=== PATIENT | female | born 1960 | race Caucasian/White ===

== ENCOUNTER → 2018-03-06 10:58 | Outpatient (CLI) | payer OTHER, SELFPAY ==
[2018-03-06 12:39] LABS: Alanine Aminotransferase 52 IU/L (9-52); Albumin 3.8 g/dL (3.5-5.0); Albumin Globulin Ratio 1.1 (1.0-2.8); Alkaline Phosphatase 91 U/L (38-126); Aspartate Aminotransferase 27 IU/L (14-36); Bilirubin Total 0.6 mg/dL (0.2-1.3); Blood Urea Nitrogen 21 mg/dL (7-17); Calcium 9.9 mg/dL (8.4-10.2); Carbon Dioxide 27 mmol/L (22-32); Chloride 102 mmol/L (98-107); Estimated Glomerular Filt Rate > 60.0 mL/min (>60); Globulin 3.5 g/dL (1.7-4.1); Glucose 280 mg/dL (70-100); HEMOLYSIS < 15 (0-50); Potassium 4.4 mmol/L (3.4-5.1); Sodium 139 mmol/L (137-145); Total Protein 7.3 g/dL (6.3-8.2)
[2018-03-06 13:14] LABS: Hemoglobin A1C% w Est Avg Glu 11.7 % (4.0-6.0)
[2018-03-06 15:08] LABS: Creatinine Urine Random 70.1 mg/dL
[2018-03-06 15:11] LABS: Microalbumin Urine Random 6.1 mg/dL (0-1.6)
== END ==
PROVIDERS: Family Provider Internal Medicine; PCP Internal Medicine; Visit Provider Internal Medicine
DX: E11.40 Type 2 diabetes mellitus with diabetic neuropathy, unspecified (principal)
CPT/HCPCS: 36415; 80053; 82043; 82570; 83036

== ENCOUNTER → 2018-06-09 09:52 | Outpatient (CLI) | payer OTHER, SELFPAY ==
[2018-06-09 10:20] LABS: Hemoglobin A1C% w Est Avg Glu 11.1 % (4.0-6.0)
[2018-06-09 10:31] LABS: BUN Creatinine Ratio 31.7 (6-22); Blood Urea Nitrogen 19 mg/dL (7-17); Calcium 9.9 mg/dL (8.4-10.2); Carbon Dioxide 30 mmol/L (22-32); Chloride 104 mmol/L (98-107); Estimated Glomerular Filt Rate > 60.0 mL/min (>60); Glucose 222 mg/dL (70-100); HEMOLYSIS < 15 (0-50); Potassium 4.5 mmol/L (3.4-5.1); Sodium 143 mmol/L (137-145)
== END ==
PROVIDERS: PCP Internal Medicine; Visit Provider Internal Medicine
DX: E11.40 Type 2 diabetes mellitus with diabetic neuropathy, unspecified (principal); I10 Essential (primary) hypertension
CPT/HCPCS: 36415; 80048; 83036

== ENCOUNTER 2018-09-19 11:35 | Inpatient (IN) | payer OTHER, SELFPAY ==
[2018-09-19] VITALS (11 sets, daily range): BP systolic 99–147; BP diastolic 43–74; PULSE 109–130; RESP 16–22; TEMP 37.1–38.9; O2SAT 90–96; BMI 47.6; BMI 50.5
--- NOTE | 2018-09-19 | DI.RAD.S_ITS ---
PROCEDURE: XR FOOT LT MIN 3V INDICATIONS: rule out osteo diabetic foot ulcer TECHNIQUE: 3 views of the foot were acquired. COMPARISON: None. FINDINGS: Bones: No fractures or dislocations. Partial amputation of the second toe. No bone erosion. Degenerative joint disease of the tarsometatarsal joints. Soft tissues: No tibiotalar joint effusion. Achilles tendon appears normal. IMPRESSION: No bony erosions. Early osteomyelitis may not have radiographic findings. If clinical symptoms persist or clinical suspicion for pathology is high, a triple phase bone scan or MRI with and without contrast is suggested for further evaluation. Dictated by: Dario Moreau M.D. on 09/19/2018 at 19:22 Approved by: Dario Moreau M.D. on 09/19/2018 at 19:23
--- NOTE | 2018-09-19 11:50 | DI.RAD.S_ITS ---
PROCEDURE: XR CHEST 1V INDICATIONS: suspected sepsis TECHNIQUE: One view of the chest was acquired. COMPARISON: [facility], , CHEST 2 VIEW, 10/21/2016, 12:31. FINDINGS: Surgical changes and devices: None. Lungs and pleura: No pleural effusions or pneumothorax. Lungs are clear. Mediastinum: Mediastinal contours appear normal. Heart size is normal. Bones and chest wall: No suspicious bony lesions. Overlying soft tissues appear unremarkable. IMPRESSION: Stable chest. No acute cardiopulmonary process is evident. Dictated by: Julio Hernandez M.D. on 09/19/2018 at 11:35 Approved by: Julio Hernandez M.D. on 09/19/2018 at 11:36
--- NOTE | 2018-09-19 12:13 | ED.WOUNDLAC ---
HPI - Wound/Laceration General Chief Complaint: Wound/Laceration Stated Complaint: 'owie on foot/leg' Time Seen by Provider: 09/19/18 12:11 Source: patient and family (Son) Limitations: no limitations History of Present Illness HPI narrative: This is a 58-year-old female who comes in with complaint of a wound on her left leg. She states there is 1 on the bottom of the foot under the great toe and on the anterior bradford of the left leg. Patient states the toe she was in the shower 2 days ago and when she got out the skin just exploded. She states there was not any new drainage but it has been open since. She states there has not been any increase of redness or change to the foot there. On her anterior bradford she has an open wounds been draining clear thin fluid. She states she saw Dr. Hobson for this on asked to go see wound care but they did not felt that she needed it. Patient states that the redness has increased somewhat. Today she has a fever, she did feel like she had a fever yesterday. She has felt a little short of breath today but denies any chest pain or pressure, she has not had any nausea or vomiting no new GI or urinary symptoms. She states she does urinate frequently. She states she does not have any sensation in her feet but that she does check her feet daily. She has been to wound care for her lower extremity before for the toe but not for the anterior bradford. Related Data Home Medications Medication Instructions Recorded Confirmed insulin glargine [Lantus U-100 90 unit SQ BID #0 08/28/11 09/19/18 Insulin] lisinopril 20 mg PO BID #0 08/28/11 09/19/18 diphenhydramine HCl [Benadryl] 25 mg PO PRN PRN 09/19/18 09/19/18 empagliflozin [Jardiance] 25 mg PO DAILY 09/19/18 09/19/18 fluticasone [Flonase Allergy 1 spray INTRANASAL PRN PRN 09/19/18 09/19/18 Relief] insulin glargine U-300 conc 160 units SUBCUT BID 09/19/18 09/19/18 [Toujeo SoloStar U-300 Insulin] Previous Rx's Medication Instructions Recorded epinephrine 0.3 mg IM X1 30 Days #0 syr 10/22/16 Allergies Allergy/AdvReac Type Severity Reaction Status Date / Time ibuprofen Allergy Severe VOMITING Verified 09/19/18 12:40 Penicillins Allergy Severe RASH, Verified 09/19/18 12:40 VOMITING Review of Systems Review of Systems All systems reviewed & are unremarkable except as noted in HPI and below Constitutional Denies chills, Reports fever(s), Denies lethargy and Denies weakness Cardiovascular Denies chest pain, Denies irregular heart rhythm, Denies lightheadedness, Denies palpitations, Reports dyspnea and Denies orthopnea Respiratory Denies chest congestion, Denies cough, Reports dyspnea and Denies wheezing Gastrointestinal Gastrointestinal: Denies abdominal pain, Denies change in bowel habits, Denies diarrhea, Denies nausea and Denies vomiting Genitourinary Reports urinary frequency (Chronic per the), Denies dysuria and Denies flank pain Musculoskeletal Reports as per HPI and Reports numbness (Chronic neuropathy) Integumentary/Breasts Reports as per HPI, Reports non-healing lesions, Reports erythema, Denies skin pain and Reports wounds Neurologic Reports numbness (Chronic neuropathy) and Denies weakness Endocrine Denies palpitations Allergic/Immunologic Denies wheezing [facility] Medical History Chronic wound of extremity (Acute) Diabetes mellitus, type 2 (Acute) Edema extremities (Acute) Hypertension (Acute) Osteomyelitis (Acute) Surgical History H/O section (Acute) Hx of appendectomy (Acute) Social History household members: spouse and children Smoking Status: Never smoker alcohol intake: never Exam Narrative Exam Narrative: GENERAL: Alert and oriented x three, obese female in mild distress. HEENT: Head normocephalic, atraumatic, EOMI, pupils reactive, face symmetric, moist mucous membranes NECK: Supple, full range of motion CARDIOVASCULAR: Tachycardic but regular rate and rhythm without murmurs, rubs or gallops. RESPIRATORY: Breath sounds equal bilaterally, no wheezes rales or rhonchi. ABDOMEN: Soft, nontender. Normoactive bowel sounds all 4 quadrants. No guarding or rebound, rigidity, no mass : No CVA tenderness EXTREMITIES: Normal range of motion, no clubbing. Patient has trace edema bilaterally. Patient's left lower extremity has some healed wounds with a little bit hyperkeratosis but no signs of skin breakdown. Her right lower extremity shows several small ulcerations on the anterior brafdord with serosanguineous drainage. There is no foul odor but there is a surrounding area of erythema that is about 6 x 8 cm. The area feels warm to touch. She also has breakdown of the skin over the pad of the great toe Um and distal 1st tarsal bone. It does not appear to be in the subcutaneous, there is no drainage currently. There is some erythema extending about 2 cm beyond. Patient does not have any some tenderness to touch in the lower extremities cap refill is less than 2 sec in both lower extremities. Neuro: CN 2-12 grossly intact. Moving all extremities SKIN: Warm, dry, no petechiae, see above Initial Vital Signs Initial Vital Signs: Vital Signs Temperature 102.1 F H 09/19/18 11:38 Pulse Rate 126 H 09/19/18 11:38 Respiratory Rate 22 09/19/18 11:38 Blood Pressure 143/72 H 09/19/18 11:38 Pulse Oximetry 96 09/19/18 11:38 Course Orders Ordered: ED Orders 09/19/18 11:48 Complete Blood Count AUTO DIFF Stat Comprehensive Metabolic Panel Stat Lactate (Lactic Acid) Stat Lipase Stat Partial Thromboplastin Time Stat Procalcitonin Stat Prothrombin Time INR Stat 09/19/18 11:50 XR chest 1V Stat 09/19/18 11:55 Urine Culture Stat Urine Microscopic Stat 09/19/18 12:49 Blood Culture Stat 09/19/18 13:42 EKG-12 Lead Stat 09/19/18 14:54 Education, smoking cessation ONGOING 09/19/18 15:55 MRSA PCR Stat 09/19/18 16:02 Consult to Wound Care Routine 09/20/18 16:30 Vancomycin Trough Urgent Acetaminophen (Tylenol) 650 mg PO Q6HR PRN PRN Reason: As Needed for Fever/Mild Pain Heparin Sodium (Porcine) (Heparin) 5,000 unit SUBCUT Q8HR BUSTER Last Admin: 09/19/18 17:32 Dose: 5,000 unit Sodium Chloride (Normal Saline 0.9%) 4,136.76 mls @ 1,378.92 mls/hr 30 ml/kg infuse over 3 hr (0686.76 ml) IV CONT [facility] [place] Last Infusion: 09/19/18 15:40 Dose: 0 mls/hr Admin: 09/19/18 13:06 Dose: 1,378.92 mls/hr Sodium Chloride (Normal Saline 0.9%) 1,000 mls @ 100 mls/hr IV CONT [facility] Last Admin: 09/19/18 15:40 Dose: 100 mls/hr Vancomycin HCl/Dextrose (Vancomycin) 1,000 mg in 200 mls @ 200 mls/hr IV Q8H [facility] Insulin Aspart (Novolog) 100 unit SUBCUT TIDWM BUSTER Last Admin: 09/19/18 17:32 Dose: 100 unit Insulin Glargine (Lantus (Vial)) 160 unit SUBCUT BID [facility] Ondansetron HCl (Zofran) 4 mg IV Q8HR PRN PRN Reason: Nausea And Vomiting Discontinued Medications Sodium Chloride (Normal Saline 0.9%) 1,000 mls @ 1,000 mls/hr IV BOLUS ONE Stop: 09/19/18 12:49 Last Infusion: 09/19/18 13:20 Dose: 0 mls/hr Admin: 09/19/18 12:16 Dose: 1,000 mls/hr Vancomycin HCl 1,500 mg/ (Sodium Chloride) 500 mls @ 333.333 mls/hr IV NOW ONE Stop: 09/19/18 12:13 Last Infusion: 09/19/18 14:32 Dose: 0 mls/hr Admin: 09/19/18 12:49 Dose: 333.333 mls/hr Ketorolac Tromethamine (Toradol) 15 mg IV NOW ONE Stop: 09/19/18 12:59 Last Admin: 09/19/18 13:01 Dose: 15 mg Mupirocin (Bactroban Cream) 1 applic TOP BID [facility] Vital Signs - 8 hr 09/19/18 11:38 09/19/18 12:13 09/19/18 13:01 Temperature 102.1 F H 102.1 F H Pulse Rate 126 H 124 H Respiratory Rate 22 20 Blood Pressure 143/72 H Blood Pressure [Left Arm] 130/53 L Pulse Oximetry 96 91 09/19/18 13:05 09/19/18 13:33 09/19/18 14:16 Temperature 100.8 F H Pulse Rate 112 H 109 H Respiratory Rate 19 19 Blood Pressure Blood Pressure [Left Arm] 144/50 H 99/43 L Pulse Oximetry 96 93 09/19/18 14:55 09/19/18 16:55 Temperature 99.7 F H 99.7 F H Pulse Rate 112 H 110 H Respiratory Rate 18 18 Blood Pressure 118/55 L 144/59 H Blood Pressure [Left Arm] Pulse Oximetry 94 93 MDM - Wound/Laceration Lab Data Attestation: I reviewed the patient's lab results. Result diagrams: 09/19/18 11:48 09/19/18 11:48 Lab Results 09/19/18 09/19/18 09/19/18 Range/Units 11:48 11:48 11:48 WBC 26.1 H (4.5-11.0) X10^3/uL RBC 4.63 (4.0-5.2) X10^6/uL Hgb 11.9 L (12.0-16.0) g/dL Hct 38.1 (36-46) % MCV 82.3 (80-100) fL MCH 25.7 L (26-34) PG MCHC 31.2 (30-36) % RDW 15.8 H (11.6-14.8) % Plt Count 440 H (150-400) X10^3/uL Neut % (Auto) 88.2 H (50-75) % Lymph % (Auto) 5.1 L (25-40) % [place] % (Auto) 6.1 (3-14) % Eos % (Auto) 0.2 L (2-4) % Baso % (Auto) 0.4 (0-2) % Neut # (Auto) 49488 H (1655-8769) /uL PT 11.9 (10.1-12.7) SECONDS INR 1.0 (0.9-1.3) APTT 32 (26.4-36.2) SECONDS Sodium (137-145) mmol/L Potassium (3.4-5.1) mmol/L Chloride (98-107) mmol/L Carbon Dioxide (22-32) mmol/L BUN (7-17) mg/dL Creatinine (0.52-1.04) mg/dL Estimated GFR (>60) mL/min BUN/Creatinine Ratio (6-22) Glucose (70-100) mg/dL Lactate (0.7-2.1) mmol/L Calcium (8.4-10.2) mg/dL Total Bilirubin (0.2-1.3) mg/dL AST (14-36) IU/L ALT (9-52) IU/L Alkaline Phosphatase (38-126) U/L Total Protein (6.3-8.2) g/dL Albumin (3.5-5.0) g/dL Globulin (1.7-4.1) g/dL Albumin/Globulin Ratio (1.0-2.8) Lipase (23-300) U/L Procalcitonin 0.12 (<0.5) ng/mL Urine RBC (0-5/HPF) Urine WBC (0-5/HPF) Ur Squamous Epith Cells Urine Bacteria (None) Urine Yeast (None) Ur Culture Indicated? Micro UA Comment 09/19/18 09/19/18 09/19/18 Range/Units 11:48 11:48 11:55 WBC (4.5-11.0) X10^3/uL RBC (4.0-5.2) X10^6/uL Hgb (12.0-16.0) g/dL Hct (36-46) % MCV (80-100) fL MCH (26-34) PG MCHC (30-36) % RDW (11.6-14.8) % Plt Count (150-400) X10^3/uL Neut % (Auto) (50-75) % Lymph % (Auto) (25-40) % [place] % (Auto) (3-14) % Eos % (Auto) (2-4) % Baso % (Auto) (0-2) % Neut # (Auto) (8786-5126) /uL PT (10.1-12.7) SECONDS INR (0.9-1.3) APTT (26.4-36.2) SECONDS Sodium 142 (137-145) mmol/L Potassium 4.6 (3.4-5.1) mmol/L Chloride 103 (98-107) mmol/L Carbon Dioxide 26 (22-32) mmol/L BUN 20 H (7-17) mg/dL Creatinine 0.80 (0.52-1.04) mg/dL Estimated GFR > 60.0 (>60) mL/min BUN/Creatinine Ratio 25.0 H (6-22) Glucose 278 H (70-100) mg/dL Lactate 1.7 (0.7-2.1) mmol/L Calcium 9.8 (8.4-10.2) mg/dL Total Bilirubin 0.7 (0.2-1.3) mg/dL AST 22 (14-36) IU/L ALT 30 (9-52) IU/L Alkaline Phosphatase 116 (38-126) U/L Total Protein 8.0 (6.3-8.2) g/dL Albumin 4.1 (3.5-5.0) g/dL Globulin 3.9 (1.7-4.1) g/dL Albumin/Globulin Ratio 1.1 (1.0-2.8) Lipase 79 (23-300) U/L Procalcitonin (<0.5) ng/mL Urine RBC None seen (0-5/HPF) Urine WBC 10-30/hpf H (0-5/HPF) Ur Squamous Epith Cells 1-5 /hpf Urine Bacteria Few (2-10) H (None) Urine Yeast 5-10/hpf H (None) Ur Culture Indicated? Specimen cultured Micro UA Comment Not Reportable Imaging Data Chest x-ray: Radiologist's impression: [address] [address] XRay Report Signed Patient: Zohra Winslow MR#: [id number] : 1960 Acct:[id number] Age/Sex: 58 / F Date of Service: 09/19/18 Loc: ED Accession Number: [id number] Procedure: XR chest 1V Ordering Provider: Key Ch D.O. PROCEDURE: XR CHEST 1V INDICATIONS: suspected sepsis TECHNIQUE: One view of the chest was acquired. COMPARISON: [facility], , CHEST 2 VIEW, 10/21/2016, 12:31. FINDINGS: Surgical changes and devices: None. Lungs and pleura: No pleural effusions or pneumothorax. Lungs are clear. Mediastinum: Mediastinal contours appear normal. Heart size is normal. Bones and chest wall: No suspicious bony lesions. Overlying soft tissues appear unremarkable. IMPRESSION: Stable chest. No acute cardiopulmonary process is evident. Dictated by: Julio Hernandez M.D. on 09/19/2018 at 11:35 Approved by: Julio Hernandez M.D. on 09/19/2018 at 11:36 ECG Data Attestation: I personally reviewed and interpreted this ECG as follows: MDM Narrative Medical decision making narrative: Patient admitted for sepsis secondary to cellulitis. Patient is febrile with a white count of 26, lactate is in normal range but patient is tachycardic and clearly meet septic criteria. I suspect her main source of infection is from her foot particular her anterior bradford. The wound was cultured. Spoke with Dr. rider who accepts but does ask for podiatry spoke with Orthopedic surgery which them in ID group works with and Dr. Campbell will follow with the patient. Patient did feel little short of breath as well so chest x-ray was ordered does not show any signs of infection or pulmonary edema. Lab work such as electrolytes and renal function appears fairly normal. Patient's heart rate is slowly improving with IV fluids at 30 cc/kilos rate. Patient is hyperglycemic but no signs of DKA. Patient was started on vancomycin, she has had issues with wound infections in the past and is unaware of any past history of jaundice. Critical Care Time Critical Care Time: Yes Total Critical Care Time: 60 Attestation: The high probability of a clinically significant, sudden or life threatening deterioration of the [cardiac] system(s) required my full and direct attention, intervention and personal management. The aggregate critical care time was [60] minutes. This time is in addition to time spent performing reported procedures but includes the following: [x] Data Review and interpretation [x] Patient assessment and monitoring of vital signs [x] Documentation [x] Medication orders and management Discharge Plan Departure Patient Disposition: Admitted As Inpatient Clinical Impression: Sepsis, Cellulitis of left leg, Leg wound, left Interventions: ED Discharge Assessment Last Done: 09/19/18 18:26 Admit Date/Time: 09/19/18 14:09 Admit Provider: Anita Nicolas
[2018-09-19 12:15] LABS: RBC Urine None Seen (0-5/HPF)
[2018-09-19] MEDS: SODIUM CHLORIDE 0.9% 1,000 ML 1000 ML IV (12:16)
[2018-09-19 12:22] LABS: Lactate (Lactic Acid) 1.7 mmol/L (0.7-2.1)
[2018-09-19 12:26] LABS: Add Manual Diff / Slide Review NO; Alanine Aminotransferase 30 IU/L (9-52); Albumin 4.1 g/dL (3.5-5.0); Albumin Globulin Ratio 1.1 (1.0-2.8); Alkaline Phosphatase 116 U/L (38-126); Aspartate Aminotransferase 22 IU/L (14-36); Basophils Percent Auto 0.4 % (0-2); Bilirubin Total 0.7 mg/dL (0.2-1.3); Blood Urea Nitrogen 20 mg/dL (7-17); Calcium 9.8 mg/dL (8.4-10.2); Carbon Dioxide 26 mmol/L (22-32); Chloride 103 mmol/L (98-107); Eosinophils Percent Auto 0.2 % (2-4); Estimated Glomerular Filt Rate > 60.0 mL/min (>60); Globulin 3.9 g/dL (1.7-4.1); Glucose 278 mg/dL (70-100); HEMOLYSIS 32 (0-50); Hematocrit 38.1 % (36-46); Hemoglobin 11.9 g/dL (12.0-16.0); Lipase 79 U/L (23-300); Lymphocytes Percent Auto 5.1 % (25-40); Mean Corpuscular HGB Conc 31.2 % (30-36); Mean Corpuscular Hemoglobin 25.7 PG (26-34); Mean Corpuscular Volume 82.3 fL (80-100); Monocytes Percent Auto 6.1 % (3-14); Neutrophils Absolute Auto 23000 /uL (1500-7000); Neutrophils Percent Auto 88.2 % (50-75); Platelet Count 440 X10^3/uL (150-400); Potassium 4.6 mmol/L (3.4-5.1); Prothrombin Time 11.9 SECONDS (10.1-12.7); Red Blood Cell Count 4.63 X10^6/uL (4.0-5.2); Red Cell Distribution Width 15.8 % (11.6-14.8); Sodium 142 mmol/L (137-145); White Blood Cell Count 26.1 X10^3/uL (4.5-11.0)
[2018-09-19 12:28] LABS: PTT Partial Thromboplastin Tim 32 SECONDS (26.4-36.2)
--- NOTE | 2018-09-19 12:39 | PC.NURSE ---
Second line attempted by two different RN's. Ultrasound guided IV being attempted.
[2018-09-19 12:44] LABS: Procalcitonin 0.12 ng/mL (<0.5)
[2018-09-19 12:45] LABS: Bacteria Urine Few (2-10); Culture Indicated Urine Specimen Cultured; Squamous Epithelial Cell Urine 1-5 /HPF; WBC Urine 10-30/HPF (0-5/HPF)
[2018-09-19] MEDS: VANCOMYCIN 1,500 MG in SODIUM CHLORIDE 0.9% 500 ML 333.333 ML IV (12:49)
[2018-09-19] MEDS: KETOROLAC 60 MG/2 ML VIAL 15 MG IV (13:01)
[2018-09-19] MEDS: SODIUM CHLORIDE 0.9% 1378.92 ML IV (13:06)
--- NOTE | 2018-09-19 13:57 | PM.HP.1 ---
History of Present Illness Date Patient Seen: 09/19/18 Chief complaint: Foot wound, left Narrative: Zohra Winslow is a 58-year-old female who presents to [facility] ED with complaints of a wound on her left leg. She reports that she was in the shower 2 days ago when she noticed her leg open up and started seeping. She also has a chronic wound on the bottom of the foot under the great toe and on the anterior bradford of the left leg. She denies any recent injury to her left leg which has been draining serosanguineous fluid. There is surrounding erythema which she denies worsening or spreading. She began having hot flashes and chills at home and decided she should come into the emergency department. She has felt a little short of breath today but denies any chest pain or pressure, she has not had any nausea or vomiting no new GI or urinary symptoms. She states she does urinate frequently. She states she does not have any sensation in her feet but that she does check her feet daily. She has been to wound care for her lower extremity before for the toe but not for the anterior bradford. Patient History Medical History Amputation of second toe, left, traumatic (Acute) Chronic wound of extremity (Acute) Diabetes mellitus, type 2 (Acute) Edema extremities (Acute) Hypertension (Acute) Osteomyelitis (Acute) Surgical History H/O section (Acute) Hx of appendectomy (Acute) Family & Social History Family History Mother No problems noted. Tobacco & Substance use: Smoking Status Never smoker alcohol intake frequency Does not drink Substance Use Type does not use Meds Home Medications Medication Instructions Recorded Confirmed Type insulin glargine [Lantus U-100 90 unit SQ BID #0 08/28/11 09/19/18 History Insulin] lisinopril 20 mg PO BID #0 08/28/11 09/19/18 History epinephrine 0.3 mg IM X1 30 Days #0 syr 10/22/16 09/19/18 Rx diphenhydramine HCl [Benadryl] 25 mg PO PRN PRN 09/19/18 09/19/18 History empagliflozin [Jardiance] 25 mg PO DAILY 09/19/18 09/19/18 History fluticasone [Flonase Allergy 1 spray INTRANASAL PRN PRN 09/19/18 09/19/18 History Relief] insulin glargine U-300 conc 160 units SUBCUT BID 09/19/18 09/19/18 History [Toujeo SoloStar U-300 Insulin] Allergies Allergy/AdvReac Type Severity Reaction Status Date / Time ibuprofen Allergy Severe VOMITING Verified 09/19/18 12:40 Penicillins Allergy Severe RASH, Verified 09/19/18 12:40 VOMITING Review of Systems Review of Systems A 10 system comprehensive review of systems was conducted with the patient and found to be negative except as above in the History of Present Illness. Exam Vital Signs (past 8 hours): - 09/19/18 11:38 09/19/18 12:13 09/19/18 13:01 Temperature 102.1 F H 102.1 F H Pulse Rate 126 H 124 H Respiratory Rate 22 20 Blood Pressure 143/72 H Blood Pressure [Left Arm] 130/53 L Pulse Oximetry 96 91 09/19/18 13:05 09/19/18 13:33 Temperature 100.8 F H Pulse Rate 112 H Respiratory Rate 19 Blood Pressure Blood Pressure [Left Arm] 144/50 H Pulse Oximetry 96 Oxygen Delivery Method Nasal Cannula Oxygen Flow Rate 2 Narrative Exam Narrative: General:Middle-aged morbidly obese female lying in bed and in no acute distress, well-developed, well-nourished, appropriately interactive HEENT: Normocephalic, atraumatic. External ears without defect. Pupils equal, round, and reactive to light. Anicteric sclerae, moist conjunctivae, and no lid lag. Oropharynx free of erythema and cobble stoning with moist mucosa. Neck: Supple with full range of motion. Possible thyromegaly versus lipoma. Cardiovascular: Regular rhythm, tachycardic, without murmurs, rubs, or gallops appreciated. Pulmonary: Clear to auscultation bilaterally without crackles, wheezes, or rhonchi. Normal respiratory effort with no use of accessory muscles. Abdomen: Bowel tones present. Soft, obese, nontender, nondistended. No hepatosplenomegaly or masses appreciated. Extremities: No cyanosis or clubbing. Right Charcot foot. Left foot wound dressed which is clean and dry. Left leg cellulitis with serosanguineous discharge, several small 1-2 cm circular lesions, erythema which is outlined and has not progressed past the outline. Neurological: Cranial nerves grossly intact. Known gait impairment and uses FWW. Psychiatric: Normal mood and affect. Alert and oriented to person, place, and time. Objective Labs Result Diagrams: 09/20/18 05:15 09/20/18 05:15 Labs: Laboratory Results - last 24 hr 09/19/18 09/19/18 09/19/18 11:48 11:48 11:48 WBC 26.1 H RBC 4.63 Hgb 11.9 L Hct 38.1 MCV 82.3 MCH 25.7 L MCHC 31.2 RDW 15.8 H Plt Count 440 H Neut % (Auto) 88.2 H Lymph % (Auto) 5.1 L [place] % (Auto) 6.1 Eos % (Auto) 0.2 L Baso % (Auto) 0.4 Neut # (Auto) 20166 H PT 11.9 INR 1.0 APTT 32 Sodium Potassium Chloride Carbon Dioxide BUN Creatinine Estimated GFR BUN/Creatinine Ratio Glucose Lactate Calcium Total Bilirubin AST ALT Alkaline Phosphatase Total Protein Albumin Globulin Albumin/Globulin Ratio Lipase Procalcitonin 0.12 Urine RBC Urine WBC Ur Squamous Epith Cells Urine Bacteria Urine Yeast Ur Culture Indicated? Micro UA Comment 09/19/18 09/19/18 09/19/18 11:48 11:48 11:55 WBC RBC Hgb Hct MCV MCH MCHC RDW Plt Count Neut % (Auto) Lymph % (Auto) [place] % (Auto) Eos % (Auto) Baso % (Auto) Neut # (Auto) PT INR APTT Sodium 142 Potassium 4.6 Chloride 103 Carbon Dioxide 26 BUN 20 H Creatinine 0.80 Estimated GFR > 60.0 BUN/Creatinine Ratio 25.0 H Glucose 278 H Lactate 1.7 Calcium 9.8 Total Bilirubin 0.7 AST 22 ALT 30 Alkaline Phosphatase 116 Total Protein 8.0 Albumin 4.1 Globulin 3.9 Albumin/Globulin Ratio 1.1 Lipase 79 Procalcitonin Urine RBC None seen Urine WBC 10-30/hpf H Ur Squamous Epith Cells 1-5 /hpf Urine Bacteria Few (2-10) H Urine Yeast 5-10/hpf H Ur Culture Indicated? Specimen cultured Micro UA Comment Not Reportable Assessment & Plan Plan: Assessment/Plan Narrative: 1. Acute sepsis, present on admission. Active. -Patient presented febrile, tachycardic, with a marked leukocytosis and source of left lower extremity cellulitis. -Early goal-directed therapy with med including: IV antibiotics and IV fluids.\ 2. Acute purulent cellulitis of left lower extremity, present on admission. Active. -Patient was started on vancomycin in the ED. Plan to continue until identification and sensitivities result from wound culture. 3. Acute on chronic left diabetic foot ulcer, present on admission. Active. -The patient has a history of osteomyelitis of her left foot with resultant amputation of her 2nd toe. Current wound appears to be superficial and unlikely an abscess. -ED has consulted Podiatry and we appreciate their recommendations and will defer imaging of foot to Podiatry. -Wound culture sent by ED physician. -Ordered wound care consultation, pending. 4. Diabetes mellitus type 2, insulin using, present on admission. Presume stable. -Continue home insulin regimen which includes: Insulin glargine 160 units b.i.d. and NovoLog 100 mg t.i.d. with meals. -Previous hemoglobin A1c 11% in May per patient. Ordered hemoglobin A1c, pending. 5. Hypertension, present on admission. Stable. -Continue lisinopril 20 mg b.i.d. 6. Morbid obesity, present on admission. Active. -BMI 50.6. -Ordered dietitian/nutrition consult, pending. -Counseled the patient in depth regarding diet. Patient is admitted under inpatient status with expected length of stay greater than 2 midnights due to severity of presenting symptoms, risk of adverse event, and complexity of treatment plan.
[2018-09-19] MEDS: SODIUM CHLORIDE 0.9% 1,000 ML 100 ML IV (15:40)
--- NOTE | 2018-09-19 16:14 | PC.NURSE ---
Pt admission completed. MD in to see patient. MRSA swab obtained. Pt/son oriented to room/call light. Denies pain. IV fluids infusing to left AC iv. Bed alarm on.
[2018-09-19] MEDS: INSULIN ASPART 100 UNIT/ML 10ML VIAL SUBCUT (17:32)
[2018-09-19] MEDS: HEPARIN 5,000 UNIT/ML VIAL 5000 UNIT SUBCUT ×2 (17:32→23:08)
--- NOTE | 2018-09-19 18:25 | P.CONS_ITS ---
History of Present Illness Date Patient Seen: 09/19/18 Time Patient Seen: 18:24 Chief complaint: 'owie on foot/leg' Reason for consult: Rule out deep infection, diabetic foot ulcer left foot, leg cellulitis bila Requesting provider: Key Ch Narrative: This is a 58-year-old morbidly obese female with a longstanding history of diabetes and bilateral peripheral neuropathy who came to the emergency room for evaluation of bilateral legs. She has had some problems in the past with wounds and has been followed in the Wound Clinic. She notes that she had some drainage from her left foot when she showered recently. She also notes some mild fevers and chills. [facility] Medical History Chronic wound of extremity (Acute) Diabetes mellitus, type 2 (Acute) Edema extremities (Acute) Hypertension (Acute) Osteomyelitis (Acute) Surgical History H/O section (Acute) Hx of appendectomy (Acute) Social History household members: spouse and children Smoking Status: Never smoker alcohol intake: never Meds Home Medications Medication Instructions Recorded Confirmed Type insulin glargine [Lantus U-100 90 unit SQ BID #0 08/28/11 09/19/18 History Insulin] lisinopril 20 mg PO BID #0 08/28/11 09/19/18 History epinephrine 0.3 mg IM X1 30 Days #0 syr 10/22/16 09/19/18 Rx diphenhydramine HCl [Benadryl] 25 mg PO PRN PRN 09/19/18 09/19/18 History empagliflozin [Jardiance] 25 mg PO DAILY 09/19/18 09/19/18 History fluticasone [Flonase Allergy 1 spray INTRANASAL PRN PRN 09/19/18 09/19/18 History Relief] insulin glargine U-300 conc 160 units SUBCUT BID 09/19/18 09/19/18 History [Toujeo SoloStar U-300 Insulin] Allergies Allergy/AdvReac Type Severity Reaction Status Date / Time ibuprofen Allergy Severe VOMITING Verified 09/19/18 12:40 Penicillins Allergy Severe RASH, Verified 09/19/18 12:40 VOMITING Review of Systems Review of Systems She notes that her sugars have been a little worse recently, she has had some fevers and chills, she denies any recent urological symptoms, she notes that she uses a wheelchair to ambulate and the abrasions on her legs are related to bumping into her wheelchair. Exam Vital Signs (past 8 hours): - 09/19/18 11:38 09/19/18 12:13 09/19/18 13:01 Temperature 102.1 F H 102.1 F H Pulse Rate 126 H 124 H Respiratory Rate 22 20 Blood Pressure 143/72 H Blood Pressure [Left Arm] 130/53 L Pulse Oximetry 96 91 09/19/18 13:05 09/19/18 13:33 09/19/18 14:16 Temperature 100.8 F H Pulse Rate 112 H 109 H Respiratory Rate 19 19 Blood Pressure Blood Pressure [Left Arm] 144/50 H 99/43 L Pulse Oximetry 96 93 09/19/18 14:55 09/19/18 16:55 Temperature 99.7 F H 99.7 F H Pulse Rate 112 H 110 H Respiratory Rate 18 18 Blood Pressure 118/55 L 144/59 H Blood Pressure [Left Arm] Pulse Oximetry 94 93 Oxygen Delivery Method Room Air Oxygen Flow Rate 2 Narrative Exam Narrative: HEENT is benign, she is sitting up eating dinner and appears to be in no acute distress, she is alert and oriented, lungs are clear, cor regular rate and rhythm, abdomen is markedly obese but benign, her right lower extremity is remarkable for relative collapse of the right midfoot consistent with probable Charcot foot deformity, she has some small abrasions on the anterior aspect of the right leg with generalized mild erythema over the right bradford, the left leg shows multiple abrasions over the anterior aspect of the leg and pretibial area, there is bilateral lymphedema, there is no obvious palpable fluctuance or suggestions of a deep abscess clinically, the left foot there is an ulcer underneath the MTP joint of the great toe she has some full-thickness skin loss but there is no exposed bone, there is mild erythema, there is minimal pain with range of motion of the MTP joint and there is no exposed tendon or deep tissues. Objective Labs Result Diagrams: 09/19/18 11:48 09/19/18 11:48 Labs: Laboratory Results - last 24 hr 09/19/18 09/19/18 09/19/18 11:48 11:48 11:48 WBC 26.1 H RBC 4.63 Hgb 11.9 L Hct 38.1 MCV 82.3 MCH 25.7 L MCHC 31.2 RDW 15.8 H Plt Count 440 H Neut % (Auto) 88.2 H Lymph % (Auto) 5.1 L Josephine % (Auto) 6.1 Eos % (Auto) 0.2 L Baso % (Auto) 0.4 Neut # (Auto) 68142 H PT 11.9 INR 1.0 APTT 32 Sodium Potassium Chloride Carbon Dioxide BUN Creatinine Estimated GFR BUN/Creatinine Ratio Glucose Lactate Calcium Total Bilirubin AST ALT Alkaline Phosphatase Total Protein Albumin Globulin Albumin/Globulin Ratio Lipase Procalcitonin 0.12 Urine RBC Urine WBC Ur Squamous Epith Cells Urine Bacteria Urine Yeast Ur Culture Indicated? Micro UA Comment 09/19/18 09/19/18 09/19/18 11:48 11:48 11:55 WBC RBC Hgb Hct MCV MCH MCHC RDW Plt Count Neut % (Auto) Lymph % (Auto) Josephine % (Auto) Eos % (Auto) Baso % (Auto) Neut # (Auto) PT INR APTT Sodium 142 Potassium 4.6 Chloride 103 Carbon Dioxide 26 BUN 20 H Creatinine 0.80 Estimated GFR > 60.0 BUN/Creatinine Ratio 25.0 H Glucose 278 H Lactate 1.7 Calcium 9.8 Total Bilirubin 0.7 AST 22 ALT 30 Alkaline Phosphatase 116 Total Protein 8.0 Albumin 4.1 Globulin 3.9 Albumin/Globulin Ratio 1.1 Lipase 79 Procalcitonin Urine RBC None seen Urine WBC 10-30/hpf H Ur Squamous Epith Cells 1-5 /hpf Urine Bacteria Few (2-10) H Urine Yeast 5-10/hpf H Ur Culture Indicated? Specimen cultured Micro UA Comment Not Reportable Assessment & Plan Plan: Assessment/Plan Narrative: She clearly has a left diabetic foot ulcer. Her clinical exam does not suggest a deep abscess. I have recommended x-rays of her left foot. She has significant cellulitis in bilateral lower extremities and a marked leukocytosis and markedly elevated sugars. I think she clearly needs inpatient treatment including IV antibiotics hydration and treatment for her cellulitis. We will work on getting her appropriate shoe wear so that she is not weight-bearing through her left foot MTP joint in order to allow her diabetic foot ulcer to heal. I have also recommended consultation with the wound clinic.
--- NOTE | 2018-09-19 18:25 | PC.NURSE ---
Normal Saline was infusing upon patient transfer at 1442 to the floor. There was 200mL left in the second bag of normal saline at time of transfer.
[2018-09-19] MEDS: levoFLOXacin 750 MG/150 ML PIGGYBACK 100 MG IV (19:57)
[2018-09-19] MEDS: VANCOMYCIN 1,000 MG/200 ML FROZ.PIGGY 200 MG IV (21:50)
[2018-09-19] MEDS: ACETAMINOPHEN 325 MG TABLET 650 MG PO (23:09)
[2018-09-20] VITALS (14 sets, daily range): BP systolic 105–147; BP diastolic 46–75; PULSE 101–128; RESP 15–18; TEMP 37–38.7; O2SAT 72–97
[2018-09-20] MEDS: SODIUM CHLORIDE 0.9% 1,000 ML 100 ML IV ×2 (05:08→18:38)
[2018-09-20] MEDS: VANCOMYCIN 1,000 MG/200 ML FROZ.PIGGY 200 MG IV ×2 (05:08→14:17)
[2018-09-20 06:11] LABS: Add Manual Diff / Slide Review NO; Basophils Percent Auto 0.6 % (0-2); Eosinophils Percent Auto 0.9 % (2-4); Hemoglobin 10.4 g/dL (12.0-16.0); Lymphocytes Percent Auto 6.2 % (25-40); Mean Corpuscular HGB Conc 30.5 % (30-36); Mean Corpuscular Hemoglobin 25.2 PG (26-34); Mean Corpuscular Volume 82.7 fL (80-100); Monocytes Percent Auto 5.2 % (3-14); Neutrophils Absolute Auto 17600 /uL (1500-7000); Neutrophils Percent Auto 87.1 % (50-75); Platelet Count 363 X10^3/uL (150-400); Red Blood Cell Count 4.11 X10^6/uL (4.0-5.2); Red Cell Distribution Width 15.9 % (11.6-14.8); White Blood Cell Count 20.2 X10^3/uL (4.5-11.0)
[2018-09-20] MEDS: HEPARIN 5,000 UNIT/ML VIAL 5000 UNIT SUBCUT ×3 (06:34→21:54)
[2018-09-20 06:41] LABS: Alanine Aminotransferase 20 IU/L (9-52); Albumin 3.5 g/dL (3.5-5.0); Alkaline Phosphatase 97 U/L (38-126); Aspartate Aminotransferase 14 IU/L (14-36); BUN Creatinine Ratio 22.2 (6-22); Bilirubin Total 0.7 mg/dL (0.2-1.3); Blood Urea Nitrogen 20 mg/dL (7-17); Carbon Dioxide 26 mmol/L (22-32); Chloride 104 mmol/L (98-107); Estimated Glomerular Filt Rate > 60.0 mL/min (>60); Globulin 3.5 g/dL (1.7-4.1); Glucose 201 mg/dL (70-100); HEMOLYSIS < 15 (0-50); Potassium 4.1 mmol/L (3.4-5.1); Sodium 140 mmol/L (137-145)
[2018-09-20 06:57] LABS: Thyroid Stimulating Hormone 1.83 uIU/mL (0.47-4.68)
[2018-09-20 07:58] LABS: Procalcitonin < 0.05 ng/mL (<0.5)
[2018-09-20] MEDS: ACETAMINOPHEN 325 MG TABLET 650 MG PO ×2 (08:13→19:14)
[2018-09-20] MEDS: INSULIN ASPART 100 UNIT/ML 10ML VIAL SUBCUT ×3 (08:56→17:07)
[2018-09-20] MEDS: INSULIN GLARGINE 100 UNIT/ML 10ML VIAL 160 UNIT SUBCUT ×2 (09:02→21:54)
--- NOTE | 2018-09-20 10:56 | CM.DANOTE ---
DCP: Case received, checked in on patient. Name placed on white board in room. DCP template completed with information currently available, as well as from son, Girish, and , Mohamud. Patient is a 58 year old female who admitted yesterday afternoon to the care of the hospitalist team. PCP: Dr. Hobson. Payer: confirmed: [employer]. Patient came to hospital via family vehicle due to redness and pain, secondary to a Diabetic wound ulcer. Patient has history of cellulitis, is morbidly obese, and diabetic with unstable blood sugars. Lives at home with a disabled daughter, , and other family members. Son, Girish, was able to give information about patient, for she was sleeping. Patient lives with , and his name is Mohamud. His phone number is: [phone]. He does not think that she has a POA. Patient has also been seen at the wound clinic as well. According to family, patient is mostly in her wheel-chair at home, but has a walker. Stated that she is stubborn about her diet, and not wanting to get much exercise. Hospitalist will be putting in a dietary consult. Patient has been driving as well. P: DCP to continue to follow. May benefit from home health nursing visits for wound care if unable to get to wound clinic. Carey Davidson RN/Export Packer
--- NOTE | 2018-09-20 11:10 | PC.NURSE ---
AM NOTE -pt is up to dangle for breakfast, discussed insulin requirements and pt does do novalog 100units tid and also long acting, her usual dose is 100u and prefers that to the 160 lantus now, states pain lle is 10 and req tylenol, given 650mg po now and advised pt to elev le, bs dim, clear, ra 92%, later am wound clinic in and le open areas were dressed with telfa, also dsg applied to plantar aspect l foot. LLE red to previous markings, edema and warm to touch.
--- NOTE | 2018-09-20 11:29 | PM.CN ---
History of Present Illness Date Patient Seen: 09/20/18 Time Patient Seen: 09:30 Chief complaint: Foot wound, left Reason for consult: Assess for shoe gear and ambulation while treating foot/leg wounds Requesting provider: Casandra Campbell Narrative: 58-year-old diabetic female was seen in the ED and placed inpatient for onset of wound to the left leg and bottom of the left foot. 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 Historically she has had bone infection and amputation with Dr. Grewal, purchasing manager/sales, of the tip of the left 2nd toe but has not seen him in a number of years. She also relates to having seen the wound care clinic and this was when it was with Dr. Manning, which would have been at least 4 years ago. [facility] Medical History Amputation of second toe, left, traumatic (Acute) Chronic wound of extremity (Acute) Diabetes mellitus, type 2 (Acute) Edema extremities (Acute) Hypertension (Acute) Osteomyelitis (Acute) Surgical History H/O section (Acute) Hx of appendectomy (Acute) Family History Mother No problems noted. Social History household members: spouse and children Smoking Status: Never smoker alcohol intake: never Meds Home Medications Medication Instructions Recorded Confirmed Type insulin glargine [Lantus U-100 90 unit SQ BID #0 08/28/11 09/19/18 History Insulin] lisinopril 20 mg PO BID #0 08/28/11 09/19/18 History epinephrine 0.3 mg IM X1 30 Days #0 syr 10/22/16 09/19/18 Rx diphenhydramine HCl [Benadryl] 25 mg PO PRN PRN 09/19/18 09/19/18 History empagliflozin [Jardiance] 25 mg PO DAILY 09/19/18 09/19/18 History fluticasone [Flonase Allergy 1 spray INTRANASAL PRN PRN 09/19/18 09/19/18 History Relief] insulin glargine U-300 conc 160 units SUBCUT BID 09/19/18 09/19/18 History [Toujeo SoloStar U-300 Insulin] Allergies Allergy/AdvReac Type Severity Reaction Status Date / Time ibuprofen Allergy Severe VOMITING Verified 09/19/18 12:40 Penicillins Allergy Severe RASH, Verified 09/19/18 12:40 VOMITING Review of Systems Review of Systems as per HPI. Exam Vital Signs (past 8 hours): - 09/20/18 04:14 09/20/18 07:40 09/20/18 08:45 Temperature 98.6 F Pulse Rate 121 H 128 H Respiratory Rate 16 18 Blood Pressure 121/67 147/69 H Pulse Oximetry 97 91 92 09/20/18 09:55 Temperature 99.0 F Pulse Rate Respiratory Rate Blood Pressure Pulse Oximetry Oxygen Delivery Method Room Air Oxygen Flow Rate 0 Const General: cooperative Nutritional Appearance: obese Orientation: alert, awake and oriented x3 Resp Effort & Inspection: normal respiratory effort Cardio Pulses: dorsalis pedis present bilaterally Neuro Sensory Exam: lower extremity bilateral light-touch abnormal in a stocking distribution, absent and other Extrem Other: Right leg 1+ pitting edema with scarring on the anterior bradford consistent with previous venous breakdown. Ft shows no wounds on the right. Left leg shows breakdown with abrasions and weeping on the pretibial location. 1+ pitting edema. Sensation is lost for the most part to the feet and ankles bilaterally. The ft structure is showing a prominent dorsal midfoot with a plantar flexed 1st ray on the left. First metatarsal head plantar corner sized full-thickness ulceration with a fibrous center. It is about 1 mm in depth and does not have any tendon or bone exposure. No erythema. Digital contractures are only semi reducible to the toes 1 through 5 on the left and on range of motion there is no crepitus. No specific edema noted to the 1st MTPJ. Sec toe tip is absent with what appears to be prior partial amputation. Capillary refill time is immediate. No wounds to the heel or posterior calf. Objective Imaging foot: My impression: Three views of the left foot nonweightbearing taken on 09/19/2018 show no acute cortical disruptions. Degenerative changes noted to the talonavicular navicular cuneiform and 1st metatarsal cuneiform joint. Plantar flexed 1st ray and infracalcaneal heel spur present. Loss of the 2nd toe at the level of the distal proximal phalanx. Labs Result Diagrams: 09/20/18 05:15 09/20/18 05:15 Labs: Laboratory Results - last 24 hr 09/19/18 09/19/18 09/19/18 11:48 11:48 11:48 WBC 26.1 H RBC 4.63 Hgb 11.9 L Hct 38.1 MCV 82.3 MCH 25.7 L MCHC 31.2 RDW 15.8 H Plt Count 440 H Neut % (Auto) 88.2 H Lymph % (Auto) 5.1 L Ponce % (Auto) 6.1 Eos % (Auto) 0.2 L Baso % (Auto) 0.4 Neut # (Auto) 41851 H PT 11.9 INR 1.0 APTT 32 Sodium Potassium Chloride Carbon Dioxide BUN Creatinine Estimated GFR BUN/Creatinine Ratio Glucose Hemoglobin A1c Lactate Calcium Magnesium Total Bilirubin AST ALT Alkaline Phosphatase Total Protein Albumin Globulin Albumin/Globulin Ratio Lipase Procalcitonin 0.12 TSH Urine RBC Urine WBC Ur Squamous Epith Cells Urine Bacteria Urine Yeast Ur Culture Indicated? Micro UA Comment Nasal Screen MRSA (PCR) 09/19/18 09/19/18 09/19/18 11:48 11:48 11:55 WBC RBC Hgb Hct MCV MCH MCHC RDW Plt Count Neut % (Auto) Lymph % (Auto) Ponce % (Auto) Eos % (Auto) Baso % (Auto) Neut # (Auto) PT INR APTT Sodium 142 Potassium 4.6 Chloride 103 Carbon Dioxide 26 BUN 20 H Creatinine 0.80 Estimated GFR > 60.0 BUN/Creatinine Ratio 25.0 H Glucose 278 H Hemoglobin A1c Lactate 1.7 Calcium 9.8 Magnesium Total Bilirubin 0.7 AST 22 ALT 30 Alkaline Phosphatase 116 Total Protein 8.0 Albumin 4.1 Globulin 3.9 Albumin/Globulin Ratio 1.1 Lipase 79 Procalcitonin TSH Urine RBC None seen Urine WBC 10-30/hpf H Ur Squamous Epith Cells 1-5 /hpf Urine Bacteria Few (2-10) H Urine Yeast 5-10/hpf H Ur Culture Indicated? Specimen cultured Micro UA Comment Not Reportable Nasal Screen MRSA (PCR) 09/19/18 09/20/18 09/20/18 15:55 05:15 05:15 WBC 20.2 H RBC 4.11 Hgb 10.4 L Hct 34.0 L MCV 82.7 MCH 25.2 L MCHC 30.5 RDW 15.9 H Plt Count 363 Neut % (Auto) 87.1 H Lymph % (Auto) 6.2 L Ponce % (Auto) 5.2 Eos % (Auto) 0.9 L Baso % (Auto) 0.6 Neut # (Auto) 48958 H PT INR APTT Sodium Potassium Chloride Carbon Dioxide BUN Creatinine Estimated GFR BUN/Creatinine Ratio Glucose Hemoglobin A1c 11.0 H Lactate Calcium Magnesium Total Bilirubin AST ALT Alkaline Phosphatase Total Protein Albumin Globulin Albumin/Globulin Ratio Lipase Procalcitonin TSH Urine RBC Urine WBC Ur Squamous Epith Cells Urine Bacteria Urine Yeast Ur Culture Indicated? Micro UA Comment Nasal Screen MRSA (PCR) Negative for mrsa 09/20/18 09/20/18 09/20/18 05:15 05:15 05:15 WBC RBC Hgb Hct MCV MCH MCHC RDW Plt Count Neut % (Auto) Lymph % (Auto) Ponce % (Auto) Eos % (Auto) Baso % (Auto) Neut # (Auto) PT INR APTT Sodium 140 Potassium 4.1 Chloride 104 Carbon Dioxide 26 BUN 20 H Creatinine 0.90 Estimated GFR > 60.0 BUN/Creatinine Ratio 22.2 H Glucose 201 H Hemoglobin A1c Lactate Calcium 9.0 Magnesium 2.0 Total Bilirubin 0.7 AST 14 ALT 20 Alkaline Phosphatase 97 Total Protein 7.0 Albumin 3.5 Globulin 3.5 Albumin/Globulin Ratio 1.0 Lipase Procalcitonin < 0.05 TSH 1.83 Urine RBC Urine WBC Ur Squamous Epith Cells Urine Bacteria Urine Yeast Ur Culture Indicated? Micro UA Comment Nasal Screen MRSA (PCR) Assessment & Plan (1) Leg wound, left: Problem details: Wound to the plantar 1st metatarsal head appears to be separate then the cellulitic appearance of the leg. For initial option on ambulation I would consider an eye pus or wedge type of shoe if physical therapy feels that she can adequately ambulate in this safely. She has had diabetic insoles and shoes in the past and this is what she truly needs but it is difficult to get in her current inpatient setting. I reviewed this with her and suggest that this began to be worked on with wound care upon her discharge or with her primary care physician. I am happy to write the prescription for her but she needs to be in outpatient be able to get this started. Wound does not appear surgical at this time and suggest accommodative care while she heals including gauze or foam padding and daily cleaning. Appreciate wound care consult as well which appears to be pending. Qualifiers: Encounter type: Current visit: Yes Status: Acute (2) Cellulitis of left leg: Problem details: She is currently receiving IV antibiotics including levofloxacin and vancomycin. Eventually control of this with the use of compression stockings will be helpful. She states that she has been using the same compressive agricultural equipment design engineer stockings since she was seen in wound care which has been years. I explained that we will look to see if we have an updated set available for her and request will be made through physical therapy. As an outpatient, I would suggest a prescription for the use of below knee compression stockings. If she is unable to get that because of lingering wounds, a consideration for possible Unna boot application on a weekly basis is warranted. Current visit: Yes Status: Acute Plan: Assessment/Plan Narrative: Thank you for the opportunity to participate in her care. Time Spent With Patient Time with patient: 25 - 35 minutes
--- NOTE | 2018-09-20 11:50 | P.CONS_ITS ---
History of Present Illness Date Patient Seen: 09/20/18 Time Patient Seen: 09:30 Chief complaint: Foot wound, left Reason for consult: Assess for shoe gear and ambulation while treating foot/leg wounds Requesting provider: Casandra Campbell Narrative: 58-year-old diabetic female was seen in the ED and placed inpatient for onset of wound to the left leg and bottom of the left foot. She usually wears a compression process improvement analyst stocking and noticed that she was taking a shower and saw a callus come off the bottom of her foot at the same time she noticed redness in the leg and is currently being treated with IV antibiotics for the cellulitis. Historically she has had bone infection and amputation with Dr. Grewal, furniture builder, of the tip of the left 2nd toe but has not seen him in a number of years. She also relates to having seen the wound care clinic and this was when it was with Dr. Manning, which would have been at least 4 years ago. [facility] Medical History Amputation of second toe, left, traumatic (Acute) Chronic wound of extremity (Acute) Diabetes mellitus, type 2 (Acute) Edema extremities (Acute) Hypertension (Acute) Osteomyelitis (Acute) Surgical History H/O section (Acute) Hx of appendectomy (Acute) Family History Mother No problems noted. Social History household members: spouse and children Smoking Status: Never smoker alcohol intake: never Meds Home Medications Medication Instructions Recorded Confirmed Type insulin glargine [Lantus U-100 90 unit SQ BID #0 08/28/11 09/19/18 History Insulin] lisinopril 20 mg PO BID #0 08/28/11 09/19/18 History epinephrine 0.3 mg IM X1 30 Days #0 syr 10/22/16 09/19/18 Rx diphenhydramine HCl [Benadryl] 25 mg PO PRN PRN 09/19/18 09/19/18 History empagliflozin [Jardiance] 25 mg PO DAILY 09/19/18 09/19/18 History fluticasone [Flonase Allergy 1 spray INTRANASAL PRN PRN 09/19/18 09/19/18 History Relief] insulin glargine U-300 conc 160 units SUBCUT BID 09/19/18 09/19/18 History [Toujeo SoloStar U-300 Insulin] Allergies Allergy/AdvReac Type Severity Reaction Status Date / Time ibuprofen Allergy Severe VOMITING Verified 09/19/18 12:40 Penicillins Allergy Severe RASH, Verified 09/19/18 12:40 VOMITING Review of Systems Review of Systems as per HPI. Exam Vital Signs (past 8 hours): - 09/20/18 04:14 09/20/18 07:40 09/20/18 08:45 Temperature 98.6 F Pulse Rate 121 H 128 H Respiratory Rate 16 18 Blood Pressure 121/67 147/69 H Pulse Oximetry 97 91 92 09/20/18 09:55 Temperature 99.0 F Pulse Rate Respiratory Rate Blood Pressure Pulse Oximetry Oxygen Delivery Method Room Air Oxygen Flow Rate 0 Const General: cooperative Nutritional Appearance: obese Orientation: alert, awake and oriented x3 Resp Effort & Inspection: normal respiratory effort Cardio Pulses: dorsalis pedis present bilaterally Neuro Sensory Exam: lower extremity bilateral light-touch abnormal in a stocking distribution, absent and other Extrem Other: Right leg 1+ pitting edema with scarring on the anterior bradford consistent with previous venous breakdown. Ft shows no wounds on the right. Left leg shows breakdown with abrasions and weeping on the pretibial location. 1+ pitting edema. Sensation is lost for the most part to the feet and ankles bilaterally. The ft structure is showing a prominent dorsal midfoot with a plantar flexed 1st ray on the left. First metatarsal head plantar corner sized full-thickness ulceration with a fibrous center. It is about 1 mm in depth and does not have any tendon or bone exposure. No erythema. Digital contractures are only semi reducible to the toes 1 through 5 on the left and on range of motion there is no crepitus. No specific edema noted to the 1st MTPJ. Sec toe tip is absent with what appears to be prior partial amputation. Capillary refill time is immediate. No wounds to the heel or posterior calf. Objective Imaging foot: My impression: Three views of the left foot nonweightbearing taken on show no acute cortical disruptions. Degenerative changes noted to the talonavicular navicular cuneiform and 1st metatarsal cuneiform joint. Plantar flexed 1st ray and infracalcaneal heel spur present. Loss of the 2nd toe at the level of the distal proximal phalanx. Labs Result Diagrams: 09/20/18 05:15 09/20/18 05:15 Labs: Laboratory Results - last 24 hr 09/19/18 09/19/18 09/19/18 11:48 11:48 11:48 WBC 26.1 H RBC 4.63 Hgb 11.9 L Hct 38.1 MCV 82.3 MCH 25.7 L MCHC 31.2 RDW 15.8 H Plt Count 440 H Neut % (Auto) 88.2 H Lymph % (Auto) 5.1 L [place] % (Auto) 6.1 Eos % (Auto) 0.2 L Baso % (Auto) 0.4 Neut # (Auto) 62275 H PT 11.9 INR 1.0 APTT 32 Sodium Potassium Chloride Carbon Dioxide BUN Creatinine Estimated GFR BUN/Creatinine Ratio Glucose Hemoglobin A1c Lactate Calcium Magnesium Total Bilirubin AST ALT Alkaline Phosphatase Total Protein Albumin Globulin Albumin/Globulin Ratio Lipase Procalcitonin 0.12 TSH Urine RBC Urine WBC Ur Squamous Epith Cells Urine Bacteria Urine Yeast Ur Culture Indicated? Micro UA Comment Nasal Screen MRSA (PCR) 09/19/18 09/19/18 09/19/18 11:48 11:48 11:55 WBC RBC Hgb Hct MCV MCH MCHC RDW Plt Count Neut % (Auto) Lymph % (Auto) Divide % (Auto) Eos % (Auto) Baso % (Auto) Neut # (Auto) PT INR APTT Sodium 142 Potassium 4.6 Chloride 103 Carbon Dioxide 26 BUN 20 H Creatinine 0.80 Estimated GFR > 60.0 BUN/Creatinine Ratio 25.0 H Glucose 278 H Hemoglobin A1c Lactate 1.7 Calcium 9.8 Magnesium Total Bilirubin 0.7 AST 22 ALT 30 Alkaline Phosphatase 116 Total Protein 8.0 Albumin 4.1 Globulin 3.9 Albumin/Globulin Ratio 1.1 Lipase 79 Procalcitonin TSH Urine RBC None seen Urine WBC 10-30/hpf H Ur Squamous Epith Cells 1-5 /hpf Urine Bacteria Few (2-10) H Urine Yeast 5-10/hpf H Ur Culture Indicated? Specimen cultured Micro UA Comment Not Reportable Nasal Screen MRSA (PCR) 09/19/18 09/20/18 09/20/18 15:55 05:15 05:15 WBC 20.2 H RBC 4.11 Hgb 10.4 L Hct 34.0 L MCV 82.7 MCH 25.2 L MCHC 30.5 RDW 15.9 H Plt Count 363 Neut % (Auto) 87.1 H Lymph % (Auto) 6.2 L [place] % (Auto) 5.2 Eos % (Auto) 0.9 L Baso % (Auto) 0.6 Neut # (Auto) 07869 H PT INR APTT Sodium Potassium Chloride Carbon Dioxide BUN Creatinine Estimated GFR BUN/Creatinine Ratio Glucose Hemoglobin A1c 11.0 H Lactate Calcium Magnesium Total Bilirubin AST ALT Alkaline Phosphatase Total Protein Albumin Globulin Albumin/Globulin Ratio Lipase Procalcitonin TSH Urine RBC Urine WBC Ur Squamous Epith Cells Urine Bacteria Urine Yeast Ur Culture Indicated? Micro UA Comment Nasal Screen MRSA (PCR) Negative for mrsa 09/20/18 09/20/18 09/20/18 05:15 05:15 05:15 WBC RBC Hgb Hct MCV MCH MCHC RDW Plt Count Neut % (Auto) Lymph % (Auto) Divide % (Auto) Eos % (Auto) Baso % (Auto) Neut # (Auto) PT INR APTT Sodium 140 Potassium 4.1 Chloride 104 Carbon Dioxide 26 BUN 20 H Creatinine 0.90 Estimated GFR > 60.0 BUN/Creatinine Ratio 22.2 H Glucose 201 H Hemoglobin A1c Lactate Calcium 9.0 Magnesium 2.0 Total Bilirubin 0.7 AST 14 ALT 20 Alkaline Phosphatase 97 Total Protein 7.0 Albumin 3.5 Globulin 3.5 Albumin/Globulin Ratio 1.0 Lipase Procalcitonin < 0.05 TSH 1.83 Urine RBC Urine WBC Ur Squamous Epith Cells Urine Bacteria Urine Yeast Ur Culture Indicated? Micro UA Comment Nasal Screen MRSA (PCR) Assessment & Plan (1) Leg wound, left: Problem details: Wound to the plantar 1st metatarsal head appears to be separate then the cellulitic appearance of the leg. For initial option on ambulation I would consider an eye pus or wedge type of shoe if physical therapy feels that she can adequately ambulate in this safely. She has had diabetic insoles and shoes in the past and this is what she truly needs but it is difficult to get in her current inpatient setting. I reviewed this with her and suggest that this began to be worked on with wound care upon her discharge or with her primary care physician. I am happy to write the prescription for her but she needs to be in outpatient be able to get this started. Wound does not appear surgical at this time and suggest accommodative care while she heals including gauze or foam padding and daily cleaning. Appreciate wound care consult as well which appears to be pending. Qualifiers: Encounter type: Current visit: Yes Status: Acute (2) Cellulitis of left leg: Problem details: She is currently receiving IV antibiotics including levofloxacin and vancomycin. Eventually control of this with the use of compression stockings will be helpful. She states that she has been using the same compressive process improvement analyst stockings since she was seen in wound care which has been years. I explained that we will look to see if we have an updated set available for her and request will be made through physical therapy. As an outpatient, I would suggest a prescription for the use of below knee compression stockings. If she is unable to get that because of lingering wounds, a consideration for possible Unna boot application on a weekly basis is warranted. Current visit: Yes Status: Acute Plan: Assessment/Plan Narrative: Thank you for the opportunity to participate in her care. Time Spent With Patient Time with patient: 25 - 35 minutes
[2018-09-20] MEDS: VANCOMYCIN TROUGH 1 REQUEST MISC (13:12)
[2018-09-20 13:58] LABS: Vancomycin Trough 11.4 ug/mL (10-20)
--- NOTE | 2018-09-20 17:07 | PT.IIE ---
Current Diagnoses Cellulitis of left lower limb (09/19/18) Unspecified open wound, left lower leg, initial encounter (09/19/18) Surgical History (Last Reviewed 09/20/18 @ 11:35 by Cherrie Esparza DPM) H/O section (Acute) Hx of appendectomy (Acute) Medical History (Last Reviewed 09/20/18 @ 11:34 by Cherrie Esparza DPM) Amputation of second toe, left, traumatic (Acute) Chronic wound of extremity (Acute) Diabetes mellitus, type 2 (Acute) Edema extremities (Acute) Hypertension (Acute) Osteomyelitis (Acute) Physical Therapy Inpatient Evaluation/Re-Eval M1 PT/OT-IP Prior Functional Status Start: 09/20/18 17:04 Freq: NEEDED Status: Active Protocol: Document 09/20/18 17:07 [facility] (Rec: 09/20/18 17:19 [facility] [id number]) Medical Review Prior Functional Status Medical History Reviewed Yes Mobility and Gait 4WW or manual w/c for mobility Activities of Daily Living and IADL's modified indep. I/ADLs Social History Household Members spouse children Living Arrangements House Number of Floors (Floors) One Floor Number of Stairs To Enter/Railing? ramped entry Home Environment Walk in Shower Tub/Shower Ramp Home Equipment Four Wheel Walker Straight Cane Manual Wheelchair Shower Seat with Backrest Additional Social History Comment Pt presented with drainage of the L foot, ulcer L 1st MT head, fever and chills. Orders for wedge shoe and new chris brace end mainspring former for pt. M2 PT-IP Current Condition Start: 09/20/18 17:04 Freq: NEEDED Status: Active Protocol: Document 09/20/18 17:07 [facility] (Rec: 09/20/18 17:19 [facility] [id number]) Physical Therapy Current Condition Current Condition Evaluation Date 09/20/18 Treatment Diagnosis L 1st MT head ulcer, impaired activity tolerance Precautions Other Precautions Off-loading wedge shoe on the L foot when ambulating M3 PT-IP Subjective Start: 09/20/18 17:04 Freq: NEEDED Status: Active Protocol: Document 09/20/18 17:07 [facility] (Rec: 09/20/18 17:19 [facility] [id number]) Subjective Physical Therapy Visit Type Type Initial Evaluation Visit Start Time 17:50 Visit Stop Time 17:07 Total Visit Minutes 17 Number of INSECTICIDE MAKER Visits 0 Physical Therapy Visit Comments Patient Comments pt denies pain. Patient Goals to have her ulcer heal M4 PT-IP Mobility and Gait Start: 09/20/18 17:04 Freq: NEEDED Status: Active Protocol: Document 09/20/18 17:07 [facility] (Rec: 09/20/18 17:19 [facility] [id number]) PT-Transfer Assessment Sit to and From Stand Sit to and from Stand Standby Assistance Equipment Transfer Assistive Device Gait Belt Straight Cane Transfers Transfer Destination Chair Transfer Technique Stand Step Pivot Transfer Ability Level of Assist Contact Guard Assistance Gait Assessment Gait Gait Assistance Required: Contact Guard Assist Distance (Feet) 10 Assistive Devices Assistive Device Gait Belt Straight Cane Orthotic/Prosthetic Devices or Brace: Yes Gait Deviations General Gait Pattern Decreased Stride Length Decreased Feet Clearance Wide Based Gait Factors Limiting Gait Function Factors Limiting Gait Function Decreased Activity Tolerance Decreased Sensation Decreased Strength Poor Balance Comments Gait Comments Initially slight unsteadiness with SPC during ambulation, but able to place WB on heel of forefoot off-loading shoe with CGA in room. PT-Balance Assessment Sitting Balance and Reactions Static Sitting Balance Ability Good Dynamic Sitting Balance Ability Good Standing Balance and Reactions Static Standing Balance Ability Fair Dynamic Standing Balance Ability Fair Device Used SPC M5 PT-IP Objective Assessments Start: 09/20/18 17:04 Freq: NEEDED Status: Active Protocol: Document 09/20/18 17:07 [facility] (Rec: 09/20/18 17:19 [facility] [id number]) Orientation Orientation/Cognition Level of Alertness Alert Orientation Name Age Birthday Month Date Year Day of Week Place Situation Strength Lower Extremity Strength Hip flexion 4/5 B Knee flexion and extension 5/5 B Ankle DF 4/5 L and 5/5 R Coordination Assessment Gross Coordination Gross Coordination WNL Sensation Assessment Sensation Gross Sensation Right LE Impaired Left LE Impaired Muscle Tone Muscle Tone WNL Yes M6 PT-IP Treatment Start: 09/20/18 17:04 Freq: NEEDED Status: Active Protocol: Document 09/20/18 17:07 [facility] (Rec: 09/20/18 17:19 [facility] [id number]) Physical Therapy Treatment Education Education Provided Precautions Weight Bearing Status Safety Brace Education Donning [employer] Equipment Issued Equipment Type and Company forefoot off-loading shoe and chris brace end mainspring former size G for lower legs M7 PT-IP Assessment and Plan Start: 12/22/18 17:04 Freq: NEEDED Status: Active Protocol: Document 09/20/18 17:07 [facility] (Rec: 09/20/18 17:19 [facility] [id number]) PT Summary Assessment and Plan Potential Rehabilitation Potential Good Status of Condition at Evaluation Evolving Summary Impairments Balance Gait Activity Tolerance Assessment Summary Forefoot off-loading shoe size M appears to fit pt more appropriately vs. L due to the large size causing increased risk for tripping episodes with the toe of the shoe extending too far anteriorly on the L foot. Pt was able to take short steps, initially with imbalance but able to recover without increased assistance, using a SPC. Recommend that pt use her 4WW at home and w/c for increased pressure relief and UE support to offload the LLE vs. SPC ( less stable). Expect pt to be able to d/c home when medically stable, home health nursing vs. OP wound care possibly. Goals Bed Mobility Goal Independent Transfer Goal Independent Gait Goal Independent Front Wheel Walker Gait Distance 50 Days to Meet Goals 2 Frequency of Treatment Frequency Of Treatment Once a Day Treatment Plan Physical Therapy Treatment Plan Bed Mobility Training Transfer Training Gait Training Therapeutic Exercise Balance Retraining Discharge Planning Neuromuscular Re-ed Other Recommendations and Next Treatment bed mobility, gait as Focus tolerated with FWW/4WW Recommendations To Nursing Amount of Assist Needed 1 Person Assist Discharge Recommendations PT Discharge Recommendations Home with Assistance Home Health
[2018-09-20] MEDS: levoFLOXacin 750 MG/150 ML PIGGYBACK 100 MG IV (19:13)
--- NOTE | 2018-09-20 20:05 | PM.PN.1 ---
Subjective Date Patient Seen: 09/20/18 Interval history: Zohra Winslow is a 58-year-old female with a past medical history significant for morbid obesity, diabetes mellitus 2 with high insulin requirements, and hypertension who presents to [facility] ED with complaints of a wound on her left leg. She is resting comfortably in her bedside chair today. She denies any new symptoms. She denies headache, chest pain, shortness of breath, abdominal pain, nausea, vomiting, fever, chills, dysuria, diarrhea or constipation. Her family is in the room and expresses concern regarding her diabetes management. Continue to residential youth counselor the patient in depth regarding her diabetic management including diet and exercise. The patient has poor insight into her disease. A nutrition consult has been placed but has not been obtained due to availability. She is eliminating and voiding without difficulty. She has been instructed by podiatry and orthopedics to bear little weight until she is fitted with orthotics. Exam Vital Signs (past 8 hours): - 09/20/18 13:05 09/20/18 15:00 09/20/18 17:00 Temperature 99.9 F H 101.6 F H Pulse Rate 112 H 124 H Respiratory Rate 18 18 Blood Pressure 113/46 L 146/69 H Pulse Oximetry 88 L 93 94 09/20/18 19:00 09/20/18 19:14 Temperature 100.4 F H 100.6 F H Pulse Rate 118 H Respiratory Rate 15 Blood Pressure 138/75 Pulse Oximetry 96 Oxygen Delivery Method Room Air Oxygen Flow Rate 2 Narrative Exam Narrative: General:Middle-aged morbidly obese female lying in bed and in no acute distress, well-developed, well-nourished, appropriately interactive HEENT: Normocephalic, atraumatic. External ears without defect. Pupils equal, round, and reactive to light. Anicteric sclerae, moist conjunctivae, and no lid lag. Oropharynx free of erythema and cobble stoning with moist mucosa. Neck: Supple with full range of motion. Possible thyromegaly versus lipoma. Cardiovascular: Regular rhythm, tachycardic, without murmurs, rubs, or gallops appreciated. Pulmonary: Clear to auscultation bilaterally without crackles, wheezes, or rhonchi. Normal respiratory effort with no use of accessory muscles. Abdomen: Bowel tones present. Soft, obese, nontender, nondistended. No hepatosplenomegaly or masses appreciated. Extremities: No cyanosis or clubbing. Right Charcot foot. Left foot wound dressed which is clean and dry. Left leg cellulitis with serosanguineous discharge, several small 1-2 cm circular lesions, erythema which is outlined and has not progressed past the outline. Neurological: Cranial nerves grossly intact. Psychiatric: Normal mood and affect. Alert and oriented to person, place, and time. Objective Labs Result Diagrams: 09/20/18 05:15 09/20/18 05:15 Labs: Laboratory Results - last 24 hr 09/20/18 09/20/18 09/20/18 05:15 05:15 05:15 WBC 20.2 H RBC 4.11 Hgb 10.4 L Hct 34.0 L MCV 82.7 MCH 25.2 L MCHC 30.5 RDW 15.9 H Plt Count 363 Neut % (Auto) 87.1 H Lymph % (Auto) 6.2 L [place] % (Auto) 5.2 Eos % (Auto) 0.9 L Baso % (Auto) 0.6 Neut # (Auto) 39955 H Sodium Potassium Chloride Carbon Dioxide BUN Creatinine Estimated GFR BUN/Creatinine Ratio Glucose Hemoglobin A1c 11.0 H Calcium Magnesium Total Bilirubin AST ALT Alkaline Phosphatase Total Protein Albumin Globulin Albumin/Globulin Ratio Procalcitonin < 0.05 TSH Vancomycin Trough 09/20/18 09/20/18 09/20/18 05:15 05:15 12:39 WBC RBC Hgb Hct MCV MCH MCHC RDW Plt Count Neut % (Auto) Lymph % (Auto) [place] % (Auto) Eos % (Auto) Baso % (Auto) Neut # (Auto) Sodium 140 Potassium 4.1 Chloride 104 Carbon Dioxide 26 BUN 20 H Creatinine 0.90 Estimated GFR > 60.0 BUN/Creatinine Ratio 22.2 H Glucose 201 H Hemoglobin A1c Calcium 9.0 Magnesium 2.0 Total Bilirubin 0.7 AST 14 ALT 20 Alkaline Phosphatase 97 Total Protein 7.0 Albumin 3.5 Globulin 3.5 Albumin/Globulin Ratio 1.0 Procalcitonin TSH 1.83 Vancomycin Trough 11.4 Assessment & Plan Plan: Assessment/Plan Narrative: Zohra Winslow is a 58-year-old female with a past medical history significant for morbid obesity, diabetes mellitus 2 with high insulin requirements, and hypertension who presents to [facility] ED with complaints of a wound on her left leg. 1. Acute sepsis, present on admission. Active. -Patient presented febrile, tachycardic, with a marked leukocytosis and source of left lower extremity cellulitis. -Early goal-directed therapy with med including: IV antibiotics and IV fluids.\ 2. Acute purulent cellulitis of left lower extremity, present on admission. Active. -Patient was started on vancomycin in the ED. Plan to continue until identification and sensitivities result from wound culture. 3. Acute on chronic left diabetic foot ulcer, present on admission. Active. -The patient has a history of osteomyelitis of her left foot with resultant amputation of her 2nd toe. Current wound appears to be superficial and unlikely an abscess. -Podiatry has been consulted and we appreciate their time and recommendations. Plan to fit patient with orthotic to offload pressure on her plantar surface of her left foot. -Wound culture sent by ED physician. -Ordered wound care consultation, pending. 4. Diabetes mellitus type 2, insulin using, present on admission. Presume stable. -Continue home insulin regimen which includes: Insulin glargine 160 units b.i.d. and NovoLog 100 mg t.i.d. with meals. -Previous hemoglobin A1c 11% in May per patient. Ordered hemoglobin A1c, pending. 5. Hypertension, present on admission. Stable. -Continue lisinopril 20 mg b.i.d. 6. Morbid obesity, present on admission. Active. -BMI 50.6. -Ordered dietitian/nutrition consult, pending. -Counseled the patient in depth regarding diet. Quality VTE Deep Vein Thrombosis/Pulmonary Embolism Present on Admission: No
[2018-09-20] MEDS: LISINOPRIL 20 MG TABLET PO (21:54)
--- NOTE | 2018-09-20 22:36 | PC.NURSE ---
1500-assumed care of pt from outgoing shift. PT awake and alert. pt has family at bedside. Pt working with PT. new tubigrip to zainab legs. pt swollen. Pt uses call light. ambulates steady gait with assistance. Pt does stumble when ambulating with new diabetic shoe and she has never warn one before. Pt HR elevated. discussed with md and orders rec'd. Pt fluids d/c. Pt put on oxygen as she was asleep and oxygen saturation around 80s, pt woken, put on 2L NC saturation 97%. Pt fell asleep still remained 95%. Pt encouraged to stay awake and take lots of deep breaths. Pt stated OK. 2129- pt only wanted 100 units of lantus as she does a different med regimen at home. will continue to monitor.
[2018-09-21] VITALS (14 sets, daily range): BP systolic 97–143; BP diastolic 48–67; PULSE 90–106; RESP 16–19; TEMP 36.8–37.7; O2SAT 88–99
[2018-09-21 00:59] LABS: Alanine Aminotransferase 32 IU/L (9-52)
[2018-09-21 01:06] LABS: Hepatitis B Surface Antigen NEGATIVE s/c (NEGATIVE)
--- NOTE | 2018-09-21 01:39 | PC.NURSE ---
Cleaner Touch Up Worker Note: 0030: Resting in recliner chair with legs elevated. Remains on O2 1L/NC. IV in place in lt AC. No complaint of pain or discomfort at this time. Vital signs stable.
[2018-09-21 01:44] LABS: HIV 1 and 2 Antibody NEGATIVE (NEGATIVE); Hep C Virus Ab w/Reflex Quant NEGATIVE s/c (NEGATIVE)
[2018-09-21] MEDS: ACETAMINOPHEN 325 MG TABLET 650 MG PO ×3 (04:07→21:43)
[2018-09-21] MEDS: HEPARIN 5,000 UNIT/ML VIAL 5000 UNIT SUBCUT ×3 (05:45→21:36)
[2018-09-21 06:09] LABS: Add Manual Diff / Slide Review NO; Basophils Percent Auto 0.4 % (0-2); Eosinophils Percent Auto 2.2 % (2-4); Hematocrit 31.7 % (36-46); Hemoglobin 9.9 g/dL (12.0-16.0); Lymphocytes Percent Auto 7.2 % (25-40); Mean Corpuscular HGB Conc 31.3 % (30-36); Mean Corpuscular Hemoglobin 25.6 PG (26-34); Mean Corpuscular Volume 81.8 fL (80-100); Monocytes Percent Auto 5.9 % (3-14); Neutrophils Absolute Auto 14700 /uL (1500-7000); Neutrophils Percent Auto 84.3 % (50-75); Platelet Count 335 X10^3/uL (150-400); Red Blood Cell Count 3.87 X10^6/uL (4.0-5.2); White Blood Cell Count 17.5 X10^3/uL (4.5-11.0)
[2018-09-21 06:47] LABS: BUN Creatinine Ratio 25.6 (6-22); Blood Urea Nitrogen 23 mg/dL (7-17); Calcium 9.3 mg/dL (8.4-10.2); Carbon Dioxide 24 mmol/L (22-32); Chloride 104 mmol/L (98-107); Estimated Glomerular Filt Rate > 60.0 mL/min (>60); Glucose 163 mg/dL (70-100); HEMOLYSIS < 15 (0-50); Magnesium 2.1 mg/dL (1.6-2.3); Potassium 3.9 mmol/L (3.4-5.1); Sodium 139 mmol/L (137-145)
[2018-09-21] MEDS: INSULIN ASPART 100 UNIT/ML 10ML VIAL SUBCUT ×3 (08:17→17:52)
[2018-09-21] MEDS: INSULIN GLARGINE 100 UNIT/ML 10ML VIAL 160 UNIT SUBCUT ×2 (08:17→21:36)
[2018-09-21] MEDS: CEFTRIAXONE 2 GM/50 ML FROZ.PIGGY IV (10:46)
[2018-09-21] MEDS: LISINOPRIL 20 MG TABLET PO ×2 (10:46→21:35)
--- NOTE | 2018-09-21 11:16 | PT.IPTN ---
Current Diagnoses Cellulitis of left lower limb (09/19/18) Unspecified open wound, left lower leg, initial encounter (09/19/18) Physical Therapy Treatment Note M2 PT-IP Current Condition Start: 09/20/18 17:04 Freq: NEEDED Status: Active Protocol: Document 09/21/18 11:16 RCC (Rec: 09/21/18 13:09 RCC [email or web address]) Physical Therapy Current Condition Current Condition Evaluation Date 09/20/18 Treatment Diagnosis L 1st MT head ulcer, impaired activity tolerance Precautions Other Precautions Off-loading wedge shoe on the L foot when ambulating M3 PT-IP Subjective Start: 09/20/18 17:04 Freq: NEEDED Status: Active Protocol: Document 09/21/18 11:16 RCC (Rec: 09/21/18 13:09 RCC [email or web address]) Subjective Physical Therapy Visit Type Type Treatment Note Visit Start Time 11:00 Visit Stop Time 11:16 Total Visit Minutes 16 Number of ENDODONTIST Visits 0 Physical Therapy Visit Comments Patient Comments pt states she has been using a FWW since recommended by PT last night M4 PT-IP Mobility and Gait Start: 09/20/18 17:04 Freq: NEEDED Status: Active Protocol: Document 09/21/18 11:16 RCC (Rec: 09/21/18 13:09 RCC [id number]) PT-Transfer Assessment Sit to and From Stand Sit to and from Stand Standby Assistance Equipment Transfer Assistive Device Gait Belt Front Wheeled Walker Transfers Transfer Destination Chair Transfer Technique Stand Step Pivot Transfer Ability Level of Assist Contact Guard Assistance Gait Assessment Gait Gait Assistance Required: Contact Guard Assist Distance (Feet) 35 Assistive Devices Assistive Device Gait Belt Front Wheeled Walker Orthotic/Prosthetic Devices or Brace: Yes Gait Deviations General Gait Pattern Decreased Stride Length Decreased Feet Clearance Wide Based Gait Factors Limiting Gait Function Factors Limiting Gait Function Decreased Activity Tolerance Decreased Sensation Decreased Strength Poor Balance Comments Gait Comments L off-loading shoe M5 PT-IP Objective Assessments Start: 09/20/18 17:04 Freq: NEEDED Status: Active Protocol: Document 09/20/18 17:07 RCC (Rec: 09/20/18 17:19 RCC [id number]) Orientation Orientation/Cognition Level of Alertness Alert Orientation Name Age Birthday Month Date Year Day of Week Place Situation Strength Lower Extremity Strength Hip flexion 4/5 B Knee flexion and extension 5/5 B Ankle DF 4/5 L and 5/5 R Coordination Assessment Gross Coordination Gross Coordination WNL Sensation Assessment Sensation Gross Sensation Right LE Impaired Left LE Impaired Muscle Tone Muscle Tone WNL Yes M6 PT-IP Treatment Start: 09/20/18 17:04 Freq: NEEDED Status: Active Protocol: Document 09/20/18 17:07 RCC (Rec: 09/20/18 17:19 [facility] [id number]) Physical Therapy Treatment Education Education Provided Precautions Weight Bearing Status Safety Brace Education [employer] [place] Equipment Issued Equipment [employer] forefoot off-loading shoe and chris rubber heel and sole press tender size G for lower legs M7 PT-IP Assessment and Plan Start: 09/20/18 17:04 Freq: NEEDED Status: Active Protocol: Document 09/21/18 11:16 RCC (Rec: 09/21/18 13:09 RCC [id number]) PT Summary Assessment and Plan Summary Assessment Summary Pt more stable with using wide FWW vs. SPC with ambulation. She had mild imbalances with turning and stand to sit, requiring increased VC for proper foot positioning and FWW management for safety. Discussed with pt the importance of body awareness, including positioning of feet and w/c management for safety of protection and healing of foot ulcers and prevent further skin damage/breakdown. Pt is progressing toward goals, but yet to achieve at this time. Goals Bed Mobility Goal Independent Transfer Goal Independent Gait Goal Independent Front Wheel Walker Gait Distance 50 Days to Meet Goals 2 Frequency of Treatment Frequency Of Treatment Once a Day Treatment Plan Other Recommendations and Next Treatment progress toward goals: gait Focus tolerance; standing balance- turns and sit<->stand with good foot positioning Recommendations To Nursing Amount of Assist Needed 1 Person Assist Discharge Recommendations PT Discharge Recommendations Home with Assistance Home Health
--- NOTE | 2018-09-21 13:44 | PC.NURSE ---
Dressing and tubi repair welder removed from left leg, cleansed with normal saline, patted dry and 2 large allevyn dressing and 1 small allevyn dressings applied to open areas of skin, appears to have several small blistered areas that have opened and have small amount of serosangeonous drainage. Left lower leg continues with +2-3 firm swelling, area of tenderness and warm most notable on left upper lateral area of calf. Dressing to left (right side) of foot also cleansed with saline and foam dressing with hypofix tape applied. Patient tolerated well. Requested to leave her tubi repair welder off on left leg at this time. Applied lotion to both legs per patient request for dry skin. Using pillows in chair to keep elevated. Patient's family now in to visit, call light within reach, denies complaints or needs at this time.
--- NOTE | 2018-09-21 17:52 | PM.PN.1 ---
Subjective Date Patient Seen: 09/21/18 Interval history: Zohra Winslow is a 58-year-old female with a past medical history significant for morbid obesity, diabetes mellitus 2 with high insulin requirements, and hypertension who presents to [facility] ED with complaints of a wound on her left leg. Overnight the patient became increasingly tachycardic and desatted into the low 80s requiring 4 L of supplemental oxygen via nasal cannula. Today she is off oxygen and resting comfortably in her bedside chair. She denies any new symptoms. She is asymptomatic of her E coli UTI. She denies headache, chest pain, shortness of breath, abdominal pain, nausea, vomiting, fever, chills, dysuria, diarrhea or constipation. She is eliminating and voiding without difficulty. She has been fitted with a new orthotic for her left foot. Exam Vital Signs (past 8 hours): - 09/21/18 10:51 09/21/18 12:05 09/21/18 15:45 Temperature 98.8 F 99.2 F Pulse Rate 98 H 102 H 97 H Respiratory Rate 16 18 19 Blood Pressure 127/53 L 106/48 L 97/63 Pulse Oximetry 96 96 94 Oxygen Delivery Method Nasal Cannula Oxygen Flow Rate 1 Narrative Exam Narrative: General:Middle-aged morbidly obese female sitting in bedside chair and in no acute distress, poor hygiene, well-developed, well-nourished, appropriately interactive. HEENT: Normocephalic, atraumatic. External ears without defect. Pupils equal, round, and reactive to light. Anicteric sclerae, moist conjunctivae, and no lid lag. Oropharynx free of erythema and cobble stoning with moist mucosa. Neck: Supple with full range of motion. Possible thyromegaly versus lipoma. Cardiovascular: Regular rhythm, tachycardic, without murmurs, rubs, or gallops appreciated. Pulmonary: Clear to auscultation bilaterally without crackles, wheezes, or rhonchi. Normal respiratory effort with no use of accessory muscles. Abdomen: Bowel tones present. Soft, obese, nontender, nondistended. No hepatosplenomegaly or masses appreciated. Extremities: No cyanosis or clubbing. Right Charcot foot. Left foot wound dressed which is clean and dry. Left leg cellulitis with dressing in place clean, dry and intact. Neurological: Cranial nerves grossly intact. Psychiatric: Normal mood and affect. Alert and oriented to person, place, and time. Objective Labs Result Diagrams: 09/21/18 05:22 09/21/18 05:22 Labs: Laboratory Results - last 24 hr 09/20/18 09/20/18 09/21/18 23:59 23:59 05:22 WBC 17.5 H RBC 3.87 L Hgb 9.9 L Hct 31.7 L MCV 81.8 MCH 25.6 L MCHC 31.3 RDW 16.0 H Plt Count 335 Neut % (Auto) 84.3 H Lymph % (Auto) 7.2 L Butts % (Auto) 5.9 Eos % (Auto) 2.2 Baso % (Auto) 0.4 Neut # (Auto) 28600 H Sodium Potassium Chloride Carbon Dioxide BUN Creatinine Estimated GFR BUN/Creatinine Ratio Glucose Calcium Magnesium ALT 32 Hep Bs Antigen Negative Hepatitis C Antibody Negative HIV 1&2 Antibody Negative 09/21/18 05:22 WBC RBC Hgb Hct MCV MCH MCHC RDW Plt Count Neut % (Auto) Lymph % (Auto) Butts % (Auto) Eos % (Auto) Baso % (Auto) Neut # (Auto) Sodium 139 Potassium 3.9 Chloride 104 Carbon Dioxide 24 BUN 23 H Creatinine 0.90 Estimated GFR > 60.0 BUN/Creatinine Ratio 25.6 H Glucose 163 H Calcium 9.3 Magnesium 2.1 ALT Hep Bs Antigen Hepatitis C Antibody HIV 1&2 Antibody Assessment & Plan Plan: Assessment/Plan Narrative: Zohra Winslow is a 58-year-old female with a past medical history significant for morbid obesity, diabetes mellitus 2 with high insulin requirements, and hypertension who presents to [facility] ED with complaints of a wound on her left leg. 1. Acute sepsis, present on admission. Resolved. -Patient presented febrile, tachycardic, with a marked leukocytosis and source of left lower extremity cellulitis. -Early goal-directed therapy with med including: IV antibiotics and IV fluids. 2. Acute purulent cellulitis of left lower extremity, present on admission. Active. -Patient was started on vancomycin in the ED. -Antibiotic coverage was switched to ceftriaxone to cover both her cellulitis, foot wound and UTI as below. 3. Acute on chronic left diabetic foot ulcer, present on admission. Active. -The patient has a history of osteomyelitis of her left foot with resultant amputation of her 2nd toe. Current wound appears to be superficial and unlikely an abscess. -Podiatry and orthopedic surgery have been consulted and we appreciate their time and recommendations. Plan to fit patient with orthotic to offload pressure on her plantar surface of her left foot. -Wound culture sent by ED physician grew group A strep. -Consulted wound care and will follow recs. -Switched antibiotic coverage from Levaquin to ceftriaxone to provide coverage for both cellulitis, foot wound and UTI as below. 4. Acute E coli UTI, present on admission. Active. -Patient presented with significant leukocytosis with probable source cellulitis, however, patient continued to show signs of infection despite treatment. -Urine culture and sensitivities resulted today with E coli that is resistant to Levaquin the antibiotic that is being used to treat her cellulitis. Discussed patient with Dr. Campbell and switch antibiotic coverage from Levaquin to ceftriaxone to cover both cellulitis, foot wound and UTI. 5. Diabetes mellitus type 2, insulin using, present on admission. Presume stable. -Continue home insulin regimen which includes: Insulin glargine 160 units b.i.d. and NovoLog 100 mg t.i.d. with meals. -Previous hemoglobin A1c 11% in May per patient. Ordered hemoglobin A1c, pending. 6. Hypertension, present on admission. Stable. -Continue lisinopril 20 mg b.i.d. 7. Morbid obesity, present on admission. Active. -BMI 50.6. -Ordered dietitian/nutrition consult, pending. -Counseled the patient in depth regarding diet. Disposition: Depending upon resolution of infectious processes will likely discharge home with possibly home health Quality VTE Deep Vein Thrombosis/Pulmonary Embolism Present on Admission: No
--- NOTE | 2018-09-21 19:33 | PC.NURSE ---
Pt awake and alert up in recliner. Desats with sleep per continuous monitor and so 02 @ 2L per nc was placed on pt. Denies pain. Admits to neuropathy to BL LE's. Pitting edema to BL LE's. Pt states this is baseline. Elevates LE per recliner. Multiple allevyn gentle border dressings dry and intact to left LE. Walking with limited weight bearing shoe in place to left foot. Palpable pedal pulse to left foot.
[2018-09-21] MEDS: SODIUM CHLORIDE 0.9% FLUSH 10 ML IV (21:44)
[2018-09-22] VITALS (9 sets, daily range): BP systolic 91–130; BP diastolic 49–59; PULSE 84–103; RESP 16–18; TEMP 36.1–37.4; O2SAT 92–98
[2018-09-22] MEDS: HEPARIN 5,000 UNIT/ML VIAL 5000 UNIT SUBCUT ×3 (05:52→21:02)
[2018-09-22 06:12] LABS: Add Manual Diff / Slide Review NO; Basophils Percent Auto 0.4 % (0-2); Eosinophils Percent Auto 3.9 % (2-4); Hematocrit 30.7 % (36-46); Hemoglobin 9.5 g/dL (12.0-16.0); Lymphocytes Percent Auto 13.5 % (25-40); Mean Corpuscular Hemoglobin 25.2 PG (26-34); Mean Corpuscular Volume 81.3 fL (80-100); Monocytes Percent Auto 8.8 % (3-14); Neutrophils Absolute Auto 9800 /uL (1500-7000); Neutrophils Percent Auto 73.4 % (50-75); Platelet Count 365 X10^3/uL (150-400); Red Blood Cell Count 3.78 X10^6/uL (4.0-5.2); Red Cell Distribution Width 15.9 % (11.6-14.8); White Blood Cell Count 13.4 X10^3/uL (4.5-11.0)
[2018-09-22 06:26] LABS: BUN Creatinine Ratio 32.2 (6-22); Blood Urea Nitrogen 29 mg/dL (7-17); Calcium 9.5 mg/dL (8.4-10.2); Carbon Dioxide 26 mmol/L (22-32); Chloride 105 mmol/L (98-107); Estimated Glomerular Filt Rate > 60.0 mL/min (>60); Glucose 90 mg/dL (70-100); HEMOLYSIS < 15 (0-50); Sodium 142 mmol/L (137-145)
--- NOTE | 2018-09-22 06:58 | P.PN_ITS ---
Subjective Date Patient Seen: 09/22/18 Interval history: Zohra Winslow is a 58-year-old female with a past medical history significant for morbid obesity, diabetes mellitus 2 with high insulin requirements, and hypertension who presents to [facility] ED with complaints of a wound on her left leg. Overnight the patient became increasingly tachycardic and desatted into the low 80s requiring 4 L of supplemental oxygen via nasal cannula. Today she is off oxygen and resting comfortably in her bedside chair. She denies any new symptoms. She is asymptomatic of her E coli UTI. She denies headache, chest pain, shortness of breath, abdominal pain, nausea, vomiting, fever, chills, dysuria, diarrhea or constipation. She is eliminating and voiding without difficulty. She has been fitted with a new orthotic for her left foot. Exam Vital Signs (past 8 hours): - 09/22/18 00:00 09/22/18 00:22 09/22/18 05:00 Temperature 99.4 F 97.0 F L Pulse Rate 88 97 H Respiratory Rate 16 16 Blood Pressure 119/54 L 130/59 L Pulse Oximetry 96 98 98 Oxygen Delivery Method Room Air Oxygen Flow Rate 1 Narrative Exam Narrative: General:Middle-aged morbidly obese female sitting in bedside chair and in no acute distress, poor hygiene, well-developed, well-nourished, appropriately interactive. HEENT: Normocephalic, atraumatic. External ears without defect. Pupils equal, round, and reactive to light. Anicteric sclerae, moist conjunctivae, and no lid lag. Oropharynx free of erythema and cobble stoning with moist mucosa. Neck: Supple with full range of motion. Possible thyromegaly versus lipoma. Cardiovascular: Regular rhythm, tachycardic, without murmurs, rubs, or gallops appreciated. Pulmonary: Clear to auscultation bilaterally without crackles, wheezes, or rhonchi. Normal respiratory effort with no use of accessory muscles. Abdomen: Bowel tones present. Soft, obese, nontender, nondistended. No hepatosplenomegaly or masses appreciated. Extremities: No cyanosis or clubbing. Right Charcot foot. Left foot wound dressed which is clean and dry. Left leg cellulitis with dressings in place clean, dry and intact with surrounding erythema. Neurological: Cranial nerves grossly intact. Psychiatric: Normal mood and affect. Alert and oriented to person, place, and time. Objective Labs Result Diagrams: 09/22/18 05:20 09/22/18 05:20 Labs: Laboratory Results - last 24 hr 09/22/18 09/22/18 05:20 05:20 WBC 13.4 H RBC 3.78 L Hgb 9.5 L Hct 30.7 L MCV 81.3 MCH 25.2 L MCHC 31.0 RDW 15.9 H Plt Count 365 Neut % (Auto) 73.4 Lymph % (Auto) 13.5 L [place] % (Auto) 8.8 Eos % (Auto) 3.9 Baso % (Auto) 0.4 Neut # (Auto) 9800 H Sodium 142 Potassium 4.0 Chloride 105 Carbon Dioxide 26 BUN 29 H Creatinine 0.90 Estimated GFR > 60.0 BUN/Creatinine Ratio 32.2 H Glucose 90 Calcium 9.5 Assessment & Plan Plan: Assessment/Plan Narrative: Zohra Winslow is a 58-year-old female with a past medical history significant for morbid obesity, diabetes mellitus 2 with high insulin requirements, and hypertension who presents to [facility] ED with complaints of a wound on her left leg. 1. Acute sepsis, present on admission. Resolved. -Patient presented febrile, tachycardic, with a marked leukocytosis and source of left lower extremity cellulitis. -Early goal-directed therapy with med including: IV antibiotics and IV fluids. 2. Acute purulent cellulitis of left lower extremity, present on admission. Active. -Patient was started on vancomycin in the ED. -Antibiotic coverage was switched to ceftriaxone to cover both her cellulitis , foot wound and UTI as below. 3. Acute on chronic left diabetic foot ulcer, present on admission. Active. -The patient has a history of osteomyelitis of her left foot with resultant amputation of her 2nd toe. Current wound appears to be superficial and unlikely an abscess. -Podiatry and orthopedic surgery have been consulted and we appreciate their time and recommendations. Plan to fit patient with orthotic to offload pressure on her plantar surface of her left foot. -Wound culture sent by ED physician grew group A strep. -Consulted wound care and will follow recs. -Switched antibiotic coverage from Levaquin to ceftriaxone to provide coverage for both cellulitis, foot wound and UTI as below. 4. Acute E coli UTI, present on admission. Active. -Patient presented with significant leukocytosis with probable source cellulitis, however, patient continued to show signs of infection despite treatment. -Urine culture and sensitivities resulted today with E coli that is resistant to Levaquin the antibiotic that is being used to treat her cellulitis. Discussed patient with Dr. Campbell and switch antibiotic coverage from Levaquin to ceftriaxone to cover both cellulitis, foot wound and UTI. 5. Diabetes mellitus type 2, insulin using, present on admission. Presume stable. -Continue home insulin regimen which includes: Decreased insulin glargine from 160 units b.i.d. to 100 units bid and NovoLog 100 mg t.i.d. with meals. -Hemoglobin A1c 11% on admission. 6. Hypertension, present on admission. Stable. -Continue lisinopril 20 mg b.i.d. 7. Morbid obesity, present on admission. Active. -BMI 50.6. -Ordered dietitian/nutrition consult, pending. -Counseled the patient in depth regarding diet. Disposition: Depending upon resolution of infectious processes will likely discharge home with possibly home health Quality VTE Deep Vein Thrombosis/Pulmonary Embolism Present on Admission: No
[2018-09-22 07:13] LABS: Procalcitonin 0.05 ng/mL (<0.5)
--- NOTE | 2018-09-22 08:30 | CM.DPC ---
DCP Cont: Discussed patient this morning with hospitalist. She is in agreement that patient will need home health when she is discharged, nursing and physical therapy. At this time, patient should be here for a couple more days, for she is now being treated for a urinary tract infection as well. P: DCP to continue to follow closely. Plan is for home health. Will discuss with patient as well. Carey Davidson RN/Icu Clerk
[2018-09-22] MEDS: LISINOPRIL 20 MG TABLET PO ×2 (08:53→20:55)
[2018-09-22] MEDS: INSULIN GLARGINE 100 UNIT/ML 10ML VIAL 160 UNIT SUBCUT (08:53)
[2018-09-22] MEDS: INSULIN ASPART 100 UNIT/ML 10ML VIAL SUBCUT ×3 (08:53→17:12)
[2018-09-22] MEDS: SODIUM CHLORIDE 0.9% FLUSH 10 ML IV ×2 (08:58→20:56)
[2018-09-22] MEDS: CEFTRIAXONE 2 GM/50 ML FROZ.PIGGY IV (09:14)
[2018-09-22] MEDS: ACETAMINOPHEN 325 MG TABLET 650 MG PO ×2 (09:16→18:44)
--- NOTE | 2018-09-22 12:46 | CM.DPC ---
Addendum entered by Carey Dvaidson R.N. 09/22/18 13:08: Did get in touch with Jesus at [facility]. Stated that he had not heard of , but to go ahead and send face sheet and clinicals, and would look at insurance piece. Faxed over clinicals, face to face, and orders to [facility]. Original Note: DCP Cont: Met briefly with patient. Alert and oriented, pleasant. Discussed wound care with patient. Asked her if she had been going to the wound clinic, denied that she had been recently going. Left message at [facility] [employer] regarding when she last went to wound clinic, and in message, let them know that home health would be set up for her. This case loader operator asked patient if she had home health before, she stated that she may have in the past. She would like home health, confirmed with her. Let her know that nursing and physical/occupational therapy can be ordered for her. She had no preference on agencies. Called [facility] and left Jesus a message regarding patient, and if they take her insurance, for she has . Will go ahead and fax clinicals to him. Carey Davidson RN/Head Field Hockey Coach
--- NOTE | 2018-09-22 14:19 | PT.IPTN ---
Current Diagnoses Cellulitis of left lower limb (09/19/18) Unspecified open wound, left lower leg, initial encounter (09/19/18) Physical Therapy Treatment Note M2 PT-IP Current Condition Start: 09/20/18 17:04 Freq: NEEDED Status: Active Protocol: Document 09/21/18 11:16 RCC (Rec: 09/21/18 13:09 RCC [id number]) Physical Therapy Current Condition Current Condition Evaluation Date 09/20/18 Treatment Diagnosis L 1st MT head ulcer, impaired activity tolerance Precautions Other Precautions Off-loading wedge shoe on the L foot when ambulating M3 PT-IP Subjective Start: 09/20/18 17:04 Freq: NEEDED Status: Active Protocol: Document 09/22/18 14:17 LJ (Rec: 09/22/18 14:19 LJ [id number]) Subjective Physical Therapy Visit Type Type Patient Refusal Notes Pt states she just returned to chair with nursing after going to the toilet. States she is too dizzy and LLe is too painful to ambulate at this time. States she has been up with nursing several times . M4 PT-IP Mobility and Gait Start: 09/20/18 17:04 Freq: NEEDED Status: Active Protocol: Document 09/21/18 11:16 RCC (Rec: 09/21/18 13:09 RCC [id number]) PT-Transfer Assessment Sit to and From Stand Sit to and from Stand Standby Assistance Equipment Transfer Assistive Device Gait Belt Front Wheeled Walker Transfers Transfer Destination Chair Transfer Technique Stand Step Pivot Transfer Ability Level of Assist Contact Guard Assistance Gait Assessment Gait Gait Assistance Required: Contact Guard Assist Distance (Feet) 35 Assistive Devices Assistive Device Gait Belt Front Wheeled Walker Orthotic/Prosthetic Devices or Brace: Yes Gait Deviations General Gait Pattern Decreased Stride Length Decreased Feet Clearance Wide Based Gait Factors Limiting Gait Function Factors Limiting Gait Function Decreased Activity Tolerance Decreased Sensation Decreased Strength Poor Balance Comments Gait Comments L off-loading shoe M5 PT-IP Objective Assessments Start: 09/20/18 17:04 Freq: NEEDED Status: Active Protocol: Document 09/20/18 17:07 RCC (Rec: 09/20/18 17:19 RCC [id number]) Orientation Orientation/Cognition Level of Alertness Alert Orientation Name Age Birthday Month Date Year Day of Week Place Situation Strength Lower Extremity Strength Hip flexion 4/5 B Knee flexion and extension 5/5 B Ankle DF 4/5 L and 5/5 R Coordination Assessment Gross Coordination Gross Coordination WNL Sensation Assessment Sensation Gross Sensation Right LE Impaired Left LE Impaired Muscle Tone Muscle Tone WNL Yes M6 PT-IP Treatment Start: 09/20/18 17:04 Freq: NEEDED Status: Active Protocol: Document 09/20/18 17:07 RCC (Rec: 09/20/18 17:19 [facility] [id number]) Physical Therapy Treatment Education Education Provided Precautions Weight Bearing Status Safety Brace Education [employer]ning [place] Equipment Issued Equipment [employer] forefoot off-loading shoe and chris felting machine operator helper size G for lower legs M7 PT-IP Assessment and Plan Start: 09/20/18 17:04 Freq: NEEDED Status: Active Protocol: Document 09/21/18 11:16 RCC (Rec: 09/21/18 13:09 [facility] [id number]) PT Summary Assessment and Plan Summary Assessment Summary Pt more stable with using wide FWW vs. SPC with ambulation. She had mild imbalances with turning and stand to sit, requiring increased VC for proper foot positioning and FWW management for safety. Discussed with pt the importance of body awareness, including positioning of feet and w/c management for safety of protection and healing of foot ulcers and prevent further skin damage/breakdown. Pt is progressing toward goals, but yet to achieve at this time. Goals Bed Mobility Goal Independent Transfer Goal Independent Gait Goal Independent Front Wheel Walker Gait Distance 50 Days to Meet Goals 2 Frequency of Treatment Frequency Of Treatment Once a Day Treatment Plan Other Recommendations and Next Treatment progress toward goals: gait Focus tolerance; standing balance- turns and sit<->stand with good foot positioning Recommendations To Nursing Amount of Assist Needed 1 Person Assist Discharge Recommendations PT Discharge Recommendations Home with Assistance Home Health
[2018-09-22] MEDS: INSULIN GLARGINE 100 UNIT/ML 10ML VIAL SUBCUT (21:02)
[2018-09-23] VITALS (9 sets, daily range): BP systolic 105–137; BP diastolic 42–76; PULSE 68–94; RESP 15–20; TEMP 36.8–37.1; O2SAT 92–97
[2018-09-23 05:48] LABS: BUN Creatinine Ratio 31.1 (6-22); Blood Urea Nitrogen 28 mg/dL (7-17); Calcium 9.4 mg/dL (8.4-10.2); Carbon Dioxide 25 mmol/L (22-32); Chloride 106 mmol/L (98-107); Estimated Glomerular Filt Rate > 60.0 mL/min (>60); Glucose 125 mg/dL (70-100); HEMOLYSIS < 15 (0-50); Potassium 4.5 mmol/L (3.4-5.1); Sodium 143 mmol/L (137-145)
[2018-09-23 05:49] LABS: Hematocrit 31.1 % (36-46); Hemoglobin 9.8 g/dL (12.0-16.0); Mean Corpuscular HGB Conc 31.6 % (30-36); Mean Corpuscular Hemoglobin 25.5 PG (26-34); Mean Corpuscular Volume 80.7 fL (80-100); Platelet Count 385 X10^3/uL (150-400); Red Blood Cell Count 3.86 X10^6/uL (4.0-5.2); Red Cell Distribution Width 16.2 % (11.6-14.8); White Blood Cell Count 10.1 X10^3/uL (4.5-11.0)
[2018-09-23 05:50] LABS: Add Manual Diff / Slide Review YES
[2018-09-23] MEDS: HEPARIN 5,000 UNIT/ML VIAL 5000 UNIT SUBCUT ×3 (06:29→21:22)
[2018-09-23 07:48] LABS: Anisocytosis 2+; Neutrophils Absolute Manual 7373 /uL (3000-5900); Total Cells Counted 100
[2018-09-23] MEDS: LISINOPRIL 20 MG TABLET PO ×2 (08:09→22:00)
[2018-09-23] MEDS: INSULIN ASPART 100 UNIT/ML 10ML VIAL SUBCUT ×3 (08:10→17:04)
[2018-09-23] MEDS: INSULIN GLARGINE 100 UNIT/ML 10ML VIAL SUBCUT (08:20)
[2018-09-23] MEDS: SODIUM CHLORIDE 0.9% FLUSH 10 ML IV ×2 (08:23→22:00)
[2018-09-23] MEDS: CEFTRIAXONE 2 GM/50 ML FROZ.PIGGY IV (10:03)
--- NOTE | 2018-09-23 10:28 | PT.IPTN ---
Current Diagnoses Cellulitis of left lower limb (09/19/18) Unspecified open wound, left lower leg, initial encounter (09/19/18) Physical Therapy Treatment Note M2 PT-IP Current Condition Start: 09/20/18 17:04 Freq: NEEDED Status: Active Protocol: Document 09/21/18 11:16 RCC (Rec: 09/21/18 13:09 RCC [id number]) Physical Therapy Current Condition Current Condition Evaluation Date 09/20/18 Treatment Diagnosis L 1st MT head ulcer, impaired activity tolerance Precautions Other Precautions Off-loading wedge shoe on the L foot when ambulating M3 PT-IP Subjective Start: 09/20/18 17:04 Freq: NEEDED Status: Active Protocol: Document 09/23/18 09:50 LJ (Rec: 09/23/18 10:25 LJ [id number]) Subjective Physical Therapy Visit Type Type Treatment Note Visit Start Time 09:50 Visit Stop Time 10:06 Total Visit Minutes 16 Notes Pt seated in chair ready to ambulate Physical Therapy Visit Comments Patient Comments states she has been up walking around the room and going to the bathroom already this morning M4 PT-IP Mobility and Gait Start: 09/20/18 17:04 Freq: NEEDED Status: Active Protocol: Document 09/23/18 09:50 LJ (Rec: 09/23/18 10:25 LJ [id number]) PT-Transfer Assessment Sit to and From Stand Sit to and from Stand Standby Assistance Equipment Transfer Assistive Device Gait Belt Front Wheeled Walker Transfers Transfer Destination Chair Transfer Technique Stand Step Pivot Transfer Ability Level of Assist Standby Assistance Gait Assessment Gait Gait Assistance Required: Standby Assistance Distance (Feet) 200 Assistive Devices Assistive Device Gait Belt Front Wheeled Walker Orthotic/Prosthetic Devices or Brace: Yes Gait Deviations General Gait Pattern Decreased Stride Length Decreased Feet Clearance Wide Based Gait Factors Limiting Gait Function Factors Limiting Gait Function Decreased Activity Tolerance Decreased Sensation Decreased Strength Poor Balance Comments Gait Comments Pt with antalgic gait pattern. Ambulates with good posture and pacing. Shows no sign of fatigue after 200' ambulation in hallway. States she has not walked that far in a long time and she feels better after walking M5 PT-IP Objective Assessments Start: 09/20/18 17:04 Freq: NEEDED Status: Active Protocol: Document 09/20/18 17:07 RCC (Rec: 09/20/18 17:19 RCC [id number]) Orientation Orientation/Cognition Level of Alertness Alert Orientation Name Age Birthday Month Date Year Day of Week Place Situation Strength Lower Extremity Strength Hip flexion 4/5 B Knee flexion and extension 5/5 B Ankle DF 4/5 L and 5/5 R Coordination Assessment Gross Coordination Gross Coordination WNL Sensation Assessment Sensation Gross Sensation Right LE Impaired Left LE Impaired Muscle Tone Muscle Tone WNL Yes M6 PT-IP Treatment Start: 09/20/18 17:04 Freq: NEEDED Status: Active Protocol: Document 09/23/18 10:26 (Rec: 09/23/18 10:28 [id number]) Physical Therapy Treatment Education Education Provided Safety Other Treatments Other Treatment Performed mini squats x 5. Educated pt in performing mini squats in front of chair using FWW M7 PT-IP Assessment and Plan Start: 09/20/18 17:04 Freq: NEEDED Status: Active Protocol: Document 09/23/18 09:50 (Rec: 09/23/18 10:25 [id number]) PT Summary Assessment and Plan Summary Assessment Summary Pt transfers safely with SBA. No imbalances or LOB during ambulation. Pt would benefit from increased activity during hospital stay.
--- NOTE | 2018-09-23 10:53 | CM.DPC ---
Addendum entered by Leighann Doyle LPN 09/23/18 15:15: OT order was obtained earlier to help in the overall functional abilities assessment. Dr. Nicolas has expressed concerns re pt's overall hygience and especially ability to bathe herself. Just spoke now with OT Diandra who did see pt and attempted eval. She says pt's spouse was present at this time. She reports pt did not want to proceed, especially with any discussion of toileting or bathing hygiene/see her note for details. Pt's spouse, per Diandra, said if she needed any help with these things he could assist her. Original Note: Addendum entered by Leighann Doyle LPN 09/23/18 11:05: Clarification: per PT notes: shoe is off loading wedge shoe. Pt ambulated with the PT at [facility] Original Note: DCP: continued: case received, discussed in Team Rounds with Dr. Nicolas, EMR reviewed, met with pt. Pt is found up in reclining chair, new orthotic shoe in place. Says she did very well with PT today (notes show up in halls with FWW 200 ft and with PT recommending that pt do more mobilizing while here. Pt confirms she has a FWW at home and does use it. She also drives. Senior Designer/Art Director consult has been ordered/not available today. Referral has been placed to [facility] but with no acceptance yet as the insurance coverage has not been confirmed by [facility] (per prior CM notes). Pt does says she drives, is aware of need for homebound status as part of the regulations. Says she does not yet know if she will be going to the wound care clinic but if she is homebound she agrees that HH would be helpful, especially as her diabetic treatment is undergoing changes. She says she has [facility] about 5 years ago and had the same [facility] insurance at that time. As is holiday cannot do more on this today but can follow up tomorrow to obtain more clarity re what her HH options are. P: in process. home, likely with [facility].
--- NOTE | 2018-09-23 12:17 | P.PN_ITS ---
Subjective Date Patient Seen: 09/23/18 Interval history: Zohra Winslow is a 58-year-old female with a past medical history significant for morbid obesity, diabetes mellitus 2 with high insulin requirements, and hypertension who presents to [facility] ED with complaints of a wound on her left leg. Overnight patient had a low blood sugar reading but recovered after given food. Patient resting in bed side chair comfortably. She denies any new symptoms. She is asymptomatic of her E coli UTI. She denies headache, chest pain, shortness of breath, abdominal pain, nausea, vomiting, fever, chills, dysuria, diarrhea or constipation. She is eliminating and voiding without difficulty. She has been fitted with a new orthotic for her left foot and her cellulitis is bandage but appears to be healing well. Continue to have in-depth conversation regarding lifestyle modification for diabetes including: diet (taught patient the hand rule) and exercise. Exam Vital Signs (past 8 hours): - 09/23/18 07:00 09/23/18 07:30 Temperature 98.2 F Pulse Rate 83 Respiratory Rate 18 Blood Pressure 125/55 L Pulse Oximetry 97 93 Oxygen Delivery Method Room Air Oxygen Flow Rate 0 Narrative Exam Narrative: General:Middle-aged morbidly obese female sitting in bedside chair and in no acute distress, poor hygiene, well-developed, well-nourished, appropriately interactive. HEENT: Normocephalic, atraumatic. External ears without defect. Pupils equal, round, and reactive to light. Anicteric sclerae, moist conjunctivae, and no lid lag. Neck: Supple with full range of motion. Possible thyromegaly versus lipoma on neck. Cardiovascular: Regular rhythm and rate, without murmurs, rubs, or gallops appreciated. Pulmonary: Clear to auscultation bilaterally without crackles, wheezes, or rhonchi. Normal respiratory effort with no use of accessory muscles. Abdomen: Bowel tones present. Soft, obese, nontender, nondistended. No hepatosplenomegaly or masses appreciated. Extremities: No cyanosis or clubbing. Right Charcot foot. Left foot wound dressed which is clean and dry. Left leg cellulitis with dressings in place clean, dry and intact with improving surrounding erythema. Neurological: Cranial nerves grossly intact. Psychiatric: Normal mood and affect. Alert and oriented to person, place, and time. Objective Labs Result Diagrams: 09/23/18 04:55 09/23/18 04:55 Labs: Laboratory Results - last 24 hr 09/23/18 09/23/18 04:55 04:55 WBC 10.1 RBC 3.86 L Hgb 9.8 L Hct 31.1 L MCV 80.7 MCH 25.5 L MCHC 31.6 RDW 16.2 H Plt Count 385 Neut % (Auto) Not Reportable Lymph % (Auto) Not Reportable Runnels % (Auto) Not Reportable Eos % (Auto) Not Reportable Baso % (Auto) Not Reportable Total Counted 100 Seg Neutrophils % 71.0 H Band Neutrophils % 2.0 L Lymphocytes % (Manual) 13.0 L Atypical Lymphs % 1.0 H Monocytes % (Manual) 9.0 Eosinophils % (Manual) 4.0 Neutrophils # (Manual) 7373 H RBC Morphology Not Reportable Anisocytosis 2+ H Sodium 143 Potassium 4.5 Chloride 106 Carbon Dioxide 25 BUN 28 H Creatinine 0.90 Estimated GFR > 60.0 BUN/Creatinine Ratio 31.1 H Glucose 125 H Calcium 9.4 Assessment & Plan Plan: Assessment/Plan Narrative: Zohra Winslow is a 58-year-old female with a past medical history significant for morbid obesity, diabetes mellitus 2 with high insulin requirements, and hypertension who presents to [facility] ED with complaints of a wound on her left leg. 1. Acute sepsis, present on admission. Resolved. -Patient presented febrile, tachycardic, with a marked leukocytosis and source of left lower extremity cellulitis. -Early goal-directed therapy with med including: IV antibiotics and IV fluids. 2. Acute hypoxia due to sepsis, not present on admission. Resolved. -Patient desatted down to as low as 72% early in her hospitalization and utilize supplemental oxygen as necessary. -patient currently on room air and satting well. 3. Acute purulent cellulitis of left lower extremity, present on admission. Active. -Patient was started on levofloxacin and vancomycin in the ED which was discontinued. -Antibiotic coverage was switched to ceftriaxone to cover both her cellulitis , foot wound and UTI as below. 4. Acute on chronic left diabetic foot ulcer, present on admission. Active. -The patient has a history of osteomyelitis of her left foot with resultant amputation of her 2nd toe. Current wound appears to be superficial and unlikely an abscess. -Podiatry and orthopedic surgery have been consulted and we appreciate their time and recommendations. Plan to fit patient with orthotic to offload pressure on her plantar surface of her left foot. Will plan to discuss with both specialties outpatient plan tomorrow. -Wound culture sent by ED physician grew group A strep. -Consulted wound care and will follow recs. -Switched antibiotic coverage from Levaquin to ceftriaxone to provide coverage for both cellulitis, foot wound and UTI as below. 5. Acute E coli UTI, present on admission. Resolving. -Patient presented with significant leukocytosis with probable source cellulitis, however, patient continued to show signs of infection despite treatment. -Urine culture and sensitivities resulted today with E coli that is resistant to Levaquin the antibiotic that is being used to treat her cellulitis. Discussed patient with Dr. Campbell and switch antibiotic coverage from Levaquin to ceftriaxone to cover both cellulitis, foot wound and UTI. 6. Diabetes mellitus type 2, insulin using, present on admission. Presume stable. -Restarted patient's Toujeo at lower dose from 160 units b.i.d. to 50 units b.i.d. Continue nutritional insulin with NovoLog 100 mg t.i.d. with meals. -Hemoglobin A1c 11% on admission. 7. Hypertension, present on admission. Stable. -Continue lisinopril 20 mg b.i.d. 8. Morbid obesity, present on admission. Active. -BMI 50.6. -Ordered dietitian/nutrition consult, pending. -Counseled the patient in depth regarding diabetes and lifestyle modification including diet and exercise, ongoing. Disposition: Depending upon resolution of infectious processes will likely discharge home with possibly home health Quality VTE Deep Vein Thrombosis/Pulmonary Embolism Present on Admission: No
[2018-09-23] MEDS: EMPAGLIFLOZIN 25 MG PO (12:37)
--- NOTE | 2018-09-23 15:21 | OT.IP.TRT ---
Current Diagnoses Cellulitis of left lower limb (09/19/18) Unspecified open wound, left lower leg, initial encounter (09/19/18) Occupational Therapy Treatment Note M3 OT- IP Subjective and Pain Start: 09/23/18 15:16 Freq: Status: Active Protocol: Document 09/23/18 15:17 [facility] (Rec: 09/23/18 15:20 [facility] [id number]) OT- Subjective Occupational Therapy Visit Type Type Patient Refusal Notes Spoke to pt at length regarding her independence for ADL needs. Pt states able to do all for herself but yet not wanting to show therapist when asked if she could neville/ doff her foot brace. Pt's spouse stated he would be able to assist her at home for any needs if needed. Pt states independently did her own sponge bathing today. Asked pt if able to do her own hygiene after toileting, pt states yes as well. Pt therefore refusing OT eval as feels it is not needed. Therefore discharge OT eval orders.
[2018-09-24] MEDS: ACETAMINOPHEN 325 MG TABLET 650 MG PO ×2 (00:29→14:30)
[2018-09-24 04:53] VITALS: BP 109/49; PULSE 89; RESP 18; TEMP 36.6; O2SAT 94
[2018-09-24] MEDS: HEPARIN 5,000 UNIT/ML VIAL 5000 UNIT SUBCUT ×3 (06:24→21:17)
[2018-09-24 07:42] VITALS: BP 120/45; PULSE 90; RESP 20; TEMP 36.8; O2SAT 92
--- NOTE | 2018-09-24 09:25 | PT.IPTN ---
Current Diagnoses Cellulitis of left lower limb (09/19/18) Unspecified open wound, left lower leg, initial encounter (09/19/18) Physical Therapy Treatment Note M2 PT-IP Current Condition Start: 09/20/18 17:04 Freq: NEEDED Status: Active Protocol: Document 09/21/18 11:16 RCC (Rec: 09/21/18 13:09 RCC [id number]) Physical Therapy Current Condition Current Condition Evaluation Date 09/20/18 Treatment Diagnosis L 1st MT head ulcer, impaired activity tolerance Precautions Other Precautions Off-loading wedge shoe on the L foot when ambulating M3 PT-IP Subjective Start: 09/20/18 17:04 Freq: NEEDED Status: Active Protocol: Document 09/24/18 09:25 GGD (Rec: 09/24/18 12:14 GGD [id number]) Subjective Physical Therapy Visit Type Type Treatment Note Visit Start Time 09:00 Visit Stop Time 09:25 Total Visit Minutes 25 Number of REGIONAL WILDLIFE AGENT Visits 2 Physical Therapy Visit Comments Patient Comments Pt willing to work with PT> M4 PT-IP Mobility and Gait Start: 09/20/18 17:04 Freq: NEEDED Status: Active Protocol: Document 09/24/18 09:25 GGD (Rec: 09/24/18 12:14 GGD [id number]) PT-Transfer Assessment Sit to and From Stand Sit to and from Stand Standby Assistance Equipment Transfer Assistive Device Gait Belt 4 Wheeled Walker Orthotic/Prosthetic Devices or Brace: Yes Transfers Transfer Destination Chair Transfer Ability Level of Assist Standby Assistance Gait Assessment Gait Gait Assistance Required: Standby Assistance Distance (Feet) 200 Assistive Devices Assistive Device Gait Belt 4 Wheeled Walker Orthotic/Prosthetic Devices or Brace: Yes Gait Deviations General Gait Pattern Antalgic Decreased Feet Clearance Wide Based Gait Factors Limiting Gait Function Factors Limiting Gait Function Decreased Activity Tolerance Decreased Sensation Decreased Strength Poor Balance M5 PT-IP Objective Assessments Start: 09/20/18 17:04 Freq: NEEDED Status: Active Protocol: Document 09/20/18 17:07 RCC (Rec: 09/20/18 17:19 RCC [id number]) Orientation Orientation/Cognition Level of Alertness Alert Orientation Name Age Birthday Month Date Year Day of Week Place Situation Strength Lower Extremity Strength Hip flexion 4/5 B Knee flexion and extension 5/5 B Ankle DF 4/5 L and 5/5 R Coordination Assessment Gross Coordination Gross Coordination WNL Sensation Assessment Sensation Gross Sensation Right LE Impaired Left LE Impaired Muscle Tone Muscle Tone WNL Yes M6 PT-IP Treatment Start: 09/20/18 17:04 Freq: NEEDED Status: Active Protocol: Document 09/23/18 10:26 LJ (Rec: 09/23/18 10:28 LJ [id number]) Physical Therapy Treatment Education Education Provided Safety Other Treatments Other Treatment Performed mini squats x 5. Educated pt in performing mini squats in front of chair using FWW M7 PT-IP Assessment and Plan Start: 09/20/18 17:04 Freq: NEEDED Status: Active Protocol: Document 09/24/18 09:25 GGD (Rec: 09/24/18 12:14 GGD [id number]) PT Summary Assessment and Plan Summary Assessment Summary PT improving with mobility. She was safe with gait with 4WW without LOB. Frequency of Treatment Frequency Of Treatment Once a Day Treatment Plan Other Recommendations and Next Treatment Trial of short gait with SPC. Focus Recommendations To Nursing Amount of Assist Needed Standby Assistance Discharge Recommendations PT Discharge Recommendations Home with Assistance Home Health
--- NOTE | 2018-09-24 09:26 | CM.DPC ---
Spoke to Nargis in Wound Care. Patient was last seen 04/2014 for 1 visit.
[2018-09-24] MEDS: CEFTRIAXONE 2 GM/50 ML FROZ.PIGGY IV (09:40)
[2018-09-24] MEDS: LISINOPRIL 20 MG TABLET PO ×2 (09:41→21:18)
[2018-09-24] MEDS: SODIUM CHLORIDE 0.9% FLUSH 10 ML IV ×2 (09:42→21:18)
[2018-09-24] MEDS: EMPAGLIFLOZIN 25 MG PO (10:26)
[2018-09-24] MEDS: [UNRECOGNIZED DRUG - OTHER] SUBCUT ×2 (10:27→21:20)
[2018-09-24] MEDS: INSULIN GLARGINE SUBCUT ×2 (10:27→21:20)
[2018-09-24] MEDS: INSULIN ASPART 100 UNIT/ML 10ML VIAL SUBCUT ×2 (12:08→17:34)
--- NOTE | 2018-09-24 13:10 | CM.DPC ---
Addendum entered by Leighann Doyle LPN 09/24/18 13:27: Checked in now with pt. Her is now in room. Pt confirms that she wants only RN for the HH now. If more is needed she will discuss later with the HH agency. HUGO Goins confirms pt is mobilizing well. Pt continues to not want OT involvement. At this point will update the Face/Face and HH orders to reflect the current situation and get these to [facility]. Original Note: Addendum entered by Leighann Doyle LPN 09/24/18 13:20: Ratna confirms [facility] accepts [facility]. She is continuing the referral process and will call and fax. See her note for details. Pt is updated. Original Note: DCP: continued: Summers back from [facility] today re [facility] . He confirms that [facility] does not have a contract with [facility] and thus they cannot accept pt. KARLA Bradley is currently contacting [facility] and [facility] to see if they can accept the insurance. Pt is updated. Did talk again with pt. She confirms her PCP is Dr. Hobson, she has not seen him for about 5 months. Appt is scheduled with him Oct 04. She says her most recent medical care has been with podiatry: Dr. Enamorado in [place]: he's the one who amputated my toe. Dr. Nicolas is updated. P: home with family and HH RN for diabetic management and wound care if insurance can be accepted. Wound care clinic has been consulted ([facility]).
--- NOTE | 2018-09-24 13:29 | CM.DPC ---
Referral faxed to [facility]
--- NOTE | 2018-09-24 14:10 | CM.DPC ---
Spoke with Eliane from [facility]. Will see patient within a week
[2018-09-24 15:53] VITALS: BP 119/57; PULSE 83; RESP 18; TEMP 36.7; O2SAT 96
[2018-09-24 20:51] VITALS: BP 116/45; PULSE 85; RESP 18; TEMP 36.9; O2SAT 95
[2018-09-24 21:18] VITALS: BP 116/45; PULSE 85
--- NOTE | 2018-09-24 22:01 | PC.NURSE ---
Dressing to proximal calf, left leg, fell off while transferring to BR. New one placed with light wrap around leg to secure it. Pt reports this same dressing keeps falling off. Denies pain. Using call light appropriately for needs/assist. Had medium BM.
--- NOTE | 2018-09-24 22:05 | P.PN_ITS ---
Subjective Date Patient Seen: 09/24/18 Interval history: Zohra Winslow is a 58-year-old female with a past medical history significant for morbid obesity, diabetes mellitus 2 with high insulin requirements, and hypertension who presents to [facility] ED with complaints of a wound on her left leg. Overnight the patient's blood glucose was stable. Today the patient is resting in bedside chair comfortably. She denies any new symptoms. She denies headache , chest pain, shortness of breath, abdominal pain, nausea, vomiting, fever, chills, dysuria, diarrhea or constipation. She is eliminating and voiding without difficulty. She is able to ambulate with her new orthotic on left foot with PT. Exam Vital Signs (past 8 hours): - 09/24/18 15:53 09/24/18 20:51 09/24/18 21:18 Temperature 98.0 F 98.5 F Pulse Rate 83 85 85 Respiratory Rate 18 18 Blood Pressure 119/57 L 116/45 L 116/45 L Pulse Oximetry 96 95 Oxygen Delivery Method Room Air Oxygen Flow Rate 0 Narrative Exam Narrative: General:Middle-aged morbidly obese female sitting in bedside chair and in no acute distress, poor hygiene, well-developed, well-nourished, appropriately interactive. HEENT: Normocephalic, atraumatic. External ears without defect. Pupils equal, round, and reactive to light. Anicteric sclerae, moist conjunctivae, and no lid lag. Neck: Supple with full range of motion. Possible thyromegaly versus lipoma on neck. Cardiovascular: Regular rhythm and rate, without murmurs, rubs, or gallops appreciated. Pulmonary: Clear to auscultation bilaterally without crackles, wheezes, or rhonchi. Normal respiratory effort with no use of accessory muscles. Abdomen: Soft, obese, bowel sounds present, nontender, nondistended. No hepatosplenomegaly or masses appreciated. Extremities: No cyanosis or clubbing. Right Charcot foot. Left foot wound dressed which is clean and dry. Left leg cellulitis with dressings in place clean, dry and intact with continued improving surrounding erythema. Neurological: Cranial nerves grossly intact. Psychiatric: Normal mood and affect. Alert and oriented to person, place, and time. Objective Labs Result Diagrams: 09/23/18 04:55 09/23/18 04:55 Assessment & Plan Plan: Assessment/Plan Narrative: Zohra Winslow is a 58-year-old female with a past medical history significant for morbid obesity, diabetes mellitus 2 with high insulin requirements, and hypertension who presents to [facility] ED with complaints of a wound on her left leg. 1. Acute sepsis, present on admission. Resolved. -Patient presented febrile, tachycardic, with a marked leukocytosis and source of left lower extremity cellulitis. -Early goal-directed therapy with med including: IV antibiotics and IV fluids. 2. Acute hypoxia due to sepsis, not present on admission. Resolved. -Patient desatted down to as low as 72% early in her hospitalization and utilize supplemental oxygen as necessary. -Patient currently on room air and satting well. 3. Acute purulent cellulitis of left lower extremity, present on admission. Active. -Patient was started on levofloxacin and vancomycin in the ED which was discontinued. -Antibiotic coverage was switched to ceftriaxone 09/21 to cover both her cellulitis, foot wound and UTI as below. 4. Acute on chronic left diabetic foot ulcer, present on admission. Active. -The patient has a history of osteomyelitis of her left foot with resultant amputation of her 2nd toe. Current wound appears to be superficial and unlikely an abscess. -Podiatry and orthopedic surgery have been consulted and we appreciate their time and recommendations. Plan to fit patient with orthotic to offload pressure on her plantar surface of her left foot. Need to discuss outpatient plan with both subspecialties. -Wound culture sent by ED physician grew group A strep. -Consulted wound care and will follow recs. -Switched antibiotic coverage from Levaquin to ceftriaxone to provide coverage for both cellulitis, foot wound and UTI as below. 5. Acute E coli UTI, present on admission. Resolving. -Patient presented with significant leukocytosis with probable source cellulitis, however, patient continued to show signs of infection despite treatment. -Urine culture and sensitivities resulted today with E coli that is resistant to Levaquin the antibiotic that is being used to treat her cellulitis. Discussed patient with Dr. Campbell and switch antibiotic coverage from Levaquin to ceftriaxone to cover both cellulitis, foot wound and UTI. 6. Diabetes mellitus type 2, insulin using, present on admission. Presume stable. -Restarted patient's Toujeo at lower dose from 160 units b.i.d. to 50 units b.i.d. Continue nutritional insulin with NovoLog 100 mg t.i.d. with meals. -Hemoglobin A1c 11% on admission. 7. Hypertension, present on admission. Stable. -Continue lisinopril 20 mg b.i.d. 8. Morbid obesity, present on admission. Active. -BMI 50.6. -Ordered dietitian/nutrition consult, pending. -Counseled the patient in depth regarding diabetes and lifestyle modification including diet and exercise, ongoing. Disposition: Depending upon resolution of infectious processes will likely discharge home with possibly home health. Quality VTE Deep Vein Thrombosis/Pulmonary Embolism Present on Admission: No
[2018-09-25 00:30] VITALS: BP 126/53; PULSE 85; RESP 16; TEMP 37.1; O2SAT 94
[2018-09-25] MEDS: ACETAMINOPHEN 325 MG TABLET 650 MG PO ×2 (03:21→09:17)
[2018-09-25 03:56] VITALS: BP 120/63; PULSE 88; RESP 16; TEMP 36.8; O2SAT 92
[2018-09-25 05:38] LABS: BUN Creatinine Ratio 27.5 (6-22); Blood Urea Nitrogen 22 mg/dL (7-17); Calcium 9.8 mg/dL (8.4-10.2); Carbon Dioxide 26 mmol/L (22-32); Chloride 105 mmol/L (98-107); Estimated Glomerular Filt Rate > 60.0 mL/min (>60); Glucose 151 mg/dL (70-100); HEMOLYSIS < 15 (0-50); Potassium 4.3 mmol/L (3.4-5.1); Sodium 141 mmol/L (137-145)
[2018-09-25] MEDS: HEPARIN 5,000 UNIT/ML VIAL 5000 UNIT SUBCUT (06:21)
[2018-09-25 08:00] VITALS: BP 124/56; PULSE 93; RESP 18; TEMP 36.6; O2SAT 92
[2018-09-25 08:00] LABS: Add Manual Diff / Slide Review NO; Basophils Percent Auto 0.8 % (0-2); Eosinophils Percent Auto 3.3 % (2-4); Hematocrit 33.1 % (36-46); Hemoglobin 10.4 g/dL (12.0-16.0); Lymphocytes Percent Auto 20.9 % (25-40); Mean Corpuscular HGB Conc 31.6 % (30-36); Mean Corpuscular Hemoglobin 25.5 PG (26-34); Mean Corpuscular Volume 80.8 fL (80-100); Monocytes Percent Auto 7.8 % (3-14); Neutrophils Absolute Auto 8000 /uL (1500-7000); Neutrophils Percent Auto 67.2 % (50-75); Platelet Count 399 X10^3/uL (150-400); Red Blood Cell Count 4.09 X10^6/uL (4.0-5.2); Red Cell Distribution Width 15.8 % (11.6-14.8); White Blood Cell Count 11.8 X10^3/uL (4.5-11.0)
[2018-09-25] MEDS: CEFTRIAXONE 2 GM/50 ML FROZ.PIGGY IV (09:14)
[2018-09-25] MEDS: INSULIN ASPART 100 UNIT/ML 10ML VIAL SUBCUT ×2 (09:16→12:22)
[2018-09-25] MEDS: [UNRECOGNIZED DRUG - OTHER] SUBCUT (09:16)
[2018-09-25] MEDS: INSULIN GLARGINE SUBCUT (09:16)
[2018-09-25] MEDS: LISINOPRIL 20 MG TABLET PO (09:17)
[2018-09-25] MEDS: SODIUM CHLORIDE 0.9% FLUSH 10 ML IV (09:18)
[2018-09-25] MEDS: EMPAGLIFLOZIN 25 MG 1 EACH PO (09:19)
[2018-09-25] MEDS: FUROSEMIDE 100 MG/10 ML VIAL 60 MG IV (10:45)
--- NOTE | 2018-09-25 10:50 | CM.DPC ---
DCP Cont: Patient is to be discharged home today. She will have [facility], as this is the only agency accepting her insurance. Confirmed with agency that they will not be able to see patient until next week. Spoke to Eliane at [facility]. Asked her if she received information, such as notes and face to face. She had this piano case maker speak to Vipin, who stated that they had not received any paperwork, such as face to face, etc, although it was noted that fax went through. Went ahead and refaxed clinical notes, face to face, and orders, along with recent clinical notes. Let them know that when discharge summary is complete, will send. P: Patient is to go home with home health nursing only, for at this time, she has declined therapy. Carey Davidson RN/Sheep Or Calf Grader
--- NOTE | 2018-09-25 11:08 | PT.IPTN ---
Current Diagnoses Cellulitis of left lower limb (09/19/18) Unspecified open wound, left lower leg, initial encounter (09/19/18) Physical Therapy Treatment Note M2 PT-IP Current Condition Start: 09/20/18 17:04 Freq: NEEDED Status: Active Protocol: Document 09/21/18 11:16 RCC (Rec: 09/21/18 13:09 RCC [id number]) Physical Therapy Current Condition Current Condition Evaluation Date 09/20/18 Treatment Diagnosis L 1st MT head ulcer, impaired activity tolerance Precautions Other Precautions Off-loading wedge shoe on the L foot when ambulating M3 PT-IP Subjective Start: 09/20/18 17:04 Freq: NEEDED Status: Active Protocol: Document 09/25/18 10:57 SA (Rec: 09/25/18 11:08 SA [id number]) Subjective Physical Therapy Visit Type Type Treatment Note Visit Start Time 10:10 Visit Stop Time 10:38 Total Visit Minutes 28 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 Therapy Pain Assessment Pain When Pain Assessed During Mobility Pain Present Pain Present Denied Pain M4 PT-IP Mobility and Gait Start: 09/20/18 17:04 Freq: NEEDED Status: Active Protocol: Document 09/25/18 10:57 SA (Rec: 09/25/18 11:08 SA [id number]) PT-Transfer Assessment Sit to and From Stand Sit to and from Stand Standby Assistance Equipment Transfer Assistive Device Gait Belt Straight Cane Orthotic/Prosthetic Devices or Brace: Yes Transfers Transfer Destination Chair Toilet Transfer Ability Level of Assist Standby Assistance Comments Mobility Comments Pt mobilizes with off weighting shoe on LLE and SBA, mod uces for safety but demonstrates good use of SPC. Gait Assessment Gait Gait Assistance Required: Standby Assistance Distance (Feet) 220 Able to Maintain Weight Bearing Status Yes During Gait Assistive Devices Assistive Device Gait Belt 4 Wheeled Walker Orthotic/Prosthetic Devices or Brace: Yes Gait Deviations General Gait Pattern Antalgic Decreased Feet Clearance Wide Based Gait Factors Limiting Gait Function Factors Limiting Gait Function Decreased Activity Tolerance Decreased Sensation Decreased Strength Poor Balance Comments Gait Comments Pt manages SPC well, appeared to have minor LOB x 1 but recovered quickly with no Assist. Gait training in room and hallway with SBA-CGA. Stair Climbing Assessment Comments Stair Climbing Comments Pt has ramps at home. M5 PT-IP Objective Assessments Start: 09/20/18 17:04 Freq: NEEDED Status: Active Protocol: Document 09/20/18 17:07 [facility] (Rec: 09/20/18 17:19 RCC [id number]) Orientation Orientation/Cognition Level of Alertness Alert Orientation Name Age Birthday Month Date Year Day of Week Place Situation Strength Lower Extremity Strength Hip flexion 4/5 B Knee flexion and extension 5/5 B Ankle DF 4/5 L and 5/5 R Coordination Assessment Gross Coordination Gross Coordination WNL Sensation Assessment Sensation Gross Sensation Right LE Impaired Left LE Impaired Muscle Tone Muscle Tone WNL Yes M6 PT-IP Treatment Start: 09/20/18 17:04 Freq: NEEDED Status: Active Protocol: Document 09/25/18 10:57 SA (Rec: 09/25/18 11:08 SA [id number]) Physical Therapy Treatment Exercises Exercises Ankle Pumps Education Education Provided Safety Brace Education Donning [place] Patient Equipment Issued Equipment Type and Company Training for donning/doffing L shoe Pt is able to partially don but needs Min A to tighten velcro, difficulty reaching foot but declines use of director intelligence analysis programs. Other Treatments Other Treatment Performed Education regarding hygiene, diabetes management and LE/foot skin checks at home. Pt states she has all tools needed (ie: hand held mirror, director intelligence analysis programs, long handled sponge, removable shower head and shower bench) Pt declines need for OT intervention and feels confident managing hygiene and self care at home. M7 PT-IP Assessment and Plan Start: 09/20/18 17:04 Freq: NEEDED Status: Active Protocol: Document 09/25/18 10:57 SA (Rec: 09/25/18 11:08 [id number]) PT Summary Assessment and Plan Summary Assessment Summary Pt states she uses SPC in home , managed well with lesser AD and SBA with occasional CGA in turns and tight spaces. Frequency of Treatment Frequency Of Treatment Once a Day Recommendations To Nursing Amount of Assist Needed Standby Assistance Discharge Recommendations PT Discharge Recommendations Home with Assistance Home Health
--- NOTE | 2018-09-25 14:44 | P.DS_ITS ---
History of Present Illness Date Patient Seen: 09/25/18 Time Patient Seen: 08:25 Chief complaint: Foot wound, left Narrative: History of Present Illness Date Patient Seen: 09/19/18 Chief complaint: Foot wound, left Narrative: Zohra Winslow is a 58-year-old female who presents to [facility] ED with complaints of a wound on her left leg. She reports that she was in the shower 2 days ago when she noticed her leg open up and started seeping. She also has a chronic wound on the bottom of the foot under the great toe and on the anterior bradford of the left leg. She denies any recent injury to her left leg which has been draining serosanguineous fluid. There is surrounding erythema which she denies worsening or spreading. She began having hot flashes and chills at home and decided she should come into the emergency department. She has felt a little short of breath today but denies any chest pain or pressure, she has not had any nausea or vomiting no new GI or urinary symptoms. She states she does urinate frequently. She states she does not have any sensation in her feet but that she does check her feet daily. She has been to wound care for her lower extremity before for the toe but not for the anterior bradford. Discharge Providers Date of admission: 09/19/18 14:09 Primary care physician: Sascha Hobson MD Consults: 09/19/18 16:02 Consult to Wound Care Routine Comment: Consulting Provider: Gail- Wound Care 09/19/18 23:07 Consult to Dietitian, Adult Routine Comment: Reason For Exam: Morbid obesity, DM type 2 requiring high insulin 09/20/18 11:52 Consult to Physical Therapy Evaluate & Treat Comment: 1) Wedge or iPos shoe for left Mt1 head wound Physician Instructions: Evaluate and Treat Part I 09/20/18 11:56 Consult to Physical Therapy Evaluate & Treat Comment: 2) Compressogrip/Tubigrip B/L LE desired Physician Instructions: Evaluate and Treat Part II 09/22/18 12:53 Consult to Home Health Routine Comment: Reason For Exam: Nursing, P.T, and O.T. 09/23/18 14:58 Consult to Occupational Therapy Evaluate & Treat Comment: Physician Instructions: Evaluate and treat 09/24/18 13:31 Consult to Home Health Routine Comment: diabetic management and wound care. Reason For Exam: home health RN at d/c Discharge provider: Jacqueline Garner DO Discharge Date: 09/25/18 Summary Discharge Diagnosis: CELLULITIS TO LLE VENOUS STATIS AIDEN WITH DERMATITIS MORBID OBESITY DM2 HTN MILD LEUKOCYTOSIS ANEMIA OF CD Hospital Course: PATIENT ADMITTED WITH WOUND TO LEFT LOWER EXT WHICH APPEARS TO BE CHRONIC IN NATURE SHE WAS TREATED WITH ABX AND RESPONDED WELL TO TREATMENT SHE WAS ALSO DX WITH [facility] WHICH WAS TREATED WELL WITH ABX SHE IS AFEBRILE AT THIS TIME AND HER VITALS ARE STABLE WELL SHE WOULD BE DC ON OMNICEF AND DOXY X 10 DAYS SHE WAS PLACED ON DIURETICS DUE TO CHRONIC VENOUS STASIS ADDITIONAL MANAGEMENT PER OUTPATIENT PROVIDERS EXTENSIVE COUNSELING GIVEN REGARDING DIET AND EXERCISE PATIENT TO AVOID ETOH AND TOBACCO WELL PATIENT TO WEAR TAMARA HOSE AT ALL TIMES AND TO KEEP BLE ELEVATED WHILE SITTING Status at Discharge Cognitive/behavioral status at discharge: STABLE TO HOME Functional status at discharge: independent ambulation Overall status at discharge: patient is back to baseline Time Spent with Patient Greater than 30 minutes Exam Vital Signs (past 8 hours): - 09/25/18 08:00 Temperature 97.8 F Pulse Rate 93 H Respiratory Rate 18 Blood Pressure 124/56 L Pulse Oximetry 92 Oxygen Delivery Method Room Air Oxygen Flow Rate 0 Narrative Exam Narrative: NO ACUTE DISTRESS. PATIENT IS ALERT ORIENTED X3. OBESE VITAL SIGNS STABLE HEAD ATRAUMATIC NORMOCEPHALIC NECK : SUPPLE WITHOUT ADENOPATHY NO CAROTID BRUITS EYE: EOMI, PERRLA, NORMAL CONJUNCTIVA; NO JAUNDICE CHEST: REGULAR RATE. NO RUBS. PMI IS NON DISPLACED. NO MURMURS; NORMAL S1- S2 PULMONARY: DECREASED BS OVER THE BASES. MILD BIBASILAR CRACKLES NOTED; NO INCREASED DULLNESS TO PERCUSSION ABDOMEN: SOFT. NONTENDER. NONDISTENDED. BOWEL SOUNDS ARE PRESENT IN ALL 4 QUADRANTS. NO MASS. EXTREMITIES: 3+ PITTING EDEMA.. NO CYANOSIS CLUBBING NOTED. NEURO: CRANIAL NERVES 2-12 GROSSLY INTACT. NO FOCAL NEUROLOGICAL DEFICIT NOTED. MSK: NORMAL RANGE OF MOTION FOR AGE. NO JOINT EFFUSION. SKIN: NORMAL FOR ETHNICITY; NO ECCHYMOSIS. NO LESION. GOOD TURGOR.; NO RASHES : NORMAL EXTERNAL GENITALIA. PSYCH : APPROPRIATE MOOD AND AFFECT. ALERT AWAKE ORIENTED X3 Objective Labs Result Diagrams: 09/25/18 05:00 09/25/18 05:00 Labs: Laboratory Results - last 24 hr 09/25/18 09/25/18 05:00 05:00 WBC 11.8 H RBC 4.09 Hgb 10.4 L Hct 33.1 L MCV 80.8 MCH 25.5 L MCHC 31.6 RDW 15.8 H Plt Count 399 Neut % (Auto) 67.2 Lymph % (Auto) 20.9 L [place] % (Auto) 7.8 Eos % (Auto) 3.3 Baso % (Auto) 0.8 Neut # (Auto) 8000 H Sodium 141 Potassium 4.3 Chloride 105 Carbon Dioxide 26 BUN 22 H Creatinine 0.80 Estimated GFR > 60.0 BUN/Creatinine Ratio 27.5 H Glucose 151 H Calcium 9.8 Discharge Plan Discharge Plan Patient Disposition: Home Health Service Discharge comment: act as mandeep diabetic/ cardiac diet f/u with pcp 3-10 days no tobacco/etoh products EAT FOOD HIGH IN POTASSIUM DAILY WOUND CARE PER HOMEHEALTH NURSE Discharge Med Rec/Prescriptions Prescriptions: New cefdinir 300 mg capsule 300 mg PO Q12H 10 Days Qty: 20 RF: 0 potassium chloride 10 mEq capsule, extended release 10 meq PO BID Qty: 60 RF: 0 furosemide [Lasix] 20 mg tablet 40 mg PO DAILY Qty: 60 RF: 0 doxycycline hyclate 100 mg capsule 100 mg PO BID 10 Days Qty: 20 RF: 0 nitrofurantoin macrocrystal 100 mg capsule 100 mg PO Q12H 7 Days Qty: 14 RF: 0 Continue insulin glargine [Lantus U-100 Insulin] 100 UNIT/1 ML solution 90 unit SQ BID Qty: 0 RF: 0 lisinopril 40 MG tablet 20 mg PO BID Qty: 0 RF: 0 epinephrine 0.3 MG/0.3 ML auto-injector 0.3 mg IM X1 30 Days Qty: 0 RF: 0 diphenhydramine HCl [Benadryl] 25 mg Capsule 25 mg PO PRN PRN (Reason: Allergy Symptoms) RF: 0 fluticasone [Flonase Allergy Relief] 50 mcg/actuation [place],Suspension 1 spray Intranasal PRN PRN (Reason: Allergy Symptoms) RF: 0 empagliflozin [Jardiance] 25 mg Tablet 25 mg PO DAILY RF: 0 insulin glargine U-300 conc [Toujeo SoloStar U-300 Insulin] 300 unit/mL (1.5 mL) Insulin Pen 160 units subcut BID RF: 0 Follow up/Referrals: Sascha Hobson MD [Primary Care Provider] - 3-5 Days (appt:09/29 @ 9:15 w/Cody jauregui @ [facility] [place] [phone] ) Provider Discharge Instructions Diet: Carb-consistent/Diabetic, Low-fat and Low-cholesterol Skin/Wound/Dressing Care Report to your healthcare provider any signs of infection, such as:: chills, fever, night sweats, increased pain, unusual drainage and unusual redness Visit Report/Discharge Packet Instructions: DI for Cellulitis -- Adult Visit Report Forms: Stroke Signs & Symptoms Discharge Data Primary Care Provider: Sascha Hobson Attending Provider: Anita Nicolas Admit Date/Time: 09/19/18 14:09 Quality VTE Deep Vein Thrombosis/Pulmonary Embolism Present on Admission: No
--- NOTE | 2018-09-25 15:35 | PC.NURSE ---
Discharge Pt States pain controlled with tylenol. D/c instructions provided to pt. Notified of f/u apt with PA, aware to contact MD with any additonal questions or concerns. Pt took all belongings with her, including her meds from pharmacy. Pt left in w/c and daughter's boyfriend to go visit her daugher in ICU.
[2018-09-26 08:03] LABS: Hepatitis B Surf Ab Qualitativ Nonreactive (Nonreactive)
== END 2018-09-25 15:00 | disposition home health service (06) | DRG 638 ==
LOC: ED 12:11 → AC 14:09
PROVIDERS: Emergency Medicine; Admitting Provider Internal Medicine; Emergency Provider Emergency Medicine; Family Provider Internal Medicine; PCP Internal Medicine; Visit Provider Internal Medicine
DX: E11.621 Type 2 diabetes mellitus with foot ulcer (principal); L03.116 Cellulitis of left lower limb; A52.16 Charcot's arthropathy (tabetic); Z68.43 Body mass index [BMI] 50.0-59.9, adult; N39.0 Urinary tract infection, site not specified; L97.521 Non-pressure chronic ulcer of other part of left foot limited to breakdown of skin; I10 Essential (primary) hypertension; E66.01 Morbid (severe) obesity due to excess calories; E11.42 Type 2 diabetes mellitus with diabetic polyneuropathy; B96.20 Unspecified Escherichia coli [E. coli] as the cause of diseases classified elsewhere; R09.02 Hypoxemia; Z79.4 Long term (current) use of insulin
CPT/HCPCS: 36415; 36591; 71045; 73630; 80048; 80053; 80202; 81003; 81015; 82962; 83036; 83605; 83690; 83735; 84145; 84443; 85025; 85610; 85730; 87040; 87070; 87077; 87086; 87147; 87186; 87205; 87340; 87797; 93005; 94760; 96361; 96365; 96366; 96375; 97116; 97162; 97530; 99284; J0696; J1644; J1885; J1940; J1956; J3370

== ENCOUNTER → 2018-11-18 13:42 | Outpatient (CLI) | payer OTHER, SELFPAY ==
[2018-09-19 14:58] VITALS: BMI 50.5
== END ==
PROVIDERS: Family Provider Internal Medicine; PCP Internal Medicine; Visit Provider Family Medicine
DX: E11.621 Type 2 diabetes mellitus with foot ulcer (principal); L97.511 Non-pressure chronic ulcer of other part of right foot limited to breakdown of skin; L03.116 Cellulitis of left lower limb
CPT/HCPCS: 97597; 99203

== ENCOUNTER → 2018-11-25 13:47 | Outpatient (CLI) | payer OTHER, SELFPAY ==
[2018-09-19 14:58] VITALS: BMI 50.5
== END ==
LOC: WC 13:48
PROVIDERS: Family Provider Internal Medicine; PCP Internal Medicine; Visit Provider Family Medicine
DX: Z48.817 Encounter for surgical aftercare following surgery on the skin and subcutaneous tissue (principal); E11.9 Type 2 diabetes mellitus without complications
CPT/HCPCS: 99212; 99213

== ENCOUNTER 2019-10-20 11:55 | Inpatient (IN) | payer MEDICARE, OTHER, SELFPAY ==
[2018-09-19 14:58] VITALS: BMI 50.5
[2019-10-20] VITALS (7 sets, daily range): BP systolic 114–160; BP diastolic 42–66; PULSE 76–98; RESP 14–18; TEMP 36.6–37.3; O2SAT 91–97; BMI 49.9
--- NOTE | 2019-10-20 12:28 | ED_ITS ---
HPI - Skin/Abscess/Foreign Bdy <Anna Kiran DO - Last Filed: 10/21/19 07:20> General Chief complaint: Skin/Abscess/Foreign Body Stated complaint: RIGHT FOOT SECOND TOE INFECTION Time Seen by Provider: 10/20/19 12:11 Source: patient Mode of arrival: Ambulatory Limitations: no limitations History of Present Illness HPI narrative: Patient is a 59-year-old diabetic female who presents with right 2nd toe erythema. She actually was [place] the [employer] when she had her toenails cut. Since then she has had worsening erythema she went back today and was sent to the ER for further evaluation. She does have significant erythema of that 2nd toe she denies any fever or chills. No pain. MD complaint: lesion Related Data Home Medications Medication Instructions Recorded Confirmed Lantus U-100 Insulin 100 unit SQ BID #0 08/28/11 10/20/19 lisinopril 20 mg PO BID #0 08/28/11 10/20/19 Jardiance 25 mg PO DAILY 09/19/18 10/20/19 Toudanielo SoloStar U-300 Insulin 80 units SUBCUT BID 09/19/18 10/20/19 diphenhydramine HCl [Benadryl] 25 mg PO PRN PRN 09/19/18 10/20/19 fluticasone propionate [Flonase 1 spray INTRANASAL PRN PRN 09/19/18 10/20/19 Allergy Relief] aspirin 325 mg PO PRN PRN 10/20/19 10/20/19 Allergies Allergy/AdvReac Type Severity Reaction Status Date / Time ibuprofen Allergy Severe VOMITING Verified 09/19/18 12:40 Penicillins Allergy Severe RASH, Verified 09/19/18 12:40 VOMITING Review of Systems <Anna Kiran DO - Last Filed: 10/21/19 07:20> Review of Systems Narrative: GENERAL: Denies chills, fatigue, malaise, fever, sweats, travel HEENT: Denies sinus pain, ear pain, sore throat, difficulty swallowing, neck pain RESPIRATORY: Denies dyspnea, cough, wheezing, hemoptysis, sputum. CARDIOVASCULAR: Denies chest pain, palpitations, orthopnea, edema GASTROINTESTINAL: Denies nausea, vomiting, abdominal pain, diarrhea, constipation, melena. : Denies dysuria, frequency, incontinence, hematuria, urinary retention, flank pain. MUSCULOSKELETAL: Denies weakness, joint pain, or bony pain SKIN: See HPI NEUROLOGIC: Denies weakness, dizziness, headache, numbness, change in speech, confusion PSYCHIATRIC: No concerning psychosocial issues. 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 Social History household members: spouse and children Smoking Status: Never smoker alcohol intake: never Smoking Status: Never smoker alcohol intake frequency: holidays/special occasions only Substance Use Type: does not use Exam <Anna Kiran DO - Last Filed: 10/21/19 07:20> Initial Vital Signs Initial Vital Signs: Vital Signs Temperature 97.9 F 10/20/19 12:04 Pulse Rate 90 10/20/19 12:04 Respiratory Rate 14 10/20/19 12:04 Blood Pressure 160/65 H 10/20/19 12:04 Pulse Oximetry 97 10/20/19 12:04 GENERAL: Overweight well-appearing female and in no acute distress. HEENT: Head atraumatic,EOMI, pupils reactive, face symmetric, moist mucous membranes CARDIOVASCULAR: Regular rate and rhythm without murmurs, rubs or gallops. RESPIRATORY: Breath sounds equal bilaterally, no wheezes rales or rhonchi. ABDOMEN: Soft, nontender. Normoactive bowel sounds all 4 quadrants. No guarding or rebound. EXTREMITIES: Normal range of motion, no clubbing or edema. Neurovascularly intact NEUROLOGICAL: Alert and oriented x4.Normal gait and speech. Cranial nerves II through XII grossly intact. SKIN: 2nd toe right foot is erythematous and swollen no significant streaking <Key Mignon Jing, DO - Last Filed: 10/20/19 20:34> Initial Vital Signs Initial Vital Signs: Vital Signs Temperature 97.9 F 10/20/19 12:04 Pulse Rate 90 10/20/19 12:04 Respiratory Rate 14 10/20/19 12:04 Blood Pressure 160/65 H 10/20/19 12:04 Pulse Oximetry 97 10/20/19 12:04 Course <Anna Kiran, DO - Last Filed: 10/21/19 07:20> Orders Ordered: Acetaminophen (Tylenol) 650 mg PO Q6HR PRN PRN Reason: Fever/Mild Pain (1-3) Al Hydrox/Mg Hydrox/Simethicone (Maalox Plus) 30 ml PO Q6HR PRN PRN Reason: Dyspepsia Bisacodyl (Dulcolax) 10 mg PA DAILY PRN PRN Reason: Constipation Calcium Carbonate (Tums) 1,000 mg PO Q4HR PRN PRN Reason: Dyspepsia Docusate Sodium (Colace) 100 mg PO BID ON LICENSE OF [facility] Last Admin: 10/20/19 21:00 Dose: Not Given Documented by: ELIER Heparin Sodium (Porcine) (Heparin) 5,000 unit SUBCUT Q8HR ON LICENSE OF [facility] Last Admin: 10/21/19 05:52 Dose: 5,000 unit Documented by: CORWIN Sodium Chloride (Normal Saline 0.9%) 1,000 mls @ 75 mls/hr IV CONT ON LICENSE OF [facility] Last Admin: 10/21/19 01:06 Dose: 75 mls/hr Documented by: CORWIN Insulin Glargine (Lantus (Vial)) 64 unit SUBCUT BID ON LICENSE OF [facility] Last Admin: 10/20/19 21:38 Dose: 64 unit Documented by: ANNIKA Cosigned by: SLUND Lisinopril (Zestril) 20 mg PO BID ON LICENSE OF [facility] Last Admin: 10/20/19 21:38 Dose: Not Given Documented by: ANNIKA Magnesium Hydroxide (Milk Of Magnesia) 30 ml PO DAILY PRN PRN Reason: Constipation Naloxone HCl (Narcan) 0.2 mg IV Q2MIN PRN PRN Reason: Opiate Reversal Non-Formulary Medication (Empagliflozin [Jardiance]) 25 mg PO DAILY ON LICENSE OF [facility] Nystatin (Nystop) 1 applic TOP BID PRN PRN Reason: Rash Last Admin: 10/20/19 21:02 Dose: 1 applic Documented by: ELIER Ondansetron HCl (Zofran) 4 mg IV Q8HR PRN PRN Reason: Nausea And Vomiting Discontinued Medications Heparin Sodium (Porcine) (Heparin) 5,000 unit SUBCUT Q8HR ON LICENSE OF [facility] Last Admin: 10/20/19 21:00 Dose: 5,000 unit Documented by: ELIER Vancomycin HCl/Dextrose (Vancomycin) 2,000 mg in 400 mls @ 200 mls/hr IV NOW ONE Stop: 10/20/19 15:44 Last Infusion: 10/20/19 22:45 Dose: 0 mls/hr Documented by: Infusion: 10/20/19 15:38 Dose: 0 mls/hr Documented by: Admin: 10/20/19 14:59 Dose: 200 mls/hr Documented by: ANTONETTE Ceftriaxone Sodium/Dextrose (Rocephin) 2 gm in 50 mls @ 100 mls/hr IV NOW ONE Stop: 10/20/19 14:15 Last Infusion: 10/20/19 15:00 Dose: 0 mls/hr Documented by: Admin: 10/20/19 14:05 Dose: 100 mls/hr Documented by: ANTONETTE Non-Formulary Medication (Insulin Glargine U-300 Conc [Toujeo Solostar U-300 Insulin]) 80 units SUBCUT BID ON LICENSE OF [facility] Last Admin: 10/21/19 01:20 Dose: Not Given Documented by: CORWIN Vital Signs Vital signs: Vital Signs - 8 hr 10/20/19 13:26 Pulse Rate 76 Respiratory Rate 15 Blood Pressure [Right Arm] 125/54 L Pulse Oximetry 97 <Key Ch DO - Last Filed: 10/20/19 20:34> Orders Ordered: Acetaminophen (Tylenol) 650 mg PO Q6HR PRN PRN Reason: Fever/Mild Pain (1-3) Al Hydrox/Mg Hydrox/Simethicone (Maalox Plus) 30 ml PO Q6HR PRN PRN Reason: Dyspepsia Bisacodyl (Dulcolax) 10 mg PA DAILY PRN PRN Reason: Constipation Calcium Carbonate (Tums) 1,000 mg PO Q4HR PRN PRN Reason: Dyspepsia Docusate Sodium (Colace) 100 mg PO BID ON LICENSE OF [facility] Last Admin: 10/20/19 21:00 Dose: Not Given Documented by: ELIER Heparin Sodium (Porcine) (Heparin) 5,000 unit SUBCUT Q8HR ON LICENSE OF [facility] Last Admin: 10/21/19 05:52 Dose: 5,000 unit Documented by: CORWIN Sodium Chloride (Normal Saline 0.9%) 1,000 mls @ 75 mls/hr IV CONT ON LICENSE OF [facility] Last Admin: 10/21/19 01:06 Dose: 75 mls/hr Documented by: CORWIN Insulin Glargine (Lantus (Vial)) 64 unit SUBCUT BID ON LICENSE OF [facility] Last Admin: 10/20/19 21:38 Dose: 64 unit Documented by: ANNIKA Cosigned by: KYLIE Lisinopril (Zestril) 20 mg PO BID ON LICENSE OF [facility] Last Admin: 10/20/19 21:38 Dose: Not Given Documented by: ANNIKA Magnesium Hydroxide (Milk Of Magnesia) 30 ml PO DAILY PRN PRN Reason: Constipation Naloxone HCl (Narcan) 0.2 mg IV Q2MIN PRN PRN Reason: Opiate Reversal Non-Formulary Medication (Empagliflozin [Jardiance]) 25 mg PO DAILY ON LICENSE OF [facility] Nystatin (Nystop) 1 applic TOP BID PRN PRN Reason: Rash Last Admin: 10/20/19 21:02 Dose: 1 applic Documented by: ELIER Ondansetron HCl (Zofran) 4 mg IV Q8HR PRN PRN Reason: Nausea And Vomiting Discontinued Medications Heparin Sodium (Porcine) (Heparin) 5,000 unit SUBCUT Q8HR ON LICENSE OF [facility] Last Admin: 10/20/19 21:00 Dose: 5,000 unit Documented by: ELIER Vancomycin HCl/Dextrose (Vancomycin) 2,000 mg in 400 mls @ 200 mls/hr IV NOW ONE Stop: 10/20/19 15:44 Last Infusion: 10/20/19 22:45 Dose: 0 mls/hr Documented by: Infusion: 10/20/19 15:38 Dose: 0 mls/hr Documented by: Admin: 10/20/19 14:59 Dose: 200 mls/hr Documented by: ANTONETTE Ceftriaxone Sodium/Dextrose (Rocephin) 2 gm in 50 mls @ 100 mls/hr IV NOW ONE Stop: 10/20/19 14:15 Last Infusion: 10/20/19 15:00 Dose: 0 mls/hr Documented by: Admin: 10/20/19 14:05 Dose: 100 mls/hr Documented by: ANTONETTE Non-Formulary Medication (Insulin Glargine U-300 Conc [Toujeo Solostar U-300 Insulin]) 80 units SUBCUT BID BUSTER Last Admin: 10/21/19 01:20 Dose: Not Given Documented by: CORWIN Vital Signs Vital signs: Vital Signs - 8 hr 10/20/19 13:26 Pulse Rate 76 Respiratory Rate 15 Blood Pressure [Right Arm] 125/54 L Pulse Oximetry 97 MDM - Skin/Abscess/Foreign Bdy <Anna Kiran DO - Last Filed: 10/21/19 07:20> Lab Data Attestation: I reviewed the patient's lab results. Result diagrams: 10/20/19 13:00 10/20/19 13:00 Labs: Lab Results 10/20/19 10/20/19 10/20/19 Range/Units 13:00 13:00 13:00 WBC 11.4 H (4.5-11.0) X10^3/uL RBC 4.92 (4.0-5.2) X10^6/uL Hgb 10.6 L (12.0-16.0) g/dL Hct 34.4 L (36-46) % MCV 69.8 L (80-100) fL MCH 21.6 L (26-34) PG MCHC 30.9 (30-36) % RDW 18.4 H (11.6-14.8) % Plt Count 352 (150-400) X10^3/uL Neut % (Auto) 72.4 (50-75) % Lymph % (Auto) 16.0 L (25-40) % [place] % (Auto) 7.9 (3-14) % Eos % (Auto) 2.6 (2-4) % Baso % (Auto) 1.1 (0-2) % Neut # (Auto) 8300 H (9248-5233) /uL Lymph # (Auto) 1800 (0682-4466) /uL [place] # (Auto) 900 (0-900) /uL Eos # (Auto) 300 (0-450) /uL Baso # (Auto) 100 (0-100) /uL RBC Morphology See below Poikilocytosis 1+ H Anisocytosis 3+ H Microcytosis 1+ H Ovalocytes 1+ H ESR 36 H (0-20) MM/HR Sodium 140 (137-145) mmol/L Potassium 4.2 (3.4-5.1) mmol/L Chloride 105 (98-107) mmol/L Carbon Dioxide 28 (22-32) mmol/L BUN 23 H (7-17) mg/dL Creatinine 0.70 (0.52-1.04) mg/dL Estimated GFR > 60.0 (>60) mL/min BUN/Creatinine Ratio 32.9 H (6-22) Glucose 101 H (70-100) mg/dL Hemoglobin A1c 10.7 H (4.0-6.0) % Calcium 10.2 (8.4-10.2) mg/dL C-Reactive Protein 2.3 H (<1.0) mg/dL Imaging Data Extremity x-ray #1: Radiologist's Impression: PROCEDURE: XR TOE RT MIN 2V INDICATIONS: 2nd toe infection TECHNIQUE: 3 views of the right toe(s) acquired. COMPARISON: Merged With [facility], CR, XR FOOT LT MIN 3V, 09/19/2018, 19:00. Merged With [facility], CR, TOE MINIMUM 2 VIEWS LEFT, 10/21/2014, 11:20. FINDINGS: Bones: There is focal osseous destruction involving the distal phalanx of the second toe. There is surrounding soft tissue swelling Severe diffuse midfoot and hindfoot joint degeneration is present IMPRESSION: Focal osseous destruction involving the distal right second toe with adjacent marked soft tissue swelling in keeping with osteomyelitis Diffuse hindfoot and midfoot degeneration and sclerosis, suggesting neuropathic arthropathy Dictated by: Kody Baig M.D. on 10/20/2019 at 13:09 MDM Narrative Medical decision making narrative: Patient's toe itself is minimally erythem atous and swollen however there is evidence of osteomyelitis on x-ray mildly elevated WBC ESR and CRP. She is started on Rocephin and vancomycin for osteomyelitis. Patient is signed out to Dr. Ch awaiting phone call from Dr. song. <Key Ch, DO - Last Filed: 10/20/19 20:34> Lab Data Attestation: I reviewed the patient's lab results. Labs: Lab Results 10/20/19 10/20/19 10/20/19 Range/Units 13:00 13:00 13:00 WBC 11.4 H (4.5-11.0) X10^3/uL RBC 4.92 (4.0-5.2) X10^6/uL Hgb 10.6 L (12.0-16.0) g/dL Hct 34.4 L (36-46) % MCV 69.8 L (80-100) fL MCH 21.6 L (26-34) PG MCHC 30.9 (30-36) % RDW 18.4 H (11.6-14.8) % Plt Count 352 (150-400) X10^3/uL Neut % (Auto) 72.4 (50-75) % Lymph % (Auto) 16.0 L (25-40) % [place] % (Auto) 7.9 (3-14) % Eos % (Auto) 2.6 (2-4) % Baso % (Auto) 1.1 (0-2) % Neut # (Auto) 8300 H (4984-0517) /uL Lymph # (Auto) 1800 (1228-8225) /uL [place] # (Auto) 900 (0-900) /uL Eos # (Auto) 300 (0-450) /uL Baso # (Auto) 100 (0-100) /uL RBC Morphology See below Poikilocytosis 1+ H Anisocytosis 3+ H Microcytosis 1+ H Ovalocytes 1+ H ESR 36 H (0-20) MM/HR Sodium 140 (137-145) mmol/L Potassium 4.2 (3.4-5.1) mmol/L Chloride 105 (98-107) mmol/L Carbon Dioxide 28 (22-32) mmol/L BUN 23 H (7-17) mg/dL Creatinine 0.70 (0.52-1.04) mg/dL Estimated GFR > 60.0 (>60) mL/min BUN/Creatinine Ratio 32.9 H (6-22) Glucose 101 H (70-100) mg/dL Hemoglobin A1c 10.7 H (4.0-6.0) % Calcium 10.2 (8.4-10.2) mg/dL C-Reactive Protein 2.3 H (<1.0) mg/dL MDM Narrative Medical decision making narrative: Patient signed out to myself by Dr. carlitos farias while awaiting call back from Dr. Song. Patient has bony destruction on x-ray over the 2nd toe consistent with osteomyelitis as well as elevated ESR and CRP. No signs of sepsis at this time, no open wound noted for culture or drainage. Spoke with Dr. Song who accepts, she does ask that we contact orthopedic surgery. Patient was started on IV antibiotics. I did speak with Dr. Schultz who asked for formal consult in the computer but will see the patient for osteomyelitis. Discharge Plan Departure Patient Disposition: Admitted As Inpatient Clinical Impression: Acute osteomyelitis of toe Discharge Date/Time: 10/20/19 15:32 Admit Date/Time: 10/20/19 14:15 Admit Provider: Anita Song
[2019-10-20 13:06] LABS: Add Manual Diff / Slide Review NO; Basophils Absolute Auto 100 /uL (0-100); Basophils Percent Auto 1.1 % (0-2); Eosinophils Absolute Auto 300 /uL (0-450); Eosinophils Percent Auto 2.6 % (2-4); Hematocrit 34.4 % (36-46); Hemoglobin 10.6 g/dL (12.0-16.0); Lymphocytes Absolute Auto 1800 /uL (1100-4500); Mean Corpuscular HGB Conc 30.9 % (30-36); Mean Corpuscular Hemoglobin 21.6 PG (26-34); Mean Corpuscular Volume 69.8 fL (80-100); Monocytes Absolute Auto 900 /uL (0-900); Monocytes Percent Auto 7.9 % (3-14); Neutrophils Absolute Auto 8300 /uL (1500-7000); Neutrophils Percent Auto 72.4 % (50-75); Platelet Count 352 X10^3/uL (150-400); Red Blood Cell Count 4.92 X10^6/uL (4.0-5.2); Red Cell Distribution Width 18.4 % (11.6-14.8); White Blood Cell Count 11.4 X10^3/uL (4.5-11.0)
[2019-10-20 13:23] LABS: BUN Creatinine Ratio 32.9 (6-22); Blood Urea Nitrogen 23 mg/dL (7-17); C-Reactive Protein Quant 2.3 mg/dL (<1.0); Calcium 10.2 mg/dL (8.4-10.2); Carbon Dioxide 28 mmol/L (22-32); Chloride 105 mmol/L (98-107); Estimated Glomerular Filt Rate > 60.0 mL/min (>60); Glucose 101 mg/dL (70-100); Sodium 140 mmol/L (137-145)
[2019-10-20 13:27] LABS: HEMOLYSIS 59 (0-50); Potassium 4.2 mmol/L (3.4-5.1)
[2019-10-20 13:29] LABS: Erythrocyte Sedimentation Rate 36 MM/HR (0-20)
[2019-10-20 13:31] LABS: Anisocytosis 3+; Poikilocytosis 1+
[2019-10-20 13:32] LABS: Microcytosis 1+; Ovalocytes 1+
[2019-10-20] MEDS: CEFTRIAXONE 2 GM/50 ML FROZ.PIGGY IV (14:05)
[2019-10-20] MEDS: VANCOMYCIN 2,000 MG/400 ML PIGGYBACK 200 MG IV (14:59)
--- NOTE | 2019-10-20 18:00 | PC.NURSE ---
Admit note: Zohra brought to rm 213 from ER, transferred self to bed. Erythema to right toe and right bradford outlined with sharpie. Skin slightly erythemic to abdomen/groin folds, patient also has bright redness to labia, she reports recent vaginal itching. I notified Dr Nicolas, who gave verbal order for topical Nystatin powder but said she would have oncoming [employer] OPERATOR assess the need for additional medication. Zohra is Ox3, VS stable. Denies nausea, ate entire meal & stated I am really hungry. IV Vancomycin infusing when patient brought from ER, now complete, IV now saline locked. Fall precautions in place, patient instructed to call if she has any needs/concerns or needs OOB-she verbally agrees to this plan. Alarm active for safety.
--- NOTE | 2019-10-20 19:04 | PM.CN ---
History of Present Illness Consult details Date Patient Seen: 10/20/19 Time Patient Seen: 19:04 Chief complaint: RIGHT FOOT SECOND TOE INFECTION Reason for consult: Right 2nd toe infection Requesting provider: Luis Schultz Narrative: Patient is a 59-year-old diabetic female who was sent to the ER by her mortgage consultant Dr. Hewitt of [place]. The patient has a history of uncontrolled diabetes and believes her hemoglobin a is currently about 10. She also has a history of partial toe amputations in the past. She states for the last 2 weeks she has had redness around her 2nd toe and then presented to a mortgage consultant today for toenail cutting and was sent to the ER. She did get a dose of IV antibiotics in the ER and does state that her redness has improved just since then. She denies any fevers or chills. Denies any nausea or vomiting denies any new injuries to her foot. She denies any known circulation problems. Meds Home Medications and Allergies Home Medications Medication Instructions Recorded Confirmed Type Lantus U-100 Insulin 100 unit SQ BID #0 08/28/11 10/20/19 History lisinopril 20 mg PO BID #0 08/28/11 10/20/19 History Jardiance 25 mg PO DAILY 09/19/18 10/20/19 History Toujeo SoloStar U-300 Insulin 80 units SUBCUT BID 09/19/18 10/20/19 History diphenhydramine HCl [Benadryl] 25 mg PO PRN PRN 09/19/18 10/20/19 History fluticasone propionate [Flonase 1 spray INTRANASAL PRN PRN 09/19/18 10/20/19 History Allergy Relief] aspirin 325 mg PO PRN PRN 10/20/19 10/20/19 History Allergies Allergy/AdvReac Type Severity Reaction Status Date / Time ibuprofen Allergy Severe VOMITING Verified 09/19/18 12:40 Penicillins Allergy Severe RASH, Verified 09/19/18 12:40 VOMITING Review of Systems Review of Systems ROS Unobtainable: All systems reviewed & are unremarkable except as noted in HPI and below Exam Vital Signs (past 8 hours): - 10/20/19 12:04 10/20/19 13:26 10/20/19 15:10 Temperature 97.9 F 97.9 F Pulse Rate 90 76 92 H Respiratory Rate 14 15 18 Blood Pressure 160/65 H Blood Pressure [Right Arm] 125/54 L 125/55 L Pulse Oximetry 97 97 95 10/20/19 15:41 Temperature Pulse Rate 95 H Respiratory Rate 16 Blood Pressure 149/66 H Blood Pressure [Right Arm] Pulse Oximetry 92 Oxygen Delivery Method Room Air Narrative Exam Narrative: General exam alert oriented female no acute distress BMI 49 HEENT exam normocephalic atraumatic Respiratory exam unlabored on room air Right exam regular rate and rhythm Extremity exam right lower extremity demonstrates faint erythema over the 2nd toe drawn out over the dorsum of the foot but appears to have receded with these margins. There is a small opening at the distal phalanx near in bearing callus. No current purulence drainage. Minimal tenderness to palpation. Patient wiggles toes slightly. Mild swelling. No fluctuance no blistering. Brisk capillary refill. Soft calf. Warm foot and toes. Objective Imaging X-ray right toes: My impression: Partial destruction of the distal phalanx of the 2nd toe consistent with osteomyelitis unknown age. Radiologist's impression: Focal osseous destruction involving the distal right 2nd toe with adjacent marked soft tissue swelling keeping with osteomyelitis. Diffuse hindfoot midfoot degeneration sclerosis suggesting neuropathic arthropathy. Jameson RODRIGUEZ Labs Result Diagrams: 10/20/19 13:00 10/20/19 13:00 Labs: Laboratory Results - last 24 hr 10/20/19 10/20/19 13:00 13:00 WBC 11.4 H RBC 4.92 Hgb 10.6 L Hct 34.4 L MCV 69.8 L MCH 21.6 L MCHC 30.9 RDW 18.4 H Plt Count 352 Neut % (Auto) 72.4 Lymph % (Auto) 16.0 L [place] % (Auto) 7.9 Eos % (Auto) 2.6 Baso % (Auto) 1.1 Neut # (Auto) 8300 H Lymph # (Auto) 1800 [place] # (Auto) 900 Eos # (Auto) 300 Baso # (Auto) 100 RBC Morphology See below Poikilocytosis 1+ H Anisocytosis 3+ H Microcytosis 1+ H Ovalocytes 1+ H ESR 36 H Sodium 140 Potassium 4.2 Chloride 105 Carbon Dioxide 28 BUN 23 H Creatinine 0.70 Estimated GFR > 60.0 BUN/Creatinine Ratio 32.9 H Glucose 101 H Calcium 10.2 C-Reactive Protein 2.3 H Assessment & Plan Assessment and plan (1) Acute osteomyelitis of toe: Problem details: The patient has x-ray evidence of bony destruction distal phalanx 2nd toe however she has had marked improvement in her cellulitis with just 1 dose of IV antibiotics in the ER and the the toe though mildly swollen is otherwise on non blistered and appeared viable. Discussed attempted IV antibiotic treatment for her a toe infection. If this does not resolve then could consider partial amputation of the toe however with improved and current appearance would not do this acutely. Patient understands and agrees with the plan. Recommend IV a treatment followed by oral as appropriate. Current visit: Yes Status: Acute (2) Diabetic infection of right foot: Problem details: Patient is a diabetic infection of the right foot. Discussed that diabetic control is crucial to healing and avoiding additional complications. Recommend medical optimization of the patient's diabetes. Current visit: Yes Status: Acute Assessment & Plan narrative: Recommend antibiotic medical treatment of patient is a toe infection. It becomes chronic would consider partial toe amputation in the future. Time Spent With Patient Time with patient: less than 15 minutes
[2019-10-20 20:46] LABS: Hemoglobin A1C% w Est Avg Glu 10.7 % (4.0-6.0)
--- NOTE | 2019-10-20 20:53 | P.HP_ITS ---
History of Present Illness History of Present Illness Date Patient Seen: 10/20/19 Time Patient Seen: 20:34 Chief complaint: RIGHT FOOT SECOND TOE INFECTION Narrative: The patient is a 59-year-old female with PMHx of HTN, DM 2T (w/ h/o diabetic neuropathy and diabetic foot ulcers), morbid obesity, h/o cellulitis, prior h/o osteomyelitis in the left 2nd toe (s/p partial amputation of 2nd left phalanx). The patient was sent from her nailhead setter's office (Dr. Hewitt of [place]) to the ED out of concern for an infection associated with the 2nd phalanx on the right foot. Patient follows with Podiatry every 2-3 months for care of her toenails. Most recent care has taken place in the last week of August, per patient's report. According to the patient the nail has not been cut correctly (specifically describes it being cut at an improper angle) and has been irritated with ADLs. In addition, there is a suspicion of potential injury to the top of the toe with puncture of the dermal level. Patient herself has not noticed or known about this injury. Two weeks ago she noticed edema and eryth kellee of the 2nd phalanx and the nail coming off of the nail bed. She did not notice any drainage or foul odor. At Home she was treating the edema and erythema with triple ointment topical. Patient reports pool exposure in the last 2 weeks. She has not experienced fever, rigors, or localized pain at the affected site. There is no extension of edema and erythema to the foot or ankle. No SIRS / s epsis. Records show Streptococcus group A from wound culture of right leg in 2018. ED work-up revealed mild leukocytosis (WBC 11.4) and elevated inflammatory markers (ESR 32 and CRP 2.3). XR of TOE (right) revealed focal osseous destruction involving the distal right 2nd toe with adjacent marked soft tissue swelling in keeping with osteomyelitis. Diffuse hind-foot and mid-foot degeneration and sclerosis, suggesting neuropathic arthropathy. Labs, 10/20 WBC 11.4 ESR 36 CRP 2.3 Hgb 10.6 Plt 352 Na 140 K 4.2 Cl 105 Ca 10.2 Glu 101 CO2 28 BUN 23 Cr 0.7 XR TOE. Focal osseous destruction involving the distal right second toe w/ adjacent marked soft tissue swelling in keeping with osteomyelitis. Diffuse hindfoot and midfoot degeneration and sclerosis, suggesting neuropathic arthropathy. 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 Social History: household members spouse,children Prior Living Arrangements House Safety & Behavioral: Feels Safe in Current Yes Environment Been Physically Hurt or No Threatened By a Person Suicidal Ideation Description None Suicide Plan Description No Plan Tobacco & Substance use: Smoking Status Never smoker alcohol intake never alcohol intake frequency holiday/special occasion Substance Use Type does not use Meds Home Medications and Allergies Home Medications Medication Instructions Recorded Confirmed Type Lantus U-100 Insulin 100 unit SQ BID #0 08/28/11 10/20/19 History lisinopril 20 mg PO BID #0 08/28/11 10/20/19 History Jardiance 25 mg PO DAILY 09/19/18 10/20/19 History Toujeo SoloStar U-300 Insulin 80 units SUBCUT BID 09/19/18 10/20/19 History diphenhydramine HCl [Benadryl] 25 mg PO PRN PRN 09/19/18 10/20/19 History fluticasone propionate [Flonase 1 spray INTRANASAL PRN PRN 09/19/18 10/20/19 History Allergy Relief] aspirin 325 mg PO PRN PRN 10/20/19 10/20/19 History Allergies Allergy/AdvReac Type Severity Reaction Status Date / Time ibuprofen Allergy Severe VOMITING Verified 09/19/18 12:40 Penicillins Allergy Severe RASH, Verified 09/19/18 12:40 VOMITING Review of Systems Review of Systems ROS Unobtainable: All systems reviewed & are unremarkable except as noted in HPI and below Exam Vital Signs (past 8 hours): - 10/20/19 13:26 10/20/19 15:10 10/20/19 15:41 Temperature 97.9 F Pulse Rate 76 92 H 95 H Respiratory Rate 15 18 16 Blood Pressure 149/66 H Blood Pressure [Right Arm] 125/54 L 125/55 L Pulse Oximetry 97 95 92 10/20/19 19:40 Temperature 97.8 F Pulse Rate 86 Respiratory Rate 18 Blood Pressure 119/59 L Blood Pressure [Right Arm] Pulse Oximetry 91 Oxygen Delivery Method Room Air Narrative Exam Narrative: Constitutional: NAD, morbidly obese habitus BMI 49.4 Neurologic: AOx3, no focal neurological deficits Head: NC, AT Eyes: PERRL, EOMI, Ears: external ears normal, no otorrhea Nose: external nose normal, no rhinorrhea or epistaxis Throat: dry MMM, oropharynx w/o exudate Neck: no masses, lymphadenopathy, or JVD Chest / Respiratory: equal chest rise, unlabored respiratory effort, diminished breath sounds Heart / CV: S1S2, no murmur Ext: no BLE edema; vascular insufficiency noted, bi-pedal pulse present Abdomen / GI: round / central obesity, NT, ND, + BS, no organomegaly : no suprapubic tenderness, no CVA Peripheral / Vascular: warm to touch, DP and PT pulses palpable, no edema Musc: full ROM of upper and lower extremities, adequate muscle tone and bulk Skin: second phalanx w/ small ulcer vs puncture of skin, there is edema and mild erythema; no drainage + hirsutism Objective Labs Result Diagrams: 10/21/19 07:48 10/21/19 07:48 Labs: Laboratory Results - last 24 hr 10/20/19 10/20/19 10/20/19 13:00 13:00 13:00 WBC 11.4 H RBC 4.92 Hgb 10.6 L Hct 34.4 L MCV 69.8 L MCH 21.6 L MCHC 30.9 RDW 18.4 H Plt Count 352 Neut % (Auto) 72.4 Lymph % (Auto) 16.0 L [place] % (Auto) 7.9 Eos % (Auto) 2.6 Baso % (Auto) 1.1 Neut # (Auto) 8300 H Lymph # (Auto) 1800 [place] # (Auto) 900 Eos # (Auto) 300 Baso # (Auto) 100 RBC Morphology See below Poikilocytosis 1+ H Anisocytosis 3+ H Microcytosis 1+ H Ovalocytes 1+ H ESR 36 H Sodium 140 Potassium 4.2 Chloride 105 Carbon Dioxide 28 BUN 23 H Creatinine 0.70 Estimated GFR > 60.0 BUN/Creatinine Ratio 32.9 H Glucose 101 H Hemoglobin A1c 10.7 H Calcium 10.2 C-Reactive Protein 2.3 H Assessment & Plan Assessment & Plan narrative: Patient is being admitted under observation status for suspected osteomyelitis Cellulitis of the second phalanx, acute, present on admission, active - patient received a dose of vancomycin and rocephin in the ED - will get blood cx, have not been collected Osteomyelitis, SUSPECTED, present on admission, active - osteomyelitis acute vs chronic osteomyelitis vs charcot arthropathy vs diabetic foot ulcer vs alternate etiology - XR of toe w/findings of osseous destruction involving distal right 2nd toe with adjacent marked soft tissue swelling in keeping with osteomyelitis. Diffuse hindfoot and midfoot degenerations and sclerosis, suggesting neuropathic arthropathy. Typically, it takes 10-20 days for osteomyelitis to show up on plain XR. It is questionable if etiology is acute. Consider imaging w/ MRI. - Mild leukocytosis WBC 11.4; ESR 36 and CRP 2.3, MILDLY elevated inflammatory markers; these markers are all non-specific for osteomyelitis In an active osteomyelitis we would expect to see is significantly higher ESR and CRP levels. If present, I would suspect chronic pathology. There would also be elevated in cellulitis as well. On metabolic level patient does live in a constant inflammatory state with poorly controlled DM and metabolic syndrome. I would recommend an outpatient bone biopsy in this patient for definitive diagnosis of osteomyelitis. There is a great deformity of her foot. There is a concern for potentially progressive diabetic neuroarthropathy (ie Charcot arthropathy), which may be difficult to distinguish from osteomyelitis on clinical imaging. - Consult orthopedic surgery for evaluation and further recommendations - Requested for picture of toe to be taken and placed on patient's record - In ED patient was treated w/ Vancomycin and Ceftriaxone, continue. Pharmacy to dose vancomycin. - She did not have blood cultures ordered prior to administration of abx. Will order at this time. 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 Humalog 100 units prior to each meal and Toujeo 80 units BID. Also, takes PO jardiance (hospital non-formulary) Toujeo is a non-formulary. Will place her on Lantus 64 units BID (discussed w/ pharmacy 20% reduction, if converting to lantus) Will place on a medium dose SSI for AC and HS and trend glucose level - Heart healthy / carb consistent diet Hypertension, chronic condition, present on admission, active/controlled - Resume TRUCK CRANE OPERATOR regimen of lisinopril with hold parameters Microcytic anemia, chronic condition, present on admission, active - Hgb 10.6 g/dL, stable, continue trending with routine lab Full Code. No formal health directive. Designates her and son as surrogate decision makers. Home medications reviewed and reconcilled accordingly. VTE prophylaxis w/ SQ heparin
[2019-10-20] MEDS: HEPARIN 5,000 UNIT/ML VIAL 5000 UNIT SUBCUT (21:00)
[2019-10-20] MEDS: NYSTATIN POWDER 15GM 1 APPLIC TOP (21:02)
[2019-10-20] MEDS: INSULIN GLARGINE 100 UNIT/ML 10ML VIAL 64 UNIT SUBCUT (21:38)
[2019-10-21] VITALS (8 sets, daily range): BP systolic 117–133; BP diastolic 53–64; PULSE 87–96; RESP 16–18; TEMP 35.6–37.3; O2SAT 90–97; BMI 49.4
[2019-10-21] MEDS: SODIUM CHLORIDE 0.9% 1,000 ML 75 ML IV (01:06)
--- NOTE | 2019-10-21 03:13 | PC.NURSE ---
3 Photos taken per MELVIN Ramos order, pt. reported redness in my rt. leg is not new. I have redness in my right leg before my rt. second toe was infected. Outlined area to lower anterior bradford erythema is receding. Will cont. POC & monitor.
[2019-10-21] MEDS: HEPARIN 5,000 UNIT/ML VIAL 5000 UNIT SUBCUT ×3 (05:52→20:28)
--- NOTE | 2019-10-21 07:09 | PM.PN.1 ---
Subjective Subjective Date Patient Seen: 10/21/19 Time Patient Seen: 07:09 Interval history: Will condition overnight no issues. Patient up sitting at bedside this morning watching a video on her phone. Comfortable non ill-appearing. States toe was continue to get better with resolved redness and pain overnight Exam Vital Signs (past 8 hours): - 10/20/19 23:40 10/21/19 00:00 10/21/19 03:44 Temperature 99.1 F 98.1 F Pulse Rate 98 H 96 H Respiratory Rate 16 16 Blood Pressure 114/42 L 126/61 Pulse Oximetry 93 93 93 Oxygen Delivery Method Room Air Oxygen Flow Rate 0 Narrative Exam Narrative: General exam alert oriented female no acute distress. BMI 49 HEENT exam normocephalic atraumatic Respiratory exam unlabored on room air CV exam regular rate and rhythm Extremity exam right lower extremity demarcated areas on the foot have resolved erythema. Second toe faint pink and improved from last night well. There is no drainage. There is an bearing callus at the end of the toe with mild swelling. This is nontender to palpation. Palpable pulses. Brisk capillary refill. Calf is soft. Objective Labs Result Diagrams: 10/20/19 13:00 10/20/19 13:00 Labs: Laboratory Results - last 24 hr 10/20/19 10/20/19 10/20/19 13:00 13:00 13:00 WBC 11.4 H RBC 4.92 Hgb 10.6 L Hct 34.4 L MCV 69.8 L MCH 21.6 L MCHC 30.9 RDW 18.4 H Plt Count 352 Neut % (Auto) 72.4 Lymph % (Auto) 16.0 L [place] % (Auto) 7.9 Eos % (Auto) 2.6 Baso % (Auto) 1.1 Neut # (Auto) 8300 H Lymph # (Auto) 1800 [place] # (Auto) 900 Eos # (Auto) 300 Baso # (Auto) 100 RBC Morphology See below Poikilocytosis 1+ H Anisocytosis 3+ H Microcytosis 1+ H Ovalocytes 1+ H ESR 36 H Sodium 140 Potassium 4.2 Chloride 105 Carbon Dioxide 28 BUN 23 H Creatinine 0.70 Estimated GFR > 60.0 BUN/Creatinine Ratio 32.9 H Glucose 101 H Hemoglobin A1c 10.7 H Calcium 10.2 C-Reactive Protein 2.3 H Assessment & Plan Assessment and plan (1) Diabetic infection of right foot: Problem details: Patient is a diabetic infection of the right foot. Discussed that diabetic control is crucial to healing and avoiding additional complications. Recommend medical optimization of the patient's diabetes. Patient states PCP is Dr. Hobson. She states she has been working on losing weight. Discussed recent hemoglobin A1c is 10. Patient understands importance of diabetic control Current visit: Yes Status: Acute (2) Acute osteomyelitis of toe: Problem details: The patient has x-ray evidence of bony destruction distal phalanx 2nd toe however she has had marked improvement in her cellulitis with IV antibiotics and the toe, though mildly swollen is otherwise on non blistered and appeared viable. Discussed antibiotic treatment for her a toe infection. If this does not resolve then could consider partial amputation of the toe, however with improved and current appearance would not do this acutely. Patient understands and agrees with the plan. Recommend medical treatment- antibiotics treatment IV followed by oral as appropriate. Would be happy to see patient as an outpatient for follow-up in several weeks assess for resolution or as needed in the future Current visit: Yes Status: Acute Assessment & Plan narrative: See above. Medical treatment for infection. No surgery indicated at this time. If fails medical treatment could considered DIP disarticulation/amputation Time Spent With Patient Time with patient: less than 15 minutes
[2019-10-21 08:02] LABS: Add Manual Diff / Slide Review NO; Basophils Absolute Auto 100 /uL (0-100); Basophils Percent Auto 0.9 % (0-2); Eosinophils Absolute Auto 400 /uL (0-450); Eosinophils Percent Auto 4.2 % (2-4); Hematocrit 33.3 % (36-46); Hemoglobin 10.3 g/dL (12.0-16.0); Lymphocytes Absolute Auto 2200 /uL (1100-4500); Lymphocytes Percent Auto 23.6 % (25-40); Mean Corpuscular Volume 71.1 fL (80-100); Monocytes Absolute Auto 800 /uL (0-900); Monocytes Percent Auto 8.6 % (3-14); Neutrophils Absolute Auto 5900 /uL (1500-7000); Neutrophils Percent Auto 62.7 % (50-75); Platelet Count 296 X10^3/uL (150-400); Red Blood Cell Count 4.68 X10^6/uL (4.0-5.2); Red Cell Distribution Width 18.4 % (11.6-14.8); White Blood Cell Count 9.5 X10^3/uL (4.5-11.0)
[2019-10-21 08:14] LABS: Blood Urea Nitrogen 21 mg/dL (7-17); Calcium 9.6 mg/dL (8.4-10.2); Carbon Dioxide 26 mmol/L (22-32); Chloride 106 mmol/L (98-107); Estimated Glomerular Filt Rate > 60.0 mL/min (>60); Glucose 159 mg/dL (70-100); HEMOLYSIS 21 (0-50); Magnesium 2.2 mg/dL (1.6-2.3); Sodium 139 mmol/L (137-145)
[2019-10-21] MEDS: INSULIN GLARGINE 100 UNIT/ML 10ML VIAL 64 UNIT SUBCUT ×2 (09:23→20:35)
[2019-10-21] MEDS: LISINOPRIL 20 MG TABLET PO ×2 (09:40→20:28)
[2019-10-21] MEDS: DOCUSATE 100 MG CAPSULE PO ×2 (09:41→20:28)
--- NOTE | 2019-10-21 10:19 | CM.DANOTE ---
DCP: Case received, EMR reviewed and met with patient. Introduced self and role. Was able to meet with patient to obtain baseline health and history information, as well as living situation. DCP assessment completed with information currently available. Patient is a 59 year old female who admitted yesterday afternoon to the care of the hospitalist team. PCP: Dr. Hobson. Payer: confirmed: Medicare/. Patient came to the hospital via private vehicle secondary to increased redness and swelling to her 2nd right toe. Patient is a diabetic. She is being treated for cellulitis, unclear if osteomylitis. Met with patient in her room. She is alert and oriented. Stated that she has had home infusions before, and her secondary insurance usually covers it. During team rounds, was discussed that patient may be able to go home with oral antibiotics. This will depend upon improvement here in hospital. Patient resides in [place] with her , Mohamud. Patient stated, she usually uses a cane to get around, but also has a walker. She mentioned that she checks her blood sugars a couple of times a day. P: DCP will follow closely for any needs, and see if she will be able to go home with oral antibiotics. If she will need extensive ABO IV, will look into [facility] if this is the case. Carey Davidson RN/Panel Laminator
--- NOTE | 2019-10-21 10:54 | PC.NURSE ---
Assess- Patient is A&Ox3. She states that she is not in any pain.. The tip of her middle toe with some infection, and wheepiness, and also dried area. She does have some osteomylitis to bone. Plan is to have patient on antibiotics. She is a diabetic and her blood sugar was 156 at breakfast. Given 64 units of long acting lantus. Up with SBA, patient is going to shower soon.
--- NOTE | 2019-10-21 11:01 | PT.IIE ---
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 For longer distances, she used a 4WW. Activities of Daily Living and IADL's Independent with the exception of needing occasional assist for donning shoes. Prior Functional Level (Other details) Pt drives to her own appointments. Social History Household Members spouse,children,other Living Arrangements House Number of Floors (Floors) One Floor Number of Stairs To Enter/Railing? Ramped entry Home Environment High Toilet,Walk in Shower, Ramp Home Equipment Four Wheel Walker,Straight Cane,Manual Wheelchair,Shower Seat without Backrest,Hand Held Shower,Bariatric Program Coordinator Employment Status Unemployed Additional Social History Comment Pt lives with her spouse, Mohamud, who has mobility impairments of his own. She also lives with her granddaughter. Pt reports that her granddaughter's dad and uncle help around the house regularly. M2 PT-IP Current Condition Start: 10/21/19 08:55 Freq: NEEDED Status: Active Protocol: Document 10/21/19 10:43 AW (Rec: 10/21/19 11:00 AW [email or web address]) Physical Therapy Current Condition Current Condition Evaluation Date 10/21/19 Treatment Diagnosis diabatic infection right foot, osteomyelitis, impaired mobility. Onset Date 10/20/19 Precautions Other Precautions Ortho notes do not specify any precautions, weightbearing or otherwise. Weight Bearing Status Weight Bearing Status Full Weight Bearing Allowed Weight Bearing Amount (enter % No restrictions per ortho or #) (%) notes M3 PT-IP Subjective Start: 10/21/19 08:55 Freq: NEEDED Status: Active Protocol: Document 10/21/19 10:43 AW (Rec: 10/21/19 11:00 AW [email or web address]) Subjective Physical Therapy Visit Type Type Initial Evaluation Visit Start Time 10:05 Visit Stop Time 10:31 Total Visit Minutes 26 Number of UTILITY TELLER Visits 0 Physical Therapy Visit Comments Patient Comments Pt willing to mobilize with PT Therapy Pain Assessment Pain When Pain Assessed During Mobility Pain Present Pain Present Denied Pain M4 PT-IP Mobility and Gait Start: 10/21/19 08:55 Freq: NEEDED Status: Active Protocol: Document 10/21/19 10:43 AW (Rec: 10/21/19 11:00 AW [email or web address]) PT-Bed Mobility Assessment Supine to Sit Supine to Sit Standby Assistance Scooting Scooting to Edge of Bed Standby Assistance PT-Transfer Assessment Sit to and From Stand Sit to and from Stand Standby Assistance,Use of Upper Extremities Equipment Transfer Assistive Device Gait Belt,Straight Cane Orthotic/Prosthetic Devices or Brace: No Transfers Transfer Destination Chair,Toilet Transfer Technique pt ambulated with SPC Transfer Ability Level of Assist Standby Assistance Comments Mobility Comments Pt moved easily in the bed and sat EOB with UE support and good balance for MMT. She stood with SPC SBA. After gait assessment, she transferred to the chair and toilet SBA with appropriate use of UE's to control descent. Gait Assessment Gait Gait Assistance Required: Standby Assistance Distance (Feet) 120 Able to Maintain Weight Bearing Status Yes During Gait Assistive Devices Assistive Device Gait Belt,Straight Cane Orthotic/Prosthetic Devices or Brace: No Gait Deviations General Gait Pattern Decreased Feet Clearance, Lateral Trunk Lean,Wide Based Gait Factors Limiting Gait Function Factors Limiting Gait Function Decreased Sensation,Limited Range of Motion Comments Gait Comments Pt ambulated from the room to the main nurses station and back using SPC SBA. Gait was characterized by ipsilateral trunk lean in stance phase, wide base of support, and decreased toe-off bilaterally. Prior to activity, BP was 123 /64 and HR 90. After activity, BP was 141/61, HR 94. Stair Climbing Assessment Comments Stair Climbing Comments Not assessed. No stairs at home PT-Balance Assessment Sitting Balance and Reactions Static Sitting Balance Ability Good Dynamic Sitting Balance Ability Good Standing Balance and Reactions Static Standing Balance Ability Good Dynamic Standing Balance Ability Good Comments Other Balance Tests/Deviations/Treatment Pt able to withstand : multidirectional balance challenges in static stance including sternal pushes with only one minor LOB laterally from which pt was able to recover without assist. M5 PT-IP Objective Assessments Start: 10/21/19 08:55 Freq: NEEDED Status: Active Protocol: Document 10/21/19 10:43 AW (Rec: 10/21/19 11:00 AW [email or web address]) Orientation Orientation/Cognition Level of Alertness Alert Orientation Name,Day of Week,Place, Situation Language Function Ability No Deficits Noted Safety Awareness Understands Safety Issues Memory Description No Deficits Noted Gross Range of Motion Upper Extremity ROM Assessment Within Functional Limits Lower Extremity ROM Assessment Bilaterally Impaired Impairments Hip flexion limited by habitus /panus. Pt refuses active plantar flexion, citing precautions from previous surgery. Strength Upper Extremity Strength Assessment Within Functional Limits Lower Extremity Strength Assessment Within Functional Limits Comments Strength Comments B LE strength grossly 4+/5 Coordination Assessment Gross Coordination Gross Coordination WNL Sensation Assessment Sensation Gross Sensation Right LE Impaired,Left LE Impaired Light Touch Impaired Comments Sensation Comments Numbness/dull light touch B LE in stocking distribution up to mid bradford. M6 PT-IP Treatment Start: 10/21/19 08:55 Freq: NEEDED Status: Active Protocol: Document 10/21/19 10:43 AW (Rec: 10/21/19 11:00 AW [email or web address]) Physical Therapy Treatment Education Education Provided Precautions,Weight Bearing Status,Safety Other Treatments Other Treatment Performed Provided education on role of PT, plan of care, and selection of appropriate assistive device based on environment. M7 PT-IP Assessment and Plan Start: 10/21/19 08:55 Freq: NEEDED Status: Active Protocol: Document 10/21/19 10:43 AW (Rec: 10/21/19 11:00 AW [email or web address]) PT Summary Assessment and Plan Potential Rehabilitation Potential Good Status of Condition at Evaluation Evolving Summary Impairments ROM,Sensation,Gait,Activity Tolerance Assessment Summary Katerina is a 59 yo woman with poorly controlled diabetes and current diagnosis of right foot diabetic infection. Ortho notes provide no weightbearing or other precautions. At baseline, she is modified independent for functional mobility using SPC or 4WW at all times. On evaluation, she presents with impaired hip and ankle range of motion, impaired light touch sensation to bilateral LE up to mid bradford, and reduced activity tolerance. However, she required no more than standby assist for all mobilties. Once medically cleared, she will be safe for discharge to home environment with assistance as before admission from her family. Goals Bed Mobility Goal Independent Transfer Goal Independent,Cane Gait Goal Independent,Cane Gait Distance 200 Days to Meet Goals 2 Frequency of Treatment Frequency Of Treatment Once a Day Treatment Plan Physical Therapy Treatment Plan Bed Mobility Training,Transfer Training,Gait Training, Therapeutic Exercise,Balance Retraining,Discharge Planning, Hot or Cold Pack,Manual Therapy Other Recommendations and Next Treatment assess gait with 4WW Focus Recommendations To Nursing Amount of Assist Needed Standby Assistance Discharge Recommendations PT Discharge Recommendations Home with Assistance
[2019-10-21] MEDS: VANCOMYCIN 1,250 MG in SODIUM CHLORIDE 0.9% 250 ML IV (11:45)
--- NOTE | 2019-10-21 12:52 | OT.IP.TRT ---
Current Diagnoses Type 2 diabetes mellitus with other skin complications (10/20/19) Local infection of the skin and subcutaneous tissue, unspecified (10/20/19) Other acute osteomyelitis, unspecified ankle and foot (10/20/19) Occupational Therapy Treatment Note M3 OT- IP Subjective and Pain Start: 10/21/19 12:50 Freq: Status: Active Protocol: Document 10/21/19 12:51 [facility] (Rec: 10/21/19 12:52 [facility] [email or web address]) OT- Subjective Occupational Therapy Visit Type Type Administrative Note Notes Spoke to pt for OT eval. Pt states does not need OT at this time and has plenty of family to be able to assist at home.. Therefore discharge OT eval orders.
[2019-10-21] MEDS: Empagliflozin [Jardiance] 25 MG 25 EACH PO (13:19)
[2019-10-21] MEDS: cephALEXin 250 MG CAPSULE 500 MG PO ×2 (14:16→17:10)
--- NOTE | 2019-10-21 16:00 | P.PN_ITS ---
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 The patient is resting in bed comfortably. The patient has significant neuropathy with numbness in bilateral lower extremities and denies pain. She reports her 2nd toe and foot are markedly improved in regard to erythema and edema. She reports she feels well and denies headache, shortness of breath, ino st pain, abdominal pain, nausea, vomiting, fever, chills, dysuria, diarrhea or constipation. She is voiding and eliminating without difficulty. She is up ambulating with assistance. Continue physical therapy. Exam Vital Signs (past 8 hours): - 10/21/19 09:10 10/21/19 09:31 10/21/19 11:55 Temperature 99.2 F 98 F Pulse Rate 87 88 Respiratory Rate 16 16 Blood Pressure 133/57 L 123/64 117/59 L Pulse Oximetry 90 L 90 L 10/21/19 15:48 Temperature 97.0 F L Pulse Rate 87 Respiratory Rate 18 Blood Pressure 129/63 Pulse Oximetry 92 Oxygen Delivery Method Room Air Oxygen Flow Rate 0 Narrative Exam Narrative: General:Middle-aged morbidly obese female sitting in bedside chair and in no acute distress, poor hygiene, well-developed, well-nourished, appropriately interactive. HEENT: Normocephalic, atraumatic. External ears without defect. Pupils equal, round, and reactive to light. Anicteric sclerae, moist conjunctivae, and no lid lag. Neck: Supple with full range of motion. Possible thyromegaly versus lipoma on neck. Cardiovascular: Heart sounds distant but appear to be regular rhythm and rate without murmurs, rubs, or gallops appreciated. Pulmonary: Clear to auscultation bilaterally without crackles, wheezes, or rhonchi. Normal respiratory effort with no use of accessory muscles. Abdomen: Soft, obese, bowel sounds present, nontender, nondistended. No hepat osplenomegaly or masses appreciated. Extremities: No cyanosis or clubbing. Right Charcot foot. 2nd toe infection with mild erythema extending from 2nd toe to dorsum of foot and retracting from previously outlined margin. Neurological: Cranial nerves grossly intact. Psychiatric: Normal mood and affect. Alert and oriented to person, place, and time. Objective Labs Result Diagrams: 10/21/19 07:48 10/21/19 07:48 Labs: Laboratory Results - last 24 hr 10/20/19 10/20/19 10/21/19 13:00 13:00 07:48 WBC 11.4 H 9.5 RBC 4.92 4.68 Hgb 10.6 L 10.3 L Hct 34.4 L 33.3 L MCV 69.8 L 71.1 L MCH 21.6 L 22.0 L MCHC 30.9 31.0 RDW 18.4 H 18.4 H Plt Count 352 296 Neut % (Auto) 72.4 62.7 Lymph % (Auto) 16.0 L 23.6 L [place] % (Auto) 7.9 8.6 Eos % (Auto) 2.6 4.2 H Baso % (Auto) 1.1 0.9 Neut # (Auto) 8300 H 5900 Lymph # (Auto) 1800 2200 [place] # (Auto) 900 800 Eos # (Auto) 300 400 Baso # (Auto) 100 100 RBC Morphology See below Poikilocytosis 1+ H Anisocytosis 3+ H Microcytosis 1+ H Ovalocytes 1+ H ESR 36 H Sodium Potassium Chloride Carbon Dioxide BUN Creatinine Estimated GFR BUN/Creatinine Ratio Glucose Hemoglobin A1c 10.7 H Calcium Magnesium 10/21/19 07:48 WBC RBC Hgb Hct MCV MCH MCHC RDW Plt Count Neut % (Auto) Lymph % (Auto) [place] % (Auto) Eos % (Auto) Baso % (Auto) Neut # (Auto) Lymph # (Auto) [place] # (Auto) Eos # (Auto) Baso # (Auto) RBC Morphology Poikilocytosis Anisocytosis Microcytosis Ovalocytes ESR Sodium 139 Potassium 4.0 Chloride 106 Carbon Dioxide 26 BUN 21 H Creatinine 0.70 Estimated GFR > 60.0 BUN/Creatinine Ratio 30.0 H Glucose 159 H Hemoglobin A1c Calcium 9.6 Magnesium 2.2 Assessment & Plan Assessment & Plan narrative: Zohra Winslow is a 58-year-old female with a past medical history significant for morbid obesity, hypertension and diabetes mellitus type 2, insulin using with high insulin requirements who presented to the ED at the instruction of her wet pan operator due to worsening right 2nd toe infection and now osteomyelitis. 1. Acute on chronic worsening right 2nd toe diabetic infection now with osteomyelitis and surrounding cellulitis, present on admission. Active. -Patient presented at instruction of her wet pan operator Dr. Hewitt of [place] due to worsening 2nd toe diabetic infection with evidence of osteomyelitis. -X-ray of right foot demonstrated focal osseous destruction involving the distal right second toe with adjacent marked soft tissue swelling in keeping with osteomyelitis andf diffuse hindfoot and midfoot degeneration and sclerosis, suggesting neuropathic arthropathy. -Initial WBC 11.4. ESR elevated at 36. CRP elevated at 2.3. -Blood cultures were not collected in ED. Collected blood culture x2 after antibiotic administration. -Received vancomycin with dosing per pharmacist x 2 and ceftriaxone 2 g IV x1. Switched to cephalexin 500 mg every 6 hours and doxycycline 100 mg twice daily per Orthopedic surgery. -Consulted orthopedic surgery, Dr. Rodriguez, who recommends continued treatment for probable osteomyelitis with several doses of parenteral antibiotic and then transition to oral antibiotic. If patient is foot infection is stable or improving may be discharged on oral antibiotics possibly tomorrow. However, if foot infection is worsening especially with discharge would recommend restarting IV antibiotics and possible partial amputation of toe. 2. Acute dehydration, present on admission. Resolved. -Continued IV fluids until adequately hydrated then discontinued. 3. Diabetes mellitus type 2, insulin using, present on admission. Stable. -Initial hemoglobin A1c 10.7% indicative of poor glycemic control with known complications of neuropathy and diabetic foot ulcers. -Continue ACHS blood glucose checks and high-dose correctional scale insulin. -Continue Jardiance 25 mg daily, Lantus 64 units twice daily (patient takes Toujeo 80 units twice daily and pharmacy recommended 20% reduction in dose when converting to Lantus) and NovoLog 100 mg 3 times daily with meals. -Continue heart healthy/carbohydrate consistent diet 4. Hypertension, chronic, present on admission. Stable. -Continue home lisinopril 20 mg twice daily. 5. Microcytic anemia, chronic, present on admission. Stable. -Likely anemia of chronic disease. -Initial hemoglobin 10.6 which is stable and at baseline. Full Code. No formal health directive. Designates her and son as surrogate decision makers. VTE prophylaxis: SQ Heparin Disposition: Patient possibly to discharge home with home health tomorrow if infection continues to be well controlled.
--- NOTE | 2019-10-21 16:31 | DIET.PN ---
Dietary Progress Note Assessment: 59y F admitted for DM related right second toe infection referred to nutrition for high A1c. Pt reports having reduced A1c recently from 13 to 10.7 and losing 15# over past 5mo by removing sodas and water walking once per week with a friend at the [facility]. Pt wants to return to water walking as soon as her toe is healed, feels this is possible r/t motivation from friend. 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 Pt reports eating 2 meals per day, lunch and dinner, sleeps 4hr/night, and drinks water or unsweetened black and green teas. Pt unsure why she is only getting long acting insulin in hospital and not her meal time. Recc ONS lucian bid to support protein needs and wound healing without increasing BG. HT: 170.1cm WT: 143.1kg UBW: 148kg BMI: 49.5 Labs: CRP 2.3H, A1c 10.7 H Nutrition Diagnosis: altered laboratory values r/t glucose control aeb pt A1c 10.7 H, active DM toe infection, hx of hospitalization for DM related infections. Interventions: 1. Discussed blood sugar control and effect of high BG on wound healing. 2. Discussed barriers to good BG control and strategized areas for improvement including continuing and intensifying healthy habits on d/c. 3. Recc ONS Lucian bid to support PRO needs and wound healing. Diet Order: CCD EER:1800 (-500kcal for wt loss), 130g PRO (1g/kg), 3.3L fluids Monitoring/Evaluations: continued DM education as appropriate, following BGs
[2019-10-21 18:37] LABS: Procalcitonin < 0.05 ng/mL (<0.5)
[2019-10-21] MEDS: INSULIN ASPART 100 UNIT/ML 10ML VIAL SUBCUT (18:44)
[2019-10-21] MEDS: NYSTATIN POWDER 15GM 1 APPLIC TOP (20:25)
[2019-10-21] MEDS: DOXYCYCLINE HYCLATE 100 MG TABLET PO (20:28)
[2019-10-21] MEDS: INSULIN ASPART 100 UNIT/ML INSULN PEN SUBCUT (20:36)
[2019-10-22] VITALS (7 sets, daily range): BP systolic 96–128; BP diastolic 43–66; PULSE 75–89; RESP 16–18; TEMP 36.3–37.1; O2SAT 91–96
[2019-10-22] MEDS: cephALEXin 250 MG CAPSULE 500 MG PO ×3 (00:03→12:35)
[2019-10-22 05:25] LABS: Add Manual Diff / Slide Review NO; Basophils Absolute Auto 100 /uL (0-100); Basophils Percent Auto 1.2 % (0-2); Eosinophils Absolute Auto 400 /uL (0-450); Eosinophils Percent Auto 4.4 % (2-4); Hematocrit 32.2 % (36-46); Hemoglobin 9.9 g/dL (12.0-16.0); Lymphocytes Absolute Auto 2200 /uL (1100-4500); Lymphocytes Percent Auto 23.9 % (25-40); Mean Corpuscular HGB Conc 30.9 % (30-36); Mean Corpuscular Hemoglobin 21.6 PG (26-34); Monocytes Absolute Auto 800 /uL (0-900); Monocytes Percent Auto 8.4 % (3-14); Neutrophils Absolute Auto 5600 /uL (1500-7000); Neutrophils Percent Auto 62.1 % (50-75); Platelet Count 295 X10^3/uL (150-400); Red Cell Distribution Width 18.3 % (11.6-14.8)
[2019-10-22] MEDS: HEPARIN 5,000 UNIT/ML VIAL 5000 UNIT SUBCUT (05:48)
[2019-10-22 06:09] LABS: Procalcitonin < 0.05 ng/mL (<0.5)
[2019-10-22] MEDS: INSULIN ASPART 100 UNIT/ML 10ML VIAL SUBCUT ×2 (08:31→12:36)
[2019-10-22] MEDS: INSULIN GLARGINE 100 UNIT/ML 10ML VIAL 64 UNIT SUBCUT (08:32)
[2019-10-22] MEDS: INSULIN ASPART 100 UNIT/ML INSULN PEN SUBCUT (08:32)
[2019-10-22] MEDS: SODIUM CHLORIDE 0.9% FLUSH 10 ML IV (08:34)
[2019-10-22] MEDS: DOXYCYCLINE HYCLATE 100 MG TABLET PO (08:34)
[2019-10-22] MEDS: DOCUSATE 100 MG CAPSULE PO (08:34)
[2019-10-22] MEDS: MAGNESIUM HYDROXIDE 30 ML UDC PO (08:35)
--- NOTE | 2019-10-22 09:28 | PM.DS.1 ---
History of Present Illness History of Present Illness Date Patient Seen: 10/22/19 Time Patient Seen: 09:29 Chief complaint: RIGHT FOOT SECOND TOE INFECTION Narrative: As per MELVIN Monique: The patient is a 59-year-old female with PMHx of HTN, DM 2T (w/ h/o diabetic neuropathy and diabetic foot ulcers), morbid obesity, h/o cellulitis, prior h/o osteomyelitis in the left 2nd toe (s/p partial amputation of 2nd left phalanx). 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 Hewitt of [place]) to the ED out of concern for an infection associated with the 2nd phalanx on the right foot. Patient follows with Podiatry every 2-3 months for care of her toenails. Most recent care has taken place in the last week of August, per patient's report. According to the patient the nail has not been cut correctly (specifically describes it being cut at an improper angle) and has been irritated with ADLs. In addition, there is a suspicion of potential injury to the top of the toe with puncture of the dermal level. Patient herself has not noticed or known about this injury. Two weeks ago she noticed edema and erythema of the 2nd phalanx and the nail coming off of the nail bed. She did not notice any drainage or foul odor. At Home she was treating the edema and erythema with triple ointment topical. Patient reports pool exposure in the last 2 weeks. She has not experienced fever, rigors, or localized pain at the affected site. There is no extension of edema and erythema to the foot or ankle. No SIRS / sepsis. Records show Streptococcus group A from wound culture of right leg in 2018. ED work-up revealed mild leukocytosis (WBC 11.4) and elevated inflammatory markers (ESR 32 and CRP 2.3). XR of TOE (right) revealed focal osseous destruction involving the distal right 2nd toe with adjacent marked soft tissue swelling in keeping with osteomyelitis. Diffuse hind-foot and mid-foot degeneration and sclerosis, suggesting neuropathic arthropathy. Discharge Providers Provider Date of admission: 10/20/19 14:15 Discharge Date: 10/22/19 Primary care physician: Sascha Hobson MD Consults: 10/20/19 14:56 Consult to Orthopedic Surgery Routine Comment: Consulting Provider: Luis Schultz Reason for consultation: osteomyelitis Has provider been notified: Yes 10/20/19 16:19 Consult to Dietitian, Adult Routine Comment: Reason For Exam: Morbid obesity Consult to Discharge Planning Routine Comment: Consult to Occupational Therapy Evaluate & Treat Comment: Physician Instructions: Evaluate and treat Consult to Physical Therapy Evaluate & Treat Comment: Physician Instructions: Evaluate and Treat Discharge provider: Juwan Villegas DO Summary Hospital Course Hospital Course: Zohra Winslow is a 58-year-old female with a past medical history significant for morbid obesity, hypertension and diabetes mellitus type 2, insulin using with high insulin requirements who presented to the ED at the instruction of her peoplesoft financials due to worsening right 2nd toe infection and now osteomyelitis. 1. Acute on chronic worsening right 2nd toe diabetic infection now with osteomyelitis and surrounding cellulitis, present on admission. Active. -Patient presented at instruction of her peoplesoft financials Dr. Hewitt of [place] due to worsening 2nd toe diabetic infection with evidence of osteomyelitis. -X-ray of right foot demonstrated focal osseous destruction involving the distal right second toe with adjacent marked soft tissue swelling in keeping with osteomyelitis andf diffuse hindfoot and midfoot degeneration and sclerosis, suggesting neuropathic arthropathy. -Initial WBC 11.4. ESR elevated at 36. CRP elevated at 2.3. -Blood cultures were not collected in ED. Collected blood culture x2 after antibiotic administration. -Received vancomycin with dosing per pharmacist x 2 and ceftriaxone 2 g IV x1. Switched to cephalexin 500 mg every 6 hours and doxycycline 100 mg twice daily per Orthopedic surgery. She will complete 6 weeks of oral antibiotics. -Consulted orthopedic surgery, Dr. Rodriguez, who recommended continued treatment for probable osteomyelitis with several doses of parenteral antibiotic and then transition to oral antibiotic. Patients infection appeared to be still improving on oral antibitiocs and she was discharged home to complete 6 weeks of above therapy. 2. Acute dehydration, present on admission. Resolved. -Continued IV fluids until adequately hydrated then discontinued. 3. Diabetes mellitus type 2, insulin using, present on admission. Stable. -Initial hemoglobin A1c 10.7% indicative of poor glycemic control with known complications of neuropathy and diabetic foot ulcers. -Continue ACHS blood glucose checks and high-dose correctional scale insulin. -Continue Jardiance 25 mg daily, Lantus 64 units twice daily (patient takes Toujeo 80 units twice daily and pharmacy recommended 20% reduction in dose when converting to Lantus) and NovoLog 100 mg 3 times daily with meals. 4. Hypertension, chronic, present on admission. Stable. -Continue home lisinopril 20 mg twice daily. 5. Microcytic anemia, chronic, present on admission. Stable. -Likely anemia of chronic disease. -Initial hemoglobin 10.6 which was stable and at baseline. Exam Vital Signs (past 8 hours): - 10/22/19 02:00 10/22/19 06:00 10/22/19 08:00 Temperature 97.7 F 98.8 F Pulse Rate 76 89 76 Respiratory Rate 18 16 Blood Pressure 114/55 L 124/61 128/66 Pulse Oximetry 96 93 10/22/19 08:12 Temperature Pulse Rate Respiratory Rate Blood Pressure Pulse Oximetry 96 Oxygen Delivery Method Room Air Oxygen Flow Rate 0 Narrative Exam Narrative: General:Middle-aged morbidly obese female sitting in bedside chair and in no acute distress, poor hygiene, well-developed, well-nourished, appropriately interactive. HEENT: Normocephalic, atraumatic. External ears without defect. Pupils equal, round, and reactive to light. Anicteric sclerae, moist conjunctivae, and no lid lag. Neck: Supple with full range of motion. Possible thyromegaly versus lipoma on neck. Cardiovascular: Heart sounds distant but appear to be regular rhythm and rate without murmurs, rubs, or gallops appreciated. Pulmonary: Clear to auscultation bilaterally without crackles, wheezes, or rhonchi. Normal respiratory effort with no use of accessory muscles. Abdomen: Soft, obese, bowel sounds present, nontender, nondistended. No hepatosplenomegaly or masses appreciated. Extremities: No cyanosis or clubbing. Right Charcot foot. 2nd toe infection with mild erythema and no warmth or purulence. Neurological: Cranial nerves grossly intact. Psychiatric: Normal mood and affect. Alert and oriented to person, place, and time. Objective Labs Result Diagrams: 10/22/19 05:05 10/21/19 07:48 Labs: Laboratory Results - last 24 hr 10/21/19 10/21/19 10/22/19 07:48 07:48 05:05 WBC 9.0 RBC 4.60 Hgb 9.9 L Hct 32.2 L MCV 70.0 L MCH 21.6 L MCHC 30.9 RDW 18.3 H Plt Count 295 Neut % (Auto) 62.1 Lymph % (Auto) 23.9 L [place] % (Auto) 8.4 Eos % (Auto) 4.4 H Baso % (Auto) 1.2 Neut # (Auto) 5600 Lymph # (Auto) 2200 [place] # (Auto) 800 Eos # (Auto) 400 Baso # (Auto) 100 Sodium 139 Potassium 4.0 Chloride 106 Carbon Dioxide 26 BUN 21 H Creatinine 0.70 Estimated GFR > 60.0 BUN/Creatinine Ratio 30.0 H Glucose 159 H Calcium 9.6 Magnesium 2.2 Procalcitonin < 0.05 10/22/19 05:05 WBC RBC Hgb Hct MCV MCH MCHC RDW Plt Count Neut % (Auto) Lymph % (Auto) [place] % (Auto) Eos % (Auto) Baso % (Auto) Neut # (Auto) Lymph # (Auto) [place] # (Auto) Eos # (Auto) Baso # (Auto) Sodium Potassium Chloride Carbon Dioxide BUN Creatinine Estimated GFR BUN/Creatinine Ratio Glucose Calcium Magnesium Procalcitonin < 0.05 Discharge Plan Discharge Plan Patient Disposition: Home Discharge comment: You were admitted to the hospital with an infection in your right 2nd toe, that infection was also found to possibly be in the bone. You are being discharged on oral antibiotics, you should complete 6 weeks of therapy. You should follow up with Dr. Salcedo (orthopedics) in 3-4 weeks as an outpatient to discuss further treatment options if necessary. You should follow up with your PCP in the next 1-2 weeks to check on your infection as well as your diabetes control. Discharge orders & Medications Prescriptions: New doxycycline hyclate 100 mg capsule 100 mg PO BID 42 Days Qty: 84 RF: 0 cephalexin 500 mg capsule 500 mg PO QID 42 Days Qty: 168 RF: 0 Continued Lantus U-100 Insulin 100 UNIT/1 ML solution 100 unit SQ BID Qty: 0 RF: 0 lisinopril 40 MG tablet 20 mg PO BID Qty: 0 RF: 0 aspirin 325 mg Tablet 325 mg PO PRN PRN (Reason: pain) RF: 0 Humalog KwikPen Insulin 200 unit/mL (3 mL) Insulin Pen 100 unit SUBCUT AC RF: 0 diphenhydramine HCl [Benadryl] 25 mg Capsule 25 mg PO PRN PRN (Reason: Allergy Symptoms) RF: 0 fluticasone propionate [Flonase Allergy Relief] 50 mcg/actuation [place],Suspension 1 spray Intranasal PRN PRN (Reason: Allergy Symptoms) RF: 0 Jardiance 25 mg Tablet 25 mg PO DAILY RF: 0 Toujeo SoloStar U-300 Insulin 300 unit/mL (1.5 mL) Insulin Pen 80 units subcut BID RF: 0 Follow up/Referrals: Ingrid Salcedo MD [Physician] - 1 Month (F/u from cellulitis with possible osteo R 2nd toe. ) Sascha Hobson MD [Primary Care Provider] - Discharge Health Status Health Concerns: possible osteomyelitis R 2nd toe diabetes Multidrug resistant organism: No MDRO Diet/Activity/Treatments Diet: Diet as Tolerated and Carb-consistent/Diabetic Activity: As tolerated Discharge Data Primary Care Provider: Sascha Hobson
--- NOTE | 2019-10-22 12:12 | PT.IPTN ---
Current Diagnoses Type 2 diabetes mellitus with other skin complications (10/20/19) Local infection of the skin and subcutaneous tissue, unspecified (10/20/19) Other acute osteomyelitis, unspecified ankle and foot (10/20/19) Physical Therapy Treatment Note M2 PT-IP Current Condition Start: 10/21/19 08:55 Freq: NEEDED Status: Active Protocol: Document 10/21/19 10:43 AW (Rec: 10/21/19 11:00 AW [id number]) Physical Therapy Current Condition Current Condition Evaluation Date 10/21/19 Treatment Diagnosis diabatic infection right foot, osteomyelitis, impaired mobility. Onset Date 10/20/19 Precautions Other Precautions Ortho notes do not specify any precautions, weightbearing or otherwise. Weight Bearing Status Weight Bearing Status Full Weight Bearing Allowed Weight Bearing Amount (enter % No restrictions per ortho or #) (%) notes M3 PT-IP Subjective Start: 10/21/19 08:55 Freq: NEEDED Status: Active Protocol: Document 10/22/19 12:04 AW (Rec: 10/22/19 12:12 AW [id number]) Subjective Physical Therapy Visit Type Type Treatment Note Visit Start Time 11:52 Visit Stop Time 12:03 Total Visit Minutes 11 Number of HOUSE MOVER Visits 0 Physical Therapy Visit Comments Patient Comments Pt resting comfortably in chair but willing to participate with PT Therapy Pain Assessment Pain When Pain Assessed During Mobility Pain Present Pain Present Denied Pain M4 PT-IP Mobility and Gait Start: 10/21/19 08:55 Freq: NEEDED Status: Active Protocol: Document 10/22/19 12:04 AW (Rec: 10/22/19 12:12 AW [id number]) PT-Transfer Assessment Sit to and From Stand Sit to and from Stand Standby Assistance,Use of Upper Extremities Equipment Transfer Assistive Device Gait Belt,4 Wheeled Walker Orthotic/Prosthetic Devices or Brace: No Transfers Transfer Destination Chair,Toilet Transfer Technique pt ambulated with 4WW Transfer Ability Level of Assist Standby Assistance Comments Mobility Comments Pt stood from chair using 4WW SBA and with good attention to safety, setting brakes appropriately. After gait training, she returned to room and transferred to and from the chair and toilet using 4WW SBA. Gait Assessment Gait Gait Assistance Required: Standby Assistance Distance (Feet) 220 Able to Maintain Weight Bearing Status Yes During Gait Assistive Devices Assistive Device Gait Belt,4 Wheeled Walker Orthotic/Prosthetic Devices or Brace: No Gait Deviations General Gait Pattern Decreased Feet Clearance, Lateral Trunk Lean,Wide Based Gait Factors Limiting Gait Function Factors Limiting Gait Function Decreased Sensation,Limited Range of Motion,Poor Balance Comments Gait Comments Pt ambulated ~220 feet using 4WW SBA. Without verbal cues, she managed the walker appropriately during seated rest break, pushing the walker against a wall for support and setting the brakes for safety. Stair Climbing Assessment Comments Stair Climbing Comments Not assessed. No stairs at home M5 PT-IP Objective Assessments Start: 10/21/19 08:55 Freq: NEEDED Status: Active Protocol: Document 10/21/19 10:43 AW (Rec: 10/21/19 11:00 AW [email or web address]) Orientation Orientation/Cognition Level of Alertness Alert Orientation Name,Day of Week,Place, Situation Language Function Ability No Deficits Noted Safety Awareness Understands Safety Issues Memory Description No Deficits Noted Gross Range of Motion Upper Extremity ROM Assessment Within Functional Limits Lower Extremity ROM Assessment Bilaterally Impaired Impairments Hip flexion limited by habitus /panus. Pt refuses active plantar flexion, citing precautions from previous surgery. Strength Upper Extremity Strength Assessment Within Functional Limits Lower Extremity Strength Assessment Within Functional Limits Comments Strength Comments B LE strength grossly 4+/5 Coordination Assessment Gross Coordination Gross Coordination WNL Sensation Assessment Sensation Gross Sensation Right LE Impaired,Left LE Impaired Light Touch Impaired Comments Sensation Comments Numbness/dull light touch B LE in stocking distribution up to mid [place]. M6 PT-IP Treatment Start: 10/21/19 08:55 Freq: NEEDED Status: Active Protocol: Document 10/22/19 12:04 AW (Rec: 10/22/19 12:12 AW [id number]) Physical Therapy Treatment Education Education Provided Safety Other Treatments Other Treatment Performed Continued to discuss selection of assistive device based on environment and need for support. M7 PT-IP Assessment and Plan Start: 10/21/19 08:55 Freq: NEEDED Status: Active Protocol: Document 10/22/19 12:04 AW (Rec: 10/22/19 12:12 AW [id number]) PT Summary Assessment and Plan Summary Assessment Summary Katerina demonstrated safety with 4WW during transfers and gait. She is able to appropriately choose to use SPC or 4WW depending on needs and safety concerns. She is safe to discharge home with family assist when medically cleared. Goals Bed Mobility Goal Independent Transfer Goal Independent,Cane Gait Goal Independent,Cane Gait Distance 200 Days to Meet Goals 2 Frequency of Treatment Frequency Of Treatment Discharge Treatment Plan Physical Therapy Treatment Plan Bed Mobility Training,Transfer Training,Gait Training, Therapeutic Exercise,Balance Retraining,Discharge Planning, Hot or Cold Pack,Manual Therapy Recommendations To Nursing Amount of Assist Needed Standby Assistance Discharge Recommendations PT Discharge Recommendations Home with Assistance
[2019-10-22] MEDS: Empagliflozin [Jardiance] 25 MG 25 EACH PO (12:35)
--- NOTE | 2019-10-22 14:52 | PC.NURSE ---
Discharge Pt denies pain. did have low BS, took sandwhich and juice, states she feels better, states she would still like to go home and is comfortable controlling her diabetes with low BS there. provided extra juice for drive home. d/c instructions provided to pt. Aware to make f/u apts with PCP and surgeon. Aware to contact MD with any additional questions or concerns. pt took her home medications with her at d/c. left in w/c with [employer] escort to car with her son.
== END 2019-10-22 14:25 | disposition home or self-care (01) | DRG 638 ==
LOC: ED 14:09 → AC 14:16
PROVIDERS: Nurse Practitioner Gerontology; Admitting Provider Internal Medicine; Emergency Provider Emergency Medicine; Family Provider Internal Medicine; PCP Internal Medicine; Visit Provider Internal Medicine
DX: E11.69 Type 2 diabetes mellitus with other specified complication (principal); M86.171 Other acute osteomyelitis, right ankle and foot; Z68.42 Body mass index [BMI] 45.0-49.9, adult; L03.031 Cellulitis of right toe; E66.01 Morbid (severe) obesity due to excess calories; I10 Essential (primary) hypertension; E86.0 Dehydration; M89.771 Major osseous defect, right ankle and foot; D63.8 Anemia in other chronic diseases classified elsewhere; E11.40 Type 2 diabetes mellitus with diabetic neuropathy, unspecified; Z79.4 Long term (current) use of insulin
CPT/HCPCS: 36415; 73660; 80048; 82962; 83036; 83735; 84145; 85025; 85651; 86140; 87040; 96365; 96367; 97116; 97161; 99284; J0696; J1644

== ENCOUNTER → 2019-11-02 11:00 | Outpatient (CLI) | payer MEDICARE, OTHER, SELFPAY ==
[2019-10-20 15:41] VITALS: BMI 49.9
--- NOTE | 2019-11-02 | DI.RAD.S_ITS ---
PROCEDURE: XR HIP W PEL IF DONE LT MIN 4V INDICATIONS: OSTEO TECHNIQUE: AP pelvis with lateral view(s) of the left hip(s). COMPARISON: [facility], CT, ABDOMEN WITH AND WITHOUT CONTR, 12/25/2010, 8:48. FINDINGS: Bones: No fractures or dislocations. Pelvic ring appears intact. No suspicious bony lesions. Mild degenerative hip joint space narrowing is present bilaterally. No gross osteopenia. Soft tissues: The visualized bowel gas pattern is normal. No suspicious soft tissue calcifications. IMPRESSION: Mild bilateral hip osteoarthritis. Dictated by: Yana Carpenter M.D. on 11/02/2019 at 15:25 Approved by: Yana Carpenter M.D. on 11/02/2019 at 15:27
--- NOTE | 2019-11-02 | DI.RAD.S_ITS ---
PROCEDURE: XR LUMBAR SPINE 2-3V INDICATIONS: OSTEO TECHNIQUE: 3 views of the lumbar spine were acquired. COMPARISON: [facility], , -SPINE 2-3 VIEWS, 06/23/2014, 10:50. FINDINGS: Bones: 5 [id number] vertebrae are present. There is trace multilevel retrolisthesis throughout the lumbar spine. Transitional anatomy is noted. In keeping with prior labeling, vertebral bodies are labeled one through 5. Mild to moderate disc and foraminal narrowing is most prominent at L5-S1, unchanged. There's been interval development of mild disc and foraminal narrowing at L4-5. No vertebral body compression fractures. No suspicious bony lesions. Soft tissues: Overlying bowel gas pattern is normal. No suspicious soft tissue calcifications. IMPRESSION: Degenerative changes most notable at L5-S1 with interval progression as above. Dictated by: Yana Carpenter M.D. on 11/02/2019 at 15:27 Approved by: Yana Carpenter M.D. on 11/02/2019 at 15:29
[2019-11-02 12:01] LABS: Add Manual Diff / Slide Review NO; Basophils Absolute Auto 100 /uL (0-100); Basophils Percent Auto 0.9 % (0-2); Eosinophils Absolute Auto 200 /uL (0-450); Eosinophils Percent Auto 2.3 % (2-4); Hematocrit 34.3 % (36-46); Hemoglobin 10.5 g/dL (12.0-16.0); Lymphocytes Absolute Auto 1700 /uL (1100-4500); Lymphocytes Percent Auto 19.3 % (25-40); Mean Corpuscular HGB Conc 30.5 % (30-36); Mean Corpuscular Hemoglobin 21.3 PG (26-34); Mean Corpuscular Volume 69.9 fL (80-100); Monocytes Absolute Auto 600 /uL (0-900); Monocytes Percent Auto 6.6 % (3-14); Neutrophils Absolute Auto 6100 /uL (1500-7000); Neutrophils Percent Auto 70.9 % (50-75); Platelet Count 419 X10^3/uL (150-400); Red Blood Cell Count 4.91 X10^6/uL (4.0-5.2); Red Cell Distribution Width 18.6 % (11.6-14.8); White Blood Cell Count 8.7 X10^3/uL (4.5-11.0)
[2019-11-02 12:19] LABS: HEMOLYSIS < 15 (0-50); Iron 28 ug/dL (37-170)
[2019-11-02 12:29] LABS: Percent Iron Saturation 6 % (15-50); Total Iron Binding Capacity 438 ug/dL (265-497); Transferrin 391 mg/dL (206-381)
[2019-11-02 12:33] LABS: Anisocytosis 2+; Microcytosis 1+; Poikilocytosis 1+
== END ==
PROVIDERS: Family Provider Internal Medicine; PCP Internal Medicine; Referring Provider Internal Medicine; Visit Provider Internal Medicine
DX: M15.0 Primary generalized (osteo)arthritis (principal); D64.9 Anemia, unspecified
CPT/HCPCS: 36415; 72100; 73522; 83540; 83550; 85025

== ENCOUNTER → 2020-02-18 14:05 | Outpatient (CLI) | payer MEDICARE, OTHER, SELFPAY ==
[2019-10-20 15:41] VITALS: BMI 49.9
[2020-02-18 15:20] LABS: Hematocrit 37.9 % (36-46); Hemoglobin 11.9 g/dL (12.0-16.0); Mean Corpuscular HGB Conc 31.2 % (30-36); Mean Corpuscular Hemoglobin 22.4 PG (26-34); Mean Corpuscular Volume 71.8 fL (80-100); Platelet Count 357 X10^3/uL (150-400); Red Blood Cell Count 5.28 X10^6/uL (4.0-5.2); Red Cell Distribution Width 21.7 % (11.6-14.8); White Blood Cell Count 9.2 X10^3/uL (4.5-11.0)
[2020-02-18 15:31] LABS: Neutrophils Absolute Manual 6716 /uL (3000-5900); Total Cells Counted 100
[2020-02-18 15:32] LABS: Anisocytosis 2+
[2020-02-18 15:33] LABS: HEMOLYSIS < 15 (0-50); Iron 35 ug/dL (37-170)
[2020-02-18 15:36] LABS: Alanine Aminotransferase 18 IU/L (<35); Albumin 4.2 g/dL (3.5-5.0); Albumin Globulin Ratio 1.1 (1.0-2.8); Alkaline Phosphatase 109 U/L (38-126); Aspartate Aminotransferase 18 IU/L (14-36); BUN Creatinine Ratio 39.2 (6-22); Bilirubin Total 0.5 mg/dL (0.2-1.3); Blood Urea Nitrogen 31 mg/dL (7-17); Calcium 10.2 mg/dL (8.4-10.2); Carbon Dioxide 25 mmol/L (22-32); Chloride 105 mmol/L (98-107); Cholesterol 282 mg/dL (140-199); Estimated Glomerular Filt Rate > 60.0 mL/min (>60); Globulin 3.8 g/dL (1.7-4.1); Glucose 269 mg/dL (70-100); HDL Cholesterol 39 mg/dL (40-60); HEMOLYSIS < 15 (0-50); Potassium 5.2 mmol/L (3.4-5.1); Sodium 138 mmol/L (137-145); Triglycerides 464 mg/dL (35-150)
[2020-02-18 15:40] LABS: Hemoglobin A1C% w Est Avg Glu 10.7 % (4.0-6.0)
[2020-02-18 15:43] LABS: Percent Iron Saturation 7 % (15-50); Total Iron Binding Capacity 488 ug/dL (265-497); Transferrin 418 mg/dL (206-381)
[2020-02-18 16:09] LABS: Ferritin 6 ng/mL (11-264)
== END ==
PROVIDERS: Family Provider Internal Medicine; PCP Internal Medicine; Referring Provider Physician Assistant; Visit Provider Physician Assistant
DX: L29.9 Pruritus, unspecified (principal); E11.40 Type 2 diabetes mellitus with diabetic neuropathy, unspecified; E61.1 Iron deficiency
CPT/HCPCS: 36415; 80053; 80061; 82728; 83036; 83540; 83550; 85025

== ENCOUNTER → 2020-06-24 12:40 | Outpatient (CLI) | payer MEDICARE, OTHER, SELFPAY ==
[2019-10-20 15:41] VITALS: BMI 49.9
[2020-06-24 14:08] LABS: HEMOLYSIS < 15 (0-50); Iron 114 ug/dL (37-170)
[2020-06-24 14:10] LABS: Alanine Aminotransferase 23 IU/L (<35); Albumin Globulin Ratio 1.1 (1.0-2.8); Alkaline Phosphatase 89 U/L (38-126); Aspartate Aminotransferase 20 IU/L (14-36); BUN Creatinine Ratio 39.5 (6-22); Bilirubin Total 0.6 mg/dL (0.2-1.3); Blood Urea Nitrogen 32 mg/dL (7-17); Calcium 9.9 mg/dL (8.4-10.2); Carbon Dioxide 28 mmol/L (22-32); Chloride 103 mmol/L (98-107); Estimated Glomerular Filt Rate > 60.0 mL/min (>60); Globulin 3.5 g/dL (1.7-4.1); Glucose 197 mg/dL (70-100); HEMOLYSIS < 15 (0-50); Potassium 4.7 mmol/L (3.4-5.1); Sodium 138 mmol/L (137-145); Total Protein 7.5 g/dL (6.3-8.2)
[2020-06-24 14:19] LABS: Percent Iron Saturation 29 % (15-50); Total Iron Binding Capacity 399 ug/dL (265-497); Transferrin 326 mg/dL (206-381)
== END ==
PROVIDERS: Family Provider Internal Medicine; PCP Internal Medicine; Referring Provider Internal Medicine; Visit Provider Internal Medicine
DX: L29.9 Pruritus, unspecified (principal); E11.40 Type 2 diabetes mellitus with diabetic neuropathy, unspecified; E61.1 Iron deficiency; E78.2 Mixed hyperlipidemia
CPT/HCPCS: 36415; 80053; 83036; 83540; 83550

== ENCOUNTER → 2020-07-04 10:22 | Outpatient (CLI) | payer MEDICARE, OTHER, SELFPAY ==
[2019-10-20 15:41] VITALS: BMI 49.9
--- NOTE | 2020-07-04 | DI.US.S_ITS ---
PROCEDURE: US SOFT TISSUE HEAD AND NECK INDICATIONS: MID SUBMANDIBULAR LUMP TECHNIQUE: Real-time scanning was performed of the neck region of interest, with image documentation. COMPARISON: None. FINDINGS: Focused ultrasound examination of midline submandibular region shows homogeneously slightly hyperechoic and solid appearing structure measures 4.7 x 2.7 x 5.9 cm in size with minimal amount of internal vascularity. 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 Dictated by: Yonathan Tobar M.D. on 07/04/2020 at 14:47 Approved by: Yonathan Tobar M.D. on 07/04/2020 at 14:48
== END ==
PROVIDERS: Family Provider Internal Medicine; PCP Internal Medicine; Referring Provider Internal Medicine; Visit Provider Internal Medicine
DX: R22.1 Localized swelling, mass and lump, neck (principal)
CPT/HCPCS: 76536

== ENCOUNTER → 2020-09-26 19:09 | Outpatient (ROUT) | payer MEDICARE, OTHER, SELFPAY ==
[2019-10-20 15:41] VITALS: BMI 49.9
[2020-09-26 19:24] LABS: Add Manual Diff / Slide Review NO; Basophils Absolute Auto 100 /uL (0-100); Basophils Percent Auto 0.7 % (0-2); Eosinophils Absolute Auto 200 /uL (0-450); Hematocrit 42.7 % (36-46); Hemoglobin 13.8 g/dL (12.0-16.0); Lymphocytes Absolute Auto 1500 /uL (1100-4500); Lymphocytes Percent Auto 19.1 % (25-40); Mean Corpuscular HGB Conc 32.2 % (30-36); Mean Corpuscular Hemoglobin 29.3 PG (26-34); Monocytes Absolute Auto 600 /uL (0-900); Monocytes Percent Auto 8.4 % (3-14); Neutrophils Absolute Auto 5300 /uL (1500-7000); Neutrophils Percent Auto 69.8 % (50-75); Platelet Count 257 X10^3/uL (150-400); Red Cell Distribution Width 14.6 % (11.6-14.8); White Blood Cell Count 7.6 X10^3/uL (4.5-11.0)
[2020-09-26 19:26] LABS: HEMOLYSIS < 15 (0-50); Iron 63 ug/dL (37-170)
[2020-09-26 19:28] LABS: Alanine Aminotransferase 20 IU/L (<35); Albumin 3.8 g/dL (3.5-5.0); Albumin Globulin Ratio 1.1 (1.0-2.8); Alkaline Phosphatase 82 U/L (38-126); Aspartate Aminotransferase 16 IU/L (14-36); Bilirubin Total 0.3 mg/dL (0.2-1.3); Blood Urea Nitrogen 36 mg/dL (7-17); Calcium 10.1 mg/dL (8.4-10.2); Carbon Dioxide 28 mmol/L (22-32); Chloride 108 mmol/L (98-107); Estimated Glomerular Filt Rate > 60.0 mL/min (>60); Globulin 3.5 g/dL (1.7-4.1); Glucose 132 mg/dL (70-100); HEMOLYSIS < 15 (0-50); Potassium 4.5 mmol/L (3.4-5.1); Sodium 139 mmol/L (137-145); Total Protein 7.3 g/dL (6.3-8.2)
[2020-09-26 19:37] LABS: Percent Iron Saturation 15 % (15-50); Total Iron Binding Capacity 411 ug/dL (265-497); Transferrin 339 mg/dL (206-381)
== END ==
PROVIDERS: Family Provider Internal Medicine; PCP Internal Medicine; Visit Provider Internal Medicine
DX: D64.9 Anemia, unspecified (principal); E08.8 Diabetes mellitus due to underlying condition with unspecified complications
CPT/HCPCS: 80053; 83540; 83550; 85025

== ENCOUNTER → 2020-12-23 19:14 | Outpatient (ROUT) | payer MEDICARE, OTHER, SELFPAY ==
[2019-10-20 15:41] VITALS: BMI 49.9
== END ==
PROVIDERS: Family Provider Internal Medicine; PCP Internal Medicine; Visit Provider Internal Medicine
DX: R30.0 Dysuria (principal)
CPT/HCPCS: 87077; 87086; 87186

== ENCOUNTER → 2021-08-15 17:48 | Outpatient (CLI) | payer MEDICARE, OTHER, SELFPAY ==
[2019-10-20 15:41] VITALS: BMI 49.9
[2021-08-15 18:19] LABS: Add Manual Diff / Slide Review NO; Basophils Absolute Auto 100 /uL (0-100); Basophils Percent Auto 0.8 % (0-2); Eosinophils Absolute Auto 200 /uL (0-450); Eosinophils Percent Auto 2.1 % (2-4); Hematocrit 42.6 % (36-46); Hemoglobin 13.7 g/dL (12.0-16.0); Lymphocytes Absolute Auto 1200 /uL (1100-4500); Lymphocytes Percent Auto 13.5 % (25-40); Mean Corpuscular HGB Conc 32.3 % (30-36); Mean Corpuscular Hemoglobin 27.6 PG (26-34); Mean Corpuscular Volume 85.6 fL (80-100); Monocytes Absolute Auto 600 /uL (0-900); Monocytes Percent Auto 6.9 % (3-14); Neutrophils Absolute Auto 6900 /uL (1500-7000); Neutrophils Percent Auto 76.7 % (50-75); Platelet Count 334 X10^3/uL (150-400); Red Blood Cell Count 4.98 X10^6/uL (4.0-5.2); Red Cell Distribution Width 15.4 % (11.6-14.8)
[2021-08-15 18:22] LABS: Appearance Urine UA SL CLOUDY; Bilirubin Urine UA NEGATIVE (NEGATIVE); Color Urine UA YELLOW; Glucose Urine UA 2+ g/dL (Negative); Ketones Urine UA TRACE (NEGATIVE); Leukocyte Esterase Urine UA 1+ (NEGATIVE); Nitrite Urine UA POSITIVE (Negative); Occult Blood Urine UA 1+ (Negative); Protein Urine UA NEGATIVE (Negative); Specific Gravity Urine UA 1.015 (1.000-1.035); Urobilinogen Urine UA 0.2 E.U./dL (0.2)
[2021-08-15 18:40] LABS: Bacteria Urine Many (>30); RBC Urine 1-5/HPF (0-5/HPF); Squamous Epithelial Cell Urine 1-5 /HPF (0-5/HPF); WBC Urine 30-100/HPF (0-5/HPF)
[2021-08-15 18:41] LABS: Culture Indicated Urine Specimen Cultured
[2021-08-15 18:52] LABS: Alanine Aminotransferase 20 IU/L (<35); Albumin 4.2 g/dL (3.5-5.0); Albumin Globulin Ratio 1.3 (1.0-2.8); Alkaline Phosphatase 82 U/L (38-126); Aspartate Aminotransferase 19 IU/L (14-36); BUN Creatinine Ratio 26.3 (6-22); Bilirubin Total 0.7 mg/dL (0.2-1.3); Blood Urea Nitrogen 20 mg/dL (7-17); Calcium 10.3 mg/dL (8.4-10.2); Carbon Dioxide 28 mmol/L (22-32); Chloride 103 mmol/L (98-107); Estimated Glomerular Filt Rate > 60.0 mL/min (>60); Globulin 3.2 g/dL (1.7-4.1); Glucose 239 mg/dL (70-100); HEMOLYSIS < 15 (0-50); Potassium 4.5 mmol/L (3.4-5.1); Sodium 140 mmol/L (137-145); Total Protein 7.4 g/dL (6.3-8.2)
== END ==
PROVIDERS: Family Provider Internal Medicine; PCP Internal Medicine; Referring Provider Internal Medicine; Visit Provider Internal Medicine
DX: E11.42 Type 2 diabetes mellitus with diabetic polyneuropathy (principal); I10 Essential (primary) hypertension; D50.0 Iron deficiency anemia secondary to blood loss (chronic)
CPT/HCPCS: 36415; 80053; 81001; 85025; 87077; 87086; 87186

== ENCOUNTER 2023-01-07 20:20 | Emergency (ER) | payer MEDICARE, OTHER, SELFPAY ==
[2019-10-20 15:41] VITALS: BMI 49.9
[2023-01-07 20:25] VITALS: BP 169/74; PULSE 104; RESP 18; TEMP 36.6; O2SAT 96; BMI 50.1
[2023-01-07 21:23] LABS: Bacteria Urine Few (2-10); Culture Indicated Urine Specimen Cultured; RBC Urine 0-1/HPF (0-5/HPF); WBC Urine 10-30/HPF (0-5/HPF)
--- NOTE | 2023-01-07 21:32 | ED.GENADULT ---
HPI - General Adult General Chief complaint: Urogenital-Female Stated complaint: feels like uti Time Seen by Provider: 01/07/23 21:27 Source: patient Mode of arrival: Wheelchair History of Present Illness HPI narrative: Patient is a 62-year-old female who is here for evaluation of dysuria and burning and itching in her vaginal area. She states that she thinks she has a urinary tract infection. She also thinks that maybe she has a yeast infection. She has been doing Monistat over the past couple days without any improvement. She is not have any back pain. No fevers. No nausea or vomiting. Related Data Home Medications Medication Instructions Recorded Confirmed insulin glargine 100 unit/mL 100 unit SQ BID ##0 08/28/11 10/20/19 subcutaneous solution (Lantus U-100 Insulin) lisinopril 40 mg tablet 20 mg PO BID ##0 08/28/11 10/20/19 diphenhydramine HCl 25 mg capsule 25 mg PO PRN PRN Allergy Symptoms 09/19/18 10/20/19 (Benadryl) empagliflozin 25 mg tablet 25 mg PO DAILY 09/19/18 10/20/19 (Jardiance) fluticasone propionate 50 1 spray intranasal PRN PRN Allergy 09/19/18 10/20/19 mcg/actuation nasal Symptoms spray,suspension (Flonase Allergy Relief) insulin glargine U-300 conc 300 80 units SUBCUT BID 09/19/18 10/20/19 unit/mL (1.5 mL) subcutaneous pen (Toujeo SoloStar U-300 Insulin) aspirin 325 mg tablet 325 mg PO PRN PRN pain 10/20/19 10/20/19 insulin lispro 200 unit/mL (3 mL) 100 unit SUBCUT AC 10/21/19 10/21/19 subcutaneous pen (Humalog KwikPen U-200 Insulin) Previous Rx's Medication Instructions Recorded fluconazole 100 mg tablet 100 mg PO DAILY #2 tabs 01/07/23 (Diflucan) nitrofurantoin 100 mg PO Q12H 5 days #10 caps 01/07/23 monohydrate/macrocrystals 100 mg capsule (Macrobid) Allergies Allergy/AdvReac Type Severity Reaction Status Date / Time ibuprofen Allergy Severe VOMITING Verified 09/19/18 12:40 Penicillins Allergy Severe RASH, Verified 09/19/18 12:40 VOMITING Review of Systems Constitutional Constitutional: Reports system reviewed and no additional complaints, except as documented Gastrointestinal Gastrointestinal: Reports system reviewed and no additional complaints, except as documented Genitourinary Genitourinary: Reports system reviewed and no additional complaints, except as documented Integumentary/Breasts Skin/Breast: Reports system reviewed and no additional complaints, except as documented Patient History Medical History Amputation of second toe, left, traumatic Chronic wound of extremity Diabetes mellitus, type 2 Edema extremities Hypertension Neuropathy 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 Social History household members: spouse, children and other Smoking Status: Never smoker alcohol intake: never Smoking Status: Never smoker alcohol intake frequency: holidays/special occasions only Substance Use Type: does not use Exam Initial Vital Signs Initial Vital Signs: Vital Signs Temperature 97.8 F 01/07/23 20:25 Pulse Rate 104 H 01/07/23 20:25 Respiratory Rate 18 01/07/23 20:25 Blood Pressure 169/74 H 01/07/23 20:25 Pulse Oximetry 96 01/07/23 20:25 Oxygen Delivery Method Room Air 01/07/23 20:25 Const General: cooperative and comfortable [facility] Head: normal to inspection and normocephalic GI Inspection: normal to inspection Course Orders Ordered: ED Orders 01/07/23 20:54 Urine Culture Stat Urine Microscopic Stat Discontinued Medications Cephalexin HCl (Cephalexin 250 Mg Capsule) 500 mg PO NOW ONE Stop: 01/07/23 21:34 Last Admin: 01/07/23 21:37 Dose: Not Given Documented By: SHIMA Fluconazole (Fluconazole 100 Mg Tablet) 100 mg PO NOW ONE Stop: 01/07/23 21:34 Last Admin: 01/07/23 21:42 Dose: 100 mg Documented By: GO Nitrofurantoin Macrocrystals (Nitrofurantoin Er 100 Mg Capsule) 100 mg PO NOW ONE Stop: 01/07/23 21:35 Last Admin: 01/07/23 21:42 Dose: 100 mg Documented By: [facility] Vital Signs Vital signs: Vital Signs - 8 hr 01/07/23 20:25 Temperature 97.8 F Pulse Rate 104 H Respiratory Rate 18 Blood Pressure 169/74 H Pulse Oximetry 96 Oxygen Delivery Method Room Air Medical Decision Making Lab Data Labs: Lab Results 01/07/23 Range/Units 20:54 Urine RBC 0-1/hpf (0-5/HPF) Urine WBC 10-30/hpf H (0-5/HPF) Urine Bacteria Few (2-10) H (None) Ur Culture Indicated? Specimen cultured Urine Dip Bedside Urine Glucose 1000 mg/dl Bedside Urine Bilirubin - Negative Bedside Urine Ketone - Negative Urine Specific [place] 1.015 Bedside Urine Occult Blood ++ Bedside Urine pH 5.5 Bedside Urine Protein - Negative Bedside Urine Urobilinogen - Negative Bedside Urine Nitrite - Negative Bedside Urine Leukocytes +/- 15 Esterase Point of care testing: Urine Dip Bedside Urine Glucose 1000 mg/dl Bedside Urine Bilirubin - Negative Bedside Urine Ketone - Negative Urine Specific [place] 1.015 Bedside Urine Occult Blood ++ Bedside Urine pH 5.5 Bedside Urine Protein - Negative Bedside Urine Urobilinogen - Negative Bedside Urine Nitrite - Negative Bedside Urine Leukocytes +/- 15 Esterase MDM Narrative Medical decision making narrative: Patient is well-appearing. Her urinalysis does have bacteria and white blood cells. Given her presentation I do suspect that she has a urinary tract infection. She also states that she feels like she is a yeast infection that is not getting better with the [id number] Monistat cream. Plan to be is to treat her for both a UTI and a yeast infection. We will do this with the antibiotics and Diflucan. She was given a dose of antibiotics and Diflucan here in the ER. A prescription was sent for the remainder treatment with the pharmacy of her choice. Low suspicion for pyelonephritis. She was given return precautions. She expressed understanding and agreement. Discharge Plan Departure Patient Disposition: Home Clinical Impression: Urinary tract infection, Yeast infection Instructions: DI for Urinary Tract Infection (UTI) Activity Restrictions/Additional Instructions: I do recommend that you take the antibiotics and the Diflucan as directed. They were sent to [facility] pharmacy has you requested. Return to the emergency department for any new symptoms. Prescriptions: New fluconazole [Diflucan] 100 mg tablet 100 mg PO DAILY Qty: 2 0RF nitrofurantoin monohyd/m-cryst [Macrobid] 100 mg capsule 100 mg PO Q12H 5 Days Qty: 10 0RF Rx Instructions: must administer with a meal/food No Action Lantus U-100 Insulin 100 UNIT/1 ML solution 100 unit SQ BID Qty: 0 lisinopril 40 MG tablet 20 mg PO BID Qty: 0 aspirin 325 mg Tablet 325 mg PO PRN PRN (Reason: pain) Humalog KwikPen Insulin 200 unit/mL (3 mL) Insulin Pen 100 unit SUBCUT AC diphenhydramine HCl [Benadryl] 25 mg Capsule 25 mg PO PRN PRN (Reason: Allergy Symptoms) fluticasone propionate [Flonase Allergy Relief] 50 mcg/actuation [place],Suspension 1 spray Intranasal PRN PRN (Reason: Allergy Symptoms) Jardiance 25 mg Tablet 25 mg PO DAILY Toujeo SoloStar U-300 Insulin 300 unit/mL (1.5 mL) Insulin Pen 80 units subcut BID Stand Alone Forms: Patient Portal/API
[2023-01-07 21:40] VITALS: BP 174/74; PULSE 93
[2023-01-07] MEDS: NITROFURANTOIN ER 100 MG CAPSULE PO (21:42)
[2023-01-07] MEDS: FLUCONAZOLE 100 MG TABLET PO (21:42)
== END 2023-01-07 21:47 | disposition home or self-care (01) ==
PROVIDERS: Emergency Provider Emergency Medicine; Family Provider Internal Medicine
DX: N39.0 Urinary tract infection, site not specified (principal); B37.31 Acute candidiasis of vulva and vagina
CPT/HCPCS: 81003; 81015; 87077; 87086; 87186; 99283

== ENCOUNTER 2023-08-02 10:29 | Inpatient (IN) | payer MEDICARE, OTHER, SELFPAY ==
[2019-10-20 15:41] VITALS: BMI 49.9
[2023-08-02] VITALS (19 sets, daily range): BP systolic 130–190; BP diastolic 56–79; PULSE 89–115; RESP 7–35; TEMP 36.2–36.5; O2SAT 77–97; BMI 55.7
--- NOTE | 2023-08-02 10:47 | DI.RAD.S_ITS ---
PROCEDURE: XR CHEST 1V INDICATIONS: Shortness of breath TECHNIQUE: One view of the chest was acquired. COMPARISON: [facility], CR, XR CHEST 1V, 09/19/2018, 12:35. FINDINGS: Surgical changes and devices: None. Lungs and pleura: Lung volumes are low. Patchy opacities are present at the bilateral lung bases Mediastinum: Mediastinal contours appear normal. Heart size is mildly enlarged. There is engorgement of the pulmonary vasculature. Bones and chest wall: No suspicious bony lesions. Overlying soft tissues appear unremarkable. IMPRESSION: 1. Low lung volumes and basilar opacities. Differential considerations include atelectasis, aspiration, and infection. 2. Pulmonary vascular engorgement suggesting fluid overload and possible congestive failure. Dictated by: Sabina Gamino M.D. on 08/02/2023 at 11:35 Approved by: Sabina Gamino M.D. on 08/02/2023 at 11:36
--- NOTE | 2023-08-02 11:03 | ED.SOB ---
HPI - SOB/Dyspnea <Elif Gregory PA-C - Last Filed: 08/02/23 17:32> General Chief Complaint: Shortness of Breath/Dyspnea Stated Complaint: sent by DR/low oxygen levels/hard to breathe Time Seen by Provider: 08/02/23 10:37 History of Present Illness HPI Narrative: This is a 63-year-old female with a history of poorly-controlled diabetes and morbid obesity who presents with a 1 month history of increasing shortness of breath with exertion. She was brought by her [id number]. Patient reports that when she walks just a few steps now she has difficulty catching her breath she feels short of breath. She denies any active coughing no productive cough and no fever. She has no significant cardiac history. She is not experienced any significant increased swelling in her legs or feet. She is been sleeping mostly sitting up in a chair. She is able to lay flat for about 30 minutes a day. She is responsible for taking care of her granddaughter. There is no smoking in the house. She does say she is worried about her kidneys though she is not been told that she has significant kidney disease. She says she is noticed dark urine for the past few days. She denies hematuria dysuria or foul-smelling urine. She is been prescribed a ?water pill? but has had conflicting advice from the doctors about whether she should take it or not so she is not taking it. She has a past medical history of lower digit osteomyelitis and wears compression stockings most of the day and night. Related Data Home Medications Medication Instructions Recorded Confirmed insulin glargine 100 unit/mL 100 unit SQ BID ##0 08/28/11 08/02/23 subcutaneous solution (Lantus U-100 Insulin) fluticasone propionate 50 1 spray intranasal PRN PRN Allergy 09/19/18 08/02/23 mcg/actuation nasal Symptoms spray,suspension (Flonase Allergy Relief) aspirin 325 mg tablet 325 mg PO PRN PRN pain 10/20/19 08/02/23 insulin lispro 200 unit/mL (3 mL) 100 unit SUBCUT AC 10/21/19 08/02/23 subcutaneous pen (Humalog KwikPen U-200 Insulin) Allergies Allergy/AdvReac Type Severity Reaction Status Date / Time ibuprofen Allergy Severe VOMITING Verified 09/19/18 12:40 Penicillins Allergy Severe RASH, Verified 09/19/18 12:40 VOMITING Review of Systems <Elif Gregory PA-C - Last Filed: 08/02/23 17:32> Review of Systems ROS Unobtainable: All systems reviewed & are unremarkable except as noted in HPI and below Patient History <Elif Gregory PA-C - Last Filed: 08/02/23 17:32> Medical History (Updated 08/02/23 @ 17:32 by Elif Gregory PA-C) Neuropathy 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 Social History household members: spouse, children and other Smoking Status: Never smoker alcohol intake: current Smoking Status: Never smoker alcohol intake frequency: holidays/special occasions only Substance Use Type: does not use Exam <Elif Gregory PA-C - Last Filed: 08/02/23 17:32> Narrative Exam Narrative: GEN: AOx3 and in NAD. Sitting up breathing comfortably. In no distress. EYES: Pupils are equal, round, and reactive to light and accommodation. Extraoccular muscles are intact bilaterally. There is no subconjunctival hemorrhage or exudate. CHEST: Very mild wheezes in lower lobes bilaterally, no rales, or rhonchi. Heart rate is regular rhythm, there are no murmurs, clicks, rubs, or gallops. There is no chest wall tenderness. ABD: Abdomen is obese soft and nontender. There is no guarding or rebound. No CVA TTP. EXT: Full painless ROM of all extremities with no loss of sensation or strength. LE: Mild 1+ edema of the right foot. Left foot without significant edema. Feet in compression stockings. SKIN: Warm, pink, and dry. No erythema or rash Initial Vital Signs Initial Vital Signs: Vital Signs Temperature 97.7 F 08/02/23 10:39 Pulse Rate 106 H 08/02/23 10:39 Respiratory Rate 16 08/02/23 10:39 Blood Pressure 177/79 H 08/02/23 10:39 Pulse Oximetry 93 08/02/23 10:39 Oxygen Delivery Method Room Air 08/02/23 10:39 <Anna Kiran DO - Last Filed: 08/02/23 19:28> Initial Vital Signs Initial Vital Signs: Vital Signs Temperature 97.7 F 08/02/23 10:39 Pulse Rate 106 H 08/02/23 10:39 Respiratory Rate 16 08/02/23 10:39 Blood Pressure 177/79 H 08/02/23 10:39 Pulse Oximetry 93 08/02/23 10:39 Oxygen Delivery Method Room Air 08/02/23 10:39 Scores <Elif Gregory PA-C - Last Filed: 08/02/23 17:32> Pj Criteria for PE Clinical signs and symptoms of DVT: No PE is #1 Dx or equally likely: No Heart rate > 100: Yes Immobilization at least 3 days or surg in previous 4 weeks: No History of PE or DVT: No Hemoptysis: No Malignancy w/Treatment within 6 months or palliative: No Wells' PE Score total: 1.5 <Anna Kiran DO - Last Filed: 08/02/23 19:28> Wells' Criteria for PE Wells' PE Score total: 1.5 Course <Elif Gregory PA-C - Last Filed: 08/02/23 17:32> Orders Ordered: ED Orders 08/02/23 10:47 XR chest 1V Stat RT Consult Eval and Treat NOW 08/02/23 10:54 COVID19 -Nasal RAPID Stat 08/02/23 11:00 Complete Blood Count AUTO DIFF Stat Comprehensive Metabolic Panel Stat D Dimer Stat Lactate (Lactic Acid) Stat NT-proBNP (BNP-Adult 18+) Stat Prothrombin Time INR Stat Troponin I Stat 08/02/23 11:14 EKG-12 Lead Stat 08/02/23 11:52 CT angio chest PE protocol Stat Acetaminophen (Acetaminophen 325 Mg Tablet) 650 mg PO Q6H PRN PRN Reason: Fever/Mild Pain (1-3) Enoxaparin Sodium (Enoxaparin 60 Mg/0.6 Ml Syringe) 60 mg SUBCUT BID BUSTER Furosemide (Furosemide 40 Mg/4 Ml Vial) 40 mg IV 1600,0800 [facility] Last Admin: 08/02/23 16:50 Dose: 40 mg Documented By: JIM Dextrose (D10w) 100 mls @ 1,200 mls/hr IV PRN PRN PRN Reason: Hypoglycemia Insulin Glargine (Insulin Glargine 100 Unit/Ml 3ml Pen) 80 unit SUBCUT BID [facility] Insulin Human Lispro (Insulin Lispro 100 Unit/Ml 3ml Vial) 0 unit SUBCUT ACHS [facility]; Protocol Last Admin: 08/02/23 17:16 Dose: 3 unit Documented By: JIM Co-signed By: ADELITA Lisinopril (Lisinopril 20 Mg Tablet) 20 mg PO BID [facility] Melatonin (Melatonin 3 Mg Tablet) 6 mg PO BEDTIME PRN PRN Reason: Insomnia Naloxone HCl (Naloxone 0.4 Mg/Ml Vial) 0.2 mg IV Q2MIN PRN PRN Reason: Opiate Reversal Nf (Empagliflozin [ Jardiance] 25 Mg Tablet) 25 mg PO DAILY [facility] Polyethylene Glycol (Polyethylene Glycol 3350 17 Gm Powd.Pack) 17 gm PO DAILY PRN PRN Reason: Constipation Sennosides (Sennosides 8.6 Mg Tablet) 8.6 mg PO BID PRN PRN Reason: Constipation Discontinued Medications Albuterol/Ipratropium (Albuterol/Ipratropium 3 Ml Ampul) 3 ml INH NOW ONE Stop: 08/02/23 11:54 Last Admin: 08/02/23 12:09 Dose: 3 ml Documented By: YARITZA Furosemide (Furosemide 40 Mg/4 Ml Vial) 40 mg IV NOW ONE Stop: 08/02/23 13:17 Last Admin: 08/02/23 13:27 Dose: 40 mg Documented By: YUNI Vital Signs Vital signs: Vital Signs - 8 hr 08/02/23 11:31 08/02/23 11:31 08/02/23 11:47 Pulse Rate 102 H 100 H Respiratory Rate 24 24 Blood Pressure 143/64 H Pulse Oximetry 91 92 Oxygen Delivery Method Room Air Oxygen Flow Rate 08/02/23 11:47 08/02/23 12:00 08/02/23 12:00 Pulse Rate 89 93 H Respiratory Rate 20 20 Blood Pressure 190/79 H 156/56 H Pulse Oximetry 92 92 Oxygen Delivery Method Room Air Room Air Oxygen Flow Rate 08/02/23 12:09 08/02/23 12:33 08/02/23 12:34 Pulse Rate 92 H 111 H Respiratory Rate 20 27 H Blood Pressure 161/72 H Pulse Oximetry 94 84 L Oxygen Delivery Method Room Air Oxygen Flow Rate 08/02/23 12:34 08/02/23 13:00 08/02/23 13:01 Pulse Rate 113 H 99 H 94 H Respiratory Rate 23 23 35 H Blood Pressure Pulse Oximetry 77 L 87 L 95 Oxygen Delivery Method Nasal Cannula Oxygen Flow Rate 2 08/02/23 13:01 08/02/23 13:30 08/02/23 13:30 Pulse Rate 98 H Respiratory Rate 17 Blood Pressure 138/64 160/70 H Pulse Oximetry 95 Oxygen Delivery Method Oxygen Flow Rate 08/02/23 14:00 08/02/23 14:00 08/02/23 14:10 Pulse Rate 115 H 109 H Respiratory Rate 27 H Blood Pressure 170/69 H Pulse Oximetry 96 87 L Oxygen Delivery Method Nasal Cannula Oxygen Flow Rate 2 <Anna Kiran DO - Last Filed: 08/02/23 19:28> Orders Ordered: ED Orders 08/02/23 10:47 XR chest 1V Stat RT Consult Eval and Treat NOW 08/02/23 10:54 COVID19 -Nasal RAPID Stat 08/02/23 11:00 Complete Blood Count AUTO DIFF Stat Comprehensive Metabolic Panel Stat D Dimer Stat Lactate (Lactic Acid) Stat NT-proBNP (BNP-Adult 18+) Stat Prothrombin Time INR Stat Troponin I Stat 08/02/23 11:14 EKG-12 Lead Stat 08/02/23 11:52 CT angio chest PE protocol Stat Acetaminophen (Acetaminophen 325 Mg Tablet) 650 mg PO Q6H PRN PRN Reason: Fever/Mild Pain (1-3) Enoxaparin Sodium (Enoxaparin 60 Mg/0.6 Ml Syringe) 60 mg SUBCUT BID [facility] Furosemide (Furosemide 40 Mg/4 Ml Vial) 40 mg IV 1600,0800 [facility] Last Admin: 08/02/23 16:50 Dose: 40 mg Documented By: JIM Dextrose (D10w) 100 mls @ 1,200 mls/hr IV PRN PRN PRN Reason: Hypoglycemia Insulin Glargine (Insulin Glargine 100 Unit/Ml 3ml Pen) 80 unit SUBCUT BID [facility] Insulin Human Lispro (Insulin Lispro 100 Unit/Ml 3ml Vial) 0 unit SUBCUT ACHS [facility]; Protocol Last Admin: 08/02/23 17:16 Dose: 3 unit Documented By: JIM Co-signed By: ADELITA Lisinopril (Lisinopril 20 Mg Tablet) 20 mg PO BID [facility] Melatonin (Melatonin 3 Mg Tablet) 6 mg PO BEDTIME PRN PRN Reason: Insomnia Naloxone HCl (Naloxone 0.4 Mg/Ml Vial) 0.2 mg IV Q2MIN PRN PRN Reason: Opiate Reversal Nf (Empagliflozin [ Jardiance] 25 Mg Tablet) 25 mg PO DAILY [facility] Polyethylene Glycol (Polyethylene Glycol 3350 17 Gm Powd.Pack) 17 gm PO DAILY PRN PRN Reason: Constipation Sennosides (Sennosides 8.6 Mg Tablet) 8.6 mg PO BID PRN PRN Reason: Constipation Discontinued Medications Albuterol/Ipratropium (Albuterol/Ipratropium 3 Ml Ampul) 3 ml INH NOW ONE Stop: 08/02/23 11:54 Last Admin: 08/02/23 12:09 Dose: 3 ml Documented By: YARITZA Furosemide (Furosemide 40 Mg/4 Ml Vial) 40 mg IV NOW ONE Stop: 08/02/23 13:17 Last Admin: 08/02/23 13:27 Dose: 40 mg Documented By: YUNI Vital Signs Vital signs: Vital Signs - 8 hr 08/02/23 11:31 08/02/23 11:31 08/02/23 11:47 Pulse Rate 102 H 100 H Respiratory Rate 24 24 Blood Pressure 143/64 H Pulse Oximetry 91 92 Oxygen Delivery Method Room Air Oxygen Flow Rate 08/02/23 11:47 08/02/23 12:00 08/02/23 12:00 Pulse Rate 89 93 H Respiratory Rate 20 20 Blood Pressure 190/79 H 156/56 H Pulse Oximetry 92 92 Oxygen Delivery Method Room Air Room Air Oxygen Flow Rate 08/02/23 12:09 08/02/23 12:33 08/02/23 12:34 Pulse Rate 92 H 111 H Respiratory Rate 20 27 H Blood Pressure 161/72 H Pulse Oximetry 94 84 L Oxygen Delivery Method Room Air Oxygen Flow Rate 08/02/23 12:34 08/02/23 13:00 08/02/23 13:01 Pulse Rate 113 H 99 H 94 H Respiratory Rate 23 23 35 H Blood Pressure Pulse Oximetry 77 L 87 L 95 Oxygen Delivery Method Nasal Cannula Oxygen Flow Rate 2 08/02/23 13:01 08/02/23 13:30 08/02/23 13:30 Pulse Rate 98 H Respiratory Rate 17 Blood Pressure 138/64 160/70 H Pulse Oximetry 95 Oxygen Delivery Method Oxygen Flow Rate 08/02/23 14:00 08/02/23 14:00 08/02/23 14:10 Pulse Rate 115 H 109 H Respiratory Rate 27 H Blood Pressure 170/69 H Pulse Oximetry 96 87 L Oxygen Delivery Method Nasal Cannula Oxygen Flow Rate 2 MDM - SOB/Dyspnea <Elif Gregory PA-C - Last Filed: 08/02/23 17:32> Lab Data 08/02/23 11:00 08/02/23 11:00 Labs: Lab Results 08/02/23 08/02/23 Range/Units 10:54 11:00 WBC 8.1 (4.5-11.0) X10^3/uL RBC 4.36 (4.0-5.2) X10^6/uL Hgb 10.7 L (12.0-16.0) g/dL Hct 34.0 L (36-46) % MCV 77.9 L (80-100) fL MCH 24.6 L (26-34) PG MCHC 31.5 (30-36) % RDW 18.6 H (11.6-14.8) % Plt Count 330 (150-400) X10^3/uL Neut % (Auto) 73.9 (50-75) % Lymph % (Auto) 13.9 L (25-40) % [place] % (Auto) 8.7 (3-14) % Eos % (Auto) 2.3 (2-4) % Baso % (Auto) 1.2 (0-2) % Neut # (Auto) 6000 (9678-7904) /uL Lymph # (Auto) 1100 (1897-4211) /uL [place] # (Auto) 700 (0-900) /uL Eos # (Auto) 200 (0-450) /uL Baso # (Auto) 100 (0-100) /uL PT 11.8 (10.1-12.7) SECONDS INR 1.0 (0.9-1.3) D-Dimer 577 H (<500) ng/ml Sodium 140 (137-145) mmol/L Potassium 4.2 (3.4-5.1) mmol/L Chloride 104 (98-107) mmol/L Carbon Dioxide 30 (22-32) mmol/L BUN 25 H (7-17) mg/dL Creatinine 0.74 (0.52-1.04) mg/dL Estimated GFR > 60 (>60) mL/min BUN/Creatinine Ratio 33.8 H (6-22) Glucose 160 H (80-110) mg/dL Hemoglobin A1c 11.8 H (4.0-6.0) % Lactate 1.2 (0.7-2.1) mmol/L Calcium 10.3 H (8.4-10.2) mg/dL Magnesium 1.9 (1.6-2.3) mg/dL Total Bilirubin 0.4 (0.2-1.3) mg/dL AST 20 (14-36) IU/L ALT 18 (<35) IU/L Alkaline Phosphatase 82 (38-126) U/L Troponin I < 0.012 (0.01-0.034) ng/mL NT-Pro-B Natriuret Pep 117 (<125) pg/mL Total Protein 7.5 (6.3-8.2) g/dL Albumin 3.9 (3.5-5.0) g/dL Globulin 3.6 (1.7-4.1) g/dL Albumin/Globulin Ratio 1.1 (1.0-2.8) Triglycerides 286 H (35-150) mg/dL Cholesterol 205 H (140-199) mg/dL LDL Cholesterol, Calc 107 H (<100) mg/dL HDL Cholesterol 41 (40-60) mg/dL TSH 4.84 H (0.47-4.68) uIU/mL Free T4 0.92 (0.78-2.19) ng/dL SARS-CoV-2 (PCR) Negative (Negative) Point of Care Testing Glucose POC 242 Imaging Data Chest x-ray: Radiologist's Impression: PROCEDURE: XR CHEST 1V INDICATIONS: Shortness of breath TECHNIQUE: One view of the chest was acquired. COMPARISON: [facility], , XR CHEST 1V, 09/19/2018, 12:35. FINDINGS: Surgical changes and devices: None. Lungs and pleura: Lung volumes are low. Patchy opacities are present at the bilateral lung bases Mediastinum: Mediastinal contours appear normal. Heart size is mildly enlarged. There is engorgement of the pulmonary vasculature. Bones and chest wall: No suspicious bony lesions. Overlying soft tissues appear unremarkable. IMPRESSION: 1. Low lung volumes and basilar opacities. Differential considerations include atelectasis, aspiration, and infection. 2. Pulmonary vascular engorgement suggesting fluid overload and possible congestive failure. Dictated by: Sabina Gamino M.D. on 08/02/2023 at 11:35 Approved by: Sabina Gamino M.D. on 08/02/2023 at 11:36 CT scan - chest: Radiologist's Impression: PROCEDURE: CT ANGIO CHEST PE PROTOCOL INDICATIONS: SOB x 1 month TECHNIQUE: After the administration of intravenous contrast, 2 mm thick sections acquired from the pulmonary apices to the posterior costophrenic angles. 3-dimensional maximum intensity projection (MIP) coronal and sagittal reformats were then acquired through the thorax. For radiation dose reduction, the following was used: automated exposure control, adjustment of mA and/or kV according to patient size. COMPARISON: [facility], CR, XR CHEST 1V, 09/19/2018, 12:35. [facility], CR, XR CHEST 1V, 08/02/2023, 11:14. FINDINGS: Image quality: Somewhat reduced by body habitus. Pulmonary arteries: Pulmonary arteries are normal in size, and demonstrate no intraluminal filling defects to suggest central pulmonary embolism. Lungs and pleura: Lungs are mildly edematous and there is posterior lung base atelectasis or retention of pulmonary secretions, right greater than left, to a relatively mild degree. Small bilateral pleural effusions, right greater than left, and there is no pneumothorax. Central and peripheral airways are patent. Mediastinum: Heart size is at the upper limits of, without pericardial effusion. No mediastinal or hilar adenopathy. Thoracic aorta is normal in caliber and enhancement. Esophagus is normal in caliber, without hiatal hernia. Bones and chest wall: No suspicious bony lesions. Ribs and thoracic spine appear intact throughout. Thyroid gland appears normal where well seen. No axillary or supraclavicular adenopathy. Abdomen: Visualized upper abdominal solid organs appear normal in the early arterial phase of enhancement. IMPRESSION: Heart size at the upper limits of normal, mild pulmonary edema with small bilateral pleural effusions and lung base atelectasis posteriorly. Large body habitus. No pulmonary embolus found. Suspect mild acute exacerbation of chronic CHF. Dictated by: Jack Hull M.D. on 08/02/2023 at 13:07 Approved by: Jack Hull M.D. on 08/02/2023 at 13:10 ECG Data Interpretation: Sinus rhythm with sinus tachycardia with a rate of 103 no ischemic changes MDM Narrative Medical decision making narrative: Patient was 93-96% saturation on room air. Chest x-ray shows basilar opacities and pulmonary vascular engorgement. CT angiogram of chest shows heart size upper limits of normal bilateral pleural effusions lung base atelectasis posteriorly no pulmonary embolus suspect mild acute exacerbation of chronic CHF. D-dimer 577. Creatinine under 1. COVID negative. She received 40 mg of furosemide IV with no significant change in her symptoms. She ambulated approximately 50 ft and O2 saturation went to 87%. Patient was seen and discussed with Dr. Kiran who discussed the patient with the hospitalist Dr. Saeed and decision was made to admit the patient for observation and further management. <Anna Kiran, DO - Last Filed: 08/02/23 19:28> Lab Data Labs: Lab Results 08/02/23 08/02/23 Range/Units 10:54 11:00 WBC 8.1 (4.5-11.0) X10^3/uL RBC 4.36 (4.0-5.2) X10^6/uL Hgb 10.7 L (12.0-16.0) g/dL Hct 34.0 L (36-46) % MCV 77.9 L (80-100) fL MCH 24.6 L (26-34) PG MCHC 31.5 (30-36) % RDW 18.6 H (11.6-14.8) % Plt Count 330 (150-400) X10^3/uL Neut % (Auto) 73.9 (50-75) % Lymph % (Auto) 13.9 L (25-40) % [place] % (Auto) 8.7 (3-14) % Eos % (Auto) 2.3 (2-4) % Baso % (Auto) 1.2 (0-2) % Neut # (Auto) 6000 (9554-7598) /uL Lymph # (Auto) 1100 (7145-7042) /uL [place] # (Auto) 700 (0-900) /uL Eos # (Auto) 200 (0-450) /uL Baso # (Auto) 100 (0-100) /uL PT 11.8 (10.1-12.7) SECONDS INR 1.0 (0.9-1.3) D-Dimer 577 H (<500) ng/ml Sodium 140 (137-145) mmol/L Potassium 4.2 (3.4-5.1) mmol/L Chloride 104 (98-107) mmol/L Carbon Dioxide 30 (22-32) mmol/L BUN 25 H (7-17) mg/dL Creatinine 0.74 (0.52-1.04) mg/dL Estimated GFR > 60 (>60) mL/min BUN/Creatinine Ratio 33.8 H (6-22) Glucose 160 H (80-110) mg/dL Hemoglobin A1c 11.8 H (4.0-6.0) % Lactate 1.2 (0.7-2.1) mmol/L Calcium 10.3 H (8.4-10.2) mg/dL Magnesium 1.9 (1.6-2.3) mg/dL Total Bilirubin 0.4 (0.2-1.3) mg/dL AST 20 (14-36) IU/L ALT 18 (<35) IU/L Alkaline Phosphatase 82 (38-126) U/L Troponin I < 0.012 (0.01-0.034) ng/mL NT-Pro-B Natriuret Pep 117 (<125) pg/mL Total Protein 7.5 (6.3-8.2) g/dL Albumin 3.9 (3.5-5.0) g/dL Globulin 3.6 (1.7-4.1) g/dL Albumin/Globulin Ratio 1.1 (1.0-2.8) Triglycerides 286 H (35-150) mg/dL Cholesterol 205 H (140-199) mg/dL LDL Cholesterol, Calc 107 H (<100) mg/dL HDL Cholesterol 41 (40-60) mg/dL TSH 4.84 H (0.47-4.68) uIU/mL Free T4 0.92 (0.78-2.19) ng/dL SARS-CoV-2 (PCR) Negative (Negative) Point of Care Testing Glucose POC 242 ECG Data Interpretation: Sinus rhythm with sinus tachycardia with a rate of 103 no ischemic changes Magno-sinus rhythm rate 103 [place] interval 134 QRS 86 QTC 442 persistent Q-wave in lead [address]ations he does have Q-waves V1 and V2 which are new from previous EKG in 2018 Discharge Plan Departure Patient Disposition: Admitted as Observation Clinical Impression: Dyspnea due to congestive heart failure, Pleural effusion Admit Date/Time: 08/02/23 14:24 Admit Provider: Gabriele Saeed ED Sign-out <Anna Kiran DO - Last Filed: 08/02/23 19:28> Cosign ED Attending Cosignature Attestation: I saw and evaluated patient myself. Morbidly obese 63-year-old female sitting on edge of but in respiratory distress lungs are clear there is no peripheral edema. However persistently tachycardic. Blood work has been reviewed BNP is negative with D-dimer at 557 as well. However patient is having signs and symptoms progressive dyspnea with exertion. She is very sedentary. CT angio does not show pulmonary embolism but does show bilateral pleural effusions. He is given 40 mg of Lasix ambulated however O2 sat went to 87% on room air. I personally spoke with Dr. Saeed updated him on patient's test results agrees with observation for diuresis I was immediately available in the department for consultation. Documentation has been reviewed.
[2023-08-02 11:12] LABS: Add Manual Diff / Slide Review NO; Basophils Absolute Auto 100 /uL (0-100); Basophils Percent Auto 1.2 % (0-2); Eosinophils Absolute Auto 200 /uL (0-450); Eosinophils Percent Auto 2.3 % (2-4); Hemoglobin 10.7 g/dL (12.0-16.0); Lymphocytes Absolute Auto 1100 /uL (1100-4500); Lymphocytes Percent Auto 13.9 % (25-40); Mean Corpuscular HGB Conc 31.5 % (30-36); Mean Corpuscular Hemoglobin 24.6 PG (26-34); Mean Corpuscular Volume 77.9 fL (80-100); Monocytes Absolute Auto 700 /uL (0-900); Monocytes Percent Auto 8.7 % (3-14); Neutrophils Absolute Auto 6000 /uL (1500-7000); Neutrophils Percent Auto 73.9 % (50-75); Platelet Count 330 X10^3/uL (150-400); Red Blood Cell Count 4.36 X10^6/uL (4.0-5.2); Red Cell Distribution Width 18.6 % (11.6-14.8); White Blood Cell Count 8.1 X10^3/uL (4.5-11.0)
[2023-08-02 11:24] LABS: Prothrombin Time 11.8 SECONDS (10.1-12.7)
[2023-08-02 11:29] LABS: Alanine Aminotransferase 18 IU/L (<35); Albumin 3.9 g/dL (3.5-5.0); Albumin Globulin Ratio 1.1 (1.0-2.8); Alkaline Phosphatase 82 U/L (38-126); Aspartate Aminotransferase 20 IU/L (14-36); BUN Creatinine Ratio 33.8 (6-22); Bilirubin Total 0.4 mg/dL (0.2-1.3); Blood Urea Nitrogen 25 mg/dL (7-17); Calcium 10.3 mg/dL (8.4-10.2); Carbon Dioxide 30 mmol/L (22-32); Chloride 104 mmol/L (98-107); Estimated Glomerular Filt Rate > 60 mL/min (>60); Globulin 3.6 g/dL (1.7-4.1); Glucose 160 mg/dL (80-110); HEMOLYSIS < 15 (0-50); Lactate (Lactic Acid) 1.2 mmol/L (0.7-2.1); Potassium 4.2 mmol/L (3.4-5.1); Sodium 140 mmol/L (137-145); Total Protein 7.5 g/dL (6.3-8.2)
[2023-08-02 11:40] LABS: NT-proBNP (BNP-Adult 18+) 117 pg/mL (<125); Troponin I < 0.012 ng/mL (0.01-0.034)
[2023-08-02 11:45] LABS: COVID19 -Nasal RAPID Negative (Negative)
[2023-08-02 11:47] LABS: D Dimer 577 ng/ml (<500)
--- NOTE | 2023-08-02 11:52 | DI.CT.S_ITS ---
PROCEDURE: CT ANGIO CHEST PE PROTOCOL INDICATIONS: SOB x 1 month TECHNIQUE: After the administration of intravenous contrast, 2 mm thick sections acquired from the pulmonary apices to the posterior costophrenic angles. 3-dimensional maximum intensity projection (MIP) coronal and sagittal reformats were then acquired through the thorax. For radiation dose reduction, the following was used: automated exposure control, adjustment of mA and/or kV according to patient size. COMPARISON: [facility], CR, XR CHEST 1V, 09/19/2018, 12:35. [facility], CR, XR CHEST 1V, 08/02/2023, 11:14. FINDINGS: Image quality: Somewhat reduced by body habitus. Pulmonary arteries: Pulmonary arteries are normal in size, and demonstrate no intraluminal filling defects to suggest central pulmonary embolism. Lungs and pleura: Lungs are mildly edematous and there is posterior lung base atelectasis or retention of pulmonary secretions, right greater than left, to a relatively mild degree. Small bilateral pleural effusions, right greater than left, and there is no pneumothorax. Central and peripheral airways are patent. Mediastinum: Heart size is at the upper limits of, without pericardial effusion. No mediastinal or hilar adenopathy. Thoracic aorta is normal in caliber and enhancement. Esophagus is normal in caliber, without hiatal hernia. Bones and chest wall: No suspicious bony lesions. Ribs and thoracic spine appear intact throughout. Thyroid gland appears normal where well seen. No axillary or supraclavicular adenopathy. Abdomen: Visualized upper abdominal solid organs appear normal in the early arterial phase of enhancement. IMPRESSION: Heart size at the upper limits of normal, mild pulmonary edema with small bilateral pleural effusions and lung base atelectasis posteriorly. Large body habitus. No pulmonary embolus found. Suspect mild acute exacerbation of chronic CHF. Dictated by: Jack Hull M.D. on 08/02/2023 at 13:07 Approved by: Jack Hull M.D. on 08/02/2023 at 13:10
[2023-08-02] MEDS: ALBUTEROL/IPRATROPIUM 3 ML AMPUL INH (12:09)
[2023-08-02] MEDS: FUROSEMIDE 40 MG/4 ML VIAL IV ×2 (13:27→16:50)
--- NOTE | 2023-08-02 13:28 | PC.NURSE ---
pt started to desat. good pleth and pulse ox 80 percent. pt was dozing off asleep. woke patient up. placed pt. on oxygen sats increased to 95 percent. pt to receive lasix. Provider, Colt aware.
--- NOTE | 2023-08-02 14:31 | PC.NURSE ---
Report given to Clive Bsiwas RN.
--- NOTE | 2023-08-02 15:14 | DI.ECHO.S_ITS ---
[place] [facility]---------+ [facility] +---------+ : : [address] : [address] : : : : [id number] : : : : Phone: [phone] Echocardiogram Report + + :Name: EMIGDIO KNIGHT Study Date: 08/03/2023 Height: 66 in : :[facility] ReadingLocation: Weight: 345 lb : : Gender: Female BSA: 2.5 m2 : :: 1960 Age: 63 yrs BP: 141/62 mmHg: :Reason For Study: CONGESTIVE HEART FAILURE EXACERBATION : :Ordering Physician: DAX, : :DELMA Salazar Performed By: Mallorie Perez : :Referring: DELMA VERDUZCO : + + Interpretation Summary Sinus tachycardia with heart rate 106-122 bpm. Mildly dilated left ventricle measuring 6.2 cm in end diastole; normal wall thickness, wall motion and LV systolic function. Ejection fraction is 55-60%. Mild left atrial enlargement and borderline right atrial enlargement. Moderate mitral annular calcification and moderately calcified and thickened subchordal apparatus. There is mild associated mitral stenosis with mean gradient of 4.4 mmHg Estimated pulmonary artery systolic pressure is 53 mmHg assuming right atrial pressure of 10 mmHg. No prior study available for comparison. Procedure: A two-dimensional transthoracic echocardiogram with color flow and Doppler was performed. The study quality was technically difficult. A contrast injection of Definity was performed to improve assessment of LV function. There is no prior echocardiogram noted for this patient. The patient was in sinus tachycardia with heart rates between 106-122 bpm during the exam. Left Ventricle: The left ventricle is mildly dilated. The ejection fraction is estimated to be 55-60%. Right Ventricle: The right ventricle is normal in size and function. Atria: The left atrium is mildly dilated. The right atrium is borderline dilated. There is no Doppler evidence for an interatrial shunt. Mitral Valve: There is moderate mitral annular calcification. The mitral valve chordae are thickened and/or calcified. The mitral valve leaflets appear mildly thickened, but open well. The mitral valve mean gradient is 4.4 mmHg. There is trace mitral regurgitation. Aortic Valve: The aortic valve is trileaflet. The aortic valve opens well. There is no aortic valve stenosis. No aortic regurgitation is present. Tricuspid Valve: The tricuspid valve is not well visualized, but is grossly normal. There is trace tricuspid regurgitation. Right ventricular systolic pressure is estimated to be 43 mmHg plus the clinically estimated CVP which cannot be estimated on this exam. Pulmonic Valve: The pulmonic valve is not well visualized. There is no pulmonic valvular regurgitation. Great Vessels: The aortic root is normal size. The dimensions of the ascending aorta are normal. The inferior vena cava was not visualized. Pericardium/ Pleura There is no pericardial effusion. There is no pleural effusion. MMode/2D Measurements & Calculations LVIDd: 6.2 cm LVOT diam: 2.2 cm LVIDs: 4.5 cm Ao root diam: 3.0 cm FS: 26.8 % asc Aorta Diam: 3.2 cm IVSd: 0.99 cm Ao Arch Diam (Prox Trans): 3.0 cm LVPWd: 1.1 cm LV nieves. diameter/BSA (cm/m^2): 2.4 LV sys. diameter/BSA (cm/m^2): 1.8 LA A2 area: 22.8 cm2 RA long axis: 5.6 cm LA A4 area: 25.6 cm2 RA area: 21.3 cm2 LA length (vol): 6.1 cm RA vol: 68.9 ml LA vol: 81.5 ml RA : 27.3 ml/m2 LA vol index: 32.3 ml/m2 RVD1 (basal): 4.1 cm RVD2 (mid): 3.5 cm TAPSE: 2.3 cm Doppler Measurements & Calculations Ao V2 max: 182.0 cm/sec LVOT Max Acosta: 121.6 cm/sec Ao V2 mean: 134.6 cm/sec LV V1 max P.9 mmHg Ao max P.3 mmHg LV V1 VTI: 22.7 cm Ao mean P.8 mmHg CORBIN(I,D): 2.4 cm2 Ao V2 VTI: 35.0 cm CORBIN(V,D): 2.5 cm2 sev ratio: 0.65 CORBIN indexed to BSA (cm^2/m^2): 0.96 MV E max acosta: 131.8 cm/sec TR max acosta: 326.1 cm/sec MV A max acosta: 130.6 cm/sec TR max P.5 mmHg MV E/A: 1.0 PA V2 max: 105.6 cm/sec Med Peak E' Acosta: 5.5 cm/sec PA V2 mean: 70.2 cm/sec E/E' med: 24.0 PA mean P.3 mmHg Lat Peak E' Acosta: 8.9 cm/sec E/E' lat: 14.8 E/e' average: 19.4 MV dec time: 0.18 sec MVA(VTI): 2.5 cm2 MV V2 mean: 99.5 cm/sec SV(LVOT): 84.5 ml MV mean P.4 mmHg MV V2 VTI: 33.5 cm Electronically signed by: Steffany Correa M.D. on Reading Physician:08/03/2023 02:00 PM
[2023-08-02 15:45] LABS: Cholesterol 205 mg/dL (140-199); HDL Cholesterol 41 mg/dL (40-60); LDL Cholesterol Calculated 107 mg/dL (<100); Magnesium 1.9 mg/dL (1.6-2.3); Triglycerides 286 mg/dL (35-150)
[2023-08-02 15:47] LABS: Hemoglobin A1C% w Est Avg Glu 11.8 % (4.0-6.0)
--- NOTE | 2023-08-02 16:13 | PC.NURSE ---
Pt arrived from ED in wheelchair, 1x assist to bed with cane. A&Ox4, no c/o pain, fine crackles in bilat bases of lungs, CMS+ to bilat UE, no sensation to bilat LE. Phu wrap dressings to bilat LE, per patient these dressings are changed weekly at the [facility] wound clinic. They were last changed yesterday. Unable to view wounds under the dressings. Tele placed. Patient and daughter in law oriented to room and call light. Patient unable to lay flat so sitting at bedside, bed in low position, call light within reach.
[2023-08-02 16:18] LABS: TSH w/ Reflex to FT4 4.84 uIU/mL (0.47-4.68)
[2023-08-02 16:48] LABS: Free T4, Direct Thyroxine 0.92 ng/dL (0.78-2.19)
[2023-08-02] MEDS: INSULIN LISPRO 100 UNIT/ML 3ML VIAL SUBCUT ×2 (17:16→21:15)
--- NOTE | 2023-08-02 18:48 | PM.HP.1 ---
History of Present Illness History of Present Illness Date Patient Seen: 08/02/23 Time Patient Seen: 18:49 Chief complaint: sent by DR/low oxygen levels/hard to breathe Narrative: Zohra Winslow is a 63yo F with PMH fo DM2, HTN, HLD, morbid obesity, and osteomyelitis s/p L 2nd toe amputation who presents with exertional SOB. Patient notes worsening dyspnea for 1 month and cannot lie flat for more than 30 minutes. She has no history of CHF. Was apparently prescribed lasix recently but wasn't taking it. In the ED patient found to have pulm edema on CXR and CTA chest. No PE. She was satting 87% on room air so put on 2L O2. A1c 11%. She reports compliance with her insulin. Denies CP, NV, abd pain or diarrhea. 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 Social History household members: spouse, children and other Smoking Status: Never smoker alcohol intake: current Meds Home Medications and Allergies Home Medications Medication Instructions Recorded Confirmed Type insulin glargine 100 unit/mL 100 unit SQ BID ##0 08/28/11 08/02/23 History subcutaneous solution (Lantus U-100 Insulin) fluticasone propionate 50 1 spray intranasal PRN PRN Allergy 09/19/18 08/02/23 History mcg/actuation nasal Symptoms spray,suspension (Flonase Allergy Relief) aspirin 325 mg tablet 325 mg PO PRN PRN pain 10/20/19 08/02/23 History insulin lispro 200 unit/mL (3 mL) 100 unit SUBCUT AC 10/21/19 08/02/23 History subcutaneous pen (Humalog KwikPen U-200 Insulin) Allergies Allergy/AdvReac Type Severity Reaction Status Date / Time ibuprofen Allergy Severe VOMITING Verified 09/19/18 12:40 Penicillins Allergy Severe RASH, Verified 09/19/18 12:40 VOMITING Review of Systems Review of Systems Narrative: All other systems reviewed with the patient and are negative unless otherwise stated. Exam Vital Signs (past 8 hours): - 08/02/23 11:31 08/02/23 11:31 08/02/23 11:47 Temperature Pulse Rate 102 H 100 H Respiratory Rate 24 24 Blood Pressure 143/64 H Pulse Oximetry 91 92 Oxygen Delivery Method Room Air Oxygen Flow Rate 08/02/23 11:47 08/02/23 12:00 08/02/23 12:00 Temperature Pulse Rate 89 93 H Respiratory Rate 20 20 Blood Pressure 190/79 H 156/56 H Pulse Oximetry 92 92 Oxygen Delivery Method Room Air Room Air Oxygen Flow Rate 08/02/23 12:09 08/02/23 12:33 08/02/23 12:34 Temperature Pulse Rate 92 H 111 H Respiratory Rate 20 27 H Blood Pressure 161/72 H Pulse Oximetry 94 84 L Oxygen Delivery Method Room Air Oxygen Flow Rate 08/02/23 12:34 08/02/23 13:00 08/02/23 13:01 Temperature Pulse Rate 113 H 99 H 94 H Respiratory Rate 23 23 35 H Blood Pressure Pulse Oximetry 77 L 87 L 95 Oxygen Delivery Method Nasal Cannula Oxygen Flow Rate 2 08/02/23 13:01 08/02/23 13:30 08/02/23 13:30 Temperature Pulse Rate 98 H Respiratory Rate 17 Blood Pressure 138/64 160/70 H Pulse Oximetry 95 Oxygen Delivery Method Oxygen Flow Rate 08/02/23 14:00 08/02/23 14:00 08/02/23 14:10 Temperature Pulse Rate 115 H 109 H Respiratory Rate 27 H Blood Pressure 170/69 H Pulse Oximetry 96 87 L Oxygen Delivery Method Nasal Cannula Oxygen Flow Rate 2 08/02/23 14:30 08/02/23 15:00 08/02/23 15:30 Temperature Pulse Rate 98 H 97 H 91 H Respiratory Rate 24 7 L Blood Pressure Pulse Oximetry 96 96 97 Oxygen Delivery Method Oxygen Flow Rate 08/02/23 16:00 Temperature 97.7 F Pulse Rate 100 H Respiratory Rate 16 Blood Pressure 157/75 H Pulse Oximetry 96 Oxygen Delivery Method Oxygen Flow Rate 2 Oxygen Delivery Method Nasal Cannula Oxygen Flow Rate 2 Narrative Exam Narrative: GEN: no acute distress, morbidly obese HEENT: moist mucous membranes, PERRL NECK: trachea midline, no JVD CV: regular rate and rhythm, no murmurs PULM: decreased breath sounds, low inspiratory volume ABD: soft, obese, nontender, nondistended, no organomegaly EXT: warm and well perfused with no edema NEURO: awake, alert, oriented, no focal deficits Objective Labs 08/02/23 11:00 08/02/23 11:00 Labs: Laboratory Results - last 24 hr 08/02/23 08/02/23 10:54 11:00 WBC 8.1 RBC 4.36 Hgb 10.7 L Hct 34.0 L MCV 77.9 L MCH 24.6 L MCHC 31.5 RDW 18.6 H Plt Count 330 Neut % (Auto) 73.9 Lymph % (Auto) 13.9 L [place] % (Auto) 8.7 Eos % (Auto) 2.3 Baso % (Auto) 1.2 Neut # (Auto) 6000 Lymph # (Auto) 1100 [place] # (Auto) 700 Eos # (Auto) 200 Baso # (Auto) 100 PT 11.8 INR 1.0 D-Dimer 577 H Sodium 140 Potassium 4.2 Chloride 104 Carbon Dioxide 30 BUN 25 H Creatinine 0.74 Estimated GFR > 60 BUN/Creatinine Ratio 33.8 H Glucose 160 H Hemoglobin A1c 11.8 H Lactate 1.2 Calcium 10.3 H Magnesium 1.9 Total Bilirubin 0.4 AST 20 ALT 18 Alkaline Phosphatase 82 Troponin I < 0.012 NT-Pro-B Natriuret Pep 117 Total Protein 7.5 Albumin 3.9 Globulin 3.6 Albumin/Globulin Ratio 1.1 Triglycerides 286 H Cholesterol 205 H LDL Cholesterol, Calc 107 H HDL Cholesterol 41 TSH 4.84 H Free T4 0.92 SARS-CoV-2 (PCR) Negative Assessment & Plan Assessment & Plan narrative: # acute hypoxic resp failure due to likely CHF exacerbation -presents with pulm edema, exertional dyspnea and req 2L NC due to sats of 87% in ED -obtain echo -lasix 40mg IV BID -tele -wean O2 as able # poorly controlled DM2 -A1c 11% -continue lantus and SSI # HLD -LDL 107, not on statin # morbid obesity -BMI 55.7 Code status is full code. DVT prophylaxis with Lovenox. Proxy is spouse Mohamud. I have reviewed home meds and used all available resources to reconcile the home meds. Case discussed with ED physician/APC and patient will be admitted to the hospitalist service for further workup and management. This patient will be admitted as inpatient and will require greater than 2 midnights of hospital time to treat CHF exacerbation. Quality VTE Deep Vein Thrombosis/Pulmonary Embolism Present on Admission: No
[2023-08-02] MEDS: ENOXAPARIN 60 MG/0.6 ML SYRINGE SUBCUT (21:11)
[2023-08-02] MEDS: INSULIN GLARGINE 100 UNIT/ML 3ML PEN 80 UNIT SUBCUT (21:13)
[2023-08-02] MEDS: lisinopriL 20 MG TABLET PO (21:17)
[2023-08-03] VITALS (14 sets, daily range): BP systolic 118–141; BP diastolic 49–68; PULSE 75–96; RESP 17–18; TEMP 35.9–36.3; O2SAT 91–98
[2023-08-03] MEDS: SODIUM CHLORIDE 0.9% FLUSH 10 ML IV ×3 (00:23→21:21)
[2023-08-03 06:25] LABS: Add Manual Diff / Slide Review NO; Basophils Absolute Auto 100 /uL (0-100); Basophils Percent Auto 0.8 % (0-2); Eosinophils Absolute Auto 200 /uL (0-450); Eosinophils Percent Auto 2.6 % (2-4); Hematocrit 33.6 % (36-46); Hemoglobin 10.8 g/dL (12.0-16.0); Lymphocytes Absolute Auto 1200 /uL (1100-4500); Lymphocytes Percent Auto 17.1 % (25-40); Mean Corpuscular Hemoglobin 24.8 PG (26-34); Mean Corpuscular Volume 77.6 fL (80-100); Monocytes Absolute Auto 700 /uL (0-900); Monocytes Percent Auto 9.2 % (3-14); Neutrophils Absolute Auto 5000 /uL (1500-7000); Neutrophils Percent Auto 70.3 % (50-75); Platelet Count 318 X10^3/uL (150-400); Red Blood Cell Count 4.34 X10^6/uL (4.0-5.2); Red Cell Distribution Width 18.7 % (11.6-14.8); White Blood Cell Count 7.2 X10^3/uL (4.5-11.0)
[2023-08-03 06:42] LABS: BUN Creatinine Ratio 30.2 (6-22); Blood Urea Nitrogen 26 mg/dL (7-17); Carbon Dioxide 31 mmol/L (22-32); Chloride 101 mmol/L (98-107); Estimated Glomerular Filt Rate > 60 mL/min (>60); Glucose 219 mg/dL (80-110); HEMOLYSIS < 15 (0-50); Potassium 3.9 mmol/L (3.4-5.1); Sodium 140 mmol/L (137-145)
[2023-08-03] MEDS: INSULIN LISPRO 100 UNIT/ML 3ML VIAL SUBCUT ×4 (08:06→21:08)
[2023-08-03] MEDS: INSULIN GLARGINE 100 UNIT/ML 3ML PEN 80 UNIT SUBCUT ×2 (08:07→21:06)
[2023-08-03] MEDS: FUROSEMIDE 40 MG/4 ML VIAL IV ×2 (08:19→15:38)
[2023-08-03] MEDS: lisinopriL 20 MG TABLET PO ×2 (08:31→21:04)
[2023-08-03] MEDS: ENOXAPARIN 60 MG/0.6 ML SYRINGE SUBCUT ×2 (08:37→21:04)
--- NOTE | 2023-08-03 09:03 | PM.PN.1 ---
Subjective Subjective Interval history: Patient is a 63yo F with PMH of DM2, HTN, HLD, morbid obesity, and osteomyelitis s/p L 2nd toe amputation who presented with exertional SOB. Patient noted worsening dyspnea for 1 month and could not lie flat for more than 30 minutes. She has no history of CHF. Was apparently prescribed lasix recently but wasn't taking it. In the ED patient found to have pulm edema on CXR and CTA chest. No PE. She was satting 87% on room air so put on 2L O2 in the ER. A1c 11%. She reports compliance with her insulin. Denies CP, NV, abd pain or diarrhea on admission. Today feels much better with the IV treatment that is ongoing with furosemide. Appetite has returned. Exam Vital Signs (past 8 hours): - 08/03/23 01:44 08/03/23 04:00 08/03/23 05:00 Temperature 96.7 F L Pulse Rate 92 H Respiratory Rate 18 Blood Pressure 124/68 Pulse Oximetry 92 95 95 Oxygen Delivery Method Nasal Cannula Nasal Cannula Oxygen Flow Rate 2 2 2 08/03/23 08:31 Temperature Pulse Rate 92 H Respiratory Rate Blood Pressure 141/62 H Pulse Oximetry Oxygen Delivery Method Oxygen Flow Rate Oxygen Delivery Method Nasal Cannula Oxygen Flow Rate 2 Narrative Exam Narrative: GEN: no acute distress, morbidly obese, sitting in chair, having breakfast HEENT: moist mucous membranes, PERRL NECK: trachea midline, no JVD CV: regular rate and rhythm, no murmurs PULM: decreased breath sounds in general, low inspiratory volume but clear to auscultation ABD: soft, obese, nontender, nondistended, no organomegaly EXT: warm and well perfused with no edema NEURO: awake, alert, oriented, no focal deficits Objective Labs 08/03/23 05:39 08/03/23 05:39 Labs: Laboratory Results - last 24 hr 08/02/23 08/02/23 08/03/23 10:54 11:00 05:39 WBC 8.1 7.2 RBC 4.36 4.34 Hgb 10.7 L 10.8 L Hct 34.0 L 33.6 L MCV 77.9 L 77.6 L MCH 24.6 L 24.8 L MCHC 31.5 32.0 RDW 18.6 H 18.7 H Plt Count 330 318 Neut % (Auto) 73.9 70.3 Lymph % (Auto) 13.9 L 17.1 L [place] % (Auto) 8.7 9.2 Eos % (Auto) 2.3 2.6 Baso % (Auto) 1.2 0.8 Neut # (Auto) 6000 5000 Lymph # (Auto) 1100 1200 [place] # (Auto) 700 700 Eos # (Auto) 200 200 Baso # (Auto) 100 100 PT 11.8 INR 1.0 D-Dimer 577 H Sodium 140 140 Potassium 4.2 3.9 Chloride 104 101 Carbon Dioxide 30 31 BUN 25 H 26 H Creatinine 0.74 0.86 Estimated GFR > 60 > 60 BUN/Creatinine Ratio 33.8 H 30.2 H Glucose 160 H 219 H Hemoglobin A1c 11.8 H Lactate 1.2 Calcium 10.3 H 10.0 Magnesium 1.9 Total Bilirubin 0.4 AST 20 ALT 18 Alkaline Phosphatase 82 Troponin I < 0.012 NT-Pro-B Natriuret Pep 117 Total Protein 7.5 Albumin 3.9 Globulin 3.6 Albumin/Globulin Ratio 1.1 Triglycerides 286 H Cholesterol 205 H LDL Cholesterol, Calc 107 H HDL Cholesterol 41 TSH 4.84 H Free T4 0.92 SARS-CoV-2 (PCR) Negative [facility] Medical History (Updated 08/02/23 @ 17:32 by Elif Gregory PA-C) Neuropathy 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 Social History household members: spouse, children and other Smoking Status: Never smoker alcohol intake: current Assessment & Plan Assessment & Plan narrative: # acute hypoxic resp failure due to likely CHF exacerbation -presented with pulm edema, exertional dyspnea and req 2L NC due to sats of 87% in ED -obtain echo -lasix 40mg IV BID -tele -wean O2 as able, remains on O2 supplementation today, however feels comfortable enough to eat # poorly controlled DM2 -A1c 11% -continue lantus and SSI # HLD -LDL 107, not on statin # morbid obesity -BMI 55.7 # elevated TSH, normsl free T4, will order Free T3 for tomorrow, if low will replace Code status is full code. DVT prophylaxis with Lovenox. Proxy is spouse Mohamud. Quality VTE Deep Vein Thrombosis/Pulmonary Embolism Present on Admission: No
--- NOTE | 2023-08-03 16:20 | PC.NURSE ---
Day shift note: Patient up OOB to chair for all meals, ambulating to BSC and BR with cane/SBA. Weaned O2 from 2L via NC to 1L, sat 92-94%. Voiding post Lasix IV, had BM this shift. Excellent PO intake. Echo performed at bedside. Calls appropriately for staff assistance, daughter in law at bedside providing supportive care.
--- NOTE | 2023-08-03 18:54 | PC.NURSE ---
Urine output: 950 ml total output this shift
[2023-08-04] VITALS (11 sets, daily range): BP systolic 111–156; BP diastolic 53–99; PULSE 85–96; RESP 16–17; TEMP 35.9–36.3; O2SAT 94–98
[2023-08-04 05:57] LABS: Add Manual Diff / Slide Review NO; Basophils Absolute Auto 100 /uL (0-100); Basophils Percent Auto 0.8 % (0-2); Eosinophils Absolute Auto 200 /uL (0-450); Eosinophils Percent Auto 3.4 % (2-4); Hemoglobin 10.3 g/dL (12.0-16.0); Lymphocytes Absolute Auto 1200 /uL (1100-4500); Mean Corpuscular HGB Conc 32.2 % (30-36); Mean Corpuscular Hemoglobin 24.9 PG (26-34); Mean Corpuscular Volume 77.3 fL (80-100); Monocytes Absolute Auto 700 /uL (0-900); Monocytes Percent Auto 10.1 % (3-14); Neutrophils Absolute Auto 4600 /uL (1500-7000); Neutrophils Percent Auto 67.7 % (50-75); Platelet Count 288 X10^3/uL (150-400); Red Blood Cell Count 4.14 X10^6/uL (4.0-5.2); Red Cell Distribution Width 18.2 % (11.6-14.8); White Blood Cell Count 6.8 X10^3/uL (4.5-11.0)
[2023-08-04 06:10] LABS: BUN Creatinine Ratio 42.9 (6-22); Blood Urea Nitrogen 39 mg/dL (7-17); Calcium 9.7 mg/dL (8.4-10.2); Carbon Dioxide 30 mmol/L (22-32); Chloride 100 mmol/L (98-107); Estimated Glomerular Filt Rate > 60 mL/min (>60); Glucose 160 mg/dL (80-110); HEMOLYSIS < 15 (0-50); Sodium 137 mmol/L (137-145)
[2023-08-04 06:44] LABS: Free T3, Triiodothyronine Free 4.09 pg/mL (2.77-5.27)
[2023-08-04] MEDS: INSULIN LISPRO 100 UNIT/ML 3ML VIAL SUBCUT ×4 (08:28→21:57)
[2023-08-04] MEDS: FUROSEMIDE 40 MG/4 ML VIAL IV ×2 (08:29→17:30)
[2023-08-04] MEDS: ENOXAPARIN 60 MG/0.6 ML SYRINGE SUBCUT ×2 (08:31→21:57)
[2023-08-04] MEDS: INSULIN GLARGINE 100 UNIT/ML 3ML PEN 80 UNIT SUBCUT ×2 (08:32→21:57)
[2023-08-04] MEDS: lisinopriL 20 MG TABLET PO ×2 (08:34→21:56)
--- NOTE | 2023-08-04 10:51 | P.PN_ITS ---
Subjective Subjective Interval history: Patient is a 63yo F with PMH of DM2, HTN, HLD, morbid obesity, and osteomyelitis s/p L 2nd toe amputation who presented with exertional SOB. Patient noted worsening dyspnea for 1 month and could not lie flat for more than 30 minutes. She has no history of CHF. Was apparently prescribed lasix recently but wasn't taking it however. In the ED patient found to have pulm edema on CXR and CTA chest. No PE. She was satting 87% on room air so put on 2L O2 in the ER. A1c 11%. She reports compliance with her insulin. Denies CP, NV, abd pain or diarrhea on admission. Today she continues to feel much better with the IV treatment that is ongoing with furosemide. Breathing easier and less cough. Appetite is good. Exam Vital Signs (past 8 hours): - 08/04/23 04:03 08/04/23 05:00 08/04/23 08:00 Temperature 96.6 F L 97.4 F L Pulse Rate 85 85 Respiratory Rate 17 16 Blood Pressure 128/99 H 111/53 L Pulse Oximetry 96 96 96 Oxygen Delivery Method Nasal Cannula Oxygen Flow Rate 1 1 1 08/04/23 09:05 Temperature Pulse Rate Respiratory Rate Blood Pressure Pulse Oximetry 96 Oxygen Delivery Method Nasal Cannula Oxygen Flow Rate 1 Fraction of Inspired Oxygen 24 SaO2/FiO2 Ratio 387 Oxygen Delivery Method Nasal Cannula Oxygen Flow Rate 1 Narrative Exam Narrative: GEN: no acute distress, morbidly obese, sitting in bed HEENT: moist mucous membranes, PERRL NECK: trachea midline, no JVD CV: regular rate and rhythm, no murmurs PULM: decreased breath sounds in general, low inspiratory volume but clear to auscultation ABD: soft, obese, nontender, nondistended, no organomegaly EXT: warm and well perfused with no edema NEURO: awake, alert, oriented, no focal deficits Objective Labs 08/04/23 05:21 08/04/23 05:21 Labs: Laboratory Results - last 24 hr 08/04/23 05:21 WBC 6.8 RBC 4.14 Hgb 10.3 L Hct 32.0 L MCV 77.3 L MCH 24.9 L MCHC 32.2 RDW 18.2 H Plt Count 288 Neut % (Auto) 67.7 Lymph % (Auto) 18.0 L [place] % (Auto) 10.1 Eos % (Auto) 3.4 Baso % (Auto) 0.8 Neut # (Auto) 4600 Lymph # (Auto) 1200 [place] # (Auto) 700 Eos # (Auto) 200 Baso # (Auto) 100 Sodium 137 Potassium 4.0 Chloride 100 Carbon Dioxide 30 BUN 39 H Creatinine 0.91 Estimated GFR > 60 BUN/Creatinine Ratio 42.9 H Glucose 160 H Calcium 9.7 Free T3 4.09 PFSH Medical History Neuropathy 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 Social History household members: spouse, children and other Smoking Status: Never smoker alcohol intake: current Assessment & Plan Assessment & Plan narrative: # acute hypoxic resp failure due to likely CHF exacerbation -presented with pulm edema, exertional dyspnea and req 2L NC due to sats of 87% in ED -obtain echo -lasix 40mg IV BID, continue through the end of Aug 05, goal to switch to oral lasix for doses on Aug 06 -tele -wean O2 as able, remains on O2 supplementation today, however feels comfortable - add spironalactone 25 mg daily # poorly controlled DM2 -A1c 11% -continue lantus and SSI # HLD -LDL 107, not on statin # morbid obesity -BMI 55.7 # elevated TSH, normal free T4, normal Free T3 - initial rosa elena TSH consistent with effect of hospitalization and no replacement needed Code status is full code. DVT prophylaxis with Lovenox. Proxy is spouse Mohamud. Quality VTE Deep Vein Thrombosis/Pulmonary Embolism Present on Admission: No
--- NOTE | 2023-08-04 12:27 | CM.DANOTE ---
Patient is a 63 yo female who was admitted on 08/02/23 for SOB. Pt has [facility] for insurance and her PCP is Afshan Montes. EMR was reviewed. Per MD, pt morbidly obese with a hx of osteomyelitis and 2nd toe amp and now admitted for SOB, PE, hypoxic respiratory failure likely secondary to CHF. Echo ordered and pending. SW met bedside with pt and FARNAZ Hernandez and explained role and pt confirms she is living in [place] with her and their 13 yo granddtr and they have local son and FARNAZ Hernandez nearby. Pt states she is independent at baseline and uses a cane, FWW or w/c for ambulation and drives and denies any hx of HH or SNF, even after her toe amputation. Pt is established at [facility] wound clinic. Pt states she does not have home oxygen at baseline and currently on 2-3LO2. Pt is hopeful for d/c home when weaned to room air and DIL confirms she can provide transportation and they do not anticipate any needs at this time. Pt states spouse is independent as well and can assist as needed. Plan: SW to follow for plan of home with family assist and any further identified discharge planning needs. SARABJIT Pineda Discharge Planning/Care Management CM Discharge Assessment Start: 08/04/23 12:21 Freq: Status: Active Protocol: Document 08/04/23 12:22 BF (Rec: 08/04/23 12:27 BF [id number]) Discharge Planning Assessment Assigned Veterinary Science Teacher SARABJIT Ayala DPOA/Assigned Designee Name informally spouse Mohamud Advance Directives? No Advance Directives on File No History Provided By Patient,Family Member,Medical Record Has Patient been admitted in last 30 No days? Prior Living Arrangements House Household Members spouse,other Comment with spouse and 13 yo granddtr Type of transporation used prior to Drives own vehicle admit Independent with ADL's Yes Is patient alert and oriented? Yes Caregiver for Another Yes: 13 yo granddtr at home DME Already Rented / Owned Cane Patient/Family Preference Home with Home Health Comment Pending progress, r/o HH Barriers to Discharge No Comment Non-compliance and hygiene issues Discharge Plan Home Transportation Arrangement Family Referrals Initiated None needed Additional Comment Pending progress and ability to wean off oxygen Whiteboard Updated in Patient Room with Yes name and ext. # of Veterinary Science Teacher Review Status In Process Please Provide Date Initial DC 08/04/23 Assessment Was Performed Next Review Type Continued Stay Review
[2023-08-04] MEDS: SODIUM CHLORIDE 0.9% FLUSH 10 ML IV ×2 (12:31→21:58)
[2023-08-04] MEDS: SPIRONOLACTONE 25 MG TABLET PO (12:35)
[2023-08-05] VITALS (8 sets, daily range): BP systolic 109–143; BP diastolic 44–66; PULSE 80–92; RESP 16–19; TEMP 35.8–36.4; O2SAT 94–100
[2023-08-05 06:36] LABS: Add Manual Diff / Slide Review NO; Basophils Absolute Auto 0 /uL (0-100); Basophils Percent Auto 0.6 % (0-2); Eosinophils Absolute Auto 300 /uL (0-450); Eosinophils Percent Auto 3.8 % (2-4); Hematocrit 30.8 % (36-46); Lymphocytes Absolute Auto 1300 /uL (1100-4500); Mean Corpuscular HGB Conc 32.4 % (30-36); Mean Corpuscular Hemoglobin 24.8 PG (26-34); Mean Corpuscular Volume 76.5 fL (80-100); Monocytes Absolute Auto 700 /uL (0-900); Monocytes Percent Auto 10.9 % (3-14); Neutrophils Absolute Auto 4500 /uL (1500-7000); Neutrophils Percent Auto 65.7 % (50-75); Platelet Count 265 X10^3/uL (150-400); Red Blood Cell Count 4.03 X10^6/uL (4.0-5.2); Red Cell Distribution Width 18.2 % (11.6-14.8); White Blood Cell Count 6.8 X10^3/uL (4.5-11.0)
[2023-08-05 06:59] LABS: NT-proBNP (BNP-Adult 18+) 100 pg/mL (<125)
--- NOTE | 2023-08-05 08:40 | PM.PN.1 ---
Subjective Subjective Date Patient Seen: 08/05/23 Interval history: Today she continues to feel much better with the IV treatment that is ongoing with furosemide. Will transition to oral tomorrow. Breathing easier and less cough as well as intermittently off O2 supplementation. Appetite is good. Exam Vital Signs (past 8 hours): - 08/05/23 00:58 08/05/23 05:29 Temperature 97.0 F L 97.6 F Pulse Rate 86 84 Respiratory Rate 19 18 Blood Pressure 116/44 L 129/56 L Pulse Oximetry 98 100 Oxygen Flow Rate 1 0 Fraction of Inspired Oxygen 24 SaO2/FiO2 Ratio 387 Oxygen Delivery Method Nasal Cannula,Humidification Oxygen Flow Rate 0 Narrative Exam Narrative: GEN: no acute distress, morbidly obese, sitting in bed HEENT: moist mucous membranes, PERRL NECK: trachea midline, no JVD CV: regular rate and rhythm, no murmurs PULM: decreased breath sounds in general, low inspiratory volume but clear to auscultation ABD: soft, obese, nontender, nondistended, no organomegaly EXT: warm and well perfused with no edema NEURO: awake, alert, oriented, no focal deficits Objective Labs 08/05/23 05:50 08/04/23 05:21 Labs: Laboratory Results - last 24 hr 08/05/23 05:50 WBC 6.8 RBC 4.03 Hgb 10.0 L Hct 30.8 L MCV 76.5 L MCH 24.8 L MCHC 32.4 RDW 18.2 H Plt Count 265 Neut % (Auto) 65.7 Lymph % (Auto) 19.0 L [place] % (Auto) 10.9 Eos % (Auto) 3.8 Baso % (Auto) 0.6 Neut # (Auto) 4500 Lymph # (Auto) 1300 [place] # (Auto) 700 Eos # (Auto) 300 Baso # (Auto) 0 NT-Pro-B Natriuret Pep 100 PFSH Medical History Neuropathy 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 Social History household members: spouse and other Smoking Status: Never smoker alcohol intake: current Assessment & Plan Assessment & Plan narrative: # acute hypoxic resp failure due to likely CHF exacerbation -presented with pulm edema, exertional dyspnea and req 2L NC due to sats of 87% in ED -obtain echo -lasix 40mg IV BID, continue through the end of Aug 05, goal to switch to oral lasix for doses on Aug 06 -tele -wean O2 as able, remains on O2 supplementation intermittently, however feels comfortable - added spironalactone 25 mg yesterday - will transition to oral furosemide tomorrow - BNP good # poorly controlled DM2 -A1c 11% -continue lantus and SSI # HLD -LDL 107, not on statin # morbid obesity -BMI 55.7 # elevated TSH, normal free T4, normal Free T3 - initial [place] TSH consistent with effect of hospitalization and no replacement needed Disposition: Expect discharge to home Code status is full code. DVT prophylaxis with Lovenox. Proxy is spouse Mohamud. Quality VTE Deep Vein Thrombosis/Pulmonary Embolism Present on Admission: No
[2023-08-05] MEDS: FUROSEMIDE 40 MG/4 ML VIAL IV (09:17)
[2023-08-05] MEDS: SPIRONOLACTONE 25 MG TABLET PO (09:17)
[2023-08-05] MEDS: SODIUM CHLORIDE 0.9% FLUSH 10 ML IV ×2 (09:17→21:12)
[2023-08-05] MEDS: lisinopriL 20 MG TABLET PO ×2 (09:17→21:10)
[2023-08-05] MEDS: INSULIN LISPRO 100 UNIT/ML 3ML VIAL SUBCUT ×4 (09:18→21:08)
[2023-08-05] MEDS: INSULIN GLARGINE 100 UNIT/ML 3ML PEN 80 UNIT SUBCUT ×2 (09:19→21:08)
[2023-08-05] MEDS: ENOXAPARIN 60 MG/0.6 ML SYRINGE SUBCUT ×2 (09:27→21:09)
--- NOTE | 2023-08-05 15:26 | CM.DPC ---
DCP Cont: Per MD, pt has waxed and waned on her ability to tolerate room air and then needing oxygen. Echo completed. Pt likely switch to oral Lasix tomorrow and then might be stable for d/c tomorrow pending progress. Plan: SW to follow for possible d/c if pt able to be stable on room air and tolerates po Lasix for plan of home with family assist. SARABJIT Pineda
[2023-08-05] MEDS: FUROSEMIDE 40 MG TABLET PO (18:06)
[2023-08-06] VITALS (9 sets, daily range): BP systolic 132–161; BP diastolic 42–62; PULSE 84–99; RESP 18–20; TEMP 35.6–36.3; O2SAT 94–97
[2023-08-06 06:18] LABS: Add Manual Diff / Slide Review NO; Basophils Absolute Auto 0 /uL (0-100); Basophils Percent Auto 0.6 % (0-2); Eosinophils Absolute Auto 200 /uL (0-450); Eosinophils Percent Auto 2.9 % (2-4); Hematocrit 32.2 % (36-46); Hemoglobin 10.3 g/dL (12.0-16.0); Lymphocytes Absolute Auto 1300 /uL (1100-4500); Lymphocytes Percent Auto 18.4 % (25-40); Mean Corpuscular Hemoglobin 24.4 PG (26-34); Mean Corpuscular Volume 76.2 fL (80-100); Monocytes Absolute Auto 700 /uL (0-900); Monocytes Percent Auto 9.8 % (3-14); Neutrophils Absolute Auto 4800 /uL (1500-7000); Neutrophils Percent Auto 68.3 % (50-75); Platelet Count 280 X10^3/uL (150-400); Red Blood Cell Count 4.23 X10^6/uL (4.0-5.2); Red Cell Distribution Width 18.2 % (11.6-14.8)
[2023-08-06 06:31] LABS: Blood Urea Nitrogen 44 mg/dL (7-17); Calcium 10.3 mg/dL (8.4-10.2); Carbon Dioxide 28 mmol/L (22-32); Chloride 100 mmol/L (98-107); Estimated Glomerular Filt Rate > 60 mL/min (>60); Glucose 202 mg/dL (80-110); HEMOLYSIS < 15 (0-50); Potassium 4.4 mmol/L (3.4-5.1); Sodium 137 mmol/L (137-145)
[2023-08-06] MEDS: SPIRONOLACTONE 25 MG TABLET PO (08:43)
[2023-08-06] MEDS: ENOXAPARIN 60 MG/0.6 ML SYRINGE SUBCUT (08:43)
[2023-08-06] MEDS: FUROSEMIDE 40 MG TABLET PO (08:43)
[2023-08-06] MEDS: INSULIN LISPRO 100 UNIT/ML 3ML VIAL SUBCUT ×2 (08:43→12:36)
[2023-08-06] MEDS: lisinopriL 20 MG TABLET PO (08:43)
[2023-08-06] MEDS: INSULIN GLARGINE 100 UNIT/ML 3ML PEN 80 UNIT SUBCUT (08:45)
[2023-08-06] MEDS: SODIUM CHLORIDE 0.9% FLUSH 10 ML IV (08:47)
--- NOTE | 2023-08-06 11:03 | CM.DPC ---
DCP Cont. Reviewed chart and team rounds for status updates. Pt has not been weaned off of O2 as of the time of this visit. Plan is for her to be switched to oral furosemide today, plan is to wean O2 as able, d/c once medically stable to home via DIL. Possible d/c tomorrow, cont. to follow.
--- NOTE | 2023-08-06 14:30 | PM.DS.1 ---
History of Present Illness History of Present Illness Date Patient Seen: 08/06/23 Time Patient Seen: 14:31 Chief complaint: sent by DR/low oxygen levels/hard to breathe Narrative: Zohra Winslow is a 63yo F with PMH fo DM2, HTN, HLD, morbid obesity, and osteomyelitis s/p L 2nd toe amputation who presents with exertional SOB. Patient notes worsening dyspnea for 1 month and cannot lie flat for more than 30 minutes. She has no history of CHF. Was apparently prescribed lasix recently but wasn't taking it. In the ED patient found to have pulm edema on CXR and CTA chest. No PE. She was satting 87% on room air so put on 2L O2. A1c 11%. She reports compliance with her insulin. Denies CP, NV, abd pain or diarrhea. Discharge Providers Provider Date of admission: 08/02/23 14:24 Discharge Date: 08/06/23 Primary care physician: Afshan Montes PA-C Discharge provider: Juwan Villegas DO Summary Hospital Course Discharge Diagnosis: # acute hypoxic resp failure due to likely CHF exacerbation # poorly controlled DM2 # HLD # morbid obesity # subclinical hypothyroidism Hospital Course: This is a 63 year old female with PMH of DM2, HLD, obesity who presented with shortness of breath, was found to be hypoxic and initially volume overloaded. It turns out she had been on diuretic medications but was told to stop them when taking bactrim with no instructions to resume. She gained a lot of weight after that and then subsequent shortness of breath. TTE showed normal EF with elevated RVSP, no significant valvular disorders. She was diruesed with improvement in symptoms and resolution of hypoxia. She will likely need continued diuresis and was prescribed 40 mg of oral lasix twice daily on discharge. This will likely need to be adjusted in the coming weeks with her PCP. Also recommend continued PCP follow up for DM, as her A1c was 11%. Time Spent with Patient Time spent: Greater than 30 minutes Exam Vital Signs (past 8 hours): - 08/06/23 08:00 08/06/23 08:43 08/06/23 09:00 Temperature 96.8 F L Pulse Rate 84 84 Respiratory Rate 18 Blood Pressure 136/55 L 136/55 L Pulse Oximetry 96 96 Oxygen Delivery Method Nasal Cannula Oxygen Flow Rate 1.5 1.5 08/06/23 12:00 11/07/23 13:00 Temperature 97.3 F L Pulse Rate 99 H Respiratory Rate 20 Blood Pressure 161/62 H Pulse Oximetry 96 95 Oxygen Delivery Method Room Air Oxygen Flow Rate 0 Fraction of Inspired Oxygen 24 SaO2/FiO2 Ratio 387 Oxygen Delivery Method Room Air Oxygen Flow Rate 0 Narrative Exam Narrative: GEN: no acute distress, morbidly obese, sitting in bed HEENT: moist mucous membranes, PERRL NECK: trachea midline, no JVD CV: regular rate and rhythm, no murmurs PULM: decreased breath sounds in general, low inspiratory volume but clear to auscultation ABD: soft, obese, nontender, nondistended, no organomegaly EXT: warm and well perfused with no edema NEURO: awake, alert, oriented, no focal deficits Objective Labs 08/06/23 05:33 08/06/23 05:33 Labs: Laboratory Results - last 24 hr 08/06/23 05:33 WBC 7.0 RBC 4.23 Hgb 10.3 L Hct 32.2 L MCV 76.2 L MCH 24.4 L MCHC 32.0 RDW 18.2 H Plt Count 280 Neut % (Auto) 68.3 Lymph % (Auto) 18.4 L [place] % (Auto) 9.8 Eos % (Auto) 2.9 Baso % (Auto) 0.6 Neut # (Auto) 4800 Lymph # (Auto) 1300 [place] # (Auto) 700 Eos # (Auto) 200 Baso # (Auto) 0 Sodium 137 Potassium 4.4 Chloride 100 Carbon Dioxide 28 BUN 44 H Creatinine 0.80 Estimated GFR > 60 BUN/Creatinine Ratio 55.0 H Glucose 202 H Calcium 10.3 H PFSH Medical History Neuropathy 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 Social History household members: spouse and other Smoking Status: Never smoker alcohol intake: current Discharge Plan Discharge Plan Patient Disposition: Home Provider Discharge Comment: Please follow up neck CT results with PCP tomorrow. Resume all previous medications with exception of your previous water pill which has been adjusted noted below. Please discuss continued fluid removal with primary care provider tomorrow, continue to monitor your weight at home daily which can help keep track. Discharge orders & Medications Prescriptions: New lisinopril 20 mg Tablet 20 mg PO BID Qty: 30 0RF empagliflozin 25 mg Tablet 25 mg PO DAILY Qty: 30 0RF furosemide 40 mg Tablet 40 mg PO BID 30 Days Qty: 60 0RF Continued insulin glargine [Lantus U-100 Insulin] 100 UNIT/1 ML solution 100 unit SQ BID Qty: 0 aspirin 325 mg Tablet 325 mg PO PRN PRN (Reason: pain) Humalog KwikPen Insulin 200 unit/mL (3 mL) Insulin Pen 100 unit SUBCUT AC fluticasone propionate [Flonase Allergy Relief] 50 mcg/actuation [place],Suspension 1 spray Intranasal PRN PRN (Reason: Allergy Symptoms) Follow up/Referrals: Afshan Montes PA-C [Primary Care Provider] - Diet/Activity/Treatments Diet: Diet as Tolerated, Regular and Low-sodium Activity: As tolerated, no restrictions. Visit Report/Discharge Packet Stand Alone Forms: Patient Portal/API, Stroke Signs & Symptoms Discharge Data Primary Care Provider: Afshan Montes Quality VTE Deep Vein Thrombosis/Pulmonary Embolism Present on Admission: No
--- NOTE | 2023-08-06 14:31 | DI.CT.S_ITS ---
PROCEDURE: CT SOFT TISSUE NECK W CON INDICATIONS: soft tissue neck mass, seen on ultrasound, hoarse voice TECHNIQUE: After the administration of intravenous contrast, 3.0 mm axial sections acquired from the sella to the aortic arch. 3 mm thick coronal and sagittal reformats were generated. For radiation dose reduction, the following was used: automated exposure control. COMPARISON: [facility], US, US SOFT TISSUE HEAD OR NECK, 07/22/2023, 14:09. FINDINGS: Skull Base: The visualized intracranial contents, skull, and orbits are unremarkable. Visualized paranasal sinuses are clear. Pharynx and Larynx: The nasopharyngeal airway is patent and midline. Parapharyngeal soft tissues including palatine tonsils and base of the tongue are normal. Retropharyngeal space unremarkable. Normal appearance of the false and true vocal cords. 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 Vasculature: Dense atherosclerotic vascular calcification in the proximal left ICA appears to result in severe stenosis. Submandibular and Parotid Glands: Normal in size and attenuation. Thyroid: Unremarkable. No enlarged or calcified nodules. Bones: No acute fracture. No osteolytic or blastic lesion is evident. Normal bone mineralization. Lung Apices: The visualized lung apices are clear. IMPRESSION: 1. 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 2. Dense atherosclerotic vascular calcification results in significant proximal left ICA stenosis. Advise follow-up duplex carotid ultrasound or CTA neck. Approved by: Ben Johnson M.D. on 08/06/2023 at 15:10
== END 2023-08-06 15:18 | disposition home or self-care (01) | DRG 291 ==
LOC: ED 10:38 → AC 14:34
PROVIDERS: Neuromusculoskeletal Medicine, Sports Medicine; Admitting Provider Student in an Organized Health Care Education/Training Program; Emergency Provider Physician Assistant; Family Provider Internal Medicine; PCP Physician Assistant; Referring Provider Physician Assistant; Visit Provider Student in an Organized Health Care Education/Training Program
DX: I11.0 Hypertensive heart disease with heart failure (principal); J96.01 Acute respiratory failure with hypoxia; Z68.43 Body mass index [BMI] 50.0-59.9, adult; I50.9 Heart failure, unspecified; E66.01 Morbid (severe) obesity due to excess calories; E11.65 Type 2 diabetes mellitus with hyperglycemia; E03.8 Other specified hypothyroidism; E78.5 Hyperlipidemia, unspecified; Z89.422 Acquired absence of other left toe(s); Z79.4 Long term (current) use of insulin
CPT/HCPCS: 36415; 70491; 71045; 71275; 80048; 80053; 80061; 82962; 83036; 83605; 83735; 83880; 84439; 84443; 84481; 84484; 85025; 85379; 85610; 87635; 93005; 94640; 94760; 96374; 99284; 99285; C9803; C8929; J1650; J1815; J1940; Q9957; Q9967

== ENCOUNTER → 2023-08-16 14:56 | Outpatient (CLI) | payer MEDICARE, OTHER, SELFPAY ==
[2023-08-02 15:55] VITALS: BMI 55.7
--- NOTE | 2023-08-16 | DI.US.S_ITS ---
PROCEDURE: US CAROTID DOPPLER BI INDICATIONS: CAROTID ARTERY STENOSIS TECHNIQUE: Color and pulse Doppler interrogation was performed of both carotid systems, with image documentation and velocity measurements. COMPARISON: None. FINDINGS: Stenosis calculations are based on SRU (Society of Radiologists in Ultrasound) criteria. Right side: Brachial blood pressure: 129/62 mm Hg. Common carotid artery peak systolic velocity: 75 cm/sec. Internal carotid artery peak systolic velocity: 116 cm/sec. Internal carotid artery end diastolic velocity: 33 cm/sec. External carotid artery peak systolic velocity: 140 cm/sec. ICA/CCA peak systolic ratio: 1.6 . Prince scale imaging description: Minimal atherosclerosis. Percent internal carotid artery stenosis: Less than 50 percent narrowing . Vertebral artery: Flow direction is antegrade. Left side: Brachial blood pressure: Unable to obtain Common carotid artery peak systolic velocity: 95 cm/sec. Internal carotid artery peak systolic velocity: 149 cm/sec. Internal carotid artery end diastolic velocity: 29 cm/sec. External carotid artery peak systolic velocity: 200 cm/sec. ICA/CCA peak systolic ratio: 1.6 . Prince scale imaging description: Mild atherosclerosis. Percent internal carotid artery stenosis: 50-69 percent stenosis . Vertebral artery: Flow direction is antegrade. IMPRESSION: Less than 50 percent stenosis of the right proximal internal carotid artery and 50-69 percent stenosis of the left proximal turn carotid artery. Dictated by: Cory Gutierrez M.D. on 08/16/2023 at 16:23 Approved by: Cory Gutierrez M.D. on 08/16/2023 at 16:24
== END ==
PROVIDERS: Family Provider Internal Medicine; PCP Physician Assistant; Referring Provider Physician Assistant; Visit Provider Physician Assistant
DX: I65.22 Occlusion and stenosis of left carotid artery (principal)
CPT/HCPCS: 93880

== ENCOUNTER 2023-09-13 12:31 | Emergency (ER) | payer MEDICARE, OTHER, SELFPAY ==
[2023-08-02 15:55] VITALS: BMI 55.7
[2023-09-13] VITALS (30 sets, daily range): BP systolic 112–172; BP diastolic 57–115; PULSE 91–119; RESP 12–29; TEMP 36.2; O2SAT 87–100; BMI 53.4
--- NOTE | 2023-09-13 12:52 | DI.RAD.S_ITS ---
PROCEDURE: XR CHEST 1V INDICATIONS: suspected sepsis TECHNIQUE: One view of the chest was acquired. COMPARISON: [facility], CR, XR CHEST 1V, 08/02/2023, 11:14. [facility], CR, XR CHEST 1V, 09/19/2018, 12:35. FINDINGS: Surgical changes and devices: None. Lungs and pleura: Lungs are difficult to accurately assess due to prominent reduced inspiratory volume and large body habitus. No pleural effusions or pneumothorax. Mediastinum: Mediastinal contours appear normal. Heart size is normal. Bones and chest wall: No suspicious bony lesions. Overlying soft tissues appear unremarkable. IMPRESSION: No definite acute disease found but the body habitus is large and the inspiratory volume is prominently reduced. Mild cardiomegaly and pulmonary edema may be present but the appearance may simply reflect atelectasis and the factors noted above. Dictated by: Jack Hull M.D. on 09/13/2023 at 14:12 Approved by: Jack Hull M.D. on 09/13/2023 at 14:13
[2023-09-13] MEDS: SODIUM CHLORIDE 0.9% 1,000 ML 1000 ML IV (13:20)
[2023-09-13 13:40] LABS: Influenza A - CEPHEID Flu A NEGATIVE (NEGATIVE); Influenza B - CEPHEID Flu B NEGATIVE (NEGATIVE); Respiratory Syncytial Virus Negative (Negative)
[2023-09-13 13:41] LABS: COVID-19 CEPHEID 4-PLEX PCR Negative (Negative)
[2023-09-13 13:43] LABS: Add Manual Diff / Slide Review NO; Basophils Absolute Auto 100 /uL (0-100); Basophils Percent Auto 0.8 % (0-2); Eosinophils Absolute Auto 200 /uL (0-450); Eosinophils Percent Auto 2.2 % (2-4); Hemoglobin 9.5 g/dL (12.0-16.0); Lymphocytes Absolute Auto 1100 /uL (1100-4500); Lymphocytes Percent Auto 11.7 % (25-40); Mean Corpuscular HGB Conc 31.6 % (30-36); Mean Corpuscular Hemoglobin 24.1 PG (26-34); Mean Corpuscular Volume 76.3 fL (80-100); Monocytes Absolute Auto 800 /uL (0-900); Monocytes Percent Auto 8.7 % (3-14); Neutrophils Absolute Auto 7300 /uL (1500-7000); Neutrophils Percent Auto 76.6 % (50-75); Platelet Count 320 X10^3/uL (150-400); Red Blood Cell Count 3.93 X10^6/uL (4.0-5.2); Red Cell Distribution Width 18.5 % (11.6-14.8); White Blood Cell Count 9.5 X10^3/uL (4.5-11.0)
[2023-09-13 13:50] LABS: Prothrombin Time 11.9 SECONDS (9.4-12.5)
[2023-09-13 13:52] LABS: PTT Partial Thromboplastin Tim 28 SECONDS (25.1-36.5)
[2023-09-13 13:59] LABS: Alanine Aminotransferase 17 IU/L (<35); Albumin 3.8 g/dL (3.5-5.0); Alkaline Phosphatase 89 U/L (38-126); Aspartate Aminotransferase 22 IU/L (14-36); BUN Creatinine Ratio 33.6 (6-22); Bilirubin Total 0.7 mg/dL (0.2-1.3); Blood Urea Nitrogen 36 mg/dL (7-17); Calcium 9.6 mg/dL (8.4-10.2); Carbon Dioxide 28 mmol/L (22-32); Chloride 99 mmol/L (98-107); Creatine Kinase 82 U/L (30-135); Estimated Glomerular Filt Rate 59 mL/min (>60); Globulin 3.8 g/dL (1.7-4.1); Glucose 268 mg/dL (80-110); HEMOLYSIS 23 (0-50); Lipase 168 U/L (23-300); Sodium 136 mmol/L (137-145); Total Protein 7.6 g/dL (6.3-8.2)
[2023-09-13 14:01] LABS: Lactate (Lactic Acid) 1.3 mmol/L (0.7-2.1)
--- NOTE | 2023-09-13 14:02 | ED_ITS ---
HPI - SOB/Dyspnea <Anna Kiran DO - Last Filed: 09/15/23 06:58> General Chief Complaint: Shortness of Breath/Dyspnea Stated Complaint: SOB/states sinus infection/coughing green mucus Time Seen by Provider: 09/13/23 12:58 Source: patient Mode of arrival: Wheelchair History of Present Illness HPI Narrative: Patient 63-year-old female history of type 2 diabetes hypertension hyperlipidemia morbid obesity osteomyelitis presenting today with upper respiratory like symptoms ongoing for about 5 days. She reports that she feels like she has sinus pressure she has some blood. No chest pain or shortness of breath. She has chronic ongoing dyspnea with exertion which she reports is not any worse. No fever or chills. She is concerned because all of her grandkids had something similar and ultimately ended up on antibiotics. She was admitted to the hospital August 02 through August 06. She had echocardiogram which showed a normal EF with elevated RVSP. She has been continuing to take her Lasix since then. She denies any fever or chills. No abdominal pain. She has chronic wounds on her legs no significant edema. She does have a wound on her left leg where she hit it. Related Data Home Medications Medication Instructions Recorded Confirmed insulin glargine 100 unit/mL 80 unit SQ BID ##0 08/28/11 09/13/23 subcutaneous solution (Lantus U-100 Insulin) aspirin 325 mg tablet 325 mg PO PRN PRN pain 10/20/19 09/13/23 insulin lispro 200 unit/mL (3 mL) 110 unit SUBCUT AC 10/21/19 09/13/23 subcutaneous pen (Humalog KwikPen U-200 Insulin) Synthroid 25 mcg PO 1XD 09/13/23 09/13/23 losartan 25 mg tablet 25 mg PO BID 09/13/23 09/13/23 rosuvastatin 40 mg PO 1XD 09/13/23 09/13/23 furosemide 40 mg tablet 40 mg PO BID 09/14/23 09/14/23 Allergies Allergy/AdvReac Type Severity Reaction Status Date / Time ibuprofen Allergy Severe VOMITING Verified 09/13/23 16:25 Penicillins Allergy Severe RASH, Verified 09/13/23 16:25 VOMITING Patient History <DO Kristina Velez Last Filed: 09/15/23 06:58> Medical History (Updated 09/14/23 @ 17:02 by Anna Kiran DO) Neuropathy 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 Social History household members: spouse and other Smoking Status: Never smoker alcohol intake: current Smoking Status: Never smoker alcohol intake frequency: holidays/special occasions only Substance Use Type: does not use Exam <Anna Kiran DO - Last Filed: 09/15/23 06:58> Initial Vital Signs Initial Vital Signs: Vital Signs Temperature 97.2 F L 09/13/23 12:40 Pulse Rate 104 H 09/13/23 12:40 Respiratory Rate 12 09/13/23 12:40 Blood Pressure 145/85 H 09/13/23 12:40 Pulse Oximetry 98 09/13/23 12:40 Oxygen Delivery Method Room Air 09/13/23 12:40 GENERAL: Alert 63-year-old female no acute respiratory distress HEENT: Head atraumatic,EOMI, pupils reactive, some facial pressure, CARDIOVASCULAR: Regular rate and rhythm without murmurs, rubs or gallops. RESPIRATORY: Breath sounds equal bilaterally, no wheezes rales or rhonchi. Speaks in full sentences no respiratory distress ABDOMEN: Soft, nontender. Normoactive bowel sounds all 4 quadrants. No guarding or rebound. EXTREMITIES: Normal range of motion, no clubbing or edema. Neurovascularly intact NEUROLOGICAL: Alert and oriented x4.Normal gait and speech. SKIN: Chronic venous stasis left wound bandage on lower anterior bradford <Key Edouard MD - Last Filed: 09/14/23 06:44> Initial Vital Signs Initial Vital Signs: Vital Signs Temperature 97.2 F L 09/13/23 12:40 Pulse Rate 104 H 09/13/23 12:40 Respiratory Rate 12 09/13/23 12:40 Blood Pressure 145/85 H 09/13/23 12:40 Pulse Oximetry 98 09/13/23 12:40 Oxygen Delivery Method Room Air 09/13/23 12:40 Course <Anna Kiran DO - Last Filed: 09/15/23 06:58> Orders Ordered: Discontinued Medications Aspirin (Aspirin 81 Mg Chew Tab) 324 mg PO NOW ONE Stop: 09/13/23 18:21 Last Admin: 09/13/23 18:56 Dose: 324 mg Documented By: REED Aspirin (Aspirin Ec 325 Mg Tablet) 325 mg PO DAILY [facility] Last Admin: 09/14/23 10:38 Dose: 325 mg Documented By: REED Atorvastatin Calcium (Atorvastatin 20 Mg Tablet) 40 mg PO NOW ONE Stop: 09/14/23 10:11 Last Admin: 09/14/23 10:42 Dose: 40 mg Documented By: REED Furosemide (Furosemide 40 Mg Tablet) 40 mg PO NOW ONE Stop: 09/14/23 02:05 Last Admin: 09/14/23 02:12 Dose: 40 mg Documented By: VANESSA Furosemide (Furosemide 40 Mg Tablet) 40 mg PO BID [facility] Last Admin: 09/14/23 10:38 Dose: 40 mg Documented By: REED Heparin Sodium (Porcine) (Heparin 5,000 Unit/Ml Vial) 5,000 unit IV NOW ONE Stop: 09/14/23 11:12 Last Admin: 09/14/23 11:50 Dose: 5,000 unit Documented By: REED Heparin Sodium (Porcine) (Heparin 5,000 Unit/Ml Vial) 5,000 unit IV NOW ONE Stop: 09/14/23 18:43 Last Admin: 09/14/23 18:47 Dose: 5,000 unit Documented By: GET Sodium Chloride (Normal Saline 0.9%) 1,000 mls @ 1,000 mls/hr IV BOLUS ONE Stop: 09/13/23 13:51 Last Infusion: 09/13/23 17:43 Dose: Infused Documented By: Infusion: 09/13/23 13:21 Dose: 0 mls/hr Documented By: Admin: 09/13/23 13:20 Dose: 1,000 mls/hr Documented By: GRABIEL Ceftriaxone Sodium 1,000 mg/ (Sodium Chloride) 100 mls @ 200 mls/hr IV NOW ONE Stop: 09/14/23 10:00 Last Infusion: 09/14/23 10:39 Dose: Infused Documented By: Admin: 09/14/23 10:06 Dose: 200 mls/hr Documented By: REED Dextrose (D10w) 100 mls @ 1,200 mls/hr IV PRN PRN PRN Reason: Hypoglycemia Heparin Sodium/Dextrose (Heparin Drip) 25,000 unit in 500 mls @ 36.033 mls/hr IV CONT [facility]; Protocol Last Admin: 09/14/23 12:52 Dose: Not Given Documented By: REED Heparin Sodium/Dextrose (Heparin Drip) 25,000 unit in 500 mls @ 20 mls/hr IV CONT [facility]; Protocol Last Titration: 09/14/23 19:04 Dose: 8.67 units/kg/hr, 26.034 mls/hr Documented By: EDDI Co-signed By: TI Titration: 09/14/23 18:48 Dose: 8.67 units/kg/hr, 26.034 mls/hr Documented By: GET Co-signed By: MARGARET Admin: 09/14/23 12:03 Dose: 6.67 units/kg/hr, 20.029 mls/hr Documented By: REED Co-signed By: EDDI Insulin Glargine (Insulin Glargine 100 Unit/Ml 3ml Pen) 80 unit SUBCUT BID [facility] Last Admin: 09/14/23 10:43 Dose: 80 unit Documented By: REED Co-signed By: EDDI Insulin Human Lispro (Insulin Lispro 100 Unit/Ml 3ml Vial) 110 unit SUBCUT NOW ONE Stop: 09/13/23 21:30 Last Admin: 09/13/23 21:50 Dose: 110 unit Documented By: VANESSA Co-signed By: TI Insulin Human Lispro (Insulin Lispro 100 Unit/Ml 3ml Vial) 110 unit SUBCUT AC [facility] Last Admin: 09/14/23 12:34 Dose: 110 unit Documented By: REED Co-signed By: REED(2) Insulin Human Lispro (Insulin Lispro 100 Unit/Ml 3ml Vial) 110 unit SUBCUT AC [facility] Last Admin: 09/14/23 17:04 Dose: 110 unit Documented By: GET Co-signed By: MARGARET Levothyroxine Sodium (Levothyroxine 25 Mcg Tablet) 25 mcg PO DAILY@0600 [facility] Losartan Potassium (Losartan 25 Mg Tablet) 25 mg PO BID [facility] Last Admin: 09/14/23 10:38 Dose: 25 mg Documented By: REED Naloxone HCl (Naloxone 0.4 Mg/Ml Vial) 0.2 mg IV Q2MIN PRN PRN Reason: Opiate Reversal Ondansetron HCl (Ondansetron 4 Mg/2 Ml Inj) 4 mg IV NOW PRN PRN Reason: Nausea And Vomiting Ondansetron HCl (Ondansetron 4 Mg Odt) 4 mg SL NOW PRN PRN Reason: Nausea And Vomiting Vital Signs Vital signs: Vital Signs - 8 hr 09/14/23 10:11 09/14/23 10:11 09/14/23 10:30 Pulse Rate 102 H 101 H Respiratory Rate 20 Blood Pressure 136/63 Pulse Oximetry 97 97 Oxygen Delivery Method Room Air Oxygen Flow Rate 09/14/23 10:30 09/14/23 10:38 09/14/23 10:51 Pulse Rate 102 H 100 H Respiratory Rate 20 Blood Pressure 119/58 L 119/58 L Pulse Oximetry 93 Oxygen Delivery Method Room Air Oxygen Flow Rate 09/14/23 11:00 09/14/23 11:00 09/14/23 11:30 Pulse Rate 101 H 104 H Respiratory Rate Blood Pressure 123/57 L Pulse Oximetry 98 90 L Oxygen Delivery Method Oxygen Flow Rate 09/14/23 12:00 09/14/23 12:00 09/14/23 12:29 Pulse Rate 102 H 122 H Respiratory Rate 19 Blood Pressure 141/69 H Pulse Oximetry 96 Oxygen Delivery Method Oxygen Flow Rate 09/14/23 12:30 09/14/23 12:30 09/14/23 13:00 Pulse Rate 119 H Respiratory Rate 17 Blood Pressure 139/63 142/81 H Pulse Oximetry 92 Oxygen Delivery Method Room Air Oxygen Flow Rate 09/14/23 13:00 09/14/23 13:30 09/14/23 13:30 Pulse Rate 123 H 109 H Respiratory Rate 27 H Blood Pressure 129/59 L Pulse Oximetry 82 L Oxygen Delivery Method Room Air Oxygen Flow Rate 09/14/23 14:00 09/14/23 14:00 09/14/23 14:26 Pulse Rate 101 H Respiratory Rate 20 Blood Pressure 118/58 L 127/73 Pulse Oximetry 98 Oxygen Delivery Method Oxygen Flow Rate 09/14/23 14:26 09/14/23 14:29 09/14/23 14:30 Pulse Rate 111 H 108 H Respiratory Rate 18 Blood Pressure 136/63 Pulse Oximetry 98 98 Oxygen Delivery Method Oxygen Flow Rate 09/14/23 14:30 09/14/23 15:00 09/14/23 15:00 Pulse Rate 104 H 96 H Respiratory Rate 16 Blood Pressure 118/56 L Pulse Oximetry 99 97 Oxygen Delivery Method Oxygen Flow Rate 09/14/23 15:30 09/14/23 15:31 09/14/23 15:31 Pulse Rate 107 H 103 H Respiratory Rate 18 Blood Pressure 143/58 H Pulse Oximetry 97 97 Oxygen Delivery Method Oxygen Flow Rate 09/14/23 16:00 09/14/23 16:00 09/14/23 16:30 Pulse Rate 98 H 102 H Respiratory Rate Blood Pressure 155/71 H Pulse Oximetry 98 98 Oxygen Delivery Method Oxygen Flow Rate 09/14/23 16:57 Pulse Rate Respiratory Rate Blood Pressure Pulse Oximetry 97 Oxygen Delivery Method Nasal Cannula Oxygen Flow Rate 2.5 <Key Edouard MD - Last Filed: 09/14/23 06:44> Orders Ordered: Discontinued Medications Aspirin (Aspirin 81 Mg Chew Tab) 324 mg PO NOW ONE Stop: 09/13/23 18:21 Last Admin: 09/13/23 18:56 Dose: 324 mg Documented By: REED Aspirin (Aspirin Ec 325 Mg Tablet) 325 mg PO DAILY [facility] Last Admin: 09/14/23 10:38 Dose: 325 mg Documented By: REED Atorvastatin Calcium (Atorvastatin 20 Mg Tablet) 40 mg PO NOW ONE Stop: 09/14/23 10:11 Last Admin: 09/14/23 10:42 Dose: 40 mg Documented By: REED Furosemide (Furosemide 40 Mg Tablet) 40 mg PO NOW ONE Stop: 09/14/23 02:05 Last Admin: 09/14/23 02:12 Dose: 40 mg Documented By: VANESSA Furosemide (Furosemide 40 Mg Tablet) 40 mg PO BID [facility] Last Admin: 09/14/23 10:38 Dose: 40 mg Documented By: REED Heparin Sodium (Porcine) (Heparin 5,000 Unit/Ml Vial) 5,000 unit IV NOW ONE Stop: 09/14/23 11:12 Last Admin: 09/14/23 11:50 Dose: 5,000 unit Documented By: REED Heparin Sodium (Porcine) (Heparin 5,000 Unit/Ml Vial) 5,000 unit IV NOW ONE Stop: 09/14/23 18:43 Last Admin: 09/14/23 18:47 Dose: 5,000 unit Documented By: GET Sodium Chloride (Normal Saline 0.9%) 1,000 mls @ 1,000 mls/hr IV BOLUS ONE Stop: 09/13/23 13:51 Last Infusion: 09/13/23 17:43 Dose: Infused Documented By: Infusion: 09/13/23 13:21 Dose: 0 mls/hr Documented By: Admin: 09/13/23 13:20 Dose: 1,000 mls/hr Documented By: GRABIEL Ceftriaxone Sodium 1,000 mg/ (Sodium Chloride) 100 mls @ 200 mls/hr IV NOW ONE Stop: 09/14/23 10:00 Last Infusion: 09/14/23 10:39 Dose: Infused Documented By: Admin: 09/14/23 10:06 Dose: 200 mls/hr Documented By: REED Dextrose (D10w) 100 mls @ 1,200 mls/hr IV PRN PRN PRN Reason: Hypoglycemia Heparin Sodium/Dextrose (Heparin Drip) 25,000 unit in 500 mls @ 36.033 mls/hr IV CONT [facility]; Protocol Last Admin: 09/14/23 12:52 Dose: Not Given Documented By: REED Heparin Sodium/Dextrose (Heparin Drip) 25,000 unit in 500 mls @ 20 mls/hr IV CONT [facility]; Protocol Last Titration: 09/14/23 19:04 Dose: 8.67 units/kg/hr, 26.034 mls/hr Documented By: EDDI Co-signed By: TI Titration: 09/14/23 18:48 Dose: 8.67 units/kg/hr, 26.034 mls/hr Documented By: GET Co-signed By: MARGARET Admin: 09/14/23 12:03 Dose: 6.67 units/kg/hr, 20.029 mls/hr Documented By: REED Co-signed By: EDDI Insulin Glargine (Insulin Glargine 100 Unit/Ml 3ml Pen) 80 unit SUBCUT BID [facility] Last Admin: 09/14/23 10:43 Dose: 80 unit Documented By: REED Co-signed By: EDDI Insulin Human Lispro (Insulin Lispro 100 Unit/Ml 3ml Vial) 110 unit SUBCUT NOW ONE Stop: 09/13/23 21:30 Last Admin: 09/13/23 21:50 Dose: 110 unit Documented By: VANESSA Co-signed By: TI Insulin Human Lispro (Insulin Lispro 100 Unit/Ml 3ml Vial) 110 unit SUBCUT [facility] Last Admin: 09/14/23 12:34 Dose: 110 unit Documented By: REED Co-signed By: REED(2) Insulin Human Lispro (Insulin Lispro 100 Unit/Ml 3ml Vial) 110 unit SUBCUT [facility] Last Admin: 09/14/23 17:04 Dose: 110 unit Documented By: GET Co-signed By: MARGARET Levothyroxine Sodium (Levothyroxine 25 Mcg Tablet) 25 mcg PO DAILY@0600 [facility] Losartan Potassium (Losartan 25 Mg Tablet) 25 mg PO BID [facility] Last Admin: 09/14/23 10:38 Dose: 25 mg Documented By: REED Naloxone HCl (Naloxone 0.4 Mg/Ml Vial) 0.2 mg IV Q2MIN PRN PRN Reason: Opiate Reversal Ondansetron HCl (Ondansetron 4 Mg/2 Ml Inj) 4 mg IV NOW PRN PRN Reason: Nausea And Vomiting Ondansetron HCl (Ondansetron 4 Mg Odt) 4 mg SL NOW PRN PRN Reason: Nausea And Vomiting Vital Signs Vital signs: Vital Signs - 8 hr 09/14/23 10:11 09/14/23 10:11 09/14/23 10:30 Pulse Rate 102 H 101 H Respiratory Rate 20 Blood Pressure 136/63 Pulse Oximetry 97 97 Oxygen Delivery Method Room Air Oxygen Flow Rate 09/14/23 10:30 09/14/23 10:38 09/14/23 10:51 Pulse Rate 102 H 100 H Respiratory Rate 20 Blood Pressure 119/58 L 119/58 L Pulse Oximetry 93 Oxygen Delivery Method Room Air Oxygen Flow Rate 09/14/23 11:00 09/14/23 11:00 09/14/23 11:30 Pulse Rate 101 H 104 H Respiratory Rate Blood Pressure 123/57 L Pulse Oximetry 98 90 L Oxygen Delivery Method Oxygen Flow Rate 09/14/23 12:00 09/14/23 12:00 09/14/23 12:29 Pulse Rate 102 H 122 H Respiratory Rate 19 Blood Pressure 141/69 H Pulse Oximetry 96 Oxygen Delivery Method Oxygen Flow Rate 09/14/23 12:30 09/14/23 12:30 09/14/23 13:00 Pulse Rate 119 H Respiratory Rate 17 Blood Pressure 139/63 142/81 H Pulse Oximetry 92 Oxygen Delivery Method Room Air Oxygen Flow Rate 09/14/23 13:00 09/14/23 13:30 09/14/23 13:30 Pulse Rate 123 H 109 H Respiratory Rate 27 H Blood Pressure 129/59 L Pulse Oximetry 82 L Oxygen Delivery Method Room Air Oxygen Flow Rate 09/14/23 14:00 09/14/23 14:00 09/14/23 14:26 Pulse Rate 101 H Respiratory Rate 20 Blood Pressure 118/58 L 127/73 Pulse Oximetry 98 Oxygen Delivery Method Oxygen Flow Rate 09/14/23 14:26 09/14/23 14:29 09/14/23 14:30 Pulse Rate 111 H 108 H Respiratory Rate 18 Blood Pressure 136/63 Pulse Oximetry 98 98 Oxygen Delivery Method Oxygen Flow Rate 09/14/23 14:30 09/14/23 15:00 09/14/23 15:00 Pulse Rate 104 H 96 H Respiratory Rate 16 Blood Pressure 118/56 L Pulse Oximetry 99 97 Oxygen Delivery Method Oxygen Flow Rate 09/14/23 15:30 09/14/23 15:31 09/14/23 15:31 Pulse Rate 107 H 103 H Respiratory Rate 18 Blood Pressure 143/58 H Pulse Oximetry 97 97 Oxygen Delivery Method Oxygen Flow Rate 09/14/23 16:00 09/14/23 16:00 09/14/23 16:30 Pulse Rate 98 H 102 H Respiratory Rate Blood Pressure 155/71 H Pulse Oximetry 98 98 Oxygen Delivery Method Oxygen Flow Rate 09/14/23 16:57 Pulse Rate Respiratory Rate Blood Pressure Pulse Oximetry 97 Oxygen Delivery Method Nasal Cannula Oxygen Flow Rate 2.5 MDM - SOB/Dyspnea <Anna Kiran, DO - Last Filed: 09/15/23 06:58> Lab Data 09/14/23 11:38 09/14/23 11:38 Labs: Lab Results 09/13/23 09/13/23 09/13/23 Range/Units 12:58 13:27 13:28 WBC 9.5 (4.5-11.0) X10^3/uL RBC 3.93 L (4.0-5.2) X10^6/uL Hgb 9.5 L (12.0-16.0) g/dL Hct 30.0 L (36-46) % MCV 76.3 L (80-100) fL MCH 24.1 L (26-34) PG MCHC 31.6 (30-36) % RDW 18.5 H (11.6-14.8) % Plt Count 320 (150-400) X10^3/uL Neut % (Auto) 76.6 H (50-75) % Lymph % (Auto) 11.7 L (25-40) % [place] % (Auto) 8.7 (3-14) % Eos % (Auto) 2.2 (2-4) % Baso % (Auto) 0.8 (0-2) % Neut # (Auto) 7300 H (9039-4481) /uL Lymph # (Auto) 1100 (4716-8194) /uL [place] # (Auto) 800 (0-900) /uL Eos # (Auto) 200 (0-450) /uL Baso # (Auto) 100 (0-100) /uL PT 11.9 (9.4-12.5) SECONDS INR 1.0 (0.9-1.3) APTT 28 (25.1-36.5) SECONDS Sodium 136 L (137-145) mmol/L Potassium 4.0 (3.4-5.1) mmol/L Chloride 99 (98-107) mmol/L Carbon Dioxide 28 (22-32) mmol/L BUN 36 H (7-17) mg/dL Creatinine 1.07 H (0.52-1.04) mg/dL Estimated GFR 59 L (>60) mL/min BUN/Creatinine Ratio 33.6 H (6-22) Glucose 268 H (80-110) mg/dL Lactate 1.3 (0.7-2.1) mmol/L Calcium 9.6 (8.4-10.2) mg/dL Total Bilirubin 0.7 (0.2-1.3) mg/dL AST 22 (14-36) IU/L ALT 17 (<35) IU/L Alkaline Phosphatase 89 (38-126) U/L Total Creatine Kinase 82 (30-135) U/L Troponin I 0.070 H (0.01-0.034) ng/mL NT-Pro-B Natriuret Pep 164 H (<125) pg/mL Total Protein 7.6 (6.3-8.2) g/dL Albumin 3.8 (3.5-5.0) g/dL Globulin 3.8 (1.7-4.1) g/dL Albumin/Globulin Ratio 1.0 (1.0-2.8) Lipase 168 (23-300) U/L Procalcitonin 0.07 (<0.5) ng/mL Urine RBC (0-5/HPF) Urine WBC (0-5/HPF) Ur Squamous Epith Cells (0-5/HPF) Urine Bacteria (None) Ur Culture Indicated? SARS-CoV-2 (PCR) Negative (Negative) Influenza A (RT-PCR) Flu a negative (NEGATIVE) Influenza B (RT-PCR) Flu b negative (NEGATIVE) RSV (PCR) Negative (Negative) 09/13/23 09/13/23 09/13/23 Range/Units 13:42 15:30 17:23 WBC (4.5-11.0) X10^3/uL RBC (4.0-5.2) X10^6/uL Hgb (12.0-16.0) g/dL Hct (36-46) % MCV (80-100) fL MCH (26-34) PG MCHC (30-36) % RDW (11.6-14.8) % Plt Count (150-400) X10^3/uL Neut % (Auto) (50-75) % Lymph % (Auto) (25-40) % [place] % (Auto) (3-14) % Eos % (Auto) (2-4) % Baso % (Auto) (0-2) % Neut # (Auto) (8126-0887) /uL Lymph # (Auto) (0661-3763) /uL [place] # (Auto) (0-900) /uL Eos # (Auto) (0-450) /uL Baso # (Auto) (0-100) /uL PT (9.4-12.5) SECONDS INR (0.9-1.3) APTT (25.1-36.5) SECONDS Sodium (137-145) mmol/L Potassium (3.4-5.1) mmol/L Chloride (98-107) mmol/L Carbon Dioxide (22-32) mmol/L BUN (7-17) mg/dL Creatinine (0.52-1.04) mg/dL Estimated GFR (>60) mL/min BUN/Creatinine Ratio (6-22) Glucose (80-110) mg/dL Lactate (0.7-2.1) mmol/L Calcium (8.4-10.2) mg/dL Total Bilirubin (0.2-1.3) mg/dL AST (14-36) IU/L ALT (<35) IU/L Alkaline Phosphatase (38-126) U/L Total Creatine Kinase (30-135) U/L Troponin I 0.079 H 0.082 H (0.01-0.034) ng/mL NT-Pro-B Natriuret Pep (<125) pg/mL Total Protein (6.3-8.2) g/dL Albumin (3.5-5.0) g/dL Globulin (1.7-4.1) g/dL Albumin/Globulin Ratio (1.0-2.8) Lipase (23-300) U/L Procalcitonin (<0.5) ng/mL Urine RBC 1-5/hpf (0-5/HPF) Urine WBC 1-5/hpf (0-5/HPF) Ur Squamous Epith Cells 1-5 /hpf (0-5/HPF) Urine Bacteria Few (2-10) H (None) Ur Culture Indicated? Specimen cultured SARS-CoV-2 (PCR) (Negative) Influenza A (RT-PCR) (NEGATIVE) Influenza B (RT-PCR) (NEGATIVE) RSV (PCR) (Negative) 09/14/23 09/14/23 09/14/23 Range/Units 07:10 11:38 18:15 WBC 10.2 (4.5-11.0) X10^3/uL RBC 4.06 (4.0-5.2) X10^6/uL Hgb 9.9 L (12.0-16.0) g/dL Hct 30.7 L (36-46) % MCV 75.7 L (80-100) fL MCH 24.3 L (26-34) PG MCHC 32.1 (30-36) % RDW 18.5 H (11.6-14.8) % Plt Count 355 (150-400) X10^3/uL Neut % (Auto) 78.3 H (50-75) % Lymph % (Auto) 8.4 L (25-40) % [place] % (Auto) 9.3 (3-14) % Eos % (Auto) 3.0 (2-4) % Baso % (Auto) 1.0 (0-2) % Neut # (Auto) 8000 H (5663-5090) /uL Lymph # (Auto) 900 L (1819-4892) /uL [place] # (Auto) 900 (0-900) /uL Eos # (Auto) 300 (0-450) /uL Baso # (Auto) 100 (0-100) /uL PT (9.4-12.5) SECONDS INR (0.9-1.3) APTT 28 30 (25.1-36.5) SECONDS Sodium 137 (137-145) mmol/L Potassium 4.2 (3.4-5.1) mmol/L Chloride 98 (98-107) mmol/L Carbon Dioxide 31 (22-32) mmol/L BUN 34 H (7-17) mg/dL Creatinine 0.97 (0.52-1.04) mg/dL Estimated GFR > 60 (>60) mL/min BUN/Creatinine Ratio 35.1 H (6-22) Glucose 223 H (80-110) mg/dL Lactate (0.7-2.1) mmol/L Calcium 10.2 (8.4-10.2) mg/dL Total Bilirubin 0.6 (0.2-1.3) mg/dL AST 17 (14-36) IU/L ALT 16 (<35) IU/L Alkaline Phosphatase 97 (38-126) U/L Total Creatine Kinase (30-135) U/L Troponin I 0.082 H 0.073 H (0.01-0.034) ng/mL NT-Pro-B Natriuret Pep (<125) pg/mL Total Protein 7.8 (6.3-8.2) g/dL Albumin 3.8 (3.5-5.0) g/dL Globulin 4.0 (1.7-4.1) g/dL Albumin/Globulin Ratio 1.0 (1.0-2.8) Lipase (23-300) U/L Procalcitonin (<0.5) ng/mL Urine RBC (0-5/HPF) Urine WBC (0-5/HPF) Ur Squamous Epith Cells (0-5/HPF) Urine Bacteria (None) Ur Culture Indicated? SARS-CoV-2 (PCR) (Negative) Influenza A (RT-PCR) (NEGATIVE) Influenza B (RT-PCR) (NEGATIVE) RSV (PCR) (Negative) Point of Care Testing Glucose POC 306 Urine Dip Bedside Urine Glucose Negative Bedside Urine Bilirubin - Negative Bedside Urine Ketone - Negative Urine Specific [place] 1.010 Bedside Urine Occult Blood ++ Bedside Urine pH 6.0 Bedside Urine Protein - Negative Bedside Urine Urobilinogen - Negative Bedside Urine Nitrite - Negative Bedside Urine Leukocytes +/- 15 Esterase Imaging Data Chest x-ray: Radiologist's Impression: PROCEDURE: XR CHEST 1V INDICATIONS: suspected sepsis TECHNIQUE: One view of the chest was acquired. COMPARISON: [facility], CR, XR CHEST 1V, 08/02/2023, 11:14. [facility], CR, XR CHEST 1V, 09/19/2018, 12:35. FINDINGS: Surgical changes and devices: None. Lungs and pleura: Lungs are difficult to accurately assess due to prominent reduced inspiratory volume and large body habitus. No pleural effusions or pneumothorax. Mediastinum: Mediastinal contours appear normal. Heart size is normal. Bones and chest wall: No suspicious bony lesions. Overlying soft tissues appear unremarkable. IMPRESSION: No definite acute disease found but the body habitus is large and the inspiratory volume is prominently reduced. Mild cardiomegaly and pulmonary edema may be present but the appearance may simply reflect atelectasis and the factors noted above. Dictated by: Jack Hull M.D. on 09/13/2023 at 14:12 Echo: Radiologist's Impression: nterpretation Summary The study quality was technically difficult. The ejection fraction is estimated to be 45-50%. There is akinesis of the mid to distal anteroseptal wall. There is hypokinesis of the apex. Attempted images of the anterior wall are off axis. Otherwise limited visualization and interrogation. Compared to the prior study dated 08/03/2023, the segmental wall motion abnormalities may be new. Procedure: Comparison is made with the echocardiogram of 08/03/2023. A two- dimensional transthoracic echocardiogram with color flow and Doppler was performed in limited views only. The study quality was technically difficult. A contrast injection of Definity was performed to improve assessment of LV function. The patient was in sinus tachycardia with heart rates between 99-103 bpm during the exam. Left Ventricle: The left ventricle is not well visualized. Proximal septal thickening is noted. There is mild concentric left ventricular hypertrophy. The ejection fraction is estimated to be 45-50%. There is akinesis of the mid to distal anteroseptal wall. There is hypokinesis of the apex. Attempted images of the anterior wall are off axis. Right Ventricle: The right ventricle is not well visualized. Atria: The left atrium is not well visualized. Right atrium not well visualized. Mitral Valve: There is moderate mitral annular calcification. The mitral valve chordae are thickened and/or calcified. The mitral valve mean gradient is 4.3 mmHg. Aortic Valve: The aortic valve is slightly calcified. The aortic valve opens well. Tricuspid Valve: The tricuspid valve is not well visualized. Great Vessels: The inferior vena cava was not well visualized. Pericardium/ Pleura There is no pericardial effusion. There is no pleural effusion. MMode/2D Measurements & Calculations LVIDd: 6.0 cm LVIDs: 4.3 cm FS: 27.7 % IVSd: 1.1 cm LVPWd: 1.2 cm LV nieves. diameter/BSA (cm/m^2): 2.4 LV sys. diameter/BSA (cm/m^2): 1.7 Doppler Measurements & Calculations TR max mary: 304.8 cm/sec MV V2 mean: 95.1 cm/sec TR max P.2 mmHg MV mean P.3 mmHg MV V2 VTI: 29.[address] scan - chest: Radiologist's Impression: PROCEDURE: CT ANGIO CHEST PE PROTOCOL INDICATIONS: elevated trop hypoxia TECHNIQUE: After the administration of intravenous contrast, 2 mm thick sections acquired from the pulmonary apices to the posterior costophrenic angles. 3-dimensional maximum intensity projection (MIP) coronal and sagittal reformats were then acquired through the thorax. For radiation dose reduction, the following was used: automated exposure control, adjustment of mA and/or kV according to patient size. COMPARISON: [facility], CT, ABDOMEN WITH AND WITHOUT CONTR, 12/25/2010, 8:48. [facility], CT, CT ANGIO CHEST PE PROTOCOL, 08/02/2023, 12:29. [facility], CR, XR CHEST 1V, 09/13/2023, 13:47. FINDINGS: Image quality: Limited by bolus timing. Pulmonary arteries: The bolus of the contrast injection is suboptimal. The main pulmonary artery measures approximately one hundred twenty-five Hounsfield units. Pulmonary artery densities are greater than 250 Hounsfield units are considered to be ideal for evaluation of pulmonary embolism. However, no large or central pulmonary emboli are seen on these images. No pulmonary emboli are seen more distally, although sensitivity for detection of such is limited on this study. Lungs and pleura: There is poorly defined opacity seen involving the infrahilar right lower lobe. The degree of opacification is clearly improved compared to the prior examination. The previously seen pleural effusions have resolved. No pneumothorax is seen. Mediastinum: Heart size is normal, without pericardial effusion. At least moderate coronary artery calcification is seen. No mediastinal or hilar adenopathy. Thoracic aorta is normal in caliber and enhancement. Negative for aortic dissection or aneurysm. Esophagus is normal in caliber, without hiatal hernia. Bones and chest wall: No suspicious bony lesions. Ribs and thoracic spine appear intact throughout. Accentuated thoracic kyphosis is seen. Age-appropriate bony degenerative changes are seen. No axillary or supraclavicular adenopathy. No thyroid nodules which require sonographic follow up, per consensus guidelines. Upper Abdomen: An enlarged, fatty infiltrated liver is seen. There is a left adrenal needs than seen that contains macroscopic fat, measuring up to 4 cm. IMPRESSION: No large or central pulmonary embolus. There is poorly defined opacity seen within the infrahilar right lower lobe. This is in approved compared to the prior examination. This is felt most likely be related to resolving atelectasis. However, differential diagnosis includes persistent infection as well as neoplasm. - Please consider follow-up noncontrast chest CT in 4-6 weeks for further evaluation. Alternatively, a dedicated PET-CT could be considered, if there is strong clinical concern for pulmonary neoplasm. Additional findings: At least moderate coronary artery calcification Enlarged, fatty liver Left adrenal nodule, considered to be benign Dictated by: Ismael Thao M.D. on 09/14/2023 at 11:40 ECG Data Interpretation: Sinus rhythm rate 108 OR interval 158 QRS 86 QTC 447 Q-wave noted in lead 3 only similar to previous EKGs no ST changes EKG 2. Sinus rhythm no changes EKG 3. Sinus rhythm rate 101 no changes from prior MDM Narrative Medical decision making narrative: Patient 63-year-old female history of morbid obesity diabetes hypertension hyperlipidemia presenting today with upper respiratory like symptoms. Grandchildren were sick with something similar. She does have shortness of breath with exertion but reports it is not any new or worse. She has no chest pain no EKG changes. 1st troponin indeterminate 0.07 with a repeat 0.079, 0.082, her previous troponin from July was negative and undetectable during her congestive heart failure exacerbation. Other blood work reviewed mild anemia hemoglobin 9.5 with a hematocrit 40.0 previous hemoglobin 10.3 and 322 no leukocytosis viral panel negative, creatinine up slightly today 1.0 previously 0.08, BNP is 164 Patient clinically has no evidence of congestive heart failure fluid overload. Chest x-ray is clear lung sounds are clear. She has no difficulty speaking. Discussed case with hospitalist who states that if she needs a stress test she can not stay here it can not be done over the weekend needs to be transferred Dr. Correa cardiology updated on patient's symptoms test results reviewed echocardiogram from last month. Agrees that she likely needs a stress test she is multiple risk factors previous troponin was negative. She clinically has facial pressure upper respiratory like symptoms now with indeterminate troponins multiple risk factors and no prior stress test. 09/14/23 - Javan -patient is signed out to me by Dr. Kiran. No events overnight, patient requested several of her home medications, which were ordered. Unfortunately there were no available hospital beds at any nearby hospital. We will continue to try again in the morning. 09/14/23- Dr. Kiran, patient signed out to me by Dr. Edouard. Patient had no complications overnight. Troponin this morning has decreased in remains actually exactly the same. Continues to be asymptomatic without any chest pain no EKG changes. Echocardiogram does new wall motion abnormalities this morning. There is akinesis of mid to distal anterior septal wall. There is hypokinesis of the apex. This is new from echo last month I have called and spoken again with Dr. Correa, cardiology, updated on echo results agrees with starting heparin and transferring. Patient is requiring oxygen 1-2 L it was worse while sleeping. He is morbidly obese not hypoxic while sitting. Will get CT angio rule out any PE with recent admission. And is negative PE and dissection Patient on multiple lists, critical bed shortage. Patient remained stable and asymptomatic she continues to be on heparin drip. 1700 Dr. Xiong, hospitalist updated patient's symptoms test results and kindly accepts patient 1800 Dr. Farnaz BRAUN updated patient's symptoms test results accepts patient S JJ: 09/13/23-1341 STATUS: RES REQ #: [id number] SPDESC: RECD: 09/13/23-[address] [facility] [address]: Anna Kiran D.O. SOURCE: UA Reflex ENTR: 09/13/23-1414 [facility] DR: Afshan Montes P.A-C FAX TO: ORDERED: URINE CULTURE Procedure Result Verified Site Urine Culture Preliminary 09/14/23913 Organism 1 Gram negative bacilli Myton Count 90,000 - 100,000 CFU/ml Action to follow Identification and Sensitivity to Follow <Key Edouard MD - Last Filed: 09/14/23 06:44> Lab Data Labs: Lab Results 09/13/23 09/13/23 09/13/23 Range/Units 12:58 13:27 13:28 WBC 9.5 (4.5-11.0) X10^3/uL RBC 3.93 L (4.0-5.2) X10^6/uL Hgb 9.5 L (12.0-16.0) g/dL Hct 30.0 L (36-46) % MCV 76.3 L (80-100) fL MCH 24.1 L (26-34) PG MCHC 31.6 (30-36) % RDW 18.5 H (11.6-14.8) % Plt Count 320 (150-400) X10^3/uL Neut % (Auto) 76.6 H (50-75) % Lymph % (Auto) 11.7 L (25-40) % [place] % (Auto) 8.7 (3-14) % Eos % (Auto) 2.2 (2-4) % Baso % (Auto) 0.8 (0-2) % Neut # (Auto) 7300 H (1474-7483) /uL Lymph # (Auto) 1100 (6347-8768) /uL [place] # (Auto) 800 (0-900) /uL Eos # (Auto) 200 (0-450) /uL Baso # (Auto) 100 (0-100) /uL PT 11.9 (9.4-12.5) SECONDS INR 1.0 (0.9-1.3) APTT 28 (25.1-36.5) SECONDS Sodium 136 L (137-145) mmol/L Potassium 4.0 (3.4-5.1) mmol/L Chloride 99 (98-107) mmol/L Carbon Dioxide 28 (22-32) mmol/L BUN 36 H (7-17) mg/dL Creatinine 1.07 H (0.52-1.04) mg/dL Estimated GFR 59 L (>60) mL/min BUN/Creatinine Ratio 33.6 H (6-22) Glucose 268 H (80-110) mg/dL Lactate 1.3 (0.7-2.1) mmol/L Calcium 9.6 (8.4-10.2) mg/dL Total Bilirubin 0.7 (0.2-1.3) mg/dL AST 22 (14-36) IU/L ALT 17 (<35) IU/L Alkaline Phosphatase 89 (38-126) U/L Total Creatine Kinase 82 (30-135) U/L Troponin I 0.070 H (0.01-0.034) ng/mL NT-Pro-B Natriuret Pep 164 H (<125) pg/mL Total Protein 7.6 (6.3-8.2) g/dL Albumin 3.8 (3.5-5.0) g/dL Globulin 3.8 (1.7-4.1) g/dL Albumin/Globulin Ratio 1.0 (1.0-2.8) Lipase 168 (23-300) U/L Procalcitonin 0.07 (<0.5) ng/mL Urine RBC (0-5/HPF) Urine WBC (0-5/HPF) Ur Squamous Epith Cells (0-5/HPF) Urine Bacteria (None) Ur Culture Indicated? SARS-CoV-2 (PCR) Negative (Negative) Influenza A (RT-PCR) Flu a negative (NEGATIVE) Influenza B (RT-PCR) Flu b negative (NEGATIVE) RSV (PCR) Negative (Negative) 09/13/23 09/13/23 09/13/23 Range/Units 13:42 15:30 17:23 WBC (4.5-11.0) X10^3/uL RBC (4.0-5.2) X10^6/uL Hgb (12.0-16.0) g/dL Hct (36-46) % MCV (80-100) fL MCH (26-34) PG MCHC (30-36) % RDW (11.6-14.8) % Plt Count (150-400) X10^3/uL Neut % (Auto) (50-75) % Lymph % (Auto) (25-40) % [place] % (Auto) (3-14) % Eos % (Auto) (2-4) % Baso % (Auto) (0-2) % Neut # (Auto) (4182-3936) /uL Lymph # (Auto) (5755-0859) /uL [place] # (Auto) (0-900) /uL Eos # (Auto) (0-450) /uL Baso # (Auto) (0-100) /uL PT (9.4-12.5) SECONDS INR (0.9-1.3) APTT (25.1-36.5) SECONDS Sodium (137-145) mmol/L Potassium (3.4-5.1) mmol/L Chloride (98-107) mmol/L Carbon Dioxide (22-32) mmol/L BUN (7-17) mg/dL Creatinine (0.52-1.04) mg/dL Estimated GFR (>60) mL/min BUN/Creatinine Ratio (6-22) Glucose (80-110) mg/dL Lactate (0.7-2.1) mmol/L Calcium (8.4-10.2) mg/dL Total Bilirubin (0.2-1.3) mg/dL AST (14-36) IU/L ALT (<35) IU/L Alkaline Phosphatase (38-126) U/L Total Creatine Kinase (30-135) U/L Troponin I 0.079 H 0.082 H (0.01-0.034) ng/mL NT-Pro-B Natriuret Pep (<125) pg/mL Total Protein (6.3-8.2) g/dL Albumin (3.5-5.0) g/dL Globulin (1.7-4.1) g/dL Albumin/Globulin Ratio (1.0-2.8) Lipase (23-300) U/L Procalcitonin (<0.5) ng/mL Urine RBC 1-5/hpf (0-5/HPF) Urine WBC 1-5/hpf (0-5/HPF) Ur Squamous Epith Cells 1-5 /hpf (0-5/HPF) Urine Bacteria Few (2-10) H (None) Ur Culture Indicated? Specimen cultured SARS-CoV-2 (PCR) (Negative) Influenza A (RT-PCR) (NEGATIVE) Influenza B (RT-PCR) (NEGATIVE) RSV (PCR) (Negative) 09/14/23 09/14/23 09/14/23 Range/Units 07:10 11:38 18:15 WBC 10.2 (4.5-11.0) X10^3/uL RBC 4.06 (4.0-5.2) X10^6/uL Hgb 9.9 L (12.0-16.0) g/dL Hct 30.7 L (36-46) % MCV 75.7 L (80-100) fL MCH 24.3 L (26-34) PG MCHC 32.1 (30-36) % RDW 18.5 H (11.6-14.8) % Plt Count 355 (150-400) X10^3/uL Neut % (Auto) 78.3 H (50-75) % Lymph % (Auto) 8.4 L (25-40) % [place] % (Auto) 9.3 (3-14) % Eos % (Auto) 3.0 (2-4) % Baso % (Auto) 1.0 (0-2) % Neut # (Auto) 8000 H (8737-3347) /uL Lymph # (Auto) 900 L (9060-9508) /uL [place] # (Auto) 900 (0-900) /uL Eos # (Auto) 300 (0-450) /uL Baso # (Auto) 100 (0-100) /uL PT (9.4-12.5) SECONDS INR (0.9-1.3) APTT 28 30 (25.1-36.5) SECONDS Sodium 137 (137-145) mmol/L Potassium 4.2 (3.4-5.1) mmol/L Chloride 98 (98-107) mmol/L Carbon Dioxide 31 (22-32) mmol/L BUN 34 H (7-17) mg/dL Creatinine 0.97 (0.52-1.04) mg/dL Estimated GFR > 60 (>60) mL/min BUN/Creatinine Ratio 35.1 H (6-22) Glucose 223 H (80-110) mg/dL Lactate (0.7-2.1) mmol/L Calcium 10.2 (8.4-10.2) mg/dL Total Bilirubin 0.6 (0.2-1.3) mg/dL AST 17 (14-36) IU/L ALT 16 (<35) IU/L Alkaline Phosphatase 97 (38-126) U/L Total Creatine Kinase (30-135) U/L Troponin I 0.082 H 0.073 H (0.01-0.034) ng/mL NT-Pro-B Natriuret Pep (<125) pg/mL Total Protein 7.8 (6.3-8.2) g/dL Albumin 3.8 (3.5-5.0) g/dL Globulin 4.0 (1.7-4.1) g/dL Albumin/Globulin Ratio 1.0 (1.0-2.8) Lipase (23-300) U/L Procalcitonin (<0.5) ng/mL Urine RBC (0-5/HPF) Urine WBC (0-5/HPF) Ur Squamous Epith Cells (0-5/HPF) Urine Bacteria (None) Ur Culture Indicated? SARS-CoV-2 (PCR) (Negative) Influenza A (RT-PCR) (NEGATIVE) Influenza B (RT-PCR) (NEGATIVE) RSV (PCR) (Negative) Point of Care Testing Glucose POC 306 Urine Dip Bedside Urine Glucose Negative Bedside Urine Bilirubin - Negative Bedside Urine Ketone - Negative Urine Specific [place] 1.010 Bedside Urine Occult Blood ++ Bedside Urine pH 6.0 Bedside Urine Protein - Negative Bedside Urine Urobilinogen - Negative Bedside Urine Nitrite - Negative Bedside Urine Leukocytes +/- 15 Esterase MDM Narrative Medical decision making narrative: Patient 63-year-old female history of morbid obesity diabetes hypertension hyperlipidemia presenting today with upper respiratory like symptoms. Grandchildren were sick with something similar. She does have shortness of breath with exertion but reports it is not any new or worse. She has no chest pain no EKG changes. 1st troponin indeterminate 0.07 with a repeat 0.079, 0.082, her previous troponin from July was negative and undetectable during her congestive heart failure exacerbation. Other blood work reviewed mild anemia hemoglobin 9.5 with a hematocrit 40.0 previous hemoglobin 10.3 and 322 no leukocytosis viral panel negative, creatinine up slightly today 1.0 previously 0.08, BNP is 164 Patient clinically has no evidence of congestive heart failure fluid overload. Chest x-ray is clear lung sounds are clear. She has no difficulty speaking. Discussed case with hospitalist who states that if she needs a stress test she can not stay here it can not be done over the weekend needs to be transferred Dr. Correa cardiology updated on patient's symptoms test results reviewed echocardiogram from last month. Agrees that she likely needs a stress test she is multiple risk factors previous troponin was negative. She clinically has facial pressure upper respiratory like symptoms now with indeterminate troponins multiple risk factors and no prior stress test. 09/14/23 - Javan -patient is signed out to me by Dr. Kiran. No events overnight, patient requested several of her home medications, which were ordered. Unfortunately there were no available hospital beds at any nearby hospital. We will continue to try again in the morning. Critical Care Time <Anna Kiran, DO - Last Filed: 09/15/23 06:58> Critical Care Time Critical Care Time: Yes Total Critical Care Time: 40 Attestation: The high probability of a clinically significant, sudden or life threatening deterioration of the [cardiovascular] system(s) required my full and direct attention, intervention and personal management. The aggregate critical care time was 40 minutes. This time is in addition to time spent performing reported procedures but includes the following: [x] Data Review and interpretation [x] Patient assessment and monitoring of vital signs [x] Documentation [x] Medication orders and management Discharge Plan Departure Patient Disposition: [facility] Clinical Impression: Chest pain, UTI (urinary tract infection) Prescriptions: No Action insulin glargine [Lantus U-100 Insulin] 100 UNIT/1 ML solution 80 unit SQ BID Qty: 0 aspirin 325 mg Tablet 325 mg PO PRN PRN (Reason: pain) Humalog KwikPen Insulin 200 unit/mL (3 mL) Insulin Pen 110 unit SUBCUT AC losartan 25 mg Tablet 25 mg PO BID Synthroid 25 mcg tablet 25 mcg PO 1XD rosuvastatin 40 mg tablet 40 mg PO 1XD furosemide 40 mg tablet 40 mg PO BID Referrals: Afshan Montes PA-C [Primary Care Provider] -
[2023-09-13 14:11] LABS: NT-proBNP (BNP-Adult 18+) 164 pg/mL (<125)
[2023-09-13 14:15] LABS: Procalcitonin 0.07 ng/mL (<0.5)
[2023-09-13 14:18] LABS: RBC Urine 1-5/HPF (0-5/HPF); WBC Urine 1-5/HPF (0-5/HPF)
[2023-09-13 14:19] LABS: Bacteria Urine Few (2-10); Culture Indicated Urine Specimen Cultured; Squamous Epithelial Cell Urine 1-5 /HPF (0-5/HPF)
[2023-09-13 16:04] LABS: Troponin I 0.079 ng/mL (0.01-0.034)
--- NOTE | 2023-09-13 17:25 | PC.NURSE ---
Patients o2 saturation drops while sleeping. 88% on RA. She was placed on 1L NC and her O2 sat went up to 96%. She was encouraged to take deep breathes.
[2023-09-13 17:55] LABS: Troponin I 0.082 ng/mL (0.01-0.034)
[2023-09-13] MEDS: ASPIRIN 81 MG CHEW TAB 324 MG PO (18:56)
--- NOTE | 2023-09-13 19:57 | PC.NURSE ---
Addendum entered by Adrianne Morrison CNA 09/14/23 06:22: VIDEO PHOTOGRAPHER note: Spoke to Lenka at [facility]. Asked if they had an update. Currently boarding 9 in their emergency room, but have discharges in the morning. Dr. Edouard doesn't want to look further than the hospitals I've called already. Will check in with [facility] later. Patient has been getting up to use the bathroom as a standby assist to independent. Patient just needs assistance taking off blood pressure cuff and telemetry. Patient has Mary in room with her to help. Addendum entered by Adrianne Morrison CNA 09/14/23 01:09: VIDEO PHOTOGRAPHER note: Spoke to Clifton at [facility]. They have no beds at this time. Addendum entered by Adrianne Morrison CNA 09/13/23 21:44: VIDEO PHOTOGRAPHER note: 2123 Spoke to Syl at [facility]. They are completely full. 3 day waitlist. 2128 Spoke to Katt at [facility], all monitored beds are at capacity. Updated nurses and doctor. Will continue to try to look for a bed. Original Note: VIDEO PHOTOGRAPHER note: 1947 Spoke to Lenka at [facility] about a possible transfer. Lenka stated that they're currently boarding in their emergency room and will put patient on their wait list. 1954 spoke to Clifton at [facility]. He took patient information, sent packet over. He will review the information and get back to us. Thanked him for his help. Let charge gang weigher Luis Alfredo and Doctor Javan know what's going on.
[2023-09-13] MEDS: INSULIN LISPRO 100 UNIT/ML 3ML VIAL 110 UNIT SUBCUT (21:50)
[2023-09-14] VITALS (54 sets, daily range): BP systolic 101–166; BP diastolic 55–119; PULSE 76–123; RESP 15–29; TEMP 36.8; O2SAT 82–99
[2023-09-14] MEDS: FUROSEMIDE 40 MG TABLET PO ×2 (02:12→10:38)
--- NOTE | 2023-09-14 06:48 | DI.ECHO.S_ITS ---
[facility] +---------+ [facility] +---------+ : : [address] : : : : [id number] : : : : Phone: [phone]+ Echocardiogram Report + + :Name: EMIGDIO KNIGHT Study Date: 09/14/2023 Height: 66 in : :[facility] ReadingLocation: Weight: 331 lb : : Gender: Female BSA: 2.5 m2 : :: 1960 Age: 63 yrs BP: 136/63 mmHg: :Reason For Study: ELEVATED TROPONIN : :Ordering Physician: NIDIA, : :MARCELINO Performed By: Mallorie Perez : :Referring: MARCELINO JACOB : + + Interpretation Summary The study quality was technically difficult. The ejection fraction is estimated to be 45-50%. There is akinesis of the mid to distal anteroseptal wall. There is hypokinesis of the apex. Attempted images of the anterior wall are off axis. Otherwise limited visualization and interrogation. Compared to the prior study dated 08/03/2023, the segmental wall motion abnormalities may be new. Procedure: Comparison is made with the echocardiogram of 08/03/2023. A two- dimensional transthoracic echocardiogram with color flow and Doppler was performed in limited views only. The study quality was technically difficult. A contrast injection of Definity was performed to improve assessment of LV function. The patient was in sinus tachycardia with heart rates between 99-103 bpm during the exam. Left Ventricle: The left ventricle is not well visualized. Proximal septal thickening is noted. There is mild concentric left ventricular hypertrophy. The ejection fraction is estimated to be 45-50%. There is akinesis of the mid to distal anteroseptal wall. There is hypokinesis of the apex. Attempted images of the anterior wall are off axis. Right Ventricle: The right ventricle is not well visualized. Atria: The left atrium is not well visualized. Right atrium not well visualized. Mitral Valve: There is moderate mitral annular calcification. The mitral valve chordae are thickened and/or calcified. The mitral valve mean gradient is 4.3 mmHg. Aortic Valve: The aortic valve is slightly calcified. The aortic valve opens well. Tricuspid Valve: The tricuspid valve is not well visualized. Great Vessels: The inferior vena cava was not well visualized. Pericardium/ Pleura There is no pericardial effusion. There is no pleural effusion. MMode/2D Measurements & Calculations LVIDd: 6.0 cm LVIDs: 4.3 cm FS: 27.7 % IVSd: 1.1 cm LVPWd: 1.2 cm LV nieves. diameter/BSA (cm/m^2): 2.4 LV sys. diameter/BSA (cm/m^2): 1.7 Doppler Measurements & Calculations TR max mary: 304.8 cm/sec MV V2 mean: 95.1 cm/sec TR max P.2 mmHg MV mean P.3 mmHg MV V2 VTI: 29.3 cm Reading Physician:10:47 AM
[2023-09-14 08:04] LABS: Troponin I 0.082 ng/mL (0.01-0.034)
--- NOTE | 2023-09-14 09:18 | PC.NURSE ---
Followed up with [facility] and [facility] to check for bed availability [facility] - Spoke to Tammie at [facility] who says their ED is boarding 6 patients and no beds till further discharges. Raman - Spoke to Amadou at [facility] transfer center, no beds at this time.
[2023-09-14] MEDS: cefTRIAXone 1,000 MG in SODIUM CHLORIDE 0.9% 100 ML 200 MG IV (10:06)
[2023-09-14] MEDS: LOSARTAN 25 MG TABLET PO (10:38)
[2023-09-14] MEDS: ASPIRIN EC 325 MG TABLET PO (10:38)
[2023-09-14] MEDS: ATORVASTATIN 20 MG TABLET 40 MG PO (10:42)
[2023-09-14] MEDS: INSULIN GLARGINE 100 UNIT/ML 3ML PEN 80 UNIT SUBCUT (10:43)
--- NOTE | 2023-09-14 11:13 | DI.CT.S_ITS ---
PROCEDURE: CT ANGIO CHEST PE PROTOCOL INDICATIONS: elevated trop hypoxia TECHNIQUE: After the administration of intravenous contrast, 2 mm thick sections acquired from the pulmonary apices to the posterior costophrenic angles. 3-dimensional maximum intensity projection (MIP) coronal and sagittal reformats were then acquired through the thorax. For radiation dose reduction, the following was used: automated exposure control, adjustment of mA and/or kV according to patient size. COMPARISON: [facility], CT, ABDOMEN WITH AND WITHOUT CONTR, 12/25/2010, 8:48. [facility], CT, CT ANGIO CHEST PE PROTOCOL, 08/02/2023, 12:29. [facility], CR, XR CHEST 1V, 09/13/2023, 13:47. FINDINGS: Image quality: Limited by bolus timing. Pulmonary arteries: The bolus of the contrast injection is suboptimal. The main pulmonary artery measures approximately one hundred twenty-five Hounsfield units. Pulmonary artery densities are greater than 250 Hounsfield units are considered to be ideal for evaluation of pulmonary embolism. However, no large or central pulmonary emboli are seen on these images. No pulmonary emboli are seen more distally, although sensitivity for detection of such is limited on this study. Lungs and pleura: There is poorly defined opacity seen involving the infrahilar right lower lobe. The degree of opacification is clearly improved compared to the prior examination. The previously seen pleural effusions have resolved. No pneumothorax is seen. Mediastinum: Heart size is normal, without pericardial effusion. At least moderate coronary artery calcification is seen. No mediastinal or hilar adenopathy. Thoracic aorta is normal in caliber and enhancement. Negative for aortic dissection or aneurysm. Esophagus is normal in caliber, without hiatal hernia. Bones and chest wall: No suspicious bony lesions. Ribs and thoracic spine appear intact throughout. Accentuated thoracic kyphosis is seen. Age-appropriate bony degenerative changes are seen. No axillary or supraclavicular adenopathy. No thyroid nodules which require sonographic follow up, per consensus guidelines. Upper Abdomen: An enlarged, fatty infiltrated liver is seen. There is a left adrenal needs than seen that contains macroscopic fat, measuring up to 4 cm. IMPRESSION: No large or central pulmonary embolus. There is poorly defined opacity seen within the infrahilar right lower lobe. This is in approved compared to the prior examination. This is felt most likely be related to resolving atelectasis. However, differential diagnosis includes persistent infection as well as neoplasm. - Please consider follow-up noncontrast chest CT in 4-6 weeks for further evaluation. Alternatively, a dedicated PET-CT could be considered, if there is strong clinical concern for pulmonary neoplasm. Additional findings: At least moderate coronary artery calcification Enlarged, fatty liver Left adrenal nodule, considered to be benign Dictated by: Ismael Thao M.D. on 09/14/2023 at 11:40 Approved by: Ismael Thao M.D. on 09/14/2023 at 11:45
[2023-09-14 11:44] LABS: Add Manual Diff / Slide Review NO; Basophils Absolute Auto 100 /uL (0-100); Eosinophils Absolute Auto 300 /uL (0-450); Hematocrit 30.7 % (36-46); Hemoglobin 9.9 g/dL (12.0-16.0); Lymphocytes Absolute Auto 900 /uL (1100-4500); Lymphocytes Percent Auto 8.4 % (25-40); Mean Corpuscular HGB Conc 32.1 % (30-36); Mean Corpuscular Hemoglobin 24.3 PG (26-34); Mean Corpuscular Volume 75.7 fL (80-100); Monocytes Absolute Auto 900 /uL (0-900); Monocytes Percent Auto 9.3 % (3-14); Neutrophils Absolute Auto 8000 /uL (1500-7000); Neutrophils Percent Auto 78.3 % (50-75); Platelet Count 355 X10^3/uL (150-400); Red Blood Cell Count 4.06 X10^6/uL (4.0-5.2); Red Cell Distribution Width 18.5 % (11.6-14.8); White Blood Cell Count 10.2 X10^3/uL (4.5-11.0)
[2023-09-14] MEDS: HEPARIN 5,000 UNIT/ML VIAL 5000 UNIT IV ×2 (11:50→18:47)
[2023-09-14 11:55] LABS: PTT Partial Thromboplastin Tim 28 SECONDS (25.1-36.5)
[2023-09-14 11:58] LABS: Alanine Aminotransferase 16 IU/L (<35); Albumin 3.8 g/dL (3.5-5.0); Alkaline Phosphatase 97 U/L (38-126); Aspartate Aminotransferase 17 IU/L (14-36); BUN Creatinine Ratio 35.1 (6-22); Bilirubin Total 0.6 mg/dL (0.2-1.3); Blood Urea Nitrogen 34 mg/dL (7-17); Calcium 10.2 mg/dL (8.4-10.2); Carbon Dioxide 31 mmol/L (22-32); Chloride 98 mmol/L (98-107); Estimated Glomerular Filt Rate > 60 mL/min (>60); Glucose 223 mg/dL (80-110); HEMOLYSIS < 15 (0-50); Potassium 4.2 mmol/L (3.4-5.1); Sodium 137 mmol/L (137-145); Total Protein 7.8 g/dL (6.3-8.2)
[2023-09-14] MEDS: HEPARIN DRIP 25,000 UNIT/500 ML IV.SOLN 20.029 UNIT IV (12:03)
[2023-09-14] MEDS: INSULIN LISPRO 100 UNIT/ML 3ML VIAL 110 UNIT SUBCUT ×2 (12:34→17:04)
[2023-09-14 18:32] LABS: PTT Partial Thromboplastin Tim 30 SECONDS (25.1-36.5)
[2023-09-14 18:51] LABS: Troponin I 0.073 ng/mL (0.01-0.034)
== END 2023-09-14 19:08 | disposition short-term general hospital (02) ==
PROVIDERS: Emergency Provider Emergency Medicine; Family Provider Internal Medicine; PCP Physician Assistant
DX: R07.9 Chest pain, unspecified (principal); N39.0 Urinary tract infection, site not specified; R06.02 Shortness of breath; Z79.899 Other long term (current) drug therapy; Z20.822 Contact with and (suspected) exposure to COVID-19
CPT/HCPCS: 0241U; 36415; 71045; 71275; 80053; 81003; 81015; 82550; 82962; 83605; 83690; 83880; 84145; 84484; 85025; 85610; 85730; 87040; 87077; 87086; 87186; 93005; 93010; 93307; 96365; 96366; 96367; 96372; 96375; 96376; 99285; J0696; J1644; J1815; Q9957; Q9967

== ENCOUNTER → 2025-02-15 06:38 | Outpatient (CLI) | payer OTHER, SELFPAY ==
[2023-08-02 15:55] VITALS: BMI 55.7
--- NOTE | 2025-02-15 06:42 | DI.US.S_ITS ---
PROCEDURE: US CAROTID DOPPLER BI INDICATIONS: LEFT CAROTID DZ. TECHNIQUE: Color and pulse Doppler interrogation was performed of both carotid systems, with image documentation and velocity measurements. COMPARISON: [facility], US, US CAROTID DOPPLER BI, 08/16/2023, 15:49. FINDINGS: Stenosis calculations are based on SRU (Society of Radiologists in Ultrasound) criteria. The flow velocities and the arterial waveforms are normal within both carotid arterial systems. Atherosclerotic plaque is seen on both sides, left worse than right. The estimated degree of internal carotid artery stenosis is less than 50%. Antegrade flow is confirmed within both vertebral arteries. This study is limited by body habitus. IMPRESSION: No hemodynamically significant stenosis is now seen by velocity criteria. Atherosclerotic plaque is noted bilaterally, left worse than right. Dictated by: Ismael Thao M.D. on 02/15/2025 at 9:20 Approved by: Ismael Thao M.D. on 02/15/2025 at 9:21
--- NOTE | 2025-02-15 06:58 | DI.ECHO.S_ITS ---
[facility] : : [address] : : [place] : : [id number] : : Phone: [phone] Echocardiogram Report + + :Name: EMIGDIO KNIGHT Study Date: 02/15/2025 Height: 66 in : :[facility] ReadingLocation: Weight: 331 lb: : Gender: Female BSA: 2.5 m2 : :: 1960 Age: 64 yrs : :Reason For Study: CHRONIC HEART FAILURE : :Ordering Physician: CORINA TOBAR Performed By: Mallorie Perez : :Referring: CORINA TOBAR : + + Interpretation Summary 1. The left ventricular contractility is borderline. Estimated ejection fraction is approximately 50 to 55% with no segmental wall motion abnormalities. Borderline concentric LVH. Unable to comment on diastolic function. 2. The right ventricular contractility is borderline. 3. Biatrial enlargement noted. Left ventricle is mildly dilated. The right ventricle is of normal size. 4. Mild to moderate mitral regurgitation. There is calcifications of the papillary muscle noted. No significant mitral stenosis present. 5. Moderate tricuspid regurgitation with estimated pulmonary systolic artery pressures of approximately 42 to 45 mmHg. 6. No obvious intracardiac shunts. 7. No intracardiac masses nor thrombi. 8. No hemodynamically significant pericardial effusion. Conclusion: Low normal left ventricular systolic function with moderate valvular insufficiencies. When compared with previous echocardiogram, there is improvement of the left ventricular contractility. Of note, the patient has atrial fibrillation with rapid ventricular response on the study Procedure: A two-dimensional transthoracic echocardiogram with color flow and Doppler was performed. The study quality was technically difficult. Comparison is made with the echocardiogram of 09/14/2023. The heart rate ranged between 103-145 bpm during the study. Left Ventricle: Left ventricular wall thickness is borderline increased. The left ventricle is mildly dilated. The ejection fraction is estimated to be 50- 55%. Right Ventricle: The right ventricle is normal size. Right ventricular systolic function is borderline reduced. Atria: The left atrium is mildly dilated. The right atrium is mildly dilated. There is no Doppler evidence for an interatrial shunt. Mitral Valve: The mitral papillary muscle appears thickened and/or calcified. There is moderate mitral annular calcification. The mitral valve mean gradient is 3.9 mmHg. There is mild to moderate mitral regurgitation. Aortic Valve: The aortic valve is mildly calcified. There is no hemodynamically significant valvular aortic stenosis. No aortic regurgitation is present. Tricuspid Valve: There is moderate tricuspid regurgitation. Pulmonic Valve: The pulmonic valve is not well visualized. There is no pulmonic valvular regurgitation. Great Vessels: The aortic root is normal size. The dimensions of the ascending aorta are normal. The inferior vena cava was not visualized. Pericardium/ Pleura There is no pericardial effusion. There is no pleural effusion. MMode/2D Measurements & Calculations LVIDd: 5.8 cm LVOT diam: 2.2 cm LVIDs: 4.1 cm Ao root diam: 2.9 cm FS: 29.1 % asc Aorta Diam: 3.2 cm IVSd: 1.00 cm Ao Arch Diam (Prox Trans): 2.8 cm LVPWd: 1.1 cm LV nieves. diameter/BSA (cm/m^2): 2.3 LV sys. diameter/BSA (cm/m^2): 1.6 LA A2 area: 25.9 cm2 RA long axis: 6.6 cm LA A4 area: 23.5 cm2 RA area: 27.7 cm2 LA length (vol): 5.9 cm RA vol: 98.7 ml LA vol: 87.6 ml RA : 39.8 ml/m2 LA vol index: 35.3 ml/m2 RVD1 (basal): 3.7 cm RVD2 (mid): 3.2 cm TAPSE: 1.2 cm Doppler Measurements & Calculations Ao V2 max: 147.4 cm/sec LVOT Max Acosta: 79.8 cm/sec Ao V2 mean: 91.0 cm/sec LV V1 max P.5 mmHg Ao max P.3 mmHg LV V1 VTI: 14.4 cm Ao mean P.4 mmHg CORBIN(I,D): 2.5 cm2 Ao V2 VTI: 21.5 cm CORBIN(V,D): 2.0 cm2 sev ratio: 0.67 CORBIN indexed to BSA (cm^2/m^2): 1.0 MV E max acosta: 119.7 cm/sec TR max acosta: 282.4 cm/sec MV A max acosta: 0.72 cm/sec TR max P.9 mmHg MV E/A: 166.4 PA V2 max: 80.1 cm/sec Med Peak E' Acosta: 5.4 cm/sec PA V2 mean: 55.5 cm/sec E/E' med: 22.1 PA mean P.4 mmHg Lat Peak E' Acosta: 9.9 cm/sec PA pr(Accel): 27.6 mmHg E/E' lat: 12.0 E/e' average: 17.1 MV dec time: 0.08 sec MVA(VTI): 2.0 cm2 MV V2 mean: 84.9 cm/sec SV(LVOT): 54.3 ml MV mean P.9 mmHg MV V2 VTI: 27.6 cm Reading Physician:JESÚS
== END ==
PROVIDERS: Family Provider Internal Medicine; Referring Provider Internal Medicine; Visit Provider Internal Medicine
DX: I65.22 Occlusion and stenosis of left carotid artery (principal); I50.32 Chronic diastolic (congestive) heart failure; J98.11 Atelectasis; I25.10 Atherosclerotic heart disease of native coronary artery without angina pectoris
CPT/HCPCS: 93880; C8929; Q9957

== ENCOUNTER 2025-02-15 08:43 | Emergency (ER) | payer OTHER, SELFPAY ==
[2023-08-02 15:55] VITALS: BMI 55.7
[2025-02-15] VITALS (20 sets, daily range): BP systolic 109–171; BP diastolic 50–117; PULSE 117–143; RESP 12–35; TEMP 36.6; O2SAT 93–100
--- NOTE | 2025-02-15 08:47 | EKG_ITS ---
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
--- NOTE | 2025-02-15 08:47 | DI.RAD.S_ITS ---
PROCEDURE: XR CHEST 1V INDICATIONS: Chest Pain TECHNIQUE: One view of the chest was acquired. COMPARISON: [facility], CR, XR CHEST 1V, 09/13/2023, 13:47. FINDINGS: Surgical changes and devices: None. Lungs and pleura: Mild patchy bibasilar atelectasis. No pleural effusions or pneumothorax. Mediastinum: Mediastinal contours appear normal. Heart size is normal. Bones and chest wall: No suspicious bony lesions. Overlying soft tissues appear unremarkable. IMPRESSION: Mild patchy bibasilar atelectasis. Dictated by: Rubin Corcoran M.D. on 02/15/2025 at 9:25 Approved by: Rubin Corcoran M.D. on 02/15/2025 at 9:25
[2025-02-15 09:04] LABS: Add Manual Diff / Slide Review NO; Basophils Absolute Auto 100 /uL (0-100); Eosinophils Absolute Auto 100 /uL (0-450); Eosinophils Percent Auto 1.3 % (2-4); Hematocrit 32.6 % (36-46); Hemoglobin 9.5 g/dL (12.0-16.0); Lymphocytes Absolute Auto 800 /uL (1100-4500); Lymphocytes Percent Auto 8.1 % (25-40); Mean Corpuscular HGB Conc 29.2 % (30-36); Mean Corpuscular Hemoglobin 21.3 PG (26-34); Mean Corpuscular Volume 72.7 fL (80-100); Monocytes Absolute Auto 1100 /uL (0-900); Monocytes Percent Auto 10.1 % (3-14); Neutrophils Absolute Auto 8200 /uL (1500-7000); Neutrophils Percent Auto 79.5 % (50-75); Platelet Count 407 X10^3/uL (150-400); Red Blood Cell Count 4.49 X10^6/uL (4.0-5.2); Red Cell Distribution Width 19.9 % (11.6-14.8); White Blood Cell Count 10.4 X10^3/uL (4.5-11.0)
[2025-02-15 09:10] LABS: INR 1.1 (0.9-1.3); Prothrombin Time 12.3 SECONDS (9.4-12.5)
[2025-02-15 09:13] LABS: PTT Partial Thromboplastin Tim 27 SECONDS (25.1-36.5)
[2025-02-15 09:14] LABS: Lactate (Lactic Acid) 1.1 mmol/L (0.7-2.1)
[2025-02-15 09:15] LABS: Alanine Aminotransferase 16 IU/L (<35); Albumin 3.7 g/dL (3.5-5.0); Albumin Globulin Ratio 1.1 (1.0-2.8); Alkaline Phosphatase 87 U/L (38-126); Aspartate Aminotransferase 21 IU/L (14-36); BUN Creatinine Ratio 25.1 (6-22); Bilirubin Total 0.7 mg/dL (0.2-1.3); Blood Urea Nitrogen 42 mg/dL (7-17); Calcium 9.8 mg/dL (8.4-10.2); Carbon Dioxide 29 mmol/L (22-32); Chloride 104 mmol/L (98-107); Creatine Kinase 36 U/L (30-135); Estimated Glomerular Filt Rate 34 mL/min (>60); Globulin 3.4 g/dL (1.7-4.1); Glucose 84 mg/dL (70-99); HEMOLYSIS < 15 (0-50); Lipase 143 U/L (23-300); Magnesium 2.5 mg/dL (1.6-2.3); Potassium 3.8 mmol/L (3.4-5.1); Sodium 140 mmol/L (137-145); Total Protein 7.1 g/dL (6.3-8.2)
[2025-02-15 09:27] LABS: NT-proBNP (BNP-Adult 18+) 751 pg/mL (<125); Troponin I < 0.012 ng/mL (0.01-0.034)
--- NOTE | 2025-02-15 09:28 | ED_ITS ---
HPI - SOB/Dyspnea General Chief Complaint: Shortness of Breath/Dyspnea Stated Complaint: Possible AFIB, SOB sent from DI Time Seen by Provider: 02/15/25 09:06 Source: patient Mode of arrival: Ambulatory History of Present Illness HPI Narrative: This is a 64-year-old female with a history of obesity congestive heart failure type 2 diabetes hypertension hyperlipidemia in atrial fibrillation. Patient tells me that she is anticoagulated but does not know which medication she takes isn't atrial fibrillation is a relatively new diagnosis over the last 3 months. She is also oxygen dependent on 2 L nasal cannula. She presented today for diagnostic imaging and was noted to have a rapid heart rate was therefore referred to the emergency department. Says that she has been short of breath for about 3 months and does not feel like it is any worse today than it has been typically. She does feel like she has got some increased lower extremity edema. She is not having chest pain. She has not taken any rate control medications this morning and does not know what her rate control medications are. 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 the patient's medication list from January 28 is obtained. It includes aspirin 81 mg daily, Cardizem CD 240 mg daily, Lasix 40 mg daily, she is on insulin she is on Jardiance 25 mg daily levothyroxine 75 mcg daily metoprolol 50 mg takes 100 mg b.i.d.. Plavix 75 mg daily Eliquis was stopped. Related Data Home Medications Medication Instructions Recorded Confirmed insulin glargine 100 unit/mL 80 unit SQ BID ##0 08/28/11 09/13/23 subcutaneous solution (Lantus U-100 Insulin) aspirin 325 mg tablet 325 mg PO PRN PRN pain 10/20/19 09/13/23 insulin lispro 200 unit/mL (3 mL) 110 unit SUBCUT AC 10/21/19 09/13/23 subcutaneous pen (Humalog KwikPen U-200 Insulin) Synthroid 25 mcg PO 1XD 09/13/23 09/13/23 losartan 25 mg tablet 25 mg PO BID 09/13/23 09/13/23 rosuvastatin 40 mg PO 1XD 09/13/23 09/13/23 furosemide 40 mg tablet 40 mg PO BID 09/14/23 09/14/23 Previous Rx's Medication Instructions Recorded apixaban 5 mg tablet (Eliquis) 5 mg PO BID #60 tabs 02/15/25 Allergies Allergy/AdvReac Type Severity Reaction Status Date / Time ibuprofen Allergy Severe VOMITING Verified 09/13/23 16:25 Penicillins Allergy Severe RASH, Verified 09/13/23 16:25 VOMITING Patient History Medical History (Updated 02/15/25 @ 14:07 by Dominguez Crenshaw MD) Neuropathy 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 Social History household members: spouse and other Smoking Status: Never smoker alcohol intake: current Smoking Status: Never smoker alcohol intake frequency: holidays/special occasions only Exam Initial Vital Signs Initial Vital Signs: Vital Signs Temperature 98 F 02/15/25 08:54 Pulse Rate 135 H 02/15/25 08:54 Respiratory Rate 26 H 02/15/25 08:54 Blood Pressure 133/77 02/15/25 08:54 Pulse Oximetry 99 02/15/25 08:54 Oxygen Delivery Method Nasal Cannula 02/15/25 08:54 Oxygen Flow Rate 2 02/15/25 08:54 vital signs are reviewed Const General: cooperative and No acute distress HENMT Head: normocephalic and atraumatic Face and sinus: face symmetric Mouth: moist mucous membranes Eyes Pupils: PERRL EOM: EOM intact bilaterally Neck Neck: normal visual inspection, supple, JVD and other ( Unable to assess for JVD secondary to body habitus) Chest Chest: normal inspection of the chest Resp Effort & Inspection: normal respiratory effort and able to speak in complete sentences Auscultation: clear to auscultation bilaterally Cardio Rhythm: regular rhythm Heart Sounds: no murmurs Other: irregularly irregular and tachycardic GI Inspection: normal to inspection Palpation: soft Auscultation: normal bowel sounds Back/Spine/Pelvis Back: normal to inspection Skin General: no rashes or lesions noted and warm Neuro General: patient alert, patient oriented x3 and moves all extremities Speech: speech normal Extrem General: full ROM ( 2+ pitting edema by dollar) Psych Appearance: grossly normal Course Orders Ordered: ED Orders 02/15/25 08:47 XR chest 1V Stat EKG-12 Lead Stat RT Consult Eval and Treat NOW 02/15/25 08:53 Complete Blood Count AUTO DIFF Stat Comprehensive Metabolic Panel Stat Lactate (Lactic Acid) Stat Lipase Stat Magnesium Stat NT-proBNP (BNP-Adult 18+) Stat PTT Partial Thromboplastin Mikael Stat Prothrombin Time INR Stat Troponin & CK Cardiac Panel Stat Discontinued Medications Apixaban (Apixaban 5 Mg Tablet) 5 mg PO NOW ONE Stop: 02/15/25 09:40 Last Admin: 02/15/25 09:46 Dose: 5 mg Documented By: DEBRA Diltiazem HCl (Diltiazem 30 Mg Tablet) 60 mg PO NOW ONE Stop: 02/15/25 12:19 Last Admin: 02/15/25 12:55 Dose: 60 mg Documented By: SHIMA Diphenhydramine HCl (Diphenhydramine 25 Mg Tablet) 25 mg PO NOW ONE Stop: 02/15/25 11:24 Last Admin: 02/15/25 11:39 Dose: 25 mg Documented By: AIME Furosemide (Furosemide 40 Mg/4 Ml Vial) 40 mg IV NOW ONE Stop: 02/15/25 09:40 Last Admin: 02/15/25 09:47 Dose: 40 mg Documented By: DEBRA Metoprolol Tartrate (Metoprolol Tartrate 5 Mg/5 Ml Inj) 5 mg IV NOW ONE Stop: 02/15/25 09:40 Last Admin: 02/15/25 09:47 Dose: 5 mg Documented By: DEBRA Metoprolol Tartrate (Metoprolol Ir 25 Mg Tablet) 100 mg PO NOW ONE Stop: 02/15/25 11:03 Last Admin: 02/15/25 11:39 Dose: 100 mg Documented By: AIME Metoprolol Tartrate (Metoprolol Tartrate 5 Mg/5 Ml Inj) 5 mg IV Q5M BUSTER Stop: 02/15/25 12:41 Last Admin: 02/15/25 13:35 Dose: 5 mg Documented By: Admin: 02/15/25 13:08 Dose: 5 mg Documented By: Admin: 02/15/25 12:55 Dose: 5 mg Documented By: RL Reevaluation(s) Reevaluation #1: After metoprolol and diltiazem heart rate is improved. Patient was feeling better and would like to go home. Discussed medication modifications recommended and need for follow up with Cardiology soon. Consultations Consultation #1: Case was discussed with Dr. Evans. Recommends doubling metoprolol at home and being more aggressive metoprolol here for make Vital Signs Vital signs: Vital Signs - 8 hr 02/15/25 08:54 02/15/25 08:55 02/15/25 09:00 Temperature 98 F Pulse Rate 135 H 133 H 139 H Respiratory Rate 26 H 12 Blood Pressure 133/77 Pulse Oximetry 99 100 94 Oxygen Delivery Method Nasal Cannula Oxygen Flow Rate 2 02/15/25 09:01 02/15/25 09:01 02/15/25 09:30 Temperature Pulse Rate 140 H Respiratory Rate 16 Blood Pressure 162/117 H 120/73 Pulse Oximetry 99 Oxygen Delivery Method Oxygen Flow Rate 02/15/25 09:30 02/15/25 09:59 02/15/25 09:59 Temperature Pulse Rate 137 H 138 H Respiratory Rate 13 19 Blood Pressure 128/77 Pulse Oximetry 98 99 Oxygen Delivery Method Nasal Cannula Nasal Cannula Oxygen Flow Rate 2 2 02/15/25 10:00 02/15/25 10:00 02/15/25 10:03 Temperature Pulse Rate 135 H Respiratory Rate 18 Blood Pressure 161/83 H 132/85 Pulse Oximetry 99 Oxygen Delivery Method Nasal Cannula Oxygen Flow Rate 2 02/15/25 10:03 02/15/25 10:30 02/15/25 10:31 Temperature Pulse Rate 134 H 143 H Respiratory Rate 22 15 Blood Pressure 171/97 H Pulse Oximetry 100 98 Oxygen Delivery Method Nasal Cannula Nasal Cannula Oxygen Flow Rate 2 2 02/15/25 10:31 02/15/25 11:00 02/15/25 11:01 Temperature Pulse Rate 135 H 132 H 133 H Respiratory Rate 16 32 H 27 H Blood Pressure Pulse Oximetry 96 99 96 Oxygen Delivery Method Nasal Cannula Nasal Cannula Nasal Cannula Oxygen Flow Rate 2 2 2 02/15/25 11:01 02/15/25 11:30 02/15/25 11:31 Temperature Pulse Rate 139 H Respiratory Rate 28 H Blood Pressure 170/75 H 142/81 H Pulse Oximetry 96 Oxygen Delivery Method Oxygen Flow Rate 02/15/25 11:31 02/15/25 12:00 02/15/25 12:00 Temperature Pulse Rate 135 H 140 H Respiratory Rate 26 H 27 H Blood Pressure 120/92 H Pulse Oximetry 95 Oxygen Delivery Method Oxygen Flow Rate 02/15/25 12:30 02/15/25 12:30 02/15/25 12:55 Temperature Pulse Rate 121 H 117 H Respiratory Rate 27 H Blood Pressure 119/79 Pulse Oximetry 96 Oxygen Delivery Method Oxygen Flow Rate 02/15/25 13:00 02/15/25 13:00 02/15/25 13:09 Temperature Pulse Rate 126 H Respiratory Rate 18 Blood Pressure 109/58 L 116/50 L Pulse Oximetry 95 Oxygen Delivery Method Oxygen Flow Rate 02/15/25 13:09 02/15/25 13:30 02/15/25 13:30 Temperature Pulse Rate 118 H 119 H Respiratory Rate 26 H 35 H Blood Pressure 125/56 L Pulse Oximetry 93 95 Oxygen Delivery Method Oxygen Flow Rate MDM - SOB/Dyspnea Lab Data Lab results narrative: CBC with diff CMP and troponin are unremarkable. Minimal and probably not clinically significant elevation in proBNP be 02/15/25 08:53 02/15/25 08:53 Labs: Lab Results 02/15/25 Range/Units 08:53 WBC 10.4 (4.5-11.0) X10^3/uL RBC 4.49 (4.0-5.2) X10^6/uL Hgb 9.5 L (12.0-16.0) g/dL Hct 32.6 L (36-46) % MCV 72.7 L (80-100) fL MCH 21.3 L (26-34) PG MCHC 29.2 L (30-36) % RDW 19.9 H (11.6-14.8) % Plt Count 407 H (150-400) X10^3/uL Neut % (Auto) 79.5 H (50-75) % Lymph % (Auto) 8.1 L (25-40) % [place] % (Auto) 10.1 (3-14) % Eos % (Auto) 1.3 L (2-4) % Baso % (Auto) 1.0 (0-2) % Neut # (Auto) 8200 H (7286-7092) /uL Lymph # (Auto) 800 L (0266-5625) /uL [place] # (Auto) 1100 H (0-900) /uL Eos # (Auto) 100 (0-450) /uL Baso # (Auto) 100 (0-100) /uL PT 12.3 (9.4-12.5) SECONDS INR 1.1 (0.9-1.3) APTT 27 (25.1-36.5) SECONDS Sodium 140 (137-145) mmol/L Potassium 3.8 (3.4-5.1) mmol/L Chloride 104 (98-107) mmol/L Carbon Dioxide 29 (22-32) mmol/L BUN 42 H (7-17) mg/dL Creatinine 1.67 H (0.52-1.04) mg/dL Estimated GFR 34 L (>60) mL/min BUN/Creatinine Ratio 25.1 H (6-22) Glucose 84 (70-99) mg/dL Lactate 1.1 (0.7-2.1) mmol/L Calcium 9.8 (8.4-10.2) mg/dL Magnesium 2.5 H (1.6-2.3) mg/dL Total Bilirubin 0.7 (0.2-1.3) mg/dL AST 21 (14-36) IU/L ALT 16 (<35) IU/L Alkaline Phosphatase 87 (38-126) U/L Total Creatine Kinase 36 (30-135) U/L Troponin I < 0.012 (0.01-0.034) ng/mL NT-Pro-B Natriuret Pep 751 H (<125) pg/mL Total Protein 7.1 (6.3-8.2) g/dL Albumin 3.7 (3.5-5.0) g/dL Globulin 3.4 (1.7-4.1) g/dL Albumin/Globulin Ratio 1.1 (1.0-2.8) Lipase 143 (23-300) U/L Imaging Data Chest x-ray: My Impression: independently reviewed chest x-ray, cardiomegaly possibly some mild increased interstitial markings ECG Data Interpretation: ECG shows atrial fibrillation at [address] elevation MDM Narrative Medical decision making narrative: 65 field with a history of we can fibrillation presenting with atrial fibrillation with rapid ventricular response. Essentially this was noticed as an incidental finding when she presented for a scheduled imaging study. She is endorsing some shortness of breath. She has not taken her rate control medication this morning. The patient and daughter are clear that she has a history of atrial fibrillation. Reportedly was on Eliquis but this was stopped for unclear reasons by her primary care provider. I was able to get her rate controlled, workup is otherwise reassuring with respect to ischemia and heart failure, I considered but do not suspect DVT or pulmonary embolism. Patient will be discharged home after adjustment in her medications with metoprolol being doubled restarting Eliquis discontinuation of Plavix and aspirin Discharge Plan Departure Patient Disposition: Home Clinical Impression: Atrial fibrillation with RVR Activity Restrictions/Additional Instructions: today, we treated you for atrial fibrillation with a fast heart rate. Your heart rate is still a little fast but it is definitely coming down and I think we can Send you home at this point. I see that you are taking Cardizem CD or diltiazem. Your medication list indicated that you are taking to 120 mg tablets daily, take a single 120 mg tablet when you get home today and then resume your previous dosing. Make sure you take this medication every day. Also see that you are taking the metoprolol. Take this medication every day also. I want to increase her metoprolol from 100 twice daily to 200 mg twice daily. On this new dose of metoprolol, watch out for lightheadedness. You may need to go back to your old dose of 100 mg metoprolol daily if this occurs. I want you to stop Plavix also known as clopidogrel. I also want you to stop aspirin. You need to restart Eliquis. As we discussed if you hit your head or have bleeding from her bowels or uncontrolled external bleeding you will need to be seen in the emergency department. Check your home heart rates periodically and record these for your pocket secretary assembler. Please call to make an appointment to see your pocket secretary assembler as soon as possible. Prescriptions: New Eliquis 5 mg tablet 5 mg PO BID Qty: 60 0RF No Action insulin glargine [Lantus U-100 Insulin] 100 UNIT/1 ML solution 80 unit SQ BID Qty: 0 aspirin 325 mg Tablet 325 mg PO PRN PRN (Reason: pain) Humalog KwikPen Insulin 200 unit/mL (3 mL) Insulin Pen 110 unit SUBCUT AC losartan 25 mg Tablet 25 mg PO BID Synthroid 25 mcg tablet 25 mcg PO 1XD rosuvastatin 40 mg tablet 40 mg PO 1XD furosemide 40 mg tablet 40 mg PO BID Stand Alone Forms: Patient Portal/API/Survey
[2025-02-15] MEDS: APIXABAN 5 MG TABLET PO (09:46)
[2025-02-15] MEDS: FUROSEMIDE 40 MG/4 ML VIAL IV (09:47)
[2025-02-15] MEDS: METOPROLOL TARTRATE 5 MG/5 ML INJ IV ×4 (09:47→13:35)
--- NOTE | 2025-02-15 11:23 | PC.NURSE ---
Patient requesting some benadryl because of itching to back, Dr. Crenshaw gave verbal order.
[2025-02-15] MEDS: diphenhydrAMINE 25 MG TABLET PO (11:39)
[2025-02-15] MEDS: METOPROLOL IR 25 MG TABLET 100 MG PO (11:39)
[2025-02-15] MEDS: dilTIAZem 30 MG TABLET 60 MG PO (12:55)
== END 2025-02-15 14:30 | disposition home or self-care (01) ==
PROVIDERS: Emergency Provider Emergency Medicine; Family Provider Internal Medicine
DX: I48.20 Chronic atrial fibrillation, unspecified (principal); I50.9 Heart failure, unspecified; R60.9 Edema, unspecified; I65.22 Occlusion and stenosis of left carotid artery; I50.32 Chronic diastolic (congestive) heart failure; J98.11 Atelectasis; I25.10 Atherosclerotic heart disease of native coronary artery without angina pectoris
CPT/HCPCS: 71045; 80053; 82550; 83605; 83690; 83735; 83880; 84484; 85025; 85610; 85730; 93005; 93880; 96374; 96375; 96376; 99285; C8929; J1938; Q9957